=== PATIENT | female | born 1930 | race Caucasian/White ===

== ENCOUNTER 2017-06-12 15:48 | Inpatient (IN) ==
--- OUTSIDE RECORDS SUMMARY | 2017-06-12 16:49 | External Medical Summary | Referral Summary ---
:1930 Author Organization [facility] Address [address] [address] Care Team Providers Name Role Phone Madalyn Soto Primary Care Physician Encounter VC Date(s): 04/15/15 - 04/15/15 [facility] [address] [address] [place] Discharge Diagnosis: Acute renal failure Discharge Disposition: 01-Home or Self Care Attending Physician: Madalyn Soto DO Admitting Physician: Madalyn Soto DO Vital Signs Most recent to oldest [Reference Range]: 1 Temperature Oral [35.8-37.3 degC] 36.5 degC (04/15/15 1:17 PM) Peripheral Pulse Rate [60-100 bpm] 76 bpm (04/15/15 1:17 PM) Respiratory Rate [14-20 br/min] 16 br/min (04/15/15 1:17 PM) Blood Pressure [90-140/60-90 mmHg] 138/64 mmHg (04/15/15 1:17 PM) Problem List Condition Effective Dates Status Health Status Informant Acute pain(Confirmed) Active Allergy(Confirmed) Active Allergic rhinitis Active (disorder)(Confirmed) Arthritis(Confirmed) Active At risk of pressure sore(Confirmed) Active Cataracts(Confirmed) Active Chicken pox(Confirmed) Active Chronic back pain(Confirmed) Active patient Chronic CHF(Confirmed) Active Chronic airway obstruction(Confirmed) Active Essential hypertension Active (disorder)(Confirmed) 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) High cholesterol(Confirmed) Active Hyperlipidemia(Confirmed) Active Hypertension(Confirmed) Active Idiopathic peripheral Active neuropathy(Confirmed) Impaired gas exchange(Confirmed)1 Active Ineffective airway Active clearance(Confirmed)2 Osteoporosis (disorder)(Confirmed) Active Tobacco user(Confirmed) Active patient 1Problem added automatically by system based on initiation of Impaired Gas Exchange Plan of [id number] added automatically by system based on initiation of Ineffective Airway Clearance Plan of Care Allergies, Adverse Reactions, Alerts Substance Reaction Severity Status erythromycin Active penicillin Active sulfanilamide topical Active Medications Advil mg, Oral, q6hr, 0 Refill(s) Start Date: 07/18/15 Status: Orderedcalcium-vitamin D 500 mg-200 intl units oral tablet 1 tabs, Oral, BID, 0 Refill(s) Start Date: 03/01/14 Status: Orderedfurosemide 20 mg oral tablet 2 tabs, Oral, Daily, # 30 tabs, 1 Refill(s), eRx: [facility] #[id number], TAKE ONE TABLET BY MOUTHDAILY Start Date: 12/03/14 Status: Orderedgabapentin 100 mg oral capsule 200 mg 2 caps, Oral, BID, # 120 caps, 0 Refill(s), Pharmacy: [facility] # [id number], 2 caps Oral BID Start Date: 10/13/15 Status: Orderedgabapentin 300 mg oral capsule 300 mg 1 caps, Oral, BID, # 60 caps, 6 Refill(s), Pharmacy: [facility] # [id number], 1 caps Oral BID Start Date: 10/11/15 Status: Orderedhydrochlorothiazide 25 mg oral tablet 25 mg 1 tabs, Oral, Daily, # 90 tabs, 3 Refill(s), Pharmacy: [facility] # [id number], 1 tabs Oral Daily Start Date: 03/29/15 Status: Orderedhydrochlorothiazide 25 mg oral tablet See Instructions, TAKE ONE TABLET BY MOUTH DAILY, # 90 tabs, eRx: [facility] #[id number], TAKE ONETABLET BY MOUTH DAILY Start Date: 08/04/15 Status: Orderedipratropium 500 mcg/2.5 mL inhalation solution 2.5 mL, NEB, q2hr, Other (See Comment), 0 Refill(s) Start Date: 08/31/14 Status: OrderedLamISIL AT 1% topical cream 1 stephanie, Topical, BID, # 30 g, 6 Refill(s), Pharmacy: [facility] #[id number] Start Date: 03/29/15 Status: Orderedlisinopril 20 mg oral tablet See Instructions, TAKE ONE TABLET BY MOUTH DAILY, # 30 tabs, eRx: [facility] #[id number], TAKE ONETABLET BY MOUTH DAILY Start Date: 10/21/15 Status: Orderedloratadine 10 mg oral tablet 1 tabs, Oral, Daily, 0 Refill(s) Start Date: 03/01/14 Status: Orderedmetoprolol tartrate 25 mg oral tablet 2 tabs, Oral, BID, # 360 tabs, 2 Refill(s), Pharmacy: [facility] #[id number] Start Date: 11/02/14 Status: OrderedMilk of Magnesia 2,400 mg, Oral, Daily, Constipation, 0 Refill(s) Start Date: 09/03/14 Status: OrderedMiraLax 17 g, Oral, Daily, 0 Refill(s) Start Date: 09/03/14 Status: OrderedMiscellaneous DME DME Item Toilet Riser with arm rest. DX unsteady gait To use daily as needed, See Instructions, # 1 Each, 1 Refill(s), Supply Start Date: 09/20/14 Status: OrderedOcuvite 1 tabs, Oral, BID, 0 Refill(s) Start Date: 03/01/14 Status: Orderedpotassium chloride 20 mEq oral tablet, extended release See Instructions, TAKE ONE TABLET BY MOUTH DAILY, # 90 tabs, eRx: [facility] #[id number], TAKE ONETABLET BY MOUTH DAILY Start Date: 09/23/15 Status: OrderedPriLOSEC 20 mg oral delayed release capsule 1 caps, Oral, Daily, 0 Refill(s) Start Date: 03/01/14 Status: OrderedSenokot S 50 mg-8.6 mg oral tablet 1 tabs, Oral, BID, 0 Refill(s) Start Date: 08/31/14 Status: Ordered Results No data available for this section Immunizations Vaccine Date Refusal Reason influenza virus vaccine, inactivated 06/08/15 influenza virus vaccine, live 05/11/09 influenza virus vaccine, live 06/16/08 influenza virus vaccine, live 06/24/07 pneumococcal 23-polyvalent vaccine 06/08/15 tetanus-diphth toxoids (Td) adult/adol 08/26/04 zoster vaccine live 09/02/12 Procedures Procedure Date Related Diagnosis Body Site Appendectomy Cataracts Excision of cyst RT Shoulder Social History Social History Type Response Smoking Status Former smoker; Type: Cigarettes Assessment and Plan Extracted from: Title: General Complaint * Author: Madalyn Soto DO Date: 04/15/15 Impression and Plan Diagnosis Acute renal failure (ICD9 584.9, Discharge, Medical). Plan: recommend to get urine sodium , urine creatining, urine osmolality. to get cbc, cmp and serum osmolality. to push more fluids as may be due to hypovolemia. recommend to get ua. to cut her lasix and hctz in half pending results. .
--- OUTSIDE RECORDS SUMMARY | 2017-06-12 16:49 | External Medical Summary | Referral Summary ---
:1930 Author Organization [facility] Address [address] [address] Care Team Providers Name Role Phone Madalyn Soto Primary Care Physician Encounter [facility] [id number] Date(s): 04/24/16 - 04/24/16 [facility] [address] [address] [place] Discharge Diagnosis: High cholesterol Discharge Diagnosis: Chronic airway obstruction Discharge Diagnosis: Chronic back pain Discharge Diagnosis: Hyperlipidemia Discharge Disposition: 01-Home or Self Care Attending Physician: Madalyn Soto DO Admitting Physician: Madalyn Soto DO Vital Signs Most recent to oldest [Reference Range]: 1 Peripheral Pulse Rate [60-100 bpm] 68 bpm (04/24/16 10:33 AM) Blood Pressure [90-140/60-90 mmHg] 106/70 mmHg (04/24/16 10:33 AM) SpO2 92 % (04/24/16 10:33 AM) Problem List Condition Effective Dates Status Health [...] initiation of Impaired Gas Exchange Plan of [id number] added automatically by system based on initiation of Ineffective Airway Clearance Plan of Care Allergies, Adverse Reactions, Alerts Substance Reaction Severity Status erythromycin Active penicillin Active sulfanilamide topical Active Medications Aleve mg, Oral, 0 Refill(s) Start Date: 04/04/16 Status: Orderedcalcium-vitamin D 500 mg-200 intl units oral tablet 1 tabs, Oral, BID, 0 Refill(s) Start Date: 03/01/14 Status: Orderedclobetasol 0.05% topical cream 1 stephanie, Topical, BID, # 60 g, 5 Refill(s), Pharmacy: [facility] #[id number] Start Date: 04/24/16 Status: Orderedfurosemide 20 mg oral tablet 40 mg 2 tabs, Oral, Daily, X 90 days, # 180 tabs, 3 Refill(s), Pharmacy: [facility] #[id number], 2tabs Oral Daily,x90 days Start Date: 01/17/16 Stop Date: 01/11/17 Status: Orderedhydrochlorothiazide 25 mg oral tablet 25 mg 1 tabs, Oral, Daily, # 90 tabs, 3 Refill(s), Pharmacy: [facility] # [id number], 1 tabs Oral Daily Start Date: 03/29/15 Status: Orderedipratropium 500 mcg/2.5 mL inhalation solution 2.5 mL, NEB, q2hr, Other (See Comment), 0 Refill(s) Start Date: 08/31/14 Status: OrderedKlor-Con M20 oral tablet, extended release See Instructions, TAKE ONE TABLET BY MOUTH DAILY, # 90 tabs, eRx: [facility] #[id number], TAKE ONETABLET BY MOUTH DAILY Start Date: 03/23/16 Status: OrderedLamISIL AT 1% topical cream 1 stephanie, Topical, BID, # 24 g, 3 Refill(s), Pharmacy: [facility] #[id number] Start Date: 01/17/16 Status: Orderedlisinopril 20 mg oral tablet See Instructions, TAKE ONE TABLET BY MOUTH DAILY, # 90 Each, 3 Refill(s), Pharmacy: [facility]#[id number] Start Date: 01/17/16 Status: Orderedloratadine 10 mg oral tablet 1 tabs, Oral, Daily, 0 Refill(s) Start Date: 03/01/14 Status: OrderedMetoprolol Tartrate 25 mg oral tablet See Instructions, TAKE TWO TABLETS BY MOUTH TWICE A DAY, # 360 tabs, 1 Refill(s) , eRx: [facility] #[id number], TAKE TWO TABLETS BY MOUTH TWICE A DAY Start Date: 01/27/16 Status: OrderedMilk of Magnesia 2,400 mg, Oral, [...] BID, 0 Refill(s) Start Date: 03/01/14 Status: OrderedPriLOSEC 20 mg oral delayed release capsule 1 caps, Oral, Daily, 0 Refill(s) Start Date: 03/01/14 Status: OrderedSenokot S 50 mg-8.6 mg oral tablet 1 tabs, Oral, BID, 0 Refill(s) Start Date: 08/31/14 Status: Orderedsimvastatin 40 mg oral tablet See Instructions, TAKE ONE TABLET BY MOUTH EVERY EVENING, # 90 tabs, 1 Refill(s) , eRx: [facility] #[id number], TAKE ONE TABLET BY MOUTH EVERY EVENING Start Date: 01/06/16 Status: Ordered Results No data available for this section Immunizations Vaccine Date Refusal Reason tetanus/diphth/pertuss (Tdap) adult/adol 01/17/16 influenza virus vaccine, inactivated 06/08/15 influenza virus vaccine, live 05/11/09 influenza virus vaccine, live 06/16/08 influenza virus vaccine, live 06/24/07 pneumococcal 23-polyvalent vaccine 06/08/15 tetanus-diphth toxoids (Td) adult/adol 08/26/04 zoster vaccine live 09/02/12 Procedures Procedure Date Related Diagnosis Body Site Colonoscopy 07/06/11 Appendectomy Cataracts Excision of cyst RT Shoulder Social History Social History Type Response Smoking Status Former smoker; Type: Cigarettes Assessment and Plan Extracted from: Title: General Complaint * Author: Madalyn Soto DO Date: 04/24/16 Impression and Plan Diagnosis Chronic airway obstruction ([id number]-WM J44.9, Discharge, Medical). Chronic back pain (XSY68-ZT M54.9, Discharge, Patient Stated). High cholesterol (FZV61-OH E78.0, Discharge, Medical). Hyperlipidemia (KGJ26-LR E78.5, Discharge, Medical). Plan: recommend to decrease fatty foods and carbs. discussed high triglycerides. meds refilled. doing well. discussed labs. to repat labs in 6 months. , discussed home safety. .
--- OUTSIDE RECORDS SUMMARY | 2017-06-12 16:49 | External Medical Summary | Referral Summary ---
:1930 Author Organization [facility] Address [address] [address] Care Team Providers Name Role Phone Madalyn Soto Primary Care Physician Encounter VC Date(s): 10/11/15 - 10/11/15 [facility] [address] [address] [place] Discharge Diagnosis: Hyperlipidemia Discharge Diagnosis: Nail fungus Discharge Diagnosis: Foot pain Discharge Diagnosis: Cerumen impaction Discharge Diagnosis: Hypertension Discharge Disposition: 01-Home or Self Care Attending Physician: Madalyn Soto DO Admitting Physician: Madalyn Soto DO Vital Signs Most recent to oldest [Reference Range]: 1 Temperature Oral [35.8-37.3 degC] 36.3 degC (10/11/15 9:44 AM) Peripheral Pulse Rate [60-100 bpm] 88 bpm (10/11/15 9:44 AM) Respiratory Rate [14-20 br/min] 20 br/min (10/11/15 9:44 AM) Blood Pressure [90-140/60-90 mmHg] 118/60 mmHg (10/11/15 9:44 AM) Problem List Condition Effective Dates Status [...] initiation of Impaired Gas Exchange Plan of [id number] added automatically by system based on initiation [...] Daily, # 30 tabs, 1 Refill(s), eRx: [facility] #[id number], TAKE ONE TABLET BY MOUTHDAILY Start Date: 12/03/14 Status: Orderedgabapentin 300 mg oral capsule 300 mg 1 caps, Oral, BID, # 60 caps, 6 Refill(s), Pharmacy: [facility] # [id number], 1 caps Oral BID Start Date: 10/11/15 Status: Orderedhydrochlorothiazide 25 mg oral tablet 25 mg 1 tabs, Oral, Daily, # 90 tabs, 3 Refill(s), Pharmacy: [facility] # [id number], 1 tabs Oral Daily Start Date: 03/29/15 Status: Orderedhydrochlorothiazide 25 mg oral tablet See Instructions, TAKE ONE TABLET BY MOUTH DAILY, # 90 tabs, eRx: [facility] #[id number], TAKE ONETABLET BY MOUTH DAILY Start Date: 08/04/15 Status: Orderedipratropium 500 mcg/2.5 mL inhalation solution 2.5 mL, NEB, q2hr, Other (See Comment), 0 Refill(s) Start Date: 08/31/14 Status: OrderedLamISIL AT 1% topical cream 1 stephanie, Topical, BID, # 30 g, 6 Refill(s), Pharmacy: [facility] #[id number] Start Date: 03/29/15 Status: Orderedlisinopril 20 mg oral tablet See Instructions, TAKE ONE TABLET BY MOUTH DAILY, # 30 tabs, eRx: [facility] #[id number], TAKE ONETABLET BY MOUTH DAILY Start Date: 09/23/15 Status: Orderedloratadine 10 mg oral tablet 1 tabs, Oral, Daily, 0 Refill(s) Start Date: 03/01/14 Status: Orderedmetoprolol tartrate 25 mg oral tablet 2 tabs, Oral, BID, # 360 tabs, 2 Refill(s), Pharmacy: [facility] #[id number] Start Date: 11/02/14 Status: OrderedMilk of Magnesia [...] BY MOUTH DAILY, # 90 tabs, eRx: [facility] #[id number], TAKE ONETABLET BY MOUTH DAILY Start Date: [...] Complaint * Author: Madalyn Soto DO Date: 10/11/15 Impression and Plan Diagnosis Cerumen impaction (ICY63-KC H61.20, Discharge, Medical). Foot pain (NHX13-UX M79.673, Discharge, Medical). Hyperlipidemia (CXY66-MM E78.5, Discharge, Medical). Hypertension (YIX21-ZF I10, Discharge, Medical). Nail fungus (XMA56-CZ B35.1, Discharge, Medical). Plan: recommend to increase neurontin to 300 mg po bid. for pain. recommend to send to podiatry for her foot exam and nail clipping. recommend to continue statin and blood pressure meds. recommend diet and exercise changes. recommend to follwo up in 3 months. , ears lavaged in office and wax removed. .
--- OUTSIDE RECORDS SUMMARY | 2017-06-12 16:49 | External Medical Summary | Referral Summary ---
:1930 Author Organization [facility] [address] [place] [address], Family Medicine Address [address] [address] Care Team Providers Name Role Phone Madalyn Soto Primary Care Physician Encounter [facility] Date(s): 04/04/16 - 04/04/16 [facility] [address] [address] [place] Discharge Disposition: 01-Home or Self Care Attending Physician: Elva Rose Admitting Physician: Elva Rose Vital Signs Most recent to oldest [Reference Range]: 1 Peripheral Pulse Rate [60-100 bpm] 60 bpm (04/04/16 2:36 PM) Respiratory Rate [14-20 br/min] 18 br/min (04/04/16 2:36 PM) Blood Pressure [90-140/60-90 mmHg] 108/74 mmHg (04/04/16 2:36 PM) Problem List Condition Effective Dates Status [...] initiation of Impaired Gas Exchange Plan of [id number] added automatically by system based on initiation of Ineffective Airway Clearance Plan of Care Allergies, Adverse Reactions, Alerts Substance Reaction Severity Status erythromycin Active penicillin Active sulfanilamide topical Active Medications Aleve mg, Oral, 0 Refill(s) Start Date: 04/04/16 Status: Orderedcalcium-vitamin D 500 mg-200 intl units oral tablet 1 tabs, Oral, BID, 0 Refill(s) Start Date: 03/01/14 Status: Orderedfurosemide 20 mg oral tablet 40 mg 2 tabs, Oral, Daily, X 90 days, # 180 tabs, 3 Refill(s), Pharmacy: [facility] #[id number], 2tabs Oral Daily,x90 days Start Date: 01/17/16 Stop Date: 01/11/17 Status: Orderedhydrochlorothiazide 25 mg oral tablet 25 mg 1 tabs, Oral, Daily, # 90 tabs, 3 Refill(s), Pharmacy: [facility] # [id number], 1 tabs Oral Daily Start Date: 03/29/15 Status: Orderedipratropium 500 mcg/2.5 mL inhalation solution 2.5 mL, NEB, q2hr, Other (See Comment), 0 Refill(s) Start Date: 08/31/14 Status: OrderedKlor-Con M20 oral tablet, extended release See Instructions, TAKE ONE TABLET BY MOUTH DAILY, # 90 tabs, eRx: [facility] #[id number], TAKE ONETABLET BY MOUTH DAILY Start Date: 03/23/16 Status: OrderedLamISIL AT 1% topical cream 1 stephanie, Topical, BID, # 24 g, 3 Refill(s), Pharmacy: [facility] #[id number] Start Date: 01/17/16 Status: Orderedlisinopril 20 mg oral tablet See Instructions, TAKE ONE TABLET BY MOUTH DAILY, # 90 Each, 3 Refill(s), Pharmacy: [facility]#[id number] Start Date: 01/17/16 Status: Orderedloratadine 10 mg oral tablet 1 tabs, Oral, Daily, 0 Refill(s) Start Date: 03/01/14 Status: OrderedMetoprolol Tartrate 25 mg oral tablet See Instructions, TAKE TWO TABLETS BY MOUTH TWICE A DAY, # 360 tabs, 1 Refill(s) , eRx: [facility] #[id number], TAKE TWO TABLETS BY MOUTH TWICE A [...] # 90 tabs, 1 Refill(s) , eRx: [facility] #[id number], TAKE ONE TABLET BY MOUTH EVERY EVENING Start Date: 01/06/16 Status: OrderedtraMADol 50 mg oral tablet 50 mg 1 tabs, Oral, q6hr, as needed for pain, X 10 days, # 40 tabs, 0 Refill(s) Start Date: 04/04/16 Stop Date: 04/14/16 Status: Ordered Results No data available for [...] Cigarettes Assessment and Plan Extracted from: Title: Back Pain * Author: Elva Rose Date: 04/04/16 Impression and Plan Diagnosis Acute low back pain (RHF09-PS M54.5, Working, Medical). 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 Tramadol for pain, pt declines any other meds including muscle relaxer. Limit Aleve to 2 pills BID. Discussed ice/heat. Careful monitoring of Sx and avoidance of painful motions. RTC if Sx worsen or change.
--- OUTSIDE RECORDS SUMMARY | 2017-06-12 16:49 | External Medical Summary | Referral Summary ---
:1930 Author Organization [facility] [address] [place] [address], Family Medicine Address [address] [address] Care Team Providers Name Role Phone Madalyn Soto Primary Care Physician Encounter VC Date(s): 07/18/15 - 07/18/15 [facility] [address] [place] [address], Family Medicine [address] [address] [place] Discharge Diagnosis: Cough Discharge Diagnosis: Burning sensation of feet Discharge Disposition: 01-Home or Self Care Attending Physician: Kalie Brice Admitting Physician: Kalie Brice Vital Signs Most recent to oldest [Reference Range]: 1 Temperature Oral [35.8-37.3 degC] 36.5 degC (07/18/15 1:14 PM) Peripheral Pulse Rate [60-100 bpm] 64 bpm (07/18/15 1:14 PM) Respiratory Rate [14-20 br/min] 16 br/min (07/18/15 1:14 PM) Blood Pressure [90-140/60-90 mmHg] 110/52 mmHg (07/18/15 1:14 PM) Problem List Condition Effective Dates Status Health Status Informant Acute pain(Confirmed) Active Allergy(Confirmed) Active Allergic rhinitis Active (disorder)(Confirmed) At risk of pressure sore(Confirmed) Active Chronic back pain(Confirmed) Active patient Chronic CHF(Confirmed) Active Chronic airway obstruction(Confirmed) Active Essential hypertension Active (disorder)(Confirmed) 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) Hyperlipidemia(Confirmed) Active Idiopathic peripheral Active neuropathy(Confirmed) Impaired gas exchange(Confirmed)1 Active Ineffective airway Active clearance(Confirmed)2 Osteoporosis (disorder)(Confirmed) Active Tobacco user(Confirmed) Active patient 1Problem added automatically by system based on initiation of Impaired Gas Exchange Plan of [id number] added automatically by system based on initiation of Ineffective Airway Clearance Plan of Care Allergies, Adverse Reactions, Alerts Substance Reaction Severity Status erythromycin Active penicillin Active sulfanilamide topical Active Medications Advil mg, Oral, q6hr, 0 Refill(s) Start Date: 07/18/15 Status: Orderedalendronate 70 mg oral tablet 1 tabs, Oral, qWeek, # 4 tabs, 11 Refill(s), Pharmacy: [facility] #[id number] , 1 tabs Oral qWeek Start Date: 12/14/14 Status: Orderedcalcium-vitamin D 500 mg-200 intl units oral tablet 1 tabs, Oral, BID, 0 Refill(s) Start Date: 03/01/14 Status: Orderedfurosemide 20 mg oral tablet 2 tabs, Oral, Daily, # 30 tabs, 1 Refill(s), eRx: [facility] #[id number], TAKE ONE TABLET BY MOUTHDAILY Start Date: 12/03/14 Status: Orderedgabapentin 100 mg oral capsule 100 mg 1 caps, Oral, Bedtime (once a day), take 1 at HS for foot pain, # 30 caps , 1 Refill(s), Pharmacy: [facility] #[id number], 1 caps Oral Bedtime (once a day),Instr:take 1 at HS for foot pain Start Date: 07/18/15 Status: Orderedhydrochlorothiazide 25 mg oral tablet 25 mg 1 tabs, Oral, Daily, # 90 tabs, 3 Refill(s), Pharmacy: [facility] # [id number], 1 tabs Oral Daily Start Date: 03/29/15 Status: Orderedipratropium 500 mcg/2.5 mL inhalation solution 2.5 mL, NEB, q2hr, Other (See Comment), 0 Refill(s) Start Date: 08/31/14 Status: OrderedLamISIL AT 1% topical cream 1 stephanie, Topical, BID, # 30 g, 6 Refill(s), Pharmacy: [facility] #[id number] Start Date: 03/29/15 Status: Orderedlisinopril 20 mg oral tablet See Instructions, TAKE ONE TABLET BY MOUTH DAILY, # 30 tabs, 2 Refill(s), eRx: [facility] #[id number], TAKE ONE TABLET BY MOUTH DAILY Start Date: 04/29/15 Status: Orderedloratadine 10 mg oral tablet 1 tabs, Oral, Daily, 0 Refill(s) Start Date: 03/01/14 Status: Orderedmetoprolol tartrate 25 mg oral tablet 2 tabs, Oral, BID, # 360 tabs, 2 Refill(s), Pharmacy: [facility] #[id number] Start Date: 11/02/14 Status: OrderedMilk of Magnesia 2,400 mg, Oral, Daily, Constipation, 0 Refill(s) Start Date: 09/03/14 Status: OrderedMiraLax 17 g, Oral, Daily, 0 Refill(s) Start Date: 09/03/14 Status: OrderedMiscellaneous DME DME Item Toilet Riser with arm rest. DX unsteady gait To use daily as needed, See Instructions, # 1 Each, 1 Refill(s), Supply Start Date: 09/20/14 Status: OrderedMucinex 600 mg oral tablet, extended release 1 tabs, Oral, BID, 0 Refill(s) Start Date: 09/03/14 Status: OrderedOcuvite 1 tabs, Oral, BID, 0 Refill(s) Start Date: 03/01/14 Status: Orderedpotassium chloride 20 mEq oral tablet, extended release See Instructions, TAKE ONE TABLET BY MOUTH DAILY, # 90 tabs, eRx: [facility] #[id number], TAKE ONETABLET BY MOUTH DAILY Start Date: 06/24/15 Status: OrderedPriLOSEC 20 mg oral delayed release capsule 1 caps, Oral, Daily, 0 Refill(s) Start Date: 03/01/14 Status: OrderedPromethazine DM 6.25 mg-15 mg/5 mL oral syrup 5 mL, Oral, q6hr, as needed for cough, # 240 mL, 0 Refill(s), Pharmacy: [facility] #[id number] Start Date: 07/18/15 Status: OrderedSenokot S 50 mg-8.6 mg oral tablet 1 tabs, Oral, BID, 0 Refill(s) Start Date: 08/31/14 Status: Orderedsimvastatin 40 mg oral tablet See Instructions, TAKE ONE TABLET BY MOUTH EVERY EVENING, # 90 tabs, 2 Refill(s) , eRx: [facility] #[id number], TAKE ONE TABLET BY MOUTH EVERY EVENING Start Date: 04/08/15 Status: Ordered Results Chemistry Most recent to oldest [Reference Range]: 1 Glucose Lvl [70-99 mg/dL] 100 mg/dL *HI* (07/18/15 1:48 PM) Hgb A1c [4.1-5.6 %] 5.7 % *HI* (07/18/15 1:48 PM) eAvg Glucose 116.9 mg/dL (07/18/15 1:48 PM) Immunizations Vaccine Date Refusal Reason influenza virus vaccine, inactivated 06/08/15 influenza virus vaccine, live 05/11/09 influenza virus vaccine, live 06/16/08 influenza virus vaccine, live 06/24/07 pneumococcal 23-polyvalent vaccine 06/08/15 tetanus-diphth toxoids (Td) adult/adol 08/26/04 zoster vaccine live 09/02/12 Procedures Procedure Date Related Diagnosis Body Site Appendectomy Excision of cyst RT Shoulder Social History Social History Type Response Smoking Status Former smoker; Type: Cigarettes Assessment and Plan Extracted from: Title: Ambulatory Patient Education Author: Kalie Brice Date: Allergy Cough, Adult A cough is a reflex that helps clear your throat and airways. It can help heal the body or may be a reaction to an irritated airway. A cough may only last 2 or 3 weeks (acute) or may last more than 8 weeks (chronic). CAUSES Acute cough: Viral or bacterial infections. Chronic cough: Infections. Allergies. Asthma. Post-nasal drip. Smoking. Heartburn or acid reflux. Some medicines. Chronic lung problems (COPD). Cancer. SYMPTOMS Cough. Fever. Chest pain. Increased breathing rate. High-pitched whistling sound when breathing (wheezing). Colored mucus that you cough up (sputum). TREATMENT A bacterial cough may be treated with antibiotic medicine. A viral cough must run its course and will not respond to antibiotics. Your caregiver may recommend other treatments if you have a chronic cough. HOME CARE INSTRUCTIONS Only take smkb-rej-uvireka or prescription medicines for pain, discomfort , or fever as directed by your caregiver. Use cough suppressants only as directed by your caregiver. Use a cold steam vaporizer or humidifier in your bedroom or home to help loosen secretions. Sleep in a semi-upright position if your cough is worse at night. Rest as needed. Stop smoking if you smoke. SEEK IMMEDIATE MEDICAL CARE IF: You have pus in your sputum. Your cough starts to worsen. You cannot control your cough with suppressants and are losing sleep. You begin coughing up blood. You have difficulty breathing. You develop pain which is getting worse or is uncontrolled with medicine. You have a fever. MAKE SURE YOU: Understand these instructions. Will watch your condition. Will get help right away if you are not doing well or get worse. Document Released: 02/08/2012 Document Revised: 11/03/2012 Document Reviewed: 02/08/2012 ExitCare Patient Information 2015 [employer]. This information is not intended to replace advice given to you by your health care provider. Make sure you discuss any questions you have with your health care provider. No follow up information was provided. Extracted from: Title: General Complaint * Author: Kalie Brice Date: 07/18/15 Impression and Plan Diagnosis Burning sensation of feet (FHF71-LW R20.8, Working, Medical). Cough ([id number] R05, Discharge, Medical). Plan: cough is likely due to post nasal drainage Promethazine DM as needed for cough and drainage Gabapentin 100mg at HS for burning in feet labs pending if labs are normal and pain persists, will get lower ext venous ultrasound .
--- OUTSIDE RECORDS SUMMARY | 2017-06-12 16:49 | External Medical Summary | Referral Summary ---
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 Discharge Disposition: 01-Home or Self Care Attending Physician: Mariella Kennedy MD Admitting Physician: Mariella Kennedy MD Referring Physician: Madalyn Soto DO Vital Signs Most recent to oldest [Reference Range]: 1 Peripheral Pulse Rate [60-100 bpm] 68 bpm (09/28/15 9:27 AM) Blood Pressure [90-140/60-90 mmHg] 130/70 mmHg (09/28/15 9:27 AM) Problem List Condition Effective Dates Status [...] initiation of Impaired Gas Exchange Plan of [id number] added automatically by system based on initiation [...] Daily, # 30 tabs, 1 Refill(s), eRx: [facility] #[id number], TAKE ONE TABLET BY MOUTHDAILY Start Date: 12/03/14 Status: Orderedhydrochlorothiazide 25 mg oral tablet 25 mg 1 tabs, Oral, Daily, # 90 tabs, 3 Refill(s), Pharmacy: [facility] # [id number], 1 tabs Oral Daily Start Date: 03/29/15 Status: Orderedhydrochlorothiazide 25 mg oral tablet See Instructions, TAKE ONE TABLET BY MOUTH DAILY, # 90 tabs, eRx: [facility] #[id number], TAKE ONETABLET BY MOUTH DAILY Start Date: 08/04/15 Status: Orderedipratropium 500 mcg/2.5 mL inhalation solution 2.5 mL, NEB, q2hr, Other (See Comment), 0 Refill(s) Start Date: 08/31/14 Status: OrderedLamISIL AT 1% topical cream 1 stephanie, Topical, BID, # 30 g, 6 Refill(s), Pharmacy: [facility] #[id number] Start Date: 03/29/15 Status: Orderedlisinopril 20 mg oral tablet See Instructions, TAKE ONE TABLET BY MOUTH DAILY, # 30 tabs, eRx: [facility] #[id number], TAKE ONETABLET BY MOUTH DAILY Start Date: 09/23/15 Status: Orderedloratadine 10 mg oral tablet 1 tabs, Oral, Daily, 0 Refill(s) Start Date: 03/01/14 Status: Orderedmetoprolol tartrate 25 mg oral tablet 2 tabs, Oral, BID, # 360 tabs, 2 Refill(s), Pharmacy: [facility] #[id number] Start Date: 11/02/14 Status: OrderedMilk of Magnesia [...] BY MOUTH DAILY, # 90 tabs, eRx: [facility] #[id number], TAKE ONETABLET BY MOUTH DAILY Start Date: 09/23/15 Status: OrderedPriLOSEC 20 mg oral delayed release capsule 1 caps, Oral, Daily, 0 Refill(s) Start Date: 03/01/14 Status: OrderedPromethazine DM 6.25 mg-15 mg/5 mL oral syrup 5 mL, Oral, q6hr, as needed for cough, # 240 mL, 0 Refill(s), Pharmacy: [facility] #[id number] Start Date: 07/18/15 Status: OrderedSenokot S 50 mg-8.6 mg oral tablet 1 tabs, Oral, BID, 0 Refill(s) Start Date: 08/31/14 Status: Orderedsimvastatin 40 mg oral tablet See Instructions, TAKE ONE TABLET BY MOUTH EVERY EVENING, # 90 tabs, 2 Refill(s) , eRx: [facility] #[id number], TAKE ONE TABLET BY MOUTH EVERY EVENING Start Date: 04/08/15 Status: Ordered Results No data available for [...] Cigarettes Assessment and Plan Extracted from: Title: Consult Note Author: Mariella Kennedy MD Date: 09/28/15 Assessment/Plan Adult idiopathic generalized osteoporosis discussed dexa results with patient has been on fosamax for 6 years it is time to stop it she also has a gfr of 30, so alendronate is contra-indicated repeat dexa scan in 1 year if worsening of bmd, will start prolia 2-low vit.d: check levels replace accordingly 3-GFR of 30: suggest nephrology referral Addendum by Mariella Kennedy MD on September [facility] in 1 year with dexa scan prior 2015 09:53:13 [employer]
--- OUTSIDE RECORDS SUMMARY | 2017-06-12 16:49 | External Medical Summary | Referral Summary ---
:1930 Author Organization [facility] [address] [place] [address], Family Medicine Address [address] [address] Care Team Providers Name Role Phone Madalyn Soto Primary Care Physician Encounter VC Date(s): 12/27/14 - 12/27/14 [facility] , Family Medicine [address] [address] - [place] Discharge Diagnosis: COPD (chronic obstructive pulmonary disease) Discharge Disposition: 01-Home or Self Care Attending Physician: Kalie Brice Admitting Physician: Kalie Brice Vital Signs Most recent to oldest [Reference Range]: 1 Temperature Oral [35.8-37.3 degC] 36.4 degC (12/27/14 10:58 AM) Apical Heart Rate [60-100 bpm] 56 bpm *LOW* (12/27/14 10:58 AM) Respiratory Rate [14-20 br/min] 12 br/min *LOW* (12/27/14 10:58 AM) Blood Pressure [90-140/60-90 mmHg] 128/78 mmHg (12/27/14 10:58 AM) SpO2 86 % (12/27/14 10:58 AM) Problem List Condition Effective Dates Status [...] initiation of Impaired Gas Exchange Plan of [id number] added automatically by system based on initiation of Ineffective Airway Clearance Plan of Care Allergies, Adverse Reactions, Alerts Substance Reaction Severity Status erythromycin Active penicillin Active sulfanilamide topical Active Medications alendronate 70 mg oral tablet 1 tabs, Oral, qWeek, # 4 tabs, 11 Refill(s), Pharmacy: [facility] #[id number] , 1 tabs Oral qWeek Start Date: 12/14/14 Status: Orderedcalcium-vitamin D 500 mg-200 intl units oral tablet 1 tabs, Oral, BID, 0 Refill(s) Start Date: 03/01/14 Status: Orderedfurosemide 20 mg oral tablet 2 tabs, Oral, Daily, # 30 tabs, 1 Refill(s), eRx: [facility] #[id number], TAKE ONE TABLET BY MOUTHDAILY Start Date: 12/03/14 Status: Orderedhydrochlorothiazide 25 mg oral tablet 25 mg 1 tabs, Oral, Daily, # 90 tabs, 3 Refill(s), Pharmacy: [facility] # [id number], 1 tabs Oral Daily Start Date: 03/29/15 Status: Orderedipratropium 500 mcg/2.5 mL inhalation solution 2.5 mL, NEB, q2hr, Other (See Comment), 0 Refill(s) Start Date: 08/31/14 Status: OrderedLamISIL AT 1% topical cream 1 stephanie, Topical, BID, # 30 g, 6 Refill(s), Pharmacy: [facility] #[id number] Start Date: 03/29/15 Status: Orderedlisinopril 20 mg oral tablet See Instructions, TAKE ONE TABLET BY MOUTH DAILY, # 30 tabs, 2 Refill(s), eRx: [facility] #[id number], TAKE ONE TABLET BY MOUTH DAILY Start Date: 04/29/15 Status: Orderedloratadine 10 mg oral tablet 1 tabs, Oral, Daily, 0 Refill(s) Start Date: 03/01/14 Status: Orderedmetoprolol tartrate 25 mg oral tablet 2 tabs, Oral, BID, # 360 tabs, 2 Refill(s), Pharmacy: [facility] #[id number] Start Date: 11/02/14 Status: OrderedMilk of Magnesia [...] BY MOUTH DAILY, # 90 tabs, eRx: [facility] #[id number], TAKE ONETABLET BY MOUTH DAILY Start Date: [...] # 90 tabs, 2 Refill(s) , eRx: [facility] #[id number], TAKE ONE TABLET BY MOUTH EVERY EVENING [...] Ambulatory Patient Education Author: Kalie Brice Date: 12/27/14 Family Medicine Chronic Obstructive Pulmonary Disease Chronic obstructive pulmonary disease (COPD) is a common lung condition in which airflow from the lungs is limited. COPD is a general term that can be used to describe many different lung problems that limit airflow, including both chronic bronchitis and emphysema. If you have COPD, your lung function will probably never return to normal, but there are measures you can take to improve lung function and make yourself feel better. CAUSES Smoking (common). Exposure to secondhand smoke. Genetic problems. Chronic inflammatory lung diseases or recurrent infections. SYMPTOMS Shortness of breath, especially with physical activity. Deep, persistent (chronic ) cough with a large amount of thick mucus. Wheezing. Rapid breaths (tachypnea ). Meeks or bluish discoloration (cyanosis ) of the skin, especially in fingers, toes, or lips. Fatigue. Weight loss. Frequent infections or episodes when breathing symptoms become much worse (exacerbations ). Chest tightness. DIAGNOSIS Your healthcare provider will take a medical history and perform a physical examination to make the initial diagnosis. Additional tests for COPD may include: Lung (pulmonary ) function tests. Chest X-ray. CT scan. Blood tests. TREATMENT Treatment available to help you feel better when you have COPD include: Inhaler and nebulizer medicines. These help manage the symptoms of COPD and make your breathing more comfortable Supplemental oxygen. Supplemental oxygen is only helpful if you have a low oxygen level in your blood. Exercise and physical activity. These are beneficial for nearly all people with COPD. Some people may also benefit from a pulmonary rehabilitation program. HOME CARE INSTRUCTIONS Take all medicines (inhaled or pills) as directed by your health care provider. Only take fhbl-kaf-yqushpy or prescription medicines for pain, fever, or discomfort as directed by your health care provider. Avoid vtln-ovr-khjdqum medicines or cough syrups that dry up your airway ( such as antihistamines) and slow down the elimination of secretions unless instructed otherwise by your healthcare provider. If you are a smoker, the most important thing that you can do is stop smoking. Continuing to smoke will cause further lung damage and breathing trouble. Ask your health care provider for help with quitting smoking. He or she can direct you to community resources or hospitals that provide support. Avoid exposure to irritants such as smoke, chemicals, and fumes that aggravate your breathing. Use oxygen therapy and pulmonary rehabilitation if directed by your health care provider. If you require home oxygen therapy, ask your healthcare provider whether you should purchase a pulse oximeter to measure your oxygen level at home. Avoid contact with individuals who have a contagious illness. Avoid extreme temperature and humidity changes. Eat healthy foods. Eating smaller, more frequent meals and resting before meals may help you maintain your strength. Stay active, but balance activity with periods of rest. Exercise and physical activity will help you maintain your ability to do things you want to do. Preventing infection and hospitalization is very important when you have COPD. Make sure to receive all the vaccines your health care provider recommends , especially the pneumococcal and influenza vaccines. Ask your healthcare provider whether you need a pneumonia vaccine. Learn and use relaxation techniques to manage stress. Learn and use controlled breathing techniques as directed by your health care provider. Controlled breathing techniques include: Pursed lip breathing. Start by breathing in (inhaling ) through your nose for 1 second. Then, purse your lips as if you were going to whistle and breathe out (exhale ) through the pursed lips for 2 seconds. Diaphragmatic breathing. Start by putting one hand on your abdomen just above your waist. Inhale slowly through your nose. The hand on your abdomen should move out. Then purse your lips and exhale slowly. You should be able to feel the hand on your abdomen moving in as you exhale. Learn and use controlled coughing to clear mucus from your lungs. Controlled coughing is a series of short, progressive coughs. The steps of controlled coughing are: 1. Lean your head slightly forward. 2. Breathe in deeply using diaphragmatic breathing. 3. Try to hold your breath for 3 seconds. 4. Keep your mouth slightly open while coughing twice. 5. Spit any mucus out into a tissue. 6. Rest and repeat the steps once or twice as needed. SEEK MEDICAL CARE IF: You are coughing up more mucus than usual. There is a change in the color or thickness of your mucus. Your breathing is more labored than usual. Your breathing is faster than usual. SEEK IMMEDIATE MEDICAL CARE IF: You have shortness of breath while you are resting. You have shortness of breath that prevents you from: Being able to talk. Performing your usual physical activities. You have chest pain lasting longer than 5 minutes. Your skin color is more cyanotic than usual. You measure low oxygen saturations for longer than 5 minutes with a pulse oximeter. MAKE SURE YOU: Understand these instructions. Will watch your condition. Will get help right away if you are not doing well or get worse. Document Released: 05/22/2006 Document Revised: 06/02/2014 Document Reviewed: 04/08/2014 ExitCare Patient Information 2014 [employer] [facility]. No follow up information was provided. Extracted from: Title: General Complaint * Author: Kalie Brice Date: 12/27/14 Impression and Plan Diagnosis COPD (chronic obstructive pulmonary disease) (ICD9 496, Discharge, Medical). Plan: pts O2 sat in office was 92% on room air, resting dropped to 86% exercising but then rebounded to 92% after exercise pt insists on discontinuing her O2 - she hasn't used it in the last 6 weeks advise given continue breathing treatments and Mucinex follow up in 3 months - sooner if needed.
--- OUTSIDE RECORDS SUMMARY | 2017-06-12 16:49 | External Medical Summary | Referral Summary ---
:1930 Author Organization [facility] [address] [place] [address], Family Medicine Address [address] [address] Care Team Providers Name Role Phone Madalyn Soto Primary Care Physician Encounter VC Date(s): 06/20/16 - 06/20/16 [facility] [address] [place] [address], Family Medicine [address] [address] [place] Discharge Disposition: 01-Home or Self Care Attending Physician: Madalyn Soto DO Admitting Physician: Madalyn Soto DO Vital Signs No data available for this section Problem List Condition Effective Dates Status Health [...] initiation of Impaired Gas Exchange Plan of [id number] added automatically by system based on initiation of Ineffective Airway Clearance Plan of Care Allergies, Adverse Reactions, Alerts Substance Reaction Severity Status erythromycin Active penicillin Active sulfanilamide topical Active Medications Aleve mg, Oral, 0 Refill(s) Start Date: 04/04/16 Status: Orderedcalcium-vitamin D 500 mg-200 intl units oral tablet 1 tabs, Oral, BID, 0 Refill(s) Start Date: 03/01/14 Status: Orderedclobetasol 0.05% topical cream 1 stephnaie, Topical, BID, # 60 g, 5 Refill(s), Pharmacy: [facility] #[id number] Start Date: 04/24/16 Status: Orderedfurosemide 20 mg oral tablet 40 mg 2 tabs, Oral, Daily, X 90 days, # 180 tabs, 3 Refill(s), Pharmacy: [facility] #[id number], 2tabs Oral Daily,x90 days Start Date: 01/17/16 Stop Date: 01/11/17 Status: Orderedhydrochlorothiazide 25 mg oral tablet 25 mg 1 tabs, Oral, Daily, # 90 tabs, 3 Refill(s), Pharmacy: [facility] # [id number], 1 tabs Oral Daily Start Date: 03/29/15 Status: Orderedipratropium 500 mcg/2.5 mL inhalation solution 2.5 mL, NEB, q2hr, Other (See Comment), 0 Refill(s) Start Date: 08/31/14 Status: OrderedKlor-Con M20 oral tablet, extended release See Instructions, TAKE ONE TABLET BY MOUTH DAILY, # 90 tabs, eRx: [facility] #[id number], TAKE ONETABLET BY MOUTH DAILY Start Date: 03/23/16 Status: OrderedLamISIL AT 1% topical cream 1 stephanie, Topical, BID, # 24 g, 3 Refill(s), Pharmacy: [facility] #[id number] Start Date: 01/17/16 Status: Orderedlisinopril 20 mg oral tablet See Instructions, TAKE ONE TABLET BY MOUTH DAILY, # 90 Each, 3 Refill(s), Pharmacy: [facility]#[id number] Start Date: 01/17/16 Status: Orderedloratadine 10 mg oral tablet 1 tabs, Oral, Daily, 0 Refill(s) Start Date: 03/01/14 Status: OrderedMetoprolol Tartrate 25 mg oral tablet See Instructions, TAKE TWO TABLETS BY MOUTH TWICE A DAY, # 360 tabs, 1 Refill(s) , eRx: [facility] #[id number], TAKE TWO TABLETS BY MOUTH TWICE A [...] # 90 tabs, 1 Refill(s) , eRx: [facility] #[id number], TAKE ONE TABLET BY MOUTH EVERY EVENING Start Date: 01/06/16 Status: Ordered Results No data available for this section Immunizations Vaccine Date Refusal Reason tetanus/diphth/pertuss (Tdap) adult/adol 01/17/16 influenza virus vaccine, inactivated 06/20/16 influenza virus vaccine, inactivated 06/08/15 influenza virus vaccine, live 05/11/09 influenza virus vaccine, live 06/16/08 influenza virus vaccine, live 06/24/07 pneumococcal 23-polyvalent vaccine 06/08/15 tetanus-diphth toxoids (Td) adult/adol 08/26/04 zoster vaccine live 09/02/12 Procedures Procedure Date Related Diagnosis Body Site Colonoscopy1 07/06/11 Appendectomy Cataracts Excision of cyst RT Shoulder 1Normal - no followup recommended unless symptomatic Social History Social History Type Response Smoking Status Former smoker; Type: Cigarettes Assessment and Plan No data available for this section
--- OUTSIDE RECORDS SUMMARY | 2017-06-12 16:49 | External Medical Summary | Referral Summary ---
:1930 Author Organization [facility] [address] [place] [address], Family Medicine Address [address] [address] Care Team Providers Name Role Phone Madalyn Soto Primary Care Physician Encounter VC Date(s): 06/08/15 - 06/08/15 [facility] [address] [place] [address], Family Medicine [address] [address] [place] Discharge Disposition: 01-Home [...] initiation of Impaired Gas Exchange Plan of [id number] added automatically by system based on initiation [...] Daily, # 30 tabs, 1 Refill(s), eRx: [facility] #[id number], TAKE ONE TABLET BY MOUTHDAILY Start Date: 12/03/14 Status: Orderedgabapentin 100 mg oral capsule 200 mg 2 caps, Oral, BID, # 120 caps, 0 Refill(s), Pharmacy: [facility] # [id number], 2 caps Oral BID Start Date: 10/13/15 Status: Orderedgabapentin 300 mg oral capsule 300 mg 1 caps, Oral, BID, # 60 caps, 6 Refill(s), Pharmacy: [facility] # [id number], 1 caps Oral BID Start Date: 10/11/15 Status: Orderedhydrochlorothiazide 25 mg oral tablet 25 mg 1 tabs, Oral, Daily, # 90 tabs, 3 Refill(s), Pharmacy: [facility] # [id number], 1 tabs Oral Daily Start Date: 03/29/15 Status: Orderedhydrochlorothiazide 25 mg oral tablet See Instructions, TAKE ONE TABLET BY MOUTH DAILY, # 90 tabs, eRx: [facility] #[id number], TAKE ONETABLET BY MOUTH DAILY Start Date: 08/04/15 Status: Orderedipratropium 500 mcg/2.5 mL inhalation solution 2.5 mL, NEB, q2hr, Other (See Comment), 0 Refill(s) Start Date: 08/31/14 Status: OrderedLamISIL AT 1% topical cream 1 stephanie, Topical, BID, # 30 g, 6 Refill(s), Pharmacy: [facility] #[id number] Start Date: 03/29/15 Status: Orderedlisinopril 20 mg oral tablet See Instructions, TAKE ONE TABLET BY MOUTH DAILY, # 30 tabs, eRx: [facility] #[id number], TAKE ONETABLET BY MOUTH DAILY Start Date: 11/25/15 Status: Orderedloratadine 10 mg oral tablet 1 tabs, Oral, Daily, 0 Refill(s) Start Date: 03/01/14 Status: Orderedmetoprolol tartrate 25 mg oral tablet 2 tabs, Oral, BID, # 360 tabs, 2 Refill(s), Pharmacy: [facility] #[id number] Start Date: 11/02/14 Status: OrderedMilk of Magnesia [...] BY MOUTH DAILY, # 90 tabs, eRx: [facility] #[id number], TAKE ONETABLET BY MOUTH DAILY Start Date: [...]
--- OUTSIDE RECORDS SUMMARY | 2017-06-12 16:50 | External Medical Summary | Continuity of Care Document ---
:1930 Author Organization [facility] Allergies Medications Problems Procedures Results Encounters ACCT No. Visit Discharge Status Pt. Type Provider Facility Loc./Unit Complaint Date/Time [id number] 11/10/2013 11/10/2013 CLS Outpatient 08:50:00 23:59:59 [id number] 08/11/2013 08/11/2013 CLS Outpatient 08:09:00 23:59:59
--- OUTSIDE RECORDS SUMMARY | 2017-06-12 16:50 | External Medical Summary | Referral Summary ---
:1930 Author Organization [facility] [address] [place] [address], Family Medicine Address [address] [address] Care Team Providers Name Role Phone Madalyn Soto Primary Care Physician Encounter VC Date(s): 01/17/16 - 01/17/16 [facility] [address] , Family Medicine [address] [address] [place] Discharge Diagnosis: Essential hypertension (disorder) Discharge Diagnosis: Hyperlipidemia Discharge Diagnosis: High cholesterol Discharge Diagnosis: Encounter for immunization Discharge Disposition: 01-Home or Self Care Attending Physician: Madalyn Soto DO Admitting Physician: Madalyn Soto DO Vital Signs Most recent to oldest [Reference Range]: 1 Temperature Oral [35.8-37.3 degC] 36.5 degC (01/17/16 10:13 AM) Peripheral Pulse Rate [60-100 bpm] 68 bpm (01/17/16 10:13 AM) Respiratory Rate [14-20 br/min] 18 br/min (01/17/16 10:13 AM) Blood Pressure [90-140/60-90 mmHg] 130/72 mmHg (01/17/16 10:13 AM) Mean Arterial Pressure, Cuff 91 mmHg (01/17/16 10:13 AM) Problem List Condition Effective Dates Status [...] initiation of Impaired Gas Exchange Plan of [id number] added automatically by system based on initiation [...] days, # 180 tabs, 3 Refill(s), Pharmacy: [facility] #[id number], 2tabs Oral Daily,x90 days Start Date: 01/17/16 Stop Date: 01/11/17 Status: Orderedhydrochlorothiazide 25 mg oral tablet 25 mg 1 tabs, Oral, Daily, # 90 tabs, 3 Refill(s), Pharmacy: [facility] # [id number], 1 tabs Oral Daily Start Date: 03/29/15 Status: Orderedipratropium 500 mcg/2.5 mL inhalation solution 2.5 mL, NEB, q2hr, Other (See Comment), 0 Refill(s) Start Date: 08/31/14 Status: OrderedLamISIL AT 1% topical cream 1 stephanie, Topical, BID, # 24 g, 3 Refill(s), Pharmacy: [facility] #[id number] Start Date: 01/17/16 Status: Orderedlisinopril 20 mg oral tablet See Instructions, TAKE ONE TABLET BY MOUTH DAILY, # 90 Each, 3 Refill(s), Pharmacy: [facility]#[id number] Start Date: 01/17/16 Status: Orderedloratadine 10 mg oral tablet 1 tabs, Oral, Daily, 0 Refill(s) Start Date: 03/01/14 Status: Orderedmetoprolol tartrate 25 mg oral tablet 2 tabs, Oral, BID, # 360 tabs, 2 Refill(s), Pharmacy: [facility] #[id number] Start Date: 11/02/14 Status: OrderedMilk of Magnesia [...] BY MOUTH DAILY, # 90 tabs, eRx: [facility] #[id number], TAKE ONETABLET BY MOUTH DAILY Start Date: 12/23/15 Status: OrderedPriLOSEC 20 mg oral delayed release capsule 1 caps, Oral, Daily, 0 Refill(s) Start Date: 03/01/14 Status: OrderedSenokot S 50 mg-8.6 mg oral tablet 1 tabs, Oral, BID, 0 Refill(s) Start Date: 08/31/14 Status: Orderedsimvastatin 40 mg oral tablet See Instructions, TAKE ONE TABLET BY MOUTH EVERY EVENING, # 90 tabs, 1 Refill(s) , eRx: [facility] #[id number], TAKE ONE TABLET BY MOUTH EVERY EVENING Start Date: 01/06/16 Status: Ordered Results Urinalysis Most recent to oldest [Reference Range]: 1 Type Clean Catch (01/17/16 11:25 AM) Immunizations Vaccine Date Refusal Reason tetanus/diphth/pertuss (Tdap) [...] Complaint * Author: Madalyn Soto DO Date: 01/17/16 Impression and Plan Diagnosis Essential hypertension (disorder) (ECD93-[id number] I10, Discharge, Medical). High cholesterol (YCG79-CS E78.0, Discharge, Medical). Hyperlipidemia (MBG38-CJ E78.5, Discharge, Medical). Plan: she is doing well. refilled blood pressure meds. recommend diet and exericse recommend to follow up to recheck renal function in 3 months. to increase iron in diet. .
--- OUTSIDE RECORDS SUMMARY | 2017-06-12 16:50 | External Medical Summary | Referral Summary ---
:1930 Author Organization [facility] [address] [place] [address], Family Medicine Address [address] [address] Care Team Providers Name Role Phone Madalyn Soto Primary Care Physician Encounter VC Date(s): 12/27/14 - 12/27/14 [facility] [address] , Family Medicine [address] [address] [place] Discharge Diagnosis: COPD [...] initiation of Impaired Gas Exchange Plan of [id number] added automatically by system based on initiation of Ineffective Airway Clearance Plan of Care Allergies, Adverse Reactions, Alerts Substance Reaction Severity Status erythromycin Active penicillin Active sulfanilamide topical Active Medications alendronate 70 mg oral tablet 1 tabs, Oral, qWeek, # 4 tabs, 11 Refill(s), Pharmacy: [facility] #[id number] , 1 tabs Oral qWeek Start Date: 12/14/14 Status: Orderedcalcium-vitamin D 500 mg-200 intl units oral tablet 1 tabs, Oral, BID, 0 Refill(s) Start Date: 03/01/14 Status: Orderedfurosemide 20 mg oral tablet 2 tabs, Oral, Daily, # 30 tabs, 1 Refill(s), eRx: [facility] #[id number], TAKE ONE TABLET BY MOUTHDAILY Start Date: 12/03/14 Status: Orderedhydrochlorothiazide 25 mg oral tablet 25 mg 1 tabs, Oral, Daily, # 90 tabs, 3 Refill(s), Pharmacy: [facility] # [id number], 1 tabs Oral Daily Start Date: 03/29/15 Status: Orderedipratropium 500 mcg/2.5 mL inhalation solution 2.5 mL, NEB, q2hr, Other (See Comment), 0 Refill(s) Start Date: 08/31/14 Status: OrderedLamISIL AT 1% topical cream 1 stephanie, Topical, BID, # 30 g, 6 Refill(s), Pharmacy: [facility] #[id number] Start Date: 03/29/15 Status: Orderedlisinopril 20 mg oral tablet See Instructions, TAKE ONE TABLET BY MOUTH DAILY, # 30 tabs, 2 Refill(s), eRx: [facility] #[id number], TAKE ONE TABLET BY MOUTH DAILY Start Date: 04/29/15 Status: Orderedloratadine 10 mg oral tablet 1 tabs, Oral, Daily, 0 Refill(s) Start Date: 03/01/14 Status: Orderedmetoprolol tartrate 25 mg oral tablet 2 tabs, Oral, BID, # 360 tabs, 2 Refill(s), Pharmacy: [facility] #[id number] Start Date: 11/02/14 Status: OrderedMilk of Magnesia [...] BY MOUTH DAILY, # 90 tabs, eRx: [facility] #[id number], TAKE ONETABLET BY MOUTH DAILY Start Date: [...] # 90 tabs, 2 Refill(s) , eRx: [facility] #[id number], TAKE ONE TABLET BY MOUTH EVERY EVENING [...] by your health care provider. Only take [id number] or prescription medicines for pain, fever, or discomfort as directed by your health care provider. Avoid neyx-[id number]-xdhpodr medicines or cough syrups that dry up [...] Document Reviewed: 04/08/2014 Exit[employer] Patient Information 2014 [employer] [facility]. No follow up information was [...]
--- OUTSIDE RECORDS SUMMARY | 2017-06-12 16:50 | External Medical Summary | Referral Summary ---
:1930 Author Organization [facility] [address] [place] [address], Family Medicine Address [address] [address] Care Team Providers Name Role Phone Madalyn Soto Primary Care Physician Encounter VC Date(s): 06/08/15 - 06/08/15 [facility] [address] [place] [address], Family Medicine [address] [address] [place] Discharge Disposition: 01-Home [...] initiation of Impaired Gas Exchange Plan of [id number] added automatically by system based on initiation of Ineffective Airway Clearance Plan of Care Allergies, Adverse Reactions, Alerts Substance Reaction Severity Status erythromycin Active penicillin Active sulfanilamide topical Active Medications alendronate 70 mg oral tablet 1 tabs, Oral, qWeek, # 4 tabs, 11 Refill(s), Pharmacy: [facility] #[id number] , 1 tabs Oral qWeek Start Date: 12/14/14 Status: Orderedcalcium-vitamin D 500 mg-200 intl units oral tablet 1 tabs, Oral, BID, 0 Refill(s) Start Date: 03/01/14 Status: Orderedfurosemide 20 mg oral tablet 2 tabs, Oral, Daily, # 30 tabs, 1 Refill(s), eRx: [facility] #[id number], TAKE ONE TABLET BY MOUTHDAILY Start Date: 12/03/14 Status: Orderedhydrochlorothiazide 25 mg oral tablet 25 mg 1 tabs, Oral, Daily, # 90 tabs, 3 Refill(s), Pharmacy: [facility] # [id number], 1 tabs Oral Daily Start Date: 03/29/15 Status: Orderedipratropium 500 mcg/2.5 mL inhalation solution 2.5 mL, NEB, q2hr, Other (See Comment), 0 Refill(s) Start Date: 08/31/14 Status: OrderedLamISIL AT 1% topical cream 1 stephanie, Topical, BID, # 30 g, 6 Refill(s), Pharmacy: [facility] #[id number] Start Date: 03/29/15 Status: Orderedlisinopril 20 mg oral tablet See Instructions, TAKE ONE TABLET BY MOUTH DAILY, # 30 tabs, 2 Refill(s), eRx: [facility] #[id number], TAKE ONE TABLET BY MOUTH DAILY Start Date: 04/29/15 Status: Orderedloratadine 10 mg oral tablet 1 tabs, Oral, Daily, 0 Refill(s) Start Date: 03/01/14 Status: Orderedmetoprolol tartrate 25 mg oral tablet 2 tabs, Oral, BID, # 360 tabs, 2 Refill(s), Pharmacy: [facility] #[id number] Start Date: 11/02/14 Status: OrderedMilk of Magnesia [...] chloride 20 mEq oral tablet, extended release 1 tabs, Oral, Daily, # 90 tabs, 1 Refill(s), Pharmacy: [facility] #[id number] , 1 tabs Oral Daily,x90 days Start Date: 12/28/14 Stop Date: 06/26/15 Status: OrderedPriLOSEC 20 mg oral delayed release capsule 1 caps, Oral, Daily, 0 Refill(s) Start Date: 03/01/14 Status: OrderedSenokot S 50 mg-8.6 mg oral tablet 1 tabs, Oral, BID, 0 Refill(s) Start Date: 08/31/14 Status: Orderedsimvastatin 40 mg oral tablet See Instructions, TAKE ONE TABLET BY MOUTH EVERY EVENING, # 90 tabs, 2 Refill(s) , eRx: [facility] #[id number], TAKE ONE TABLET BY MOUTH EVERY EVENING Start Date: 04/08/15 Status: Ordered Results No data available for this section Immunizations Vaccine Date Refusal Reason influenza virus vaccine, live 05/11/09 influenza virus vaccine, live 06/16/08 influenza virus vaccine, live 06/24/07 tetanus-diphth toxoids (Td) adult/adol 08/26/04 zoster vaccine live 09/02/12 Procedures Procedure Date Related Diagnosis Body Site Appendectomy Excision of cyst RT Shoulder Social History Social History Type Response Smoking Status Former smoker; Type: Cigarettes Assessment and Plan No data available for this section
--- OUTSIDE RECORDS SUMMARY | 2017-06-12 16:50 | External Medical Summary | Referral Summary ---
:1930 Author Organization [facility] [address] [place] [address], Family Medicine Address [address] [address] Care Team Providers Name Role Phone Madalyn Soto Primary Care Physician Encounter VC Date(s): 03/29/15 - 03/29/15 [facility] [address] , Family Medicine [address] [address] [place] Discharge Diagnosis: Hyperlipidemia Discharge Diagnosis: Foot pain Discharge Diagnosis: Tinea Discharge Diagnosis: Hypertension Discharge Diagnosis: Heart failure Discharge Disposition: 01-Home or Self Care Attending Physician: Madalyn Loya DO Admitting Physician: Madalyn Loya DO Vital Signs Most recent to oldest [Reference Range]: 1 Temperature Oral [35.8-37.3 degC] 36.5 degC (03/29/15 10:15 AM) Blood Pressure [90-140/60-90 mmHg] 122/66 mmHg (03/29/15 10:15 AM) Problem List Condition Effective Dates Status [...] initiation of Impaired Gas Exchange Plan of [id number] added automatically by system based on initiation [...] # 30 tabs, 1 Refill(s), eRx: [facility] #[id number], TAKE ONE TABLET BY MOUTHDAILY Start Date: 12/03/14 Status: Orderedhydrochlorothiazide 25 mg oral tablet 25 mg 1 tabs, Oral, Daily, # 90 tabs, 3 Refill(s), Pharmacy: [facility] # [id number], 1 tabs Oral Daily Start Date: 03/29/15 Status: Orderedhydrochlorothiazide 25 mg oral tablet See Instructions, TAKE ONE TABLET BY MOUTH DAILY, # 90 tabs, eRx: [facility] #[id number], TAKE ONETABLET BY MOUTH DAILY Start Date: 08/04/15 Status: Orderedipratropium 500 mcg/2.5 mL inhalation solution 2.5 mL, NEB, q2hr, Other (See Comment), 0 Refill(s) Start Date: 08/31/14 Status: OrderedLamISIL AT 1% topical cream 1 stephanie, Topical, BID, # 30 g, 6 Refill(s), Pharmacy: [facility] #[id number] Start Date: 03/29/15 Status: Orderedlisinopril 20 mg oral tablet See Instructions, TAKE ONE TABLET BY MOUTH DAILY, # 30 tabs, eRx: [facility] #[id number], TAKE ONETABLET BY MOUTH DAILY Start Date: 09/23/15 Status: Orderedloratadine 10 mg oral tablet 1 tabs, Oral, Daily, 0 Refill(s) Start Date: 03/01/14 Status: Orderedmetoprolol tartrate 25 mg oral tablet 2 tabs, Oral, BID, # 360 tabs, 2 Refill(s), Pharmacy: [facility] #[id number] Start Date: 11/02/14 Status: OrderedMilk of Magnesia [...] MOUTH DAILY, # 90 tabs, eRx: [facility] #[id number], TAKE ONETABLET BY MOUTH DAILY Start Date: 09/23/15 Status: OrderedPriLOSEC 20 mg oral delayed release capsule 1 caps, Oral, Daily, 0 Refill(s) Start Date: 03/01/14 Status: OrderedPromethazine DM 6.25 mg-15 mg/5 mL oral syrup 5 mL, Oral, q6hr, as needed for cough, # 240 mL, 0 Refill(s), Pharmacy: [facility] #[id number] Start Date: 07/18/15 Status: OrderedSenokot S 50 mg-8.6 mg oral tablet 1 tabs, Oral, BID, 0 Refill(s) Start Date: 08/31/14 Status: Orderedsimvastatin 40 mg oral tablet See Instructions, TAKE ONE TABLET BY MOUTH EVERY EVENING, # 90 tabs, 2 Refill(s) , eRx: [facility] #[id number], TAKE ONE TABLET BY MOUTH EVERY EVENING Start Date: 04/08/15 Status: Ordered Results Hematology Most recent to oldest [Reference Range]: 1 WBC [4.8-10.8 10*3/uL] 6.1 10*3/uL (03/29/15 11:18 AM) RBC [4.00-5.20 10*6/uL] 3.93 10*6/uL *LOW* (03/29/15 11:18 AM) Hgb [12.0-16.0 gm/dL] 12.2 gm/dL (8/4/15 11:18 AM) Hct [37.0-47.0 %] 36.9 % *LOW* (03/29/1518 ) MCV [82.0-99.0 fL] 93.9 fL (03/29/1518 AM) MCH [27.0-32.0 pg] 31.0 pg (03/29/15:18 AM) MCHC [32.0-36.0 gm/dL] 33.1 gm/dL (03/29/15:18 AM) RDW [11.5-14.5 %] 13.2 % (03/29/15:18 AM) Platelet [150-400 10*3/uL] 321 10*3/uL (03/29/15:18 AM) MPV [8.8-14.8 fL] 10.4 fL (03/29/15:18 AM) Immature Granulocytes [0.0-1.0 %] 0.2 % (03/29/1518 AM) Neutrophils [51-75 %] 59 % (03/29/15:18 AM) Lymphocytes [20-46 %] 26 % (03/29/15 11:18 AM) Monocytes [4-11 %] 10 % (03/29/15 11:18 AM) Eosinophils [0-4 %] 4 % (03/29/15:18 AM) Basophils [0-2 %] 1 % (03/29/15 11:18 AM) Neutro Absolute [1.90-7.00 10*3] 3.62 10*3 (03/29/15 11:18 AM) Lymph Absolute [0.80-3.30 10*3] 1.59 10*3 (03/29/15 11:18 AM) Thomas Absolute [0.30-1.00 10*3] 0.64 10*3 (03/29/15 11:18 AM) Eos Absolute [0.00-0.50 10*3] 0.24 10*3 (03/29/15 11:18 AM) Baso Absolute [0.00-0.20 10*3] 0.04 10*3 (03/29/15 11:18 AM) Chemistry Most recent to oldest [Reference Range]: 1 Sodium Lvl [135-144 mEq/L] 137 mEq/L (03/29/1518 AM) Potassium Lvl [3.5-5.2 mEq/L] 5.0 mEq/L (03/29/1518 AM) Chloride [99-111 mEq/L] 98 mEq/L *LOW* (03/29/15 AM) CO2 [22-31 mEq/L] 30 mEq/L (03/29/1518 AM) AGAP [3-20] 9 (03/29/15:18 AM) BUN [10-20 mg/dL] 45 mg/dL *HI* (03/29/1518 AM) Glucose Lvl [70-99 mg/dL] 90 mg/dL (03/29/15 AM) Creatinine Lvl [0.57-1.11 mg/dL] 1.55 mg/dL *HI* (03/29/1518 AM) eGFR [>60 mL/min] 32 mL/min 1 *ABN* (03/29/15 AM) Calcium Lvl [8.9-10.5 mg/dL] 9.9 mg/dL (03/29/15:18 AM) Albumin Lvl [3.4-4.8 gm/dL] 4.0 gm/dL (03/29/1518 AM) Total Protein [6.2-8.1 gm/dL] 6.7 gm/dL (03/29/1518 AM) Globulin [1.8-4.0 gm/dL] 2.7 gm/dL (03/29/1518 AM) ALT [0-55 U/L] 10 U/L (03/29/1518 AM) AST [5-34 U/L] 19 U/L (03/29/15 1118 AM) Alk Phos [40-150 U/L] 67 U/L (03/29/1518 AM) Bili Total [0.2-1.2 mg/dL] 0.5 mg/dL (03/29/15:18 AM) BNP [0-99 pg/mL] 286 pg/mL *HI* (03/29/15:18 AM) Chol [0-199 mg/dL] 189 mg/dL (03/29/15 11:18 AM) Trig [0-149 mg/dL] 147 mg/dL (03/29/15 11:18 AM) HDL [40-84 mg/dL] 40 mg/dL (03/29/15 11:18 AM) LDL [0-130 mg/dL] 120 mg/dL (03/29/15 11:18 AM) VLDL Cholesterol [0-28 mg/dL] 29 mg/dL *HI* (03/29/15 11:18 AM) Cardiac Risk [0.0-5.0] 4.7 (03/29/15 11:18 AM) TSH with Reflex Free T4 [0.35-4.94] 2.56 (03/29/15 11:18 AM) 1Result Comment: Multiply eGFR results by 1.21 for race. Immunizations Vaccine Date Refusal Reason influenza virus [...] from: Title: General Complaint * Author: Madalyn Loya DO Date: 03/29/15 Impression and Plan Diagnosis Foot pain (ICD9 729.5, Discharge, Medical). Heart failure (ICD9 428.9, Discharge, Medical). Hyperlipidemia (ICD9 272.4, Discharge, Medical). Hypertension (ICD9 401.9, Discharge, Medical). Tinea (ICD9 110.9, Discharge, Medical). Plan: recommend to add gel insoles to shoes as arches are fallen and mild pain to bottom of feet. recommend to use antifungal cream to toes bid. recommend to get bnp, cbc, cmp in office. meds refilled. doing well. .
[2017-06-12] MEDS: NS 1,000 ML IV SCH ×2 (17:34→20:53)
--- NOTE | 2017-06-12 18:27 | Emergency Department Report ---
Nausea/Vomiting/Diarrhea HPI - General Chief complaint: Abdominal Pain Stated complaint: Abd Pain Time Seen by Provider: 06/12/17 16:40 Source: patient, family Mode of arrival: wheelchair - History of Present Illness HPI Narrative: Pt presents with her and daughter who report pt has had diarrhea for the last 3 days with increasing weakness. Daughter gave pt Imodium yesterday and pt has not had any more loose stools since that time. Pt normally ambulates with walker but it has become increasingly difficult with pt's increasing weakness MD complaint: diarrhea Onset (ago): day(s) Description of Vomiting: watery Description of Diarrhea: water Associated Abdominal Pain: Yes Location of pain: diffuse, periumbilical Severity: mild Quality: cramping Relieving factors: none Exacerbating factors: none - Related Data Home Medications Medication Instructions Recorded Confirmed Furosemide [Lasix] 40 mg PO DAILY 06/12/17 06/12/17 Lisinopril [Prinivil] 20 mg PO DAILY 06/12/17 06/12/17 Metoprolol Succinate 50 mg PO BID 06/12/17 06/12/17 Multi-Vitamin Plain [Theragran] 1 tab PO DAILY 06/12/17 06/12/17 Potassium Chloride [K-Dur] 20 meq PO DAILY 06/12/17 06/12/17 Simvastatin [Zocor] 40 mg PO HS 06/12/17 06/12/17 Tramadol [Ultram] 50 mg PO BID 06/12/17 06/12/17 Vits A,C,E/Lutein/Minerals 1 tab PO DAILY 06/12/17 06/12/17 [Ocuvite with Lutein Tablet] Allergies Allergy/AdvReac Type Severity Reaction Status Date / Time Penicillins Allergy Unknown Verified 06/12/17 17:49 Review of Systems All systems: reviewed and negative except as stated Constitutional: Reports: weakness. Denies: fever, chills Cardiovascular: Denies: chest pain Respiratory: Denies: cough Gastrointestinal: Reports: abdominal pain, nausea, diarrhea Neurological: Reports: weakness. Denies: headache Psychiatric: Denies: anxiety PFSH Patient Stated Medical History Hypertension Yes Hypotension Yes Gastroesophageal Reflux Yes Disease - Social History Smoking status: Never smoker Physical Exam - Limitations Limitations: no limitations - General General appearance: alert, in no apparent distress - Normal Exams: Neck:: Full range of motion, without adenopathy Chest/Respirations:: Clear all kang, with good airflow, and symmetry bilaterally Cardiovascular:: Regular rate and rhythm, without murmur or gallop Abdomen:: Bowel sounds positive, soft, non-tender, non-distended Musculoskeletal:: No tenderness, or deformity noted, good range of motion, all extremities Integumentary:: No rashes Neurological:: Patient is alert, and oriented Psychiatric:: Patient exhibits, appropriate attention, emotion and affect Course Vital Signs Temperature 97.2 F 06/12/17 15:49 Pulse Rate 51 L 06/12/17 15:49 Respiratory Rate 16 06/12/17 15:49 Blood Pressure 125/60 06/12/17 15:49 Pulse Oximetry 93 06/12/17 15:49 Temperature 97.2 F 06/12/17 15:49 Pulse Rate 52 L 06/12/17 18:00 Respiratory Rate 16 06/12/17 15:49 Blood Pressure 110/56 06/12/17 17:45 Pulse Oximetry 93 06/12/17 18:00 Nausea/Vomiting/Diarrhea - [facility] Narrative Medical decision making narrative: Labs reviewed, vital signs monitored. BP noted to be trending downward. Pt given a 500 cc bolus of NS. Pt to be admitted to Dr Virgen 2/ weakness. - Differential Diagnosis Likely: traveler's diarrhea, food poisoning, gastroenteritis, dehydration - Lab Data Attestation: I reviewed the patient's lab results. Result diagrams: 06/12/17 16:57 06/12/17 16:57 Lab Results 06/12/17 06/12/17 06/12/17 Range/Units 16:57 16:57 17:20 WBC 8.0 (4.5-11.0) T/MM3 RBC 4.36 (4.00-5.20) M/MM3 Hgb 13.2 (12-16) GM/DL Hct 42.0 (36-46) % MCV 96.3 (80-100) UM3 MCH 30.3 (26-34) UUG MCHC 31.4 (31-37) GM/DL RDW Std Deviation 47.8 (36.9-50.2) FL Plt Count 233 (130-400) T/MM3 MPV 9.9 (9.4-12.4) UM3 Immature Gran % (Auto) 0.3 (0.0-0.5) % Neut % (Auto) 74.2 H (33-66) % Lymph % (Auto) 15.1 L (23-45) % Moore % (Auto) 8.8 (0-9.0) % Eos % (Auto) 1.3 (0-4) % Baso % (Auto) 0.3 (0-2) % Neut # (Auto) 6.0 (1.8-7.7) T/MM3 Lymph # (Auto) 1.2 (1-4.8) T/MM3 Moore # (Auto) 0.7 (0-0.8) T/MM3 Eos # (Auto) 0.1 (0-0.5) T/MM3 Baso # (Auto) 0.0 (0-0.2) T/MM3 Abs Immat Gran (auto) 0.02 (0.00-0.03) T/MM3 Turbidity < 20 (0-20) Sodium 140 (134-144) MEQ/L Potassium 5.9 H (3.6-5) MEQ/L Chloride 103 (98-107) MEQ/L Carbon Dioxide 24 (22-30) MEQ/L Anion Gap 13 (5-15) MEQ/L BUN 50.0 H (7-17) MG/DL Creatinine 1.9 H (0.7-1.2) MG/DL GFR Calculation 25 BUN/Creatinine Ratio 26 (6-26) RATIO Glucose 87 (65-110) MG/DL Calculated Osmolality 281 H (261-280) MOSM/KG Calcium 9.1 (8.4-10.2) MG/DL Total Bilirubin 0.40 (0.20-1.30) MG/DL Icterus Index < 2 (0-7) AST 36 (14-36) U/L ALT 41 (9-52) U/L Alkaline Phosphatase 60 (38-126) U/L Total Protein 6.5 (6.3-8.2) G/DL Albumin 3.7 (3.5-5.0) G/DL Globulin 2.8 (2.4-3.6) G/DL Albumin/Globulin Ratio 1.3 (1.1-2.2) RATIO Specimen Hemolysis 47 H (0-25) Ur Collection Type Urine, catheter Urine Color Yellow (YELLOW) Urine Clarity Sl cloudy Urine pH 5.0 (5.0-8.0) Ur Specific [place] 1.015 (1.015-1.025) Urine Protein Negative (NEGATIVE) Urine Glucose (UA) Negative (NEGATIVE) Urine Ketones Negative (NEGATIVE) Urine Occult Blood Negative (NEGATIVE) Urine Nitrate Negative (NEGATIVE) Urine Bilirubin Negative (NEGATIVE) Urine Urobilinogen 0.2 (NORMAL) EU/DL Ur Leukocyte Esterase Negative (NEGATIVE) Urinalysis Comment Microscopic not ind. - EKG Data EKG #1 EKG shows normal: sinus rhythm Rate: bradycardia Disposition Clinical Impression: Weakness, Bradycardia Diarrhea Qualifiers: Diarrhea type: unspecified type Qualified Code(s): R19.7 - Diarrhea, unspecified Acute renal failure Qualifiers: Acute renal failure type: unspecified Qualified Code(s): N17.9 - Acute kidney failure, unspecified Hypotension Qualifiers: Hypotension type: other hypotension type Qualified Code(s): I95.89 - Other hypotension Disposition: 02 To [facility] Acute Care Condition: Improved Prescriptions: No Action Multi-Vitamin Plain [Theragran] 1 tab PO DAILY Metoprolol Succinate 50 mg PO BID Potassium Chloride [K-Dur] 20 meq PO DAILY Lisinopril [Prinivil] 20 mg PO DAILY Furosemide [Lasix] 40 mg PO DAILY Vits A,C,E/Lutein/Minerals [Ocuvite with Lutein Tablet] 1 tab PO DAILY Tramadol [Ultram] 50 mg PO BID Simvastatin [Zocor] 40 mg PO HS Time of Disposition: 18:36 - Seen By: midlevel
--- NOTE | 2017-06-12 19:28 | History & Physical Report ---
<Gini Foster V - Last Filed: 06/12/17 19:23> History of Present Illness Date: 06/12/17 Chief complaint: Weakness, Recent Diarrhea HPI: Magnolia is a 87 yr old female who was brought to ER for acute evaluation of weakness and recent diarrhea. Patient reports she started having loose stools approximately 3 days ago. She was given Imodium yesterday which have slowed her stools, however, she did have 1 more today. Since that time she has had progressive general weakness, feels that she is unable to stand and ambulate with a walker in which she does at her baseline. She resides independently at home with her of 70 years. In the emergency room today laboratory studies are obtained. CBC is normal, Hgb 13.2. Potassium was found to be slightly elevated. However specimen is hemolyzed. BUN is 50, creatinine 1.9. Baseline creatinine 1.1. UA obtained in the emergency room was negative. She was bradycardic her entire time in the emergency room 51-54. Blood pressure stable 111/56 Patient was given IV fluids for gentle hydration, however, continue to be significantly weak. Ulcers were contacted and accepted patient for outpatient observation admission for further evaluation and treatment. Review of Systems All systems PM: 10-point ROS was reviewed, no additional remarkable complaints except - Constitutional Constitutional: Present: anorexia, fatigue, lethargy, malaise, weakness - Gastrointestinal Gastrointestinal: Present: as per HPI, diarrhea, nausea PFSH Hypertension GERD Hypercholesterolemia Surgical History: Appendectomy Family History: Father-heart disease, alcoholism. Mother-hypertension, diabetes - Social History Smoking status: Former smoker Substance use type: does not use Alcohol intake frequency: does not drink Household members: spouse Current residence: Apartment/Private Home Social history: Resides at home independently with has been of 70 years BRENNON Cespedes Medications Home Medications Medication Instructions Recorded Confirmed Type Furosemide [Lasix] 40 mg PO DAILY 06/12/17 06/12/17 History Lisinopril [Prinivil] 20 mg PO DAILY 06/12/17 06/12/17 History Metoprolol Succinate 50 mg PO BID 06/12/17 06/12/17 History Multi-Vitamin Plain [Theragran] 1 tab PO DAILY 06/12/17 06/12/17 History Potassium Chloride [K-Dur] 20 meq PO DAILY 06/12/17 06/12/17 History Simvastatin [Zocor] 40 mg PO HS 06/12/17 06/12/17 History Tramadol [Ultram] 50 mg PO BID 06/12/17 06/12/17 History Vits A,C,E/Lutein/Minerals 1 tab PO DAILY 06/12/17 06/12/17 History [Ocuvite with Lutein Tablet] Allergies Allergy/AdvReac Type Severity Reaction Status Date / Time Penicillins Allergy Unknown Verified 06/12/17 17:49 Exam Vital Signs: Temperature 97.2 F 06/12/17 15:49 Pulse Rate 54 L 06/12/17 19:05 Respiratory Rate 20 06/12/17 19:05 Blood Pressure 135/53 06/12/17 19:05 Pulse Oximetry 94 06/12/17 18:41 Height/Weight/BMI: Height 1.7 m Weight 62 kg Body Mass Index 21.4 - Constitutional Present: no acute distress, well nourished, well developed - Routine HEENT Exam Eye: Present: EOMI ENT: Present: mucous membranes moist, dentition normal - Routine Respiratory Exam Present: CTA bilaterally. Absent: wheezes - Routine Cardiovascular Exam Present: RRR, S1, S2. Absent: murmur - Routine Abdominal Exam Present: soft, tenderness (epigastric tenderness), non distended. Absent: normoactive bowel sounds (hypo-active) - Routine Extremities Exam Present: normal capillary refill - Routine Skin Exam Present: dry, warm - Routine Neurological Exam Present: alert, oriented X3, CN II-XII intact, moving all extremities - Routine Psychiatric Exam Present: normal affect, cooperative Results - Labs CBC & Chem 7: 06/12/17 16:57 06/12/17 16:57 Assessment and Plan (1) Diarrhea Current visit: Yes Status: Acute (2) Weakness Current visit: Yes Status: Acute DVT Prophylaxis: SCD's GI Prophylaxis: Protonix Resuscitation Status: Full Code Assessment and Plan: Impression Generalized weakness Recent diarrhea Dehydration (elevated creatinine at 1.9, baseline 1.1.) (Baseline hemoglobin 11 , On admission Hgb 13) Bradycardia Hypertension-chronically GERD Plan Admit patient outpatient observation under the care of Dr. Virgen for weakness , dehydration Patient does have some mild epigastric tenderness on exam, which is not uncommon with her significant GERD symptoms. Will give Protonix IV daily starting now. She generally takes Prilosec over-the- counter. Continue with IV normal saline, current liter at 200 ML per hour. Will then decrease to 100 ML per hour Zofran as needed for nausea and vomiting. Start with clear liquid diet as patient does feel her stomach is "queasy". A be able to advance as tolerated. Monitor patient. Cardiac telemetry given bradycardia. At this point will hold home medications due to nausea Consultation placed to PT and OT for tomorrow morning to evaluate patients gait and stability and strength. She is hopeful to be discharged home and apparently with her . Will recheck BMP tomorrow morning to follow electrolytes and renal function Discuss advanced directives and patient does wish to be a full code, this orders written Did order and plan of care discussed with attending, Dr. Virgen Hospital Course Summary Disclaimer: The visit summary below is not to be considered part of the above Progress Note. Hospital Course: 06/12/17 - admission Impression Generalized weakness Recent diarrhea Dehydration (elevated creatinine at 1.9, baseline 1.1.) (Baseline hemoglobin 11 , On admission Hgb 13) Hypertension-chronically GERD Plan Admit patient outpatient observation under the care of Dr. Virgen for weakness , dehydration Patient does have some mild epigastric tenderness on exam, which is not uncommon with her significant GERD symptoms. Will give Protonix IV daily starting now. She generally takes Prilosec over-the- counter. Continue with IV normal saline, current liter at 200 ML per hour. Will then decrease to 100 ML per hour Zofran as needed for nausea and vomiting. Start with clear liquid diet as patient does feel her stomach is "queasy". A be able to advance as tolerated. Monitor patient. Cardiac telemetry given bradycardia. At this point will hold home medications due to nausea Consultation placed to PT and OT for tomorrow morning to evaluate patients gait and stability and strength. She is hopeful to be discharged home and apparently with her . Will recheck BMP tomorrow morning to follow electrolytes and renal function Discuss advanced directives and patient does wish to be a full code, this orders written Did order and plan of care discussed with attending, Dr. Virgen <Maryam Virgen - Last Filed: 06/12/17 21:28> History of Present Illness Date: 06/12/17 Exam Vital Signs: Temperature 96.3 F L 06/12/17 19:05 Pulse Rate 70 06/12/17 21:09 Respiratory Rate 20 06/12/17 19:05 Blood Pressure 135/53 06/12/17 19:05 Pulse Oximetry 93 06/12/17 19:05 Height/Weight/BMI: Height 1.7 m Weight 62 kg Body Mass Index 21.4 Results - Labs CBC & Chem 7: 06/12/17 16:57 06/12/17 16:57 Assessment and Plan (1) Diarrhea Current visit: Yes Status: Acute (2) Weakness Current visit: Yes Status: Acute Assessment and Plan: I have independently evaluated and examined this patient. I reviewed the chart, the patient's history, and the PLATFORM LOADER/PA's documented findings as above. We discussed and formulated the assessment and plan as above with additions as below: Mrs. Rao was seen by several family members at the bedside. She describes 2 -3 days of watery diarrhea and nausea without rectal bleeding or vomiting. She' s had no fever and no one else in the family has been ill. She has not been on antibiotics recently. She developed progressive weakness and weight is down 15 pounds compared to weight when she last saw her physician in the office. Family note that she hasn't been eating well in general and patient reports that she gets some generalized abdominal discomfort after eating. Patient also complains of bad reflux but this appears to be chronic and not acute. Family additionally note that the patient has had difficulty hearing out of her left ear recently and that they were told that the ear needed to be flushed out in the emergency room. Her reports that the patient has chronic nasal drainage and thick sinus secretions. In addition to above reported past history the patient has: Chronic allergic rhinitis, chronic CHF, peripheral neuropathy, and osteoporosis. On exam the patient is an elderly frail-appearing female Skin tents and is dry, oral membranes dry Respirations are nonlabored, breath sounds clear anteriorly Cardiac rhythm is regular with bigeminal sounding rhythm. Abdomen is soft with diminished bowel sounds and mild generalized tenderness but no guarding EKG reviewed by myself demonstrating low voltage, diffuse nonspecific T-wave abnormality, sinus arrhythmia, left axis deviation/LAFB. Continue hydration, laboratory data consistent with hemoconcentration and acute on chronic renal failure (Baseline GFR about 45) Hyperkalemic on admission which is not chronic. No evidence of hyperkalemic changes on EKG. Check orthostatic vital signs in a.m. Generalized abdominal discomfort-may require CT imaging. PT/OT consults Patient's is the patient's alternate decision maker and he describes a living will with desire patient not be maintained on machines in a hopeless situation. In addition to above diagnoses please add: #1 hyperkalemia #2 acute kidney injury #3 CKD, stage III #4 weight loss #5 L-hearing impairment Hospital Course Summary Disclaimer: The visit summary below is not to be considered part of the above Progress Note.
[2017-06-12] MEDS: PANTOPRAZOLE 40 MG INJECTION IVP SCH (19:51)
[2017-06-12] MEDS: SALINE FLUSH 10ml SYRINGE IV PRN (19:53)
[2017-06-13] MEDS: NS 1,000 ML IV SCH (07:08)
[2017-06-13] MEDS ORDERED: INFLUENZA VAC. INJ. ADMIN CHARGE INJ ONE (08:02)
[2017-06-13] MEDS: MULTI-VIT + MINERAL (Opti-gen) TABLET PO SCH (09:29)
[2017-06-13] MEDS: PANTOPRAZOLE 40 MG INJECTION IVP SCH (09:29)
[2017-06-13] MEDS: TRAMADOL 50 MG TABLET PO SCH ×2 (09:29→20:55)
[2017-06-13] MEDS: SALINE FLUSH 10ml SYRINGE IV PRN ×2 (09:30→20:56)
[2017-06-13 09:50] VITALS: BMI 21.7
[2017-06-13] MEDS ORDERED: INFLUENZA VAC High Dose 2017-18 (Fluzone HD*) (>=65yo) 0.5ml IM ONE (11:05)
--- NOTE | 2017-06-13 20:02 | Progress Note ---
- Date 06/13/17 Subjective: Mrs. Rao was seen with family members at the bedside. She reports that she is sleepy and weak. She didn't sleep well because people were in her room for various reasons much of the night. She denies dyspnea, lightheadedness, or nausea. She's had no further diarrhea and tolerated liquids early in the day with diet advanced to soft diet early afternoon. This morning she was noted to be moderately hypoxic and family members report that she's never required oxygen in the past. Objective Vital signs: Temperature 97.8 F 06/13/17 15:15 Pulse Rate 80 06/13/17 17:03 Respiratory Rate 16 06/13/17 15:15 Blood Pressure 97/48 06/13/17 15:15 Pulse Oximetry 93 -1L 06/13/17 17:58 I/O 5186/incomplete Weight up 1 kg from admission NAD, slightly confused Conjunctiva clear, bilateral cerumen impaction in the external auditory canals, flaking skin and mild inflammation posterior to the antihelix Respirations nonlabored although inspiratory effort poor, rest sounds clear Regular rhythm Abdomen soft, nontender, bowel sounds present MAEW Results - Labs CBC & Chem 7: 06/13/17 16:23 06/13/17 16:23 Labs: Earlier today creatinine 1.6, BUN 40, potassium 4.7 Assessment and Plan (1) Diarrhea Current visit: Yes Status: Acute (2) Weakness Current visit: Yes Status: Acute Resuscitation Status: Full Code Assessment and Plan: Impression Hyperkalemia Generalized weakness Dehydration (elevated creatinine at 1.9, baseline 1.1.) (Baseline hemoglobin 11 , On admission Hgb 13) Acute kidney injury Hypoxia, new Recent diarrhea Hypertension-chronically GERD CKD, stage III Weight loss Hearing loss/cerumen impaction Plan Hyperkalemia and acute kidney injury have resolved. Not orthostatic this morning. Creatinine is normalized-IV fluids discontinued. Mild hypoxia with room air saturation 87% today, supplemental oxygen initiated. Repeat chest x-ray in a.m., continue PT and increased ambulation. PT recommended correction versus home with home health-patient became depressed at [facility] previously. Reassess electrolytes in the morning, advance diet. Carbamide peroxide drops to soften earwax, irrigated in a.m.; hydrocortisone for rash/irritation in pinna. Blood pressure low normal-remains off home diuretic and blood pressure medications. Resume statin. Converted to inpatient due to hypoxia. Hospital Course Summary Disclaimer: The visit summary below is not to be considered part of the above Progress Note. Hospital Course: 06/12/17 - admission Impression Generalized weakness Recent diarrhea Dehydration (elevated creatinine at 1.9, baseline 1.1.) (Baseline hemoglobin 11 , On admission Hgb 13) Hypertension-chronically GERD Plan Admit patient outpatient observation under the care of Dr. Virgen for weakness , dehydration Patient does have some mild epigastric tenderness on exam, which is not uncommon with her significant GERD symptoms. Will give Protonix IV daily starting now. She generally takes Prilosec over-the- counter. Continue with IV normal saline, current liter at 200 ML per hour. Will then decrease to 100 ML per hour Zofran as needed for nausea and vomiting. Start with clear liquid diet as patient does feel her stomach is "queasy". A be able to advance as tolerated. Monitor patient. Cardiac telemetry given bradycardia. At this point will hold home medications due to nausea Consultation placed to PT and OT for tomorrow morning to evaluate patients gait and stability and strength. She is hopeful to be discharged home and apparently with her . Discuss advanced directives and patient does wish to be a full code, this orders written 06/13/17 20:11 Hyperkalemia and acute kidney injury have resolved. Not orthostatic this morning. Creatinine is normalized-IV fluids discontinued. Mild hypoxia with room air saturation 87% today, supplemental oxygen initiated. Repeat chest x-ray in a.m., continue PT and increased ambulation. PT recommended correction versus home with home health-patient became depressed at SNU previously. Reassess electrolytes in the morning, advance diet. Carbamide peroxide drops to soften earwax, irrigated in a.m.; hydrocortisone for rash/irritation in pinna. Blood pressure low normal-remains off home diuretic and blood pressure medications. Resume statin. Converted to inpatient due to hypoxia.
[2017-06-13] MEDS: DONEPEZIL 10 MG TABLET PO SCH (20:54)
[2017-06-13] MEDS: SIMVASTATIN 40 MG TABLET PO SCH (20:54)
[2017-06-13] MEDS: ONDANSETRON 4 MG/2 ML INJECTION IVP PRN (20:55)
[2017-06-13] MEDS: CARBAMIDE PEROXIDE 6.5% EAR DROPS 15ml EACH EAR SCH (20:56)
[2017-06-13] MEDS: HYDROCORTISONE 1% CREAM 28.35gm TOP SCH (20:57)
[2017-06-14] MEDS: SALINE FLUSH 10ml SYRINGE IV PRN ×3 (03:15→21:03)
[2017-06-14] MEDS: ONDANSETRON 4 MG/2 ML INJECTION IVP PRN ×2 (03:15→09:51)
--- NOTE | 2017-06-14 08:59 | XRay Report ---
INDICATION: hypoxia PROCEDURE: CHEST 2-VIEWS UPRIGHT (PA & LAT) Encounter: Initial COMPARISON: None FINDINGS: The lungs are hyperinflated without focal consolidation. There is no pleural effusion or pneumothorax. The heart size, mediastinal contours and pulmonary vascularity are within normal limits. Age-indeterminate lower thoracic compression fracture. IMPRESSION: No pneumonia or congestive failure. Hyperinflation suggests possible COPD. .
[2017-06-14] MEDS ORDERED: FUROSEMIDE 20 MG/2 ML INJECTION IVP ONE (09:31)
[2017-06-14] MEDS: TRAMADOL 50 MG TABLET PO SCH ×2 (09:46→21:03)
[2017-06-14] MEDS: MULTI-VIT + MINERAL (Opti-gen) TABLET PO SCH (09:46)
[2017-06-14] MEDS: PANTOPRAZOLE 40 MG INJECTION IVP SCH (09:47)
[2017-06-14] MEDS: CARBAMIDE PEROXIDE 6.5% EAR DROPS 15ml EACH EAR SCH ×2 (09:47→21:04)
[2017-06-14] MEDS: HYDROCORTISONE 1% CREAM 28.35gm TOP SCH ×3 (09:48→21:04)
--- NOTE | 2017-06-14 10:04 | Progress Note ---
<Marielle Ivory D - Last Filed: 06/14/17 09:51> - Date 06/14/17 Subjective: Magnolia was starting to work with therapy this morning. She was sitting on the side of the bed. She complained of being very tired, and wants to go home to get some sleep. She denies any shortness of breath or chest pain. No abdominal pain or GI complaints - just tired. RN reported that she desaturated to 82% while in bed when her oxygen was turned off, and she quickly desaturates with activity. Objective Vital signs: Temperature 98.1 F 06/14/17 08:05 Pulse Rate 53 L 06/14/17 08:05 Respiratory Rate 18 06/14/17 08:05 Blood Pressure 126/69 06/14/17 08:05 Pulse Oximetry 97 06/14/17 08:05 Height/Weight/BMI: Weight 65.8 kg - Constitutional Present: no acute distress, well nourished, well developed - Routine HEENT Exam Eye: Absent: conjunctival icterus, scleral injection - Routine Respiratory Exam Present: rales (RLL) - Routine Cardiovascular Exam Present: RRR, S1, S2 - Routine Abdominal Exam Present: soft, normoactive bowel sounds, non tender - Routine Extremities Exam Present: no edema - Routine Musculoskeletal Exam Musculoskeletal: Present: moving extremities well - Routine Skin Exam Present: intact, dry, warm - Routine Neurological Exam Present: alert. Absent: oriented X3 (x2 (person and place)) - Routine Psychiatric Exam Present: normal affect, cooperative Results - Labs CBC & Chem 7: 06/13/17 16:23 06/14/17 07:43 Assessment and Plan (1) Diarrhea Current visit: Yes Status: Acute (2) Weakness Current visit: Yes Status: Acute DVT Prophylaxis: SCD's GI Prophylaxis: Protonix Resuscitation Status: Full Code Assessment and Plan: Impression Hyperkalemia Generalized weakness Dehydration (elevated creatinine at 1.9, baseline 1.1.) (Baseline hemoglobin 11 , On admission Hgb 13) Acute kidney injury Hypoxia, new Recent diarrhea Hypertension-chronically GERD CKD, stage III Weight loss Hearing loss/cerumen impaction Plan Unable to wean off oxygen; desaturates into the low 80s even at rest on room air. 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 Will give Lasix 20 mg IV x1 now and restart home Lasix 40 mg + KDur 20 mEq tomorrow am. BP low-normal at times and she was bradycardic this am - will hold off on resuming home Lisinopril and metoprolol. Creatinine remains stable. K 4.2. Recheck BMP in am. May need ambulatory oximetry prior to discharge. Consider overnight oximetry tonight. Continue therapy - pt plans to DC home with home health (PT recommended SNF vs. home health - per PT notes the daughter reported that they have tried SNF before but Magnolia became very depressed). Convert IV Protonix to oral. (She takes Prilosec at home). Discussed with RN - she will start tracking I&O. Discussed with Dr. Virgen. Hospital Course Summary Disclaimer: The visit summary below is not to be considered part of the above Progress Note. Hospital Course: 06/12/17 - admission Impression Generalized weakness Recent diarrhea Dehydration (elevated creatinine at 1.9, baseline 1.1.) (Baseline hemoglobin 11 , On admission Hgb 13) Hypertension-chronically GERD Plan Admit patient outpatient observation under the care of Dr. Virgen for weakness , dehydration Patient does have some mild epigastric tenderness on exam, which is not uncommon with her significant GERD symptoms. Will give Protonix IV daily starting now. She generally takes Prilosec over-the- counter. Continue with IV normal saline, current liter at 200 ML per hour. Will then decrease to 100 ML per hour Zofran as needed for nausea and vomiting. Start with clear liquid diet as patient does feel her stomach is "queasy". A be able to advance as tolerated. Monitor patient. Cardiac telemetry given bradycardia. At this point will hold home medications due to nausea Consultation placed to PT and OT for tomorrow morning to evaluate patients gait and stability and strength. She is hopeful to be discharged home and apparently with her . Discuss advanced directives and patient does wish to be a full code, this orders written 06/13/17 Hyperkalemia and acute kidney injury have resolved. Not orthostatic this morning. Creatinine is normalized-IV fluids discontinued. Mild hypoxia with room air saturation 87% today, supplemental oxygen initiated. Repeat chest x-ray in a.m., continue PT and increased ambulation. PT recommended shelter versus home with home health-patient became depressed at SNU previously. Reassess electrolytes in the morning, advance diet. Carbamide peroxide drops to soften earwax, irrigated in a.m.; hydrocortisone for rash/irritation in pinna. Blood pressure low normal-remains off home diuretic and blood pressure medications. Resume statin. Converted to inpatient due to hypoxia. 06/14/17 Unable to wean off oxygen; desaturates into the low 80s even at rest on room air. 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 Will give Lasix 20 mg IV x1 now and restart home Lasix 40 mg + KDur 20 mEq tomorrow am. BP low-normal at times and she was bradycardic this am - will hold off on resuming home Lisinopril and metoprolol. Creatinine remains stable. K 4.2. Recheck BMP in am. May need ambulatory oximetry prior to discharge. Consider overnight oximetry tonight. <Monica Phillips L - Last Filed: 06/14/17 15:56> - Date 06/14/17 Objective Vital signs: Temperature 98.1 F 06/14/17 08:05 Pulse Rate 80 06/14/17 09:00 Respiratory Rate 18 06/14/17 08:05 Blood Pressure 96/60 06/14/17 09:00 Pulse Oximetry 97 06/14/17 08:05 Height/Weight/BMI: Weight 65.8 kg Results - Labs CBC & Chem 7: 06/13/17 16:23 06/14/17 07:43 Assessment and Plan (1) Diarrhea Current visit: Yes Status: Acute (2) Weakness Current visit: Yes Status: Acute Assessment and Plan: 06/14/2017-I reviewed this chart, the patient history, and the AUTOMOBILE SPRING REPAIRER's/PA's documented findings as above. We discussed and formulated the assessment and plan as above with the additions below.-Dr. Phillips The patient was seen today accompanied by her and one of her daughters. The patient states that she's feeling a little stronger. She has not had any diarrhea since she was admitted. She did take 2 Imodium for diarrhea just prior to admission. She is eating better today, but states after she eats she gets some pressure in her abdomen and points to the left upper quadrant. She denies any pain now. Her family states she lost 15 pounds over the 2 weeks that she was not feeling well. She denies any chest pains or lightheadedness. She has occasional shortness of breath but none now. She states that about 3 years ago after having the flu she required oxygen for several weeks. Otherwise, she has not required supplemental oxygen. On admission, the patient was on room air but by the following day was needing O2 per nasal cannula intermittently. Today, she is on 1 L of oxygen at rest and 3 L of oxygen with activity. She denies any history of DVT or PE. On exam she is alert and in no acute distress. HEENT reveals oropharynx to be moist. She has bilateral cerumen impaction in her ears. Chest reveals crackles in the bases. Cardiovascular reveals a regular rate and rhythm without murmur. Abdomen is soft with mild tenderness, no rebound. Bowel sounds are normal. Extremities are free of clubbing cyanosis or edema. SCDs are on. Skin is warm and dry and without rashes. Chest x-ray was reviewed and reveals no pneumonia or congestive failure. Hyperinflation suggests possible COPD. I have looked at the films and agree. Overall, the patient appears to be doing better regarding weakness and diarrhea. Dehydration has resolved. She now has some hypoxia, possibly related to some mild pulmonary edema. IV fluids were discontinued yesterday and Lasix 1 was given today. We'll reevaluate tomorrow. May need further workup if still hypoxic tomorrow. Acute kidney injury has resolved. Hyperkalemia has resolved. Increase activity. Obtain stool for GI panel if the patient has diarrhea again. Add Tylenol scheduled for low back pain. The patient will follow up with her primary care provider regarding cerumen impaction. Discussed with family and the patient's nurse. Hospital Course Summary Disclaimer: The visit summary below is not to be considered part of the above Progress Note.
[2017-06-14] MEDS: ACETAMINOPHEN 325 MG TABLET PO SCH ×2 (16:32→21:57)
[2017-06-14] MEDS: SIMVASTATIN 40 MG TABLET PO SCH (21:03)
[2017-06-14] MEDS: DONEPEZIL 10 MG TABLET PO SCH (21:03)
[2017-06-15] MEDS: PANTOPRAZOLE 20 MG TABLET PO SCH (06:03)
[2017-06-15] MEDS: SALINE FLUSH 10ml SYRINGE IV PRN ×2 (06:03→09:15)
[2017-06-15] MEDS: CARBAMIDE PEROXIDE 6.5% EAR DROPS 15ml EACH EAR SCH ×2 (08:52→21:11)
[2017-06-15] MEDS: HYDROCORTISONE 1% CREAM 28.35gm TOP SCH ×3 (08:52→21:13)
[2017-06-15] MEDS: ACETAMINOPHEN 325 MG TABLET PO SCH ×3 (08:52→21:10)
[2017-06-15] MEDS: MULTI-VIT + MINERAL (Opti-gen) TABLET PO SCH (08:52)
[2017-06-15] MEDS: MULTI-VITAMIN PLAIN TABLET PO SCH (08:53)
[2017-06-15] MEDS: TRAMADOL 50 MG TABLET PO SCH ×2 (08:53→21:11)
[2017-06-15] MEDS: FUROSEMIDE 40 MG TABLET PO SCH (08:53)
[2017-06-15] MEDS: ONDANSETRON 4 MG/2 ML INJECTION IVP PRN (09:15)
--- NOTE | 2017-06-15 11:46 | Progress Note ---
<Gini Foster V - Last Filed: 06/15/17 11:37> - Date 06/15/17 Subjective: Magnolia is seen today in follow up while up in the chair with family at her side. She continued to be weak and worn out. Appetite this morning was decreased however she is drinking boost. She has not had a bowel movement since admission and feels "bloated". She continues to be on 3 liters by nasal canula. Objective Vital signs: Temperature 96.6 F L 06/15/17 07:26 Pulse Rate 82 06/15/17 07:26 Respiratory Rate 18 06/15/17 07:26 Blood Pressure 109/60 06/15/17 07:26 Pulse Oximetry 95 06/15/17 07:26 Height/Weight/BMI: Weight 63.2 kg - Constitutional Present: well nourished, well developed - Routine HEENT Exam Eye: Present: EOMI ENT: Present: mucous membranes moist, dentition normal - Routine Respiratory Exam Present: CTA bilaterally. Absent: wheezes - Routine Cardiovascular Exam Present: RRR, S1, S2. Absent: murmur - Routine Abdominal Exam Present: soft, normoactive bowel sounds, non distended. Absent: tenderness - Routine Skin Exam Present: dry, warm - Routine Neurological Exam Present: alert, CN II-XII intact - Routine Lymphatic Exam Lymphatic: Absent: adenopathy - Routine Psychiatric Exam Present: normal affect, cooperative Results - Labs CBC & Chem 7: 06/15/17 09:43 06/15/17 09:43 Assessment and Plan (1) Diarrhea Current visit: Yes Status: Acute (2) Weakness Current visit: Yes Status: Acute Assessment and Plan: Impression Hyperkalemia Generalized weakness Dehydration (elevated creatinine at 1.9, baseline 1.1.) (Baseline hemoglobin 11 , On admission Hgb 13) Acute kidney injury Hypoxia, new Recent diarrhea Hypertension-chronically GERD CKD, stage III Weight loss Hearing loss/cerumen impaction Plan Will add Miralax and MOM for bowel motivation Family concerned about weakness. Will have nursing staff ambulate patient times a day. Will place PT and OT evaluations for Saturday morning. Continue to work on weaning down oxygen. May require overnight oximetry- Do on Saturday night If patient still is requiring oxygen. CBC and BMP stable Discussed with family that she may need -vs- U Hospital Course Summary Disclaimer: The visit summary below is not to be considered part of the above Progress Note. Hospital Course: 06/12/17 - admission Impression Generalized weakness Recent diarrhea Dehydration (elevated creatinine at 1.9, baseline 1.1.) (Baseline hemoglobin 11 , On admission Hgb 13) Hypertension-chronically GERD Plan Admit patient outpatient observation under the care of Dr. Virgen for weakness , dehydration Patient does have some mild epigastric tenderness on exam, which is not uncommon with her significant GERD symptoms. Will give Protonix IV daily starting now. She generally takes Prilosec over-the- counter. Continue with IV normal saline, current liter at 200 ML per hour. Will then decrease to 100 ML per hour Zofran as needed for nausea and vomiting. Start with clear liquid diet as patient does feel her stomach is "queasy". A be able to advance as tolerated. Monitor patient. Cardiac telemetry given bradycardia. At this point will hold home medications due to nausea Consultation placed to PT and OT for tomorrow morning to evaluate patients gait and stability and strength. She is hopeful to be discharged home and apparently with her . Discuss advanced directives and patient does wish to be a full code, this orders written 06/13/17 Hyperkalemia and acute kidney injury have resolved. Not orthostatic this morning. Creatinine is normalized-IV fluids discontinued. Mild hypoxia with room air saturation 87% today, supplemental oxygen initiated. Repeat chest x-ray in a.m., continue PT and increased ambulation. PT recommended snf versus home with home health-patient became depressed at SNU previously. Reassess electrolytes in the morning, advance diet. Carbamide peroxide drops to soften earwax, irrigated in a.m.; hydrocortisone for rash/irritation in pinna. Blood pressure low normal-remains off home diuretic and blood pressure medications. Resume statin. Converted to inpatient due to hypoxia. 06/14/17 Unable to wean off oxygen; desaturates into the low 80s even at rest on room air. Weight trends have shown increase; poor documentation of urinary output precludes ability to criminal judge fluid status more accurately. Will give Lasix 20 mg IV x1 now and restart home Lasix 40 mg + KDur 20 mEq tomorrow am. BP low-normal at times and she was bradycardic this am - will hold off on resuming home Lisinopril and metoprolol. Creatinine remains stable. K 4.2. Recheck BMP in am. May need ambulatory oximetry prior to discharge. Consider overnight oximetry tonight. 06/15/17 - Plan Will add Miralax and MOM for bowel motivation Family concerned about weakness. Will have nursing staff ambulate patient times a day. Will place PT and OT evaluations for Saturday morning. Continue to work on weaning down oxygen. May require overnight oximetry- Do on Saturday night If patient still is requiring oxygen. CBC and BMP stable Discussed with family that she may need HH -vs- SNU <PhillipsBeck jacksonie Meenakshi - Last Filed: 06/15/17 19:13> - Date 06/15/17 Objective Vital signs: Temperature 97.8 F 06/15/17 15:13 Pulse Rate 112 H 06/15/17 15:21 Respiratory Rate 22 06/15/17 15:21 Blood Pressure 98/58 06/15/17 15:21 Pulse Oximetry 91 06/15/17 15:21 Height/Weight/BMI: Weight 63.2 kg Results - Labs CBC & Chem 7: 06/15/17 09:43 06/15/17 09:43 Assessment and Plan (1) Diarrhea Current visit: Yes Status: Acute (2) Weakness Current visit: Yes Status: Acute Assessment and Plan: 06/15/2017-I reviewed this chart, the patient history, and the HOOK AND EYE SEWING MACHINE OPERATOR's/PA's documented findings as above. We discussed and formulated the assessment and plan as above with the additions below.-Dr. Phillips Patient was seen this evening accompanied by her daughter. She states she is feeling much better today. She was able to walk in the halls without difficulty. She denied any light headedness or shortness of breath. She's currently on 1 L of oxygen. She denies having any chest pains with this recent illness. She had some lower abdominal pain earlier today but that is gone now. She is eating and drinking okay. She complains of postnasal drainage. She had a small bowel movement today. She is urinating without difficulties. On exam she is alert and oriented and in no acute distress. Chest is clear to auscultation other than some mild crackles in the right base. Cardiovascular reveals a regular rate and rhythm. Abdomen is soft and nontender. Extremities are free of edema. There is no tenderness in the calves or thighs. Lab work shows improved creatinine and BUN. She does have elevated d-dimer but has had no chest pain, leg pains or swelling. Oxygenation is improving. Impression and plan Overall, the patient continues to show improvement. We'll increase activity as tolerated. Use incentive spirometer 10 times an hour while awake. Continue cautious Lasix. Repeat lab in the morning. Possibly home in the next 1-2 days. Hospital Course Summary Disclaimer: The visit summary below is not to be considered part of the above Progress Note.
[2017-06-15] MEDS: POLYETHYL GLYCOL 3350 17gm PACKET PO SCH (11:55)
[2017-06-15] MEDS: FLUTICASONE NASAL SPRAY 50mcg EA NOSTRIL SCH (21:10)
[2017-06-15] MEDS: DONEPEZIL 10 MG TABLET PO SCH (21:11)
[2017-06-15] MEDS: SIMVASTATIN 40 MG TABLET PO SCH (21:11)
[2017-06-16] MEDS: PANTOPRAZOLE 20 MG TABLET PO SCH (06:42)
[2017-06-16] MEDS: SALINE FLUSH 10ml SYRINGE IV PRN (06:48)
[2017-06-16] MEDS: ONDANSETRON 4 MG/2 ML INJECTION IVP PRN (06:48)
[2017-06-16] MEDS: ACETAMINOPHEN 325 MG TABLET PO SCH ×4 (06:50→21:11)
[2017-06-16] MEDS: TRAMADOL 50 MG TABLET PO SCH ×3 (06:51→21:11)
--- NOTE | 2017-06-16 08:43 | Progress Note ---
<Marielle Ivory D - Last Filed: 06/16/17 10:19> - Date 06/16/17 Subjective: Magnolia reports increasing abdominal pain, which she describes as soreness to her RUQ. It's intermittent in nature; occurred a couple of times yesterday and became much worse last night. This am it also flared up and she was doubled over in pain. Last night she was only able to eat part of a chicken strip with gravy, and had to stop because of discomfort. She wasn't able to sleep well last night d/t pain. Her daughter reports that she vomited last night, which included a lot of phlegm. Magnolia denies SOA or chest pain. She is ambulating well and does well on 1L of oxygen, but sats dropped to 81% when she was tried on room air this morning. Objective Vital signs: Temperature 95.6 F L 06/16/17 07:45 Pulse Rate 74 06/16/17 07:56 Respiratory Rate 18 06/16/17 07:45 Blood Pressure 144/61 H 06/16/17 07:45 Pulse Oximetry 93 06/16/17 08:20 Height/Weight/BMI: Weight 64 kg - Constitutional Present: no acute distress, well nourished, well developed - Routine HEENT Exam ENT: Present: mucous membranes dry, oropharynx clear - Routine Respiratory Exam Present: CTA bilaterally - Routine Cardiovascular Exam Present: RRR, S1, S2, murmur (soft systolic) - Routine Abdominal Exam Present: soft, normoactive bowel sounds, non distended, non tender - Routine Extremities Exam Present: no edema Comments: scd's in place - Routine Skin Exam Present: intact, dry, warm - Routine Neurological Exam Present: alert, oriented X3 - Routine Psychiatric Exam Present: normal affect, cooperative Results - Labs CBC & Chem 7: 06/15/17 09:43 06/16/17 09:39 Assessment and Plan (1) Diarrhea Current visit: Yes Status: Acute (2) Weakness Current visit: Yes Status: Acute DVT Prophylaxis: SCD's GI Prophylaxis: Protonix Resuscitation Status: Full Code Assessment and Plan: IMPRESSION Abdominal pain Hypoxia; acute respiratory insufficiency Elevated d-dimer Hyperkalemia Generalized weakness Dehydration (Baseline hemoglobin 11, On admission Hgb 13; elevated creatinine) Acute kidney injury - resolved (elevated creatinine at 1.9, baseline 1.1) CKD, stage III Recent diarrhea Hypertension - chronically GERD Weight loss Hearing loss/cerumen impaction PLAN Increasing abdominal pain [RUQ], n/v -checked LFTs/lipase - minimal elevation in AST and lipase. -check CT abd/pelvis with contrast (checked with imaging - will not require additional contrast - will have enough contrast with CTA) Hypoxia, elevated d-dimer -CTA chest ordered -continue working on weaning oxygen/encourage ambulation and IS -continue Lasix 40 mg daily Hyperkalemia -specimen hemolyzed; will hold KDur since K was normal yesterday -DALLAS has resolved - recheck in am since she is receiving IV contrast Discussed with Dr. Phillips, patient's RN, and family. Hospital Course Summary Disclaimer: The visit summary below is not to be considered part of the above Progress Note. Hospital Course: 06/12/17 - admission Impression Generalized weakness Recent diarrhea Dehydration (elevated creatinine at 1.9, baseline 1.1.) (Baseline hemoglobin 11 , On admission Hgb 13) Hypertension-chronically GERD Plan Admit patient outpatient observation under the care of Dr. Virgen for weakness , dehydration Patient does have some mild epigastric tenderness on exam, which is not uncommon with her significant GERD symptoms. Will give Protonix IV daily starting now. She generally takes Prilosec over-the- counter. Continue with IV normal saline, current liter at 200 ML per hour. Will then decrease to 100 ML per hour Zofran as needed for nausea and vomiting. Start with clear liquid diet as patient does feel her stomach is "queasy". A be able to advance as tolerated. Monitor patient. Cardiac telemetry given bradycardia. At this point will hold home medications due to nausea Consultation placed to PT and OT for tomorrow morning to evaluate patients gait and stability and strength. She is hopeful to be discharged home and apparently with her . Discuss advanced directives and patient does wish to be a full code, this orders written 06/13/17 Hyperkalemia and acute kidney injury have resolved. Not orthostatic this morning. Creatinine is normalized-IV fluids discontinued. Mild hypoxia with room air saturation 87% today, supplemental oxygen initiated. Repeat chest x-ray in a.m., continue PT and increased ambulation. PT recommended group home versus home with home health-patient became depressed at SNU previously. Reassess electrolytes in the morning, advance diet. Carbamide peroxide drops to soften earwax, irrigated in a.m.; hydrocortisone for rash/irritation in pinna. Blood pressure low normal-remains off home diuretic and blood pressure medications. Resume statin. Converted to inpatient due to hypoxia. 06/14/17 Unable to wean off oxygen; desaturates into the low 80s even at rest on room air. Weight trends have shown increase; poor documentation of urinary output precludes ability to supervisor finishing department fluid status more accurately. Will give Lasix 20 mg IV x1 now and restart home Lasix 40 mg + KDur 20 mEq tomorrow am. BP low-normal at times and she was bradycardic this am - will hold off on resuming home Lisinopril and metoprolol. Creatinine remains stable. K 4.2. Recheck BMP in am. May need ambulatory oximetry prior to discharge. Consider overnight oximetry tonight. 06/15/17 - Plan Will add Miralax and MOM for bowel motivation Family concerned about weakness. Will have nursing staff ambulate patient times a day. Will place PT and OT evaluations for Saturday. Continue to work on weaning down oxygen. May require overnight oximetry- Do on Saturday night If patient still is requiring oxygen. CBC and BMP stable Discussed with family that she may need HH -vs- SNU 06/16/17 Increasing abdominal pain [RUQ], n/v -checked LFTs/lipase - minimal elevation in AST and lipase. -check CT abd/pelvis with contrast (checked with imaging - will not require additional contrast - will have enough contrast with CTA) Hypoxia, elevated d-dimer -CTA chest ordered -continue working on weaning oxygen/encourage ambulation and IS -continue Lasix 40 mg daily Hyperkalemia -specimen hemolyzed; will hold KDur since K was normal yesterday -D[place] has resolved - recheck in am since she is receiving IV contrast <Monica Phillips - Last Filed: 06/16/17 18:16> - Date 06/16/17 Objective Vital signs: Temperature 96.2 F L 06/16/17 15:17 Pulse Rate 84 06/16/17 15:17 Respiratory Rate 16 06/16/17 15:17 Blood Pressure 141/76 H 06/16/17 15:17 Pulse Oximetry 95 06/16/17 15:17 Height/Weight/BMI: Weight 64 kg Results - Labs CBC & Chem 7: 06/16/17 10:43 06/16/17 09:39 Assessment and Plan (1) Diarrhea Current visit: Yes Status: Acute (2) Weakness Current visit: Yes Status: Acute Assessment and Plan: 06/16/2017-I reviewed this chart, the patient history, and the FAMILY INDEPENDENCE CASE MANAGER's/PA's documented findings as above. We discussed and formulated the assessment and plan as above with the additions below.-Dr. Phillips Stool was positive for enteropathogenic Escherichia coli. The patient's diarrhea had resolved at the time of admission. She had a stool today after receiving laxatives. She has passed a lot of gas today. She has had some intermittent abdominal pain in the right upper quadrant and intermittent nausea with poor appetite today. Otherwise she is feeling well. She denies any shortness of breath or chest pain. She does have some occasional back pain and states this is from a fall about a month ago. On exam she is alert and oriented and in no acute distress. She is on 1 L of oxygen. Chest is clear to auscultation. Cardiovascular reveals a regular rate and rhythm. Abdomen soft, nontender, nondistended with positive bowel sounds. No right upper quadrant tenderness currently. Extremities are free of edema. Liver and gallbladder sonogram is pending KUB on my read shows no abnormalities and no constipation CT abdomen shows mild intra-and extrahepatic biliary ectasia possibly age related. The gallbladder is partially contracted. CTA of the chest reveals no pulmonary emboli. COPD is noted. She has compression deformities NT 2 and T10 uncertain chronicity. Impression and plan Diarrhea prior to admission likely secondary to enteropathogenic Escherichia coli-treatment is symptomatic and avoiding dehydration. No antibiotics needed. Regarding intermittent right upper quadrant pain-check gallbladder sonogram- this is pending Mild elevated transaminases Borderline elevated lipase -currently without any abdominal pain T2 and T10 compression fractures of uncertain chronicity Nausea, poor appetite-encourage by mouth intake-we'll try Zofran prior to eating this evening and see if this helps. Regarding hypoxia this may be secondary to COPD. CTA chest was otherwise normal. We'll get an overnight oximetry tonight. The patient may need home O2.-- Hopefully discharge to home soon. Hospital Course Summary Disclaimer: The visit summary below is not to be considered part of the above Progress Note.
[2017-06-16] MEDS: CARBAMIDE PEROXIDE 6.5% EAR DROPS 15ml EACH EAR SCH ×2 (09:58→21:13)
[2017-06-16] MEDS: FLUTICASONE NASAL SPRAY 50mcg EA NOSTRIL SCH (09:58)
[2017-06-16] MEDS: FUROSEMIDE 40 MG TABLET PO SCH (09:58)
[2017-06-16] MEDS: POLYETHYL GLYCOL 3350 17gm PACKET PO SCH (09:58)
[2017-06-16] MEDS: HYDROCORTISONE 1% CREAM 28.35gm TOP SCH ×3 (09:59→21:36)
[2017-06-16] MEDS ORDERED: IOHEXOL 350mg/ml 75ml INJECTION ONE (10:48)
[2017-06-16] MEDS ORDERED: NS 100 ML ONE (10:49)
[2017-06-16] MEDS: MULTI-VIT + MINERAL (Opti-gen) TABLET PO SCH (10:58)
[2017-06-16] MEDS: MULTI-VITAMIN PLAIN TABLET PO SCH (10:58)
[2017-06-16] MEDS ORDERED: ONDANSETRON ODT 4 MG TABLET PO PRN (13:59)
[2017-06-16] MEDS: DONEPEZIL 10 MG TABLET PO SCH (21:11)
[2017-06-16] MEDS: SIMVASTATIN 40 MG TABLET PO SCH (21:11)
[2017-06-16] MEDS: NS 1,000 ML IV SCH ×2 (22:19)
[2017-06-17] MEDS: PANTOPRAZOLE 20 MG TABLET PO SCH (06:11)
--- NOTE | 2017-06-17 07:27 | XRay Report ---
EXAM: XR KUB w upright DICTATION LOCATION: [facility] INDICATION: abd pain COMPARISON STUDY: None available. FINDINGS: Abdomen: There are few nonspecific differential air-fluid levels noted. There is no evidence for bowel obstruction or free intraperitoneal air. No abnormal radiopacities overlying the abdomen. The lung bases are clear. Contrast is demonstrated within the bladder. Skeletal Structures: There is significant spondylosis of the thoracolumbar spine with scoliosis noted. IMPRESSION: 1. Few nonspecific differential air-fluid levels are noted. No clear evidence for bowel obstruction or free air. 2. Significant spondylosis of the visualized thoracolumbar spine and S-type scoliosis suggested. .
--- NOTE | 2017-06-17 07:31 | Ultrasound Report ---
EXAM: US gall bladder LOCATION OF DICTATION: [place] HISTORY: RUQ pain, nausea COMPARISON: No prior studies available for comparison. FINDINGS: Hepatic parenchyma is homogeneous without evidence for focal mass. There is internal debris/sludge demonstrated within the gallbladder. The gallbladder wall is thickened measuring 5 mm. Question of tiny gallstones as well within the gallbladder. The patient demonstrates a positive sonographic Mcdowell's sign. The combination of findings is suggestive of acute cholecystitis. Both the intra and extrahepatic biliary system are of normal caliber with the common duct measuring 8.9 mm in dimension. Visualized portions of the head and body of the pancreas are unremarkable. The right kidney is present without collecting system dilatation. The right kidney measures 9.2 x 4.7 x 3.8 cm. There is a right renal cyst measuring 2.8 x 3.2 x 3.4 cm. IMPRESSION: 1. Findings suspicious for acute cholecystitis. .
--- NOTE | 2017-06-17 09:17 | General Surgery Consult Note ---
Consult date: 06/17/17 Attending Physician: Monica Phillips MD Reason for consult: gallstones History of present illness: Per Dr. Larios [facility] Hypertension GERD Hypercholesterolemia Surgical History: Appendectomy Family History: Father-heart disease, alcoholism. Mother-hypertension, diabetes - Social History Smoking status: Former smoker Alcohol intake frequency: does not drink Current residence: Apartment/Private Home Medications Home Medications Medication Instructions Recorded Confirmed Type Furosemide [Lasix] 40 mg PO DAILY 06/12/17 06/12/17 History Lisinopril [Prinivil] 20 mg PO DAILY 06/12/17 06/12/17 History Metoprolol Succinate 50 mg PO BID 06/12/17 06/12/17 History Multi-Vitamin Plain [Theragran] 1 tab PO DAILY 06/12/17 06/12/17 History Potassium Chloride [K-Dur] 20 meq PO DAILY 06/12/17 06/12/17 History Simvastatin [Zocor] 40 mg PO HS 06/12/17 06/12/17 History Tramadol [Ultram] 50 mg PO BID 06/12/17 06/12/17 History Vits A,C,E/Lutein/Minerals 1 tab PO DAILY 06/12/17 06/12/17 History [Ocuvite with Lutein Tablet] Donepezil HCl [Aricept] 10 mg PO HS 06/13/17 06/13/17 History Allergies Allergy/AdvReac Type Severity Reaction Status Date / Time Penicillins Allergy Unknown Verified 06/12/17 17:49 Review of Systems 10-point ROS: negative except for HPI and the following: - General General: Present: other (fatigue) - Respiratory Respiratory: Present: use of oxygen (at night) - Gastrointestinal Gastrointestinal: Present: diarrhea - Musculoskeletal Musculoskeletal: Present: joint pain - Neurological Neurological: Present: muscle weakness (uses a walker at home) - Psychiatric Psychiatric: Present: other (memory loss) - Vital Signs Last Vital Signs Temp 97.6 F 06/17/17 08:00 Pulse 87 06/17/17 08:00 Resp 16 06/17/17 08:00 BP 123/62 06/17/17 08:00 Pulse Ox 91 06/17/17 08:00 - Laboratory Result Diagrams: 06/17/17 05:01 06/17/17 05:15 General Surgery Results - Results Labs: 06/17/17 05:01 06/17/17 05:15 Hospital Course Summary Disclaimer: The visit summary below is not to be considered part of the above Progress Note. Hospital Course: 06/12/17 - admission Impression Generalized weakness Recent diarrhea Dehydration (elevated creatinine at 1.9, baseline 1.1.) (Baseline hemoglobin 11 , On admission Hgb 13) Hypertension-chronically GERD Plan Admit patient outpatient observation under the care of Dr. Virgen for weakness , dehydration Patient does have some mild epigastric tenderness on exam, which is not uncommon with her significant GERD symptoms. Will give Protonix IV daily starting now. She generally takes Prilosec over-the- counter. Continue with IV normal saline, current liter at 200 ML per hour. Will then decrease to 100 ML per hour Zofran as needed for nausea and vomiting. Start with clear liquid diet as patient does feel her stomach is "queasy". A be able to advance as tolerated. Monitor patient. Cardiac telemetry given bradycardia. At this point will hold home medications due to nausea Consultation placed to PT and OT for tomorrow morning to evaluate patients gait and stability and strength. She is hopeful to be discharged home and apparently with her . Discuss advanced directives and patient does wish to be a full code, this orders written 06/13/17 Hyperkalemia and acute kidney injury have resolved. Not orthostatic this morning. Creatinine is normalized-IV fluids discontinued. Mild hypoxia with room air saturation 87% today, supplemental oxygen initiated. Repeat chest x-ray in a.m., continue PT and increased ambulation. PT recommended [facility] home with home health-patient became depressed at SNU previously. Reassess electrolytes in the morning, advance diet. Carbamide peroxide drops to soften earwax, irrigated in a.m.; hydrocortisone for rash/irritation in pinna. Blood pressure low normal-remains off home diuretic and blood pressure medications. Resume statin. Converted to inpatient due to hypoxia. 06/14/17 Unable to wean off oxygen; desaturates into the low 80s even at rest on room air. Weight trends have shown increase; poor documentation of urinary output precludes ability to legal records clerk fluid status more accurately. Will give Lasix 20 mg IV x1 now and restart home Lasix 40 mg + KDur 20 mEq tomorrow am. BP low-normal at times and she was bradycardic this am - will hold off on resuming home Lisinopril and metoprolol. Creatinine remains stable. K 4.2. Recheck BMP in am. May need ambulatory oximetry prior to discharge. Consider overnight oximetry tonight. 06/15/17 - Plan Will add Miralax and MOM for bowel motivation Family concerned about weakness. Will have nursing staff ambulate patient times a day. Will place PT and OT evaluations for Saturday morning. Continue to work on weaning down oxygen. May require overnight oximetry- Do on Saturday night If patient still is requiring oxygen. CBC and BMP stable Discussed with family that she may need HH -vs- SNU 06/16/17 Increasing abdominal pain [RUQ], n/v -checked LFTs/lipase - minimal elevation in AST and lipase. -check CT abd/pelvis with contrast (checked with imaging - will not require additional contrast - will have enough contrast with CTA) Hypoxia, elevated d-dimer -CTA chest ordered -continue working on weaning oxygen/encourage ambulation and IS -continue Lasix 40 mg daily Hyperkalemia -specimen hemolyzed; will hold KDur since K was normal yesterday -D[place] has resolved - recheck in am since she is receiving IV contrast
[2017-06-17] MEDS: FLUTICASONE NASAL SPRAY 50mcg EA NOSTRIL SCH (09:33)
[2017-06-17] MEDS: CARBAMIDE PEROXIDE 6.5% EAR DROPS 15ml EACH EAR SCH ×2 (09:33→20:19)
[2017-06-17] MEDS: HYDROCORTISONE 1% CREAM 28.35gm TOP SCH ×3 (09:34→20:15)
[2017-06-17] MEDS: MULTI-VIT + MINERAL (Opti-gen) TABLET PO SCH (12:09)
[2017-06-17] MEDS: ACETAMINOPHEN 325 MG TABLET PO SCH ×3 (12:09→20:11)
[2017-06-17] MEDS: POLYETHYL GLYCOL 3350 17gm PACKET PO SCH (12:09)
[2017-06-17] MEDS: TRAMADOL 50 MG TABLET PO SCH ×2 (12:09→20:12)
[2017-06-17] MEDS: FUROSEMIDE 40 MG TABLET PO SCH (12:09)
[2017-06-17] MEDS: MULTI-VITAMIN PLAIN TABLET PO SCH (12:09)
--- NOTE | 2017-06-17 16:00 | Consultation ---
DATE OF CONSULTATION 06/17/2017 FINDINGS Mrs. Rao is an 87-year-old female whom I was asked to see in consultation/ as a new patient as a result of her history for abdominal pain and the finding of possible cholecystitis upon radiograph evaluation. The patient was admitted on June 12 to our facility as a result of her history for abdominal pain and diarrhea. Upon questioning the patient in regards to her abdominal pain, the patient states that the abdominal pain was located mostly within her right upper quadrant. The patient denied any element of abdominal pain today. Patient states that when the pain was present it was constant in nature. Additionally, upon questioning the patient she did have a component of nausea in association with pain. Additionally, during the interview process the patient and her informed me that she had a similar episode of abdominal pain about 30 years ago. The patient's states that the doctor who saw her at that time told her that her "gallbladder needed to come out." She apparently, however, has done well over the last 30 years with no recurrence of her abdominal pain until just recently as stated above. The patient does state that she has had some mild abdominal discomfort in the past after eating "spicy foods." PAST MEDICAL HISTORY, PAST SURGICAL HISTORY, MEDICATIONS, ALLERGIES, SOCIAL HISTORY, FAMILY HISTORY, REVIEW OF SYSTEMS Performed by my nurse practitioner, Stan Rosario. BRICKLAYER. PHYSICAL EXAMINATION GENERAL: Mrs. Rao is an 87-year-old female who did not appear to be in acute distress. She was sitting in a recliner and did have O2 present. Patient informs me that she "utilizes oxygen at night." HEENT: Normocephalic. Pupils are equally round and react to light and accommodation. CHEST: Clear to auscultation bilaterally. ABDOMEN: Palpation of the abdomen revealed it to be soft and essentially nontender throughout. The patient did complain of some minimal discomfort with firm palpation in the right upper quadrant. She also, however, complained of some minimal discomfort with firm palpation within the left upper quadrant. Patient states that the "pain was equal" within her left upper quadrant and right upper quadrant upon questioning. I did not appreciate evidence for hepatomegaly or other abnormal masses. EXTREMITIES: Without clubbing, cyanosis, or edema. NEURO: Cranial nerves II-XII grossly intact. Patient is without focal motor or sensory deficits. LABORATORY/RADIOGRAPHIC EVALUATION The patient had a CBC and her white count was 5.2. Hemoglobin is 11.8. BMP was obtained today and found to be essentially within normal limits. The patient did have a CMP obtained yesterday and her AST, ALT and alkaline phosphatase were essentially within normal limits. AST was minimally elevated at 37. Lipase was obtained and found to be slightly elevated at 301. From a radiographic standpoint, the patient had a gallbladder ultrasound obtained yesterday. The patient had some debris/sludge noted within the gallbladder. The gallbladder wall was slightly thickened at 5 mm. There was no mention for pericholecystic fluid. Intrahepatic and extrahepatic biliary dilatation was of a normal caliber on sonography. There was some question of mild biliary dilatation noted on a prior CTA. The patient apparently had a positive sonographic Mcdowell sign during the process of sonography and findings were therefore suspicious for acute cholecystitis. Additionally, from a microbiology standpoint the patient was found to have a PCR positive for E-coli. ASSESSMENT 87-year-old female with associated medical comorbidities who likely had a component of biliary colic that has now resolved on its own behalf. PLAN I informed the patient that I felt that one could make an argument for proceeding with surgical intervention, given the fact that she has had pain within her right upper quadrant and had a sonogram revealing evidence for biliary debris and gallbladder wall thickening. If one, however, looks at the risks versus the benefits, in my opinion I believe that the risk of proceeding with surgery likely outweighs the benefits. Given her advanced age and associated medical comorbidities and the fact that her abdominal pain has now completely resolved, it was my recommendation that we not proceed with surgical intervention/cholecystectomy. Would go ahead and advance her diet. I informed the patient that if in the future she would develop recurrent right upper quadrant abdominal pain that at that time would reevaluate the situation and likely proceed with surgical intervention if indeed she was found to have recurrent symptoms in the future. The above plan was discussed with the patient , her and her daughter who was present. Patient and family understood and agreed with the proposed plan/algorithm at this time. TAURUS
--- NOTE | 2017-06-17 16:21 | Progress Note ---
- Date 06/17/17 Subjective: The patient was seen this morning and then again this afternoon. She has not had any abdominal pain. She denies any shortness of breath. Gallbladder sonogram did show concerns for acute cholecystitis. I did talk with her and her family about these results and they were agreeable to seeing a surgeon for recommendations. Dr. Larios did come and evaluate the patient and he recommended medical treatment at this time because of her increased risk for perioperative complications. He recommends a low-fat diet. He states if she has recurrence of abdominal pain related to her gallbladder, then he could see her again and proceed with surgery then if needed. Today, she is nontender on abdominal exam. She was nothing by mouth for the morning in anticipation for possible surgery. She did later he lunch and has had no difficulties. She did walk with physical therapy and the note stated she was at high risk for falls. The patient felt that she was a strong as usual when she was up walking. Objective Vital signs: Temperature 97.6 F 06/17/17 08:00 Pulse Rate 87 06/17/17 08:00 Respiratory Rate 16 06/17/17 08:00 Blood Pressure 123/62 06/17/17 08:00 Pulse Oximetry 91 06/17/17 08:00 Height/Weight/BMI: Weight 62.9 kg Comments: GEN-alert, oriented, no acute distress CV-regular rate and rhythm CHEST-mild coarse breath sounds ABD-soft, nontender, nondistended with positive bowel sounds -no Olivera EXT-no edema NEURO-no focal deficits SKIN-warm and dry and without rashes Results - Labs CBC & Chem 7: 06/17/17 05:01 06/17/17 05:15 - Impressions Gallbladder sonogram FINDINGS: Hepatic parenchyma is homogeneous without evidence for focal mass. There is internal debris/sludge demonstrated within the gallbladder. The gallbladder wall is thickened measuring 5 mm. Question of tiny gallstones as well within the gallbladder. The patient demonstrates a positive sonographic Mcdowell's sign. The combination of findings is suggestive of acute cholecystitis. Both the intra and extrahepatic biliary system are of normal caliber with the common duct measuring 8.9 mm in dimension. Visualized portions of the head and body of the pancreas are unremarkable. The right kidney is present without collecting system dilatation. The right kidney measures 9.2 x 4.7 x 3.8 cm. There is a right renal cyst measuring 2.8 x 3.2 x 3.4 cm. IMPRESSION: 1. Findings suspicious for acute cholecystitis. CTA chest No PE. COPD changes. No cardiomegaly. Severe compression deformity at T10 and T2 of uncertain age. No pulmonary edema or infiltrate seen. CT abdomen and pelvis Mild intra-and extrahepatic biliary ectasia, possibly age-related. Assessment and Plan (1) Diarrhea Current visit: Yes Status: Acute (2) Weakness Current visit: Yes Status: Acute Assessment and Plan: 06/17/2017 Impression Abdominal pain-resolved Possible acute cholecystitis/possible small gallstones-currently without pain. Dr. Larios recommends medical management at this time acute hypoxic respiratory failure-the patient will need home O2 COPD Elevated d-dimer-CTA chest negative for PE Hyperkalemia-resolved Dehydration-resolved Acute kidney injury-resolved Chronic kidney disease stage III Recent diarrhea likely secondary to enteropathogenic Escherichia coli Hypertension GERD Cerumen impaction Gait instability T2 and T10 compression fractures of uncertain age Plan We'll make sure the patient is tolerating a regular diet tonight and in the morning. We'll ask PT to see the patient again tomorrow and reevaluate gait stability. The patient is strongly desiring to go home with home health tomorrow. Patient will need home O2. Discussed with case management. We'll start DuoNeb for probable COPD seen on CTA. Patient does have an extensive smoking history but quit approximately 15 years ago Hopefully home tomorrow with home health. Patient and family have declined prison Discussed with patient, family, case management, and Dr. Larios. Hospital Course Summary Disclaimer: The visit summary below is not to be considered part of the above Progress Note. Hospital Course: 06/12/17 - admission Impression Generalized weakness Recent diarrhea Dehydration (elevated creatinine at 1.9, baseline 1.1.) (Baseline hemoglobin 11 , On admission Hgb 13) Hypertension-chronically GERD Plan Admit patient outpatient observation under the care of Dr. Virgen for weakness , dehydration Patient does have some mild epigastric tenderness on exam, which is not uncommon with her significant GERD symptoms. Will give Protonix IV daily starting now. She generally takes Prilosec over-the- counter. Continue with IV normal saline, current liter at 200 ML per hour. Will then decrease to 100 ML per hour Zofran as needed for nausea and vomiting. Start with clear liquid diet as patient does feel her stomach is "queasy". A be able to advance as tolerated. Monitor patient. Cardiac telemetry given bradycardia. At this point will hold home medications due to nausea Consultation placed to PT and OT for tomorrow morning to evaluate patients gait and stability and strength. She is hopeful to be discharged home and apparently with her . Discuss advanced directives and patient does wish to be a full code, this orders written 06/13/17 Hyperkalemia and acute kidney injury have resolved. Not orthostatic this morning. Creatinine is normalized-IV fluids discontinued. Mild hypoxia with room air saturation 87% today, supplemental oxygen initiated. Repeat chest x-ray in a.m., continue PT and increased ambulation. PT recommended prison versus home with home health-patient became depressed at [facility]U previously. Reassess electrolytes in the morning, advance diet. Carbamide peroxide drops to soften earwax, irrigated in a.m.; hydrocortisone for rash/irritation in pinna. Blood pressure low normal-remains off home diuretic and blood pressure medications. Resume statin. Converted to inpatient due to hypoxia. 06/14/17 Unable to wean off oxygen; desaturates into the low 80s even at rest on room air. Weight trends have shown increase; poor documentation of urinary output precludes ability to district associate judge fluid status more accurately. Will give Lasix 20 mg IV x1 now and restart home Lasix 40 mg + KDur 20 mEq tomorrow am. BP low-normal at times and she was bradycardic this am - will hold off on resuming home Lisinopril and metoprolol. Creatinine remains stable. K 4.2. Recheck BMP in am. May need ambulatory oximetry prior to discharge. Consider overnight oximetry tonight. 06/15/17 - Plan Will add Miralax and MOM for bowel motivation Family concerned about weakness. Will have nursing staff ambulate patient times a day. Will place PT and OT evaluations for Saturday morning. Continue to work on weaning down oxygen. May require overnight oximetry- Do on Saturday night If patient still is requiring oxygen. CBC and BMP stable Discussed with family that she may need HH -vs- SNU 06/16/17 Increasing abdominal pain [RUQ], n/v -checked LFTs/lipase - minimal elevation in AST and lipase. -check CT abd/pelvis with contrast (checked with imaging - will not require additional contrast - will have enough contrast with CTA) Hypoxia, elevated d-dimer -CTA chest ordered -continue working on weaning oxygen/encourage ambulation and IS -continue Lasix 40 mg daily Hyperkalemia -specimen hemolyzed; will hold KDur since K was normal yesterday -[place] has resolved - recheck in am since she is receiving IV contrast 06/16/2017-I reviewed this chart, the patient history, and the CERTIFIED ORTHOTIST PRACTICE MANAGER's/PA's documented findings as above. We discussed and formulated the assessment and plan as above with the additions below.-Dr. Phillips Stool was positive for enteropathogenic Escherichia coli. The patient's diarrhea had resolved at the time of admission. She had a stool today after receiving laxatives. She has passed a lot of gas today. She has had some intermittent abdominal pain in the right upper quadrant and intermittent nausea with poor appetite today. Otherwise she is feeling well. She denies any shortness of breath or chest pain. She does have some occasional back pain and states this is from a fall about a month ago. On exam she is alert and oriented and in no acute distress. She is on 1 L of oxygen. Chest is clear to auscultation. Cardiovascular reveals a regular rate and rhythm. Abdomen soft, nontender, nondistended with positive bowel sounds. No right upper quadrant tenderness currently. Extremities are free of edema. Liver and gallbladder sonogram is pending KUB on my read shows no abnormalities and no constipation CT abdomen shows mild intra-and extrahepatic biliary ectasia possibly age related. The gallbladder is partially contracted. CTA of the chest reveals no pulmonary emboli. COPD is noted. She has compression deformities NT 2 and T10 uncertain chronicity. Impression and plan Diarrhea prior to admission likely secondary to enteropathogenic Escherichia coli-treatment is symptomatic and avoiding dehydration. No antibiotics needed. Regarding intermittent right upper quadrant pain-check gallbladder sonogram- this is pending Mild elevated transaminases Borderline elevated lipase -currently without any abdominal pain T2 and T10 compression fractures of uncertain chronicity Nausea, poor appetite-encourage by mouth intake-we'll try Zofran prior to eating this evening and see if this helps. Regarding hypoxia this may be secondary to COPD. CTA chest was otherwise normal. We'll get an overnight oximetry tonight. The patient may need home O2.-- Hopefully discharge to home soon.
--- NOTE | 2017-06-17 17:04 | CT Scan Report ---
EXAM: CT angio pulm emboli and CT abdomen pelvis with and without contrast. LOCATION OF DICTATION: [place] HISTORY: r/o PE; elevated d-dimer; hypoxia COMPARISON: No prior studies available for comparison. TECHNIQUE: Multiple contiguous axial images were obtained of the chest with contrast utilizing 85 mL of Omnipaque [address] angiogram protocol. Coronal, sagittal, and MIP reformatted images were utilized. Multiple contiguous axial images were obtained of the abdomen and pelvis with contrast. Coronal and sagittal reformatted images were utilized. Automated Exposure Control and Iterative Reconstruction dose reducing techniques were utilized. CT ANGIOGRAM CHEST FINDINGS: The heart is mildly enlarged. There is no significant pericardial effusion. There is significant calcific atherosclerotic disease of the coronary arteries and thoracic aorta. There are no central pulmonary artery filling defects to suggest pulmonary artery embolism. There is mild centrilobular emphysema noted. No suspicious bony nodules or masses are identified. There are no pleural effusions. No pneumothorax. There is no axillary, hilar, or mediastinal lymphadenopathy. Mild spondylosis of the thoracic spine. No suspicious or destructive osseous lesions. CT ABDOMEN AND PELVIS FINDINGS: There is a large hiatal hernia. The liver is normal size without focal lesions. Mild intrahepatic and extra hepatic biliary ductal dilatation. The gallbladder is contracted. There are some mild adjacent pericholecystic fat stranding suggested. The spleen is unremarkable. There are bilateral simple renal cysts. There is no hydronephrosis or obstructing calculus. The pancreas is normal. The adrenal glands are unremarkable. The bowel loops are normal caliber. No evidence for bowel obstruction. The bladder is normal. The uterus is within normal limits. There are no adnexal masses. 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 Moderate osteitis pubis is noted. Probable old healed left pubic ramus fracture. Impression: 1. No evidence for pulmonary embolism. 2. Mild centrilobular emphysema. The lungs are otherwise clear. 3. Large hiatal hernia. 4. The gallbladder is contracted. There is subtle mild pericholecystic fat stranding/inflammation suggested. Gallbladder ultrasound could be utilized to further evaluate if clinically indicated. 5. Mild nonspecific intrahepatic and extrahepatobiliary biliary ductal dilatation. .
[2017-06-17] MEDS: SIMVASTATIN 40 MG TABLET PO SCH (20:12)
[2017-06-17] MEDS: DONEPEZIL 10 MG TABLET PO SCH (20:13)
[2017-06-17] MEDS: ALBUTEROL/IPRATROPIUM 2.5mg-0.5mg/3ml NEB AEROSOL SCH (20:31)
[2017-06-18] MEDS: PANTOPRAZOLE 20 MG TABLET PO SCH (06:41)
[2017-06-18] MEDS: ALBUTEROL/IPRATROPIUM 2.5mg-0.5mg/3ml NEB AEROSOL SCH ×3 (07:31→16:12)
[2017-06-18 07:34] VITALS: RESP 18
[2017-06-18 08:03] VITALS: BP 155/69; TEMP 95.3
[2017-06-18] MEDS: FUROSEMIDE 40 MG TABLET PO SCH (09:09)
[2017-06-18] MEDS: POLYETHYL GLYCOL 3350 17gm PACKET PO SCH (09:09)
[2017-06-18] MEDS: ACETAMINOPHEN 325 MG TABLET PO SCH ×2 (09:10→14:48)
[2017-06-18] MEDS: TRAMADOL 50 MG TABLET PO SCH (09:10)
[2017-06-18] MEDS: MULTI-VIT + MINERAL (Opti-gen) TABLET PO SCH (09:10)
[2017-06-18] MEDS: MULTI-VITAMIN PLAIN TABLET PO SCH (09:10)
[2017-06-18] MEDS: HYDROCORTISONE 1% CREAM 28.35gm TOP SCH ×2 (09:11→14:48)
[2017-06-18] MEDS: CARBAMIDE PEROXIDE 6.5% EAR DROPS 15ml EACH EAR SCH (09:15)
[2017-06-18] MEDS: FLUTICASONE NASAL SPRAY 50mcg EA NOSTRIL SCH (09:15)
[2017-06-18 12:51] VITALS: PULSE 83; O2SAT 89
--- NOTE | 2017-06-18 14:44 | Discharge Summary ---
Discharge Information Date of admission: 06/13/17 16:24 Anticipated date of discharge: 06/18/17 Attending Physician: Monica Phillips MD Primary care physician: MIQUEL Williamson Consults: 06/17/17 09:05 Physician Consult [CONS] Routine Consulting Provider: Teddy Larios Reason For Exam: possible cholecystitis Ordering Provider has Notified [facility] Stitcher: Yes - Discharge Diagnosis (1) Diarrhea Status: Acute (2) Weakness Status: Acute - Procedures Procedures: none - Laboratory Labs: 06/17/17 05:01 06/17/17 05:15 Laboratory Tests 06/12/17 06/12/17 06/13/17 16:57 17:20 04:41 D-Dimer Sodium 140 Potassium 5.9 H Chloride 103 Carbon Dioxide 24 Anion Gap 13 BUN 50.0 H Creatinine 1.9 H GFR Calculation 25 BUN/Creatinine Ratio 26 Glucose 87 Calculated Osmolality 281 H Calcium 9.1 Phosphorus 3.5 Magnesium 2.0 Total Bilirubin Conjugated Bilirubin Unconjugated Bilirubin AST ALT Alkaline Phosphatase Troponin I 0.025 Total Protein Albumin Globulin Albumin/Globulin Ratio Lipase Ur Collection Type Urine, catheter Urine Color Yellow Urine Clarity Sl cloudy Urine pH 5.0 Ur Specific Edson 1.015 Urine Protein Negative Urine Glucose (UA) Negative Urine Ketones Negative Urine Occult Blood Negative Urine Nitrate Negative Urine Bilirubin Negative Urine Urobilinogen 0.2 Ur Leukocyte Esterase Negative Urinalysis Comment Microscopic not ind. Stool EPEC (PCR) 06/15/17 06/16/17 06/16/17 09:43 09:39 14:37 D-Dimer 1053 H Sodium Potassium Chloride Carbon Dioxide Anion Gap BUN Creatinine GFR Calculation BUN/Creatinine Ratio Glucose Calculated Osmolality Calcium Phosphorus Magnesium Total Bilirubin 0.50 Conjugated Bilirubin 0.00 Unconjugated Bilirubin 0.20 AST 37 H ALT 32 Alkaline Phosphatase 57 Troponin I Total Protein 5.7 L Albumin 3.0 L Globulin 2.7 Albumin/Globulin Ratio 1.1 Lipase 301 H Ur Collection Type Urine Color Urine Clarity Urine pH Ur Specific Edson Urine Protein Urine Glucose (UA) Urine Ketones Urine Occult Blood Urine Nitrate Urine Bilirubin Urine Urobilinogen Ur Leukocyte Esterase Urinalysis Comment Stool EPEC (PCR) Detected A History of Present Illness HPI: Magnolia is a 87 yr old female who was brought to ER for acute evaluation of weakness and recent diarrhea. Patient reports she started having loose stools approximately 3 days ago. She was given Imodium yesterday which have slowed her stools, however, she did have 1 more today. Since that time she has had progressive general weakness, feels that she is unable to stand and ambulate with a walker in which she does at her baseline. She resides independently at home with her of 70 years. In the emergency room today laboratory studies are obtained. CBC is normal, Hgb 13.2. Potassium was found to be slightly elevated. However specimen is hemolyzed. BUN is 50, creatinine 1.9. Baseline creatinine 1.1. UA obtained in the emergency room was negative. She was bradycardic her entire time in the emergency room 51-54. Blood pressure stable 111/56 Patient was given IV fluids for gentle hydration, however, continue to be significantly weak. Ulcers were contacted and accepted patient for outpatient observation admission for further evaluation and treatment. Objective Vital signs: Temperature 95.3 F L 06/18/17 08:02 Pulse Rate 83 06/18/17 12:33 Respiratory Rate 18 06/18/17 12:25 Blood Pressure 155/69 H 06/18/17 08:02 Pulse Oximetry 89 L 06/18/17 12:33 Height/Weight/BMI: Weight 63.6 kg Hospital Course This is a general summary of the patient's hospital course. For more details refer to the complete medical record. Hospital course: The patient was admitted on 06/12/2017 with nausea, vomiting or diarrhea. She was also found to have significant dehydration and acute kidney injury. Diarrhea resolved when the patient was admitted. Acute kidney injury resolved with IV fluid rehydration. She did complain of some intermittent abdominal pain. CT abdomen and pelvis showed contracted gallbladder and subtle mild pericholecystic fat stranding with inflammation suggested. She also had some mild nonspecific intrahepatic and extrahepatic biliary ductal canal dilatation. Bladder sonogram revealed a positive Mcdowell's sign and gallbladder wall thickened at 5 mm. There is also question of tiny gallstones within the gallbladder. Patient had a borderline elevated lipase, but was able to eat okay. Dr. Larios was consulted regarding possible acute cholecystitis. He recommended the patient avoid fatty foods at this time and he did not recommend cholecystectomy unless the patient has recurrent problems. The patient was also found to have hypoxemia during the hospital course and did have an elevated d-dimer. CTA of the chest was obtained and was negative for PE. She did have central lobular emphysema and a large hiatal hernia. Several days after admission the patient did have a diarrheal stool after receiving laxatives. GI panel was positive for enteropathogenic Escherichia coli. Treatment for this is symptomatic with preventing dehydration. Diarrhea has resolved. No further treatment for this as needed. The patient will need 2 L of oxygen at rest and 3 L of oxygen with activity. Physical therapy did see the patient throughout the hospital course and on the day of discharge she was able to walk 200 feet and able to go up and down steps as needed at home. Was felt that she was stable for dismissal to home with home health. She will need to be up with a walker. She will need home oxygen. She was started on DuoNeb breathing treatments 3 times a day to see if this would help with her hypoxia given her findings of emphysema on CT scan. Due to hypotension and acute kidney injury on admission, the patient's metoprolol and lisinopril were not restarted during the hospital course. Due to hyperkalemia initially, potassium was not restarted during the hospital course. On discharge, we will have the patient restart her metoprolol. She has been taking Lasix and we will have her restart potassium. We will have her continue to hold off on taking lisinopril for now and follow- up regarding blood pressure and basic metabolic profile with her primary care physician next week. On 06/18/2017 the patient was eating and drinking well and diarrhea had resolved. She was feeling well and desiring to go home. She will be discharged to home with home health in stable condition. She lives at home with her and her children check on them frequently. Discharge diagnoses Cholecystitis Abdominal pain-resolved Possible small gallstones COPD Hypoxia-possibly secondary to COPD Elevated d-dimer with no PE seen on CTA of chest Enteropathogenic Escherichia coli with diarrhea-resolved Generalized weakness-patient is back to baseline. Will still need to use walker when up walking Dehydration-resolved Acute kidney injury-resolved Hyperkalemia-resolved Hypertension-chronic Chronic kidney disease Weight loss Cerumen impaction Greater than 30 minutes of time was spent seeing and evaluating the patient and determining care plan on dismissal day Time spent with patient: discharge greater than 30 minutes Discharge Plan - Med Rec/Dispo Referrals/Follow Up: Gabriela Pacheco PA [Family Provider] - [place] Instructions: Acute Abdominal Pain (GEN) Prescriptions: New Albuterol/Ipratropium [Duoneb] 3 ml AEROSOL RTTID #1 box Fluticasone Nasal [place] [Flonase] 2 spray EA NOSTRIL DAILY bottle Continue Multi-Vitamin Plain [Theragran] 1 tab PO DAILY Metoprolol Succinate 50 mg PO BID Potassium Chloride [K-Dur] 20 meq PO DAILY Furosemide [Lasix] 40 mg PO DAILY Donepezil HCl [Aricept] 10 mg PO HS Vits A,C,E/Lutein/Minerals [Ocuvite with Lutein Tablet] 1 tab PO DAILY Tramadol [Ultram] 50 mg PO BID Simvastatin [Zocor] 40 mg PO HS Discontinued Lisinopril [Prinivil] 20 mg PO DAILY Discharge Instructions/Outpatient Orders: Provider Discharge Instructions Location: Determined By Patient - Disposition [address] [place] [address]
== END 2017-06-18 15:52 | disposition home health service (06) | DRG 444 ==
LOC: ED 15:48 → MED 15:48 → SUATTDRO 06-13 16:24
PROVIDERS: ADMIT Internal Medicine; ATTEND Internal Medicine

== ENCOUNTER 2017-09-04 23:27 | Inpatient (IN) ==
[2017-09-04] MEDS ORDERED: ONDANSETRON 4 MG/2 ML INJECTION IVP ONE (23:35)
[2017-09-04] MEDS ORDERED: MORPHINE SULFATE 2mg INJECTION IVP ONE (23:35)
--- NOTE | 2017-09-04 23:38 | Emergency Department Report ---
Fall HPI - General Stated Complaint: fall, hip pain Time Seen by Provider: 09/04/17 23:34 Source: patient Mode of arrival: ambulatory Limitations: no limitations - History of Present Illness HPI Narrative: Patient tripped over her walker in the bathroom, falling onto her right side. Patient had similar episode in June, breaking 3 ribs. Tonight the patient complains of right hip pain. Initially paramedics found the patient with hip pain, however at the time she did not seem to have any clinical rotation or shortening. However when the patient arrives, after transfer from the cot to the bed, patient appears to have shortening and external rotation with significant right hip pain. - Related Data Home Medications Medication Instructions Recorded Confirmed Furosemide [Lasix] 20 mg PO DAILY 06/12/17 09/04/17 Metoprolol Succinate 25 mg PO DAILY 06/12/17 09/04/17 Multi-Vitamin Plain [Theragran] 1 tab PO DAILY 06/12/17 09/04/17 Potassium Chloride [K-Dur] 20 meq PO DAILY 06/12/17 09/04/17 Simvastatin [Zocor] 40 mg PO HS 06/12/17 09/04/17 Tramadol [Ultram] 50 mg PO BID 06/12/17 09/04/17 Vits A,C,E/Lutein/Minerals 1 tab PO DAILY 06/12/17 09/04/17 [Ocuvite with Lutein Tablet] Donepezil HCl [Aricept] 10 mg PO HS 06/13/17 09/04/17 Albuterol/Ipratropium [Duoneb] 3 ml AEROSOL RTTID PRN 09/04/17 09/04/17 Aspirin [Adult Low Dose Aspirin EC] 81 mg PO DAILY 09/04/17 09/04/17 Allergies Allergy/AdvReac Type Severity Reaction Status Date / Time Penicillins Allergy Unknown Verified 09/04/17 23:49 Review of Systems All systems: reviewed and negative except as stated PFSH Patient Stated Medical History Hearing Loss Yes Other HEENT Yes: recent increase in hearing deficit Hypertension Yes Hypotension Yes Gastroesophageal Reflux Yes Disease Other GI Yes: diverticulitis COPD/chronic bronchitis - uses breathing treatments during the winter months/ flu season Surgical History: Appendectomy - Social History Smoking status: Former smoker Current residence: Apartment/Private Home Physical Exam - Limitations Limitations: no limitations - General General appearance: alert - Normal Exams: Head:: Normocephalic without trauma Eyes:: Pupils are PERRLA w/ EOMI, No scleral icterus, irritation, or foreign bodies noted ENMT:: No facial trauma, nasal exudates, pharyngeal erythema, or exudates are noted Neck:: Full range of motion, without adenopathy, JVD, bruits or thyromegaly Chest/Respirations:: Clear all kang, with good airflow, and symmetry bilaterally Cardiovascular:: Regular rate and rhythm, without murmur or gallop, Pulses 2+ all extremities, capillary refill, <2 seconds all extremities Abdomen:: Bowel sounds positive, soft, non-tender, non-distended, no hepatosplenomegaly, masses or bruits noted Lymphatic:: No lymphadenopathy, or lymphedema noted Integumentary:: No rashes, hives, or bruising noted, hair and nails, without abnormality Neurological:: Patient is alert, and oriented, cranial nerves, motor/sensory/ cerebellar, exams w/o gross deficits, to observation Psychiatric:: Patient exhibits, appropriate attention, emotion and affect - Extremities Exam Extremities exam: Present: other (significant right lateral and posterior hip tenderness with external rotation and shortening of the leg. Neurovascularly intact) Course Vital Signs Temperature 97.6 F 09/04/17 23:28 Pulse Rate 77 09/04/17 23:28 Respiratory Rate 18 09/04/17 23:28 Blood Pressure 130/58 09/04/17 23:28 Pulse Oximetry 98 09/04/17 23:28 Temperature 97.6 F 09/04/17 23:28 Pulse Rate 62 09/05/17 00:45 Respiratory Rate 20 09/05/17 02:14 Blood Pressure 106/55 09/05/17 00:45 Pulse Oximetry 99 09/05/17 02:14 Fall - [facility] Narrative Medical decision making narrative: Patient given 2 mg morphine IV, Zofran 4 mg Pelvis/hip films - right intertrochanteric hip fracture, comminuted Patient is discussed with [facility]ars for Dr. García, they will be glad to take the patient to the OR later this morning. Dr. Art Vieyra will admit the patient for hospitalist service - Lab Data Result diagrams: 09/04/17 23:45 09/04/17 23:45 Lab Results 09/04/17 09/04/17 Range/Units 23:45 23:45 WBC 7.9 (4.5-11.0) T/MM3 RBC 3.79 L (4.00-5.20) M/MM3 Hgb 11.8 L (12-16) GM/DL Hct 38.1 (36-46) % MCV 100.5 H (80-100) UM3 MCH 31.1 (26-34) UUG MCHC 31.0 (31-37) GM/DL RDW Std Deviation 46.4 (36.9-50.2) FL Plt Count 318 (130-400) T/MM3 MPV 9.3 L (9.4-12.4) UM3 Immature Gran % (Auto) 0.3 (0.0-0.5) % Neut % (Auto) 67.6 H (33-66) % Lymph % (Auto) 19.3 L (23-45) % [place] % (Auto) 11.2 H (0-9.0) % Eos % (Auto) 1.3 (0-4) % Baso % (Auto) 0.3 (0-2) % Neut # (Auto) 5.3 (1.8-7.7) T/MM3 Lymph # (Auto) 1.5 (1-4.8) T/MM3 [place] # (Auto) 0.9 H (0-0.8) T/MM3 Eos # (Auto) 0.1 (0-0.5) T/MM3 Baso # (Auto) 0.0 (0-0.2) T/MM3 Abs Immat Gran (auto) 0.02 (0.00-0.03) T/MM3 Turbidity < 20 (0-20) Sodium 140 (134-144) MEQ/L Potassium 4.4 (3.6-5) MEQ/L Chloride 101 (98-107) MEQ/L Carbon Dioxide 29 (22-30) MEQ/L Anion Gap 10 (5-15) MEQ/L BUN 27.0 H (7-17) MG/DL Creatinine 1.2 (0.7-1.2) MG/DL GFR Calculation 43 BUN/Creatinine Ratio 23 (6-26) RATIO Glucose 122 H (65-110) MG/DL Calculated Osmolality 275 (261-280) MOSM/KG Calcium 9.2 (8.4-10.2) MG/DL Total Bilirubin 0.30 (0.20-1.30) MG/DL Conjugated Bilirubin 0.00 (0.00-0.30) MG/DL Unconjugated Bilirubin 0.10 (0.00-1.1) MG/DL Icterus Index < 2 (0-7) AST 26 (14-36) U/L ALT 27 (9-52) U/L Alkaline Phosphatase 103 (38-126) U/L Total Protein 6.8 (6.3-8.2) G/DL Albumin 3.8 (3.5-5.0) G/DL Globulin 3.0 (2.4-3.6) G/DL Albumin/Globulin Ratio 1.3 (1.1-2.2) RATIO Specimen Hemolysis < 15 (0-25) Disposition Clinical Impression: Intertrochanteric fracture of right hip Qualifiers: Encounter type: initial encounter Fracture type: closed Fracture alignment: nondisplaced Qualified Code(s): S72.144A - Nondisplaced intertrochanteric fracture of right femur, initial encounter for closed fracture Disposition: 02 To [facility] [place] Acute Care Condition: Improved Prescriptions: No Action Multi-Vitamin Plain [Theragran] 1 tab PO DAILY Metoprolol Succinate 25 mg PO DAILY Potassium Chloride [K-Dur] 20 meq PO DAILY Furosemide [Lasix] 20 mg PO DAILY Donepezil HCl [Aricept] 10 mg PO HS Aspirin [Adult Low Dose Aspirin EC] 81 mg PO DAILY Vits A,C,E/Lutein/Minerals [Ocuvite with Lutein Tablet] 1 tab PO DAILY Tramadol [Ultram] 50 mg PO BID Simvastatin [Zocor] 40 mg PO HS Albuterol/Ipratropium [Duoneb] 3 ml AEROSOL RTTID PRN PRN Reason: Shortness Of Air/Wheezing Referrals: Marielle Pacheco, [employer] SET UP OPERATOR [Family Provider] - - Seen By: physician
[2017-09-04] MEDS: SALINE FLUSH 10ml SYRINGE IVF PRN (23:59)
[2017-09-05] MEDS ORDERED: MORPHINE SULFATE 2mg INJECTION IVP ONE (00:55)
[2017-09-05] MEDS: SALINE FLUSH 10ml SYRINGE IVF PRN (00:58)
[2017-09-05] MEDS ORDERED: ALBUTEROL/IPRATROPIUM 2.5mg-0.5mg/3ml NEB AEROSOL ONE (02:07)
--- NOTE | 2017-09-05 02:34 | History & Physical Report ---
History of Present Illness Date: 09/05/17 Chief complaint: fall, right hip pain HPI: 87 y/o w/ h/o COPD, GERD, HTN and mild chronic anemia who uses a walker presents to ER w/ concern of right hip pain resulting from a mechanical fall late last evening. Patient states she was using her walker and tripped going to the bathroom and fell on her right side. She noted pain after the fall in her right hip but she was able to bear weight on it briefly. She denies LOC, dizziness, syncope, lightheadedness and acute ataxic gait. She denies cp, soa , GAY, n/v, f/c/s or recent illness. She presents to the ER at [facility] In ER, xray shows fx of right hip. Dr. García's PA [facility] notified of admission and they will plan to see her later this AM. Patient recieved Morphine for pain and is resting more comfortably. Patient noted to be 89-90% on RA and received a breathing treatment. Patient currently on 4 L/min per NC with sats in the 90s. Patient to be admitted to the Hospitalist service for further evaluation and management and Orthopedics consult Review of Systems All systems PM: 10-point ROS was reviewed, no additional remarkable complaints except Past Medical History Patient Stated Medical History Hearing Loss Yes Other HEENT Yes: recent increase in hearing deficit Hypertension Yes Hypotension Yes Gastroesophageal Reflux Yes Disease Other GI Yes: diverticulitis Reports h/o mild COPD and uses occasional albuterol Surgical History: Appendectomy Family History Updates: No significant family history reported - Social History Smoking status: Former smoker Current residence: Apartment/Private Home Medications Home Medications Medication Instructions Recorded Confirmed Type Furosemide [Lasix] 20 mg PO DAILY 06/12/17 09/04/17 History Metoprolol Succinate 25 mg PO DAILY 06/12/17 09/04/17 History Multi-Vitamin Plain [Theragran] 1 tab PO DAILY 06/12/17 09/04/17 History Potassium Chloride [K-Dur] 20 meq PO DAILY 06/12/17 09/04/17 History Simvastatin [Zocor] 40 mg PO HS 06/12/17 09/04/17 History Tramadol [Ultram] 50 mg PO BID 06/12/17 09/04/17 History Vits A,C,E/Lutein/Minerals 1 tab PO DAILY 06/12/17 09/04/17 History [Ocuvite with Lutein Tablet] Donepezil HCl [Aricept] 10 mg PO HS 06/13/17 09/04/17 History Albuterol/Ipratropium [Duoneb] 3 ml AEROSOL RTTID PRN 09/04/17 09/04/17 History Aspirin [Adult Low Dose Aspirin EC] 81 mg PO DAILY 09/04/17 09/04/17 History Allergies Allergy/AdvReac Type Severity Reaction Status Date / Time Penicillins Allergy Unknown Verified 09/05/17 03:13 Exam Vital Signs: Temperature 97.6 F 09/04/17 23:28 Pulse Rate 62 09/05/17 00:45 Respiratory Rate 20 09/05/17 02:14 Blood Pressure 106/55 09/05/17 00:45 Pulse Oximetry 99 09/05/17 02:14 Height/Weight/BMI: Height 1.7 m Weight 60.5 kg - Constitutional Present: no acute distress, well nourished, well developed - Routine HEENT Exam Head: Present: normocephalic, atraumatic Eye: Present: EOMI, PERRL ENT: Present: mucous membranes dry - Routine Neck Exam Present: supple, full ROM. Absent: JVD - Routine Respiratory Exam Present: CTA bilaterally. Absent: accessory muscle use, rales, respiratory distress Comments: On O2 per NC at 4 L/min - Routine Cardiovascular Exam Present: RRR - Routine Abdominal Exam Present: soft, normoactive bowel sounds, non distended, non tender - Routine Extremities Exam Present: edema (mild non-pitting on right vs left - baseline and chronic for patient per her report). Absent: cyanosis, clubbing - Routine Neurological Exam Present: alert, oriented X3 - Routine Psychiatric Exam Present: normal affect, normal thought process Results - Labs CBC & Chem 7: 09/04/17 23:45 09/04/17 23:45 Assessment and Plan Assessment and Plan: Assessment: 1) Right hip fx s/p mechanical fall 2) Acute Right hip pain r/t #1 3) Mild chronic anemia 4) COPD w/ mild borderline hypoxia on RA tonight - improved w/ O2 per NC now at 4 L/min. Not on O2 at home. 5) HTN 6) GERD 7) h/o diverticulitis Plan: Admit to Hospitalist Consult Dr. García of Ortho NPO except for sips/chips IVFs that of NS at 75 cc/hour Labs in AM Home meds as indicated - hold lasix and hold ASA and KCL Protonix IV 40mg x one tonight - can resume oral med for GERD after surgery Morphine Sulfate IV for pain Continuous pulse ox and O2 per NC if needed to keep sats > 90% Albuterol neb q 4 hours prn Incentive Spirometry O2 titrated to keep sats > 90% DVT Prophylaxis: SCD's GI Prophylaxis: Protonix Resuscitation Status: Full Code - Physician Narrative Physician: Monica Davis MD Narrative: Date: 09/05/17 Time: 22809/05/2017-Dr. Phillips As seen and examined the patient. I've reviewed and agree with the H&P above dictated by Dr. Vieyra. Please see my additions below. Chief complaint is fall with right hip pain History of present illness: Patient is a pleasant 87-year-old female who was getting up to the bathroom last night with her walker and states that she lost her footing and fell in the bathroom. She denies loss of consciousness or lightheadedness with the fall. She did not hit her head or neck. She has no head or neck pain. She complains of right hip pain. She states she had a fall on and fractured 3 ribs on the right side of her chest and has had some mild neck pain since that time. She states that she has been doing well otherwise recently. She's had some chronic runny nose which occasionally causes a cough from postnasal drainage and occasionally causes her to have some emesis when she is coughing up phlegm. She denies any shortness of breath or chest pain. She was hospitalized in May 2017 with probable acute cholecystitis and enteropathogenic Escherichia coli diarrhea. At that time she was dismissed on 2-3 L of oxygen. She states she only needed that for about 3 weeks and then was able to go off of oxygen. Past medical history Mild dementia, hypertension, GERD, hyperlipidemia, questionable chronic kidney disease, questionable gallstones and acute cholecystitis in May 2017- treated medically, hiatal hernia, emphysema seen on CTA, gait instability requiring use of a walker, hearing loss, macular degeneration, history of diverticulitis past surgical history: Appendectomy Family history: Father had coronary artery disease and alcoholism, mother had hypertension and diabetes Social history: The patient lives with her , she uses a walker. The patient states she is a former smoker, but her daughter states that she has been smoking on occasion recently Comprehensive review of systems is negative other than the above in history of present illness Medications and allergies are reviewed Physical exam Afebrile, pulse 66, respirations 16, blood pressure 129/72, O2 sat 100% on 4 L. She was placed on oxygen after being given pain medication which dropped her saturations while she was on room air. General: Patient is alert and oriented and in no acute distress. HEENT reveals oropharynx to be dry, neck is supple, chest is clear to auscultation, cardiovascular reveals a regular rate and rhythm, abdomen is soft and nontender with positive bowel sounds, extremities are free of edema, skin is warm and dry and without rashes. CMP is essentially normal, BUN is 27, creatinine 1.2, blood sugar 122. CBC is essentially normal with hemoglobin 11.8 EKG reveals sinus rhythm with sinus arrhythmia, intraventricular conduction delay, low voltage, heart rate 71 Chest x-ray is pending Impression Right hip fracture status post mechanical fall Gait instability Fall on giving with right rib fractures COPD Acute hypoxia likely secondary to narcotics in addition to COPD Hypertension GERD Mild dementia Tobaccoism Plan Admit to hospitalist. Dr. García is been consulted and plans for surgery later today. As long as chest x-ray shows no significant abnormalities, I think she is in stable condition to proceed with surgery today. Place Olivera catheter DC albuterol and start DuoNeb Incentive spirometer O2 as needed to keep sats above 90% CBC and CMP tomorrow Case management consult for discharge planning PT and OT consult postop Discussed with family. Will discuss with Dr. García when chest x-ray is back. Hospital Course Summary Disclaimer: The visit summary below is not to be considered part of the above Progress Note.
[2017-09-05] MEDS ORDERED: DOCUSATE SODIUM 100 MG CAPSULE PO PRN (02:46)
[2017-09-05] MEDS ORDERED: NS 1,000 ML IV SCH (02:46)
[2017-09-05] MEDS ORDERED: ALBUTEROL 2.5mg/3ml (0.083%) NEB AEROSOL PRN (02:46)
[2017-09-05] MEDS ORDERED: ONDANSETRON 4 MG/2 ML INJECTION IVP PRN (02:46)
[2017-09-05] MEDS: MORPHINE SULFATE 4mg INJECTION IVP PRN ×4 (03:06→11:16)
[2017-09-05 03:08] VITALS: BMI 19.8
[2017-09-05] MEDS ORDERED: NOZIN NASAL SWAB NAS ONE (06:23)
--- NOTE | 2017-09-05 06:23 | Orthopedic Consult Note ---
Orthopedic Consultation HPI - Consultation Info Consult Date: 09/05/17 Attending Physician: Monica Phillips MD Consult Reason: fracture - History of Present Illness 87 yo lady who was going to the bathroom last night when she lost her balance and fell, injuring her right hip. She was unable to get up and had severe right hip pain. She was brought to [facility] by ambulance and was found to have a displaced right intertrochanteric hip fracture. She was admitted by the hospitalist service and ortho consulted for surgical treatment. Review of Systems - Constitutional Constitutional: Absent: chills, fever(s) - Cardiovascular Cardiovascular: Absent: chest pain - Respiratory Respiratory: Absent: cough, dyspnea - Gastrointestinal Gastrointestinal: Absent: abdominal pain - Musculoskeletal Musculoskeletal: Present: as per HPI - Neurological Neurological: Present: frequent falls (Fell a month ago and broke some ribs.) - Hematologic/Lymphatic Hematologic/Lymphatic: Absent: easy bleeding PFS Patient Stated Medical History Hearing Loss Yes Hypertension Yes Gastroesophageal Reflux Yes Disease Other GI Yes: diverticulitis Surgical History: Appendectomy - Social History Smoking status: Former smoker Current residence: Apartment/Private Home Medications Home Medications Medication Instructions Recorded Confirmed Type Furosemide [Lasix] 20 mg PO DAILY 06/12/17 09/04/17 History Metoprolol Succinate 25 mg PO DAILY 06/12/17 09/04/17 History Multi-Vitamin Plain [Theragran] 1 tab PO DAILY 06/12/17 09/04/17 History Potassium Chloride [K-Dur] 20 meq PO DAILY 06/12/17 09/04/17 History Simvastatin [Zocor] 40 mg PO HS 06/12/17 09/04/17 History Tramadol [Ultram] 50 mg PO BID 06/12/17 09/04/17 History Vits A,C,E/Lutein/Minerals 1 tab PO DAILY 06/12/17 09/04/17 History [Ocuvite with Lutein Tablet] Donepezil HCl [Aricept] 10 mg PO HS 06/13/17 09/04/17 History Albuterol/Ipratropium [Duoneb] 3 ml AEROSOL RTTID PRN 09/04/17 09/04/17 History Aspirin [Adult Low Dose Aspirin EC] 81 mg PO DAILY 09/04/17 09/04/17 History Allergies Allergy/AdvReac Type Severity Reaction Status Date / Time Penicillins Allergy Unknown Verified 09/05/17 03:13 Orthopedic Exam Vital signs: Temperature 97.6 F 09/04/17 23:28 Pulse Rate 69 09/05/17 03:05 Respiratory Rate 20 09/05/17 03:05 Blood Pressure 118/65 09/05/17 03:05 Pulse Oximetry 99 09/05/17 03:05 - Constitutional General Appearance: Present: alert, cooperative, no acute distress - Respiratory Exam Present: non-labored - Cardiovascular Exam Present: pedal pulses intact Capillary Refill: < 2-3 Seconds - Abdominal Exam Present: soft. Absent: tenderness, distended - Extremities Exam Present: edema (mild non-pitting on right vs left - baseline and chronic for patient per her report), pulses intact. Absent: cyanosis, clubbing, calf tenderness - Hip Exam right Hip Exam: Present: unequal leg length, tender over trochanter, abnormal rotation , painful PROM - Integumentary Exam Present: pink, warm, dry - Neurological Exam Absent: no deficits - Labs Result Diagrams: 09/04/17 23:45 09/04/17 23:45 Impression and Recommendation (1) Intertrochanteric fracture of right hip Current visit: Yes Qualifiers: Encounter type: initial encounter Fracture type: closed Fracture alignment: displaced Qualified Code(s): S72.141A - Displaced intertrochanteric fracture of right femur, initial encounter for closed fracture Status: Acute [place] has been ambulatory and would benefit from surgical fixation. Will plan on IM fixation of the right hip if medically stable. Dr García will meet with family and patient to discuss risk vs benefit and possible complications. Keep NPO in preparation for surgery today. Hospital Course Summary Disclaimer: The visit summary below is not to be considered part of the above Progress Note.
--- NOTE | 2017-09-05 07:55 | XRay Report ---
Indication: fall, right hip fracture clinically PROCEDURE: XR pelvis w/ 2 view RT hip: Encounter: Initial Comparison: None Findings: Comminuted foreshortened intertrochanteric right femoral fracture. No additional acute fracture or dislocation. Old trauma to the left pubic symphysis. Degenerative change with scoliosis in the lumbar spine. Arterial vascular calcifications. Severe bony demineralization. Slight posterior displacement of the distal fracture fragment on the lateral view. Impression: Closed posttraumatic intertrochanteric right femoral fracture. .
[2017-09-05] MEDS ORDERED: PANTOPRAZOLE 40 MG INJECTION IVP SCH (09:00)
--- NOTE | 2017-09-05 10:22 | XRay Report ---
Indication: PREOP PROCEDURE: XR chest 1V: Encounter: Initial Comparison: June 14, 2017 Findings: The lungs are stable in appearance without new focal airspace consolidation. There is no pleural effusion or pneumothorax. Right-sided skinfold noted incidentally. The heart size, pulmonary vascularity and mediastinal contours are unchanged. IMPRESSION: Stable appearance of the chest without acute cardiopulmonary disease. .
[2017-09-05] MEDS ORDERED: CEFAZOLIN 1 G INJECTION IVP ONE (11:00)
[2017-09-05] MEDS: NS 1,000 ML IV SCH (12:32)
[2017-09-05] MEDS ORDERED: LIDOCAINE 1% (10mg/ml) 30ml SDV INJ ONE (13:35)
[2017-09-05] MEDS ORDERED: BUPIVACAINE 0.25% (2.5mg/ml) PF 30ml INJECTION ONE (13:35)
--- NOTE | 2017-09-05 13:47 | Anesthesia Preoperative Report ---
Anesthesia Preoperative Record - Date and Time Date: 09/05/17 Preoperative Diagnosis: right hip fx s/p mechanical fall Proposed Procedure: right femur IM nail NPO Since Date: 09/04/17 NPO Since Time: 15:00 Allergies/Adverse Reactions: Allergies Allergy/AdvReac Type Severity Reaction Status Date / Time Penicillins Allergy Unknown Verified 09/05/17 03:13 - Vital Signs Vital Signs: Temperature 98.2 F 09/05/17 12:26 Pulse Rate 75 09/05/17 12:26 Respiratory Rate 14 09/05/17 12:26 Blood Pressure 136/65 09/05/17 12:26 Pulse Oximetry 96 09/05/17 12:26 Height and Weight: Height 5 ft 7 in Weight 57.6 kg Body Mass Index 19.8 - Medications Inpatient Medications: Current Medications Albuterol/Ipratropium (Duoneb) 3 ml AEROSOL RTQID [facility] Docusate Sodium (Colace) 100 mg PO BID PRN Sodium Chloride (Normal Saline) 1,000 mls @ 80 mls/hr IV .[id number] [facility] Last Infusion: 09/05/17 12:05 Dose: 0 mls/hr Sodium Chloride (Normal Saline) 1,000 mls @ 50 mls/hr IV .Q20H [facility] Last Admin: 09/05/17 12:32 Dose: 50 mls/hr Metoprolol Succinate (Toprol Xl) 25 mg PO DAILY [facility] Last Admin: 09/05/17 08:41 Dose: 25 mg Morphine Sulfate (Morphine Sulfate Inj) 1 mg IVP Q2H PRN PRN Reason: Pain Last Admin: 09/05/17 11:16 Dose: 1 mg Ondansetron HCl (Zofran) 4 mg IVP Q6H PRN PRN Reason: Nausea &/or vomiting Pantoprazole Sodium (Protonix Iv) 40 mg IVP DAILY [facility] Last Admin: 09/05/17 08:43 Dose: 40 mg Simvastatin (Zocor) 40 mg PO HS [facility] Sodium Chloride (Iv Flush) 10 - 80 ml IVF PRN PRN PRN Reason: Flushing Last Admin: 09/05/17 00:58 Dose: 10 ml Home Medications: Home Medications Medication Instructions Recorded Confirmed Type Furosemide [Lasix] 20 mg PO DAILY 06/12/17 09/04/17 History Metoprolol Succinate 25 mg PO DAILY 06/12/17 09/04/17 History Multi-Vitamin Plain [Theragran] 1 tab PO DAILY 06/12/17 09/04/17 History Potassium Chloride [K-Dur] 20 meq PO DAILY 06/12/17 09/04/17 History Simvastatin [Zocor] 40 mg PO HS 06/12/17 09/04/17 History Tramadol [Ultram] 50 mg PO BID 06/12/17 09/04/17 History Vits A,C,E/Lutein/Minerals 1 tab PO DAILY 06/12/17 09/04/17 History [Ocuvite with Lutein Tablet] Donepezil HCl [Aricept] 10 mg PO HS 06/13/17 09/04/17 History Albuterol/Ipratropium [Duoneb] 3 ml AEROSOL RTTID PRN 09/04/17 09/04/17 History Aspirin [Adult Low Dose Aspirin EC] 81 mg PO DAILY 09/04/17 09/04/17 History Is Patient on Beta Giuseppe?: Yes - Medical History Respiratory: Reports: Chronic Obstructive Pulmonary Disease (COPD) (denies SOB, no home O2) DENIES: Sleep Apnea Cardiovascular: Reports: Hypertension, Hypotension, High Cholesterol Gastrointestional: Reports: Gastroesophageal Reflux Disease, Other ( diverticulitis) Other History: DENIES: Anesthesia Reactions - Surgical History GI Surgery/Treatments: Reports: Appendectomy Anesthesia Reactions: None Hx Family Anesthesia Reaction: No History of Motion Sickness: No - Social History Smoking Status: Former smoker Hx Chewing Tobacco Use: No Second Hand Exposure: No Substance Use Type: does not use Alcohol Intake Frequency: does not drink - Pertinent Findings Laboratory: Urine 09/05/17 Range/Units 06:26 Urine Color Yellow (YELLOW) Urine Clarity Clear Urine pH 5.0 (5.0-8.0) Ur Specific [place] >=1.030 H (1.015-1.025) Urine Protein Negative (NEGATIVE) Urine Glucose (UA) Negative (NEGATIVE) EKG: Sinus Rhythm - Physical Exam Respiratory Exam: Present: lungs clear Cardiovascular Exam: Present: regular rate and rhythm - Airway Assessment Mallampati Score: II TMD: 3 Fingerbreadths Neck Extension: fair Teeth: other (edentulous) Overall Assessment: may be difficult mask vent - ASA ASA Score: 3 - Plan Anesthesia: General Inhalation Gases - Discussion Discussion: Discussed risks/options/alternatives of anesthesia and questions answered. Patient consents. Nursing pain assessment noted. Present for Discussion: spouse, family member Attestation Statement: Prior to the delivery of any anesthetic medication, I examined the patient, developed the plan, obtained the patient's consent and discussed the risk and benefits of the procedure with the patient/guardian. - Additional Information Seen by Anesthesia: Yes
[2017-09-05] MEDS ORDERED: FentaNYL 250 MCG/5 ML INJECTION ONE (14:03)
[2017-09-05] MEDS ORDERED: MIDAZOLAM 2mg/2ml INJECTION ONE (14:03)
[2017-09-05] MEDS ORDERED: KETAMINE 500 MG/10 ML INJECTION ONE (14:04)
[2017-09-05] MEDS ORDERED: EPHEDRINE 50mg/ml INJECTION ONE (14:24)
[2017-09-05] MEDS ORDERED: BUPIV 0.25% 30ml/LIDO 1% 30ml MIXTURE ID ONE (14:50)
[2017-09-05] MEDS ORDERED: ONDANSETRON 4 MG/2 ML INJECTION ONE (15:14)
--- NOTE | 2017-09-05 15:31 | Remote Fluorsocopy Report ---
Indication: RT HIP FX PROCEDURE: RF hip RT 2 view: Encounter: Initial Comparison: Pelvis radiographs from yesterday Findings: 12 fluoroscopic spot images are submitted for interpretation. Images show open reduction and internal fixation of the right femoral fracture with placement of an intramedullary nail and compression screw. Distal interlocking screw. Improved alignment of the fracture fragments. Impression: Fluoroscopy as above. Fluoroscopy time is 161 seconds. Fluoroscopy dose is 1740 mRad. .
[2017-09-05] MEDS: MORPHINE SULFATE 10 MG/ML VIAL IVP PRN ×3 (16:01→16:21)
[2017-09-05] MEDS: ALBUTEROL/IPRATROPIUM 2.5mg-0.5mg/3ml NEB AEROSOL SCH ×3 (17:18→21:41)
[2017-09-05] MEDS ORDERED: ACETAMINOPHEN 325 MG TABLET PO PRN (17:20)
[2017-09-05] MEDS: NOZIN NASAL SWAB NAS SCH (17:36)
[2017-09-05] MEDS ORDERED: SIMVASTATIN 40 MG TABLET PO SCH (21:00)
[2017-09-05] MEDS ORDERED: ENOXAPARIN 40 MG/0.4 ML INJECTION SQ SCH (21:00)
[2017-09-05] MEDS: CEFAZOLIN 1 G in NS 100 ML IV SCH (22:04)
[2017-09-06] MEDS: NS 1,000 ML IV SCH ×2 (00:41→09:13)
[2017-09-06] MEDS: NOZIN NASAL SWAB NAS SCH ×2 (03:49→09:13)
[2017-09-06] MEDS: HYDROCODONE/APAP 7.5 MG/325 MG TABLET PO PRN ×2 (05:24→12:41)
[2017-09-06] MEDS: CEFAZOLIN 1 G in NS 100 ML IV SCH (05:30)
[2017-09-06] MEDS: ALBUTEROL/IPRATROPIUM 2.5mg-0.5mg/3ml NEB AEROSOL SCH ×3 (07:15→14:45)
--- NOTE | 2017-09-06 07:54 | Orthopedic Progress Note ---
Date: Date: 09/06/17 Time: 750 Subjective/Severity of Illness: Magnolia is doing okay this AM. She has some left hip pain from lying on that side. The right hip is not painful unless she moves it. No reports of CP or breathing trouble. Orthopedic Objective PO Vital signs: Temperature 97 F 09/06/17 07:41 Pulse Rate 82 09/06/17 07:41 Respiratory Rate 18 09/06/17 07:41 Blood Pressure 117/58 09/06/17 07:41 Pulse Oximetry 98 09/06/17 07:41 Height and Weight: Height 5 ft 7 in Weight 126 lb 15.78 oz Body Mass Index 19.8 - Constitutional General Appearance: Present: alert, cooperative, no acute distress - Respiratory Exam Present: non-labored - Cardiovascular Exam Present: pedal pulses intact - Extremities Exam Extremities: Present: pulses intact. Absent: calf tenderness - Surgical Site Incision: dressing intact, no drainage - Integumentary Exam Present: pink, warm, dry - Neurological Exam Present: no deficits - Psychiatric Exam Present: alert - Wound Management Right Hand Wound Type: Skin Tear Primary Dressing: Bandaid Right Elbow Wound Type: Skin Tear Primary Dressing: Bandaid - Labs Result Diagrams: 09/06/17 04:24 09/06/17 04:24 Abnormal lab results 09/05/17 09/06/17 09/06/17 Range/Units 06:26 04:24 04:24 RBC 2.93 L (4.00-5.20) M/MM3 Hgb 9.0 L D (12-16) GM/DL Hct 30.0 L D (36-46) % MCV 102.4 H (80-100) UM3 MCHC 30.0 L (31-37) GM/DL Neut % (Auto) 66.6 H (33-66) % Lymph % (Auto) 16.1 L (23-45) % [place] % (Auto) 16.3 H (0-9.0) % [place] # (Auto) 1.1 H (0-0.8) T/MM3 BUN 22.0 H (7-17) MG/DL BUN/Creatinine Ratio 28 H (6-26) RATIO Calcium 8.2 L D (8.4-10.2) MG/DL Ur Specific [place] >=1.030 H (1.015-1.025) H & H 09/06/17 Range/Units 04:24 Hgb 9.0 L D (12-16) GM/DL Hct 30.0 L D (36-46) % Orthopedic Assessment and Plan (1) Intertrochanteric fracture of right hip Status: Acute Qualifiers: Encounter type: initial encounter Fracture type: closed Fracture alignment: displaced Qualified Code(s): S72.141A - Displaced intertrochanteric fracture of right femur, initial encounter for closed fracture Assessment and Plan: Lovenox x 30 days from surgery. SCDs for added protection. Mobilize with PT. WBAT. Monitor labs. Magnolia complained of severe neck pain when up at the bedside with PT today. I will order cervical neck films to eval for actue injury. - Anticoagulation Therapy Anticoagulation: Lovenox 40 mg SQ Daily x 30 days from day of surgery Hospital Course Summary Disclaimer: The visit summary below is not to be considered part of the above Progress Note.
--- NOTE | 2017-09-06 08:41 | Progress Note ---
- Date 09/06/17 Subjective: Magnolia has some intermittent right hip pain - even just moving her toes can send a shooting pain up her leg. She is on 3L of oxygen, but denies cough or feeling short of breath. After her last hip surgery she required oxygen at discharge. She also states that her right ribs are still a little sore - she fell over Thanksgiving and cracked some ribs, and her daughter Tammy also states that she had a minor punctured lung that reportedly completely healed up. She denies abdominal pain or nausea. Objective Vital signs: Temperature 97 F 09/06/17 07:41 Pulse Rate 82 09/06/17 07:41 Respiratory Rate 18 09/06/17 07:41 Blood Pressure 117/58 09/06/17 07:41 Pulse Oximetry 98 09/06/17 07:41 Height/Weight/BMI: Height 1.7 m Weight 63.2 kg Body Mass Index 19.8 - Constitutional Present: no acute distress, well nourished, well developed, thin - Routine HEENT Exam Head: Present: normocephalic ENT: Present: oropharynx clear. Absent: dentition normal (edentulous) - Routine Respiratory Exam Present: CTA bilaterally - Routine Cardiovascular Exam Present: RRR, S1, S2 - Routine Abdominal Exam Present: soft, normoactive bowel sounds, non distended, non tender - Routine Extremities Exam Present: no edema, pulses intact - Routine Musculoskeletal Exam Musculoskeletal: Present: limited range of motion (postop right hip), other ( ice pack applied to right hip) - Routine Skin Exam Present: dry, warm - Routine Neurological Exam Present: alert, oriented X3, normal speech - Routine Psychiatric Exam Present: normal affect, normal thought process, cooperative Results - Labs CBC & Chem 7: 09/06/17 04:24 09/06/17 04:24 Assessment and Plan (1) Intertrochanteric fracture of right hip Status: Resolved Assessment and Plan: Assessment: 1) Right hip ORIF on 09/05/[address] 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 Not on O2 at home but history of needing O2 at discharge. 5) HTN 6) GERD 7) h/o diverticulitis Plan: POD #1: Expect PT/OT evaluation this am. Monitor hgb, which trended down from 11.8 on admission to 9.0 this am. DC IVF. Resume home meds including Lasix - weight is up 6 kg. Continue DuoNebs and working on weaning oxygen. Start bowel regimen. 09/06/2017-9:36 PM-I reviewed this chart, the patient history, and the KNIFE FINISHER's/PA 's documented findings as above. We discussed and formulated the assessment and plan as above with the additions below.-Dr. Phillips the patient was seen earlier today prior to transfer to inpatient rehabilitation. Please see my dictation under discharge summary today DVT Prophylaxis: Lovenox GI Prophylaxis: Protonix Resuscitation Status: Full Code - Physician Narrative Narrative: Date: 09/06/17 Time: 0838 Hospital Course Summary Disclaimer: The visit summary below is not to be considered part of the above Progress Note. Hospital Course: 09/06/17 POD #1: Expect PT/OT evaluation this am. Monitor hgb, which trended down from 11.8 on admission to 9.0 this am. DC IVF. Resume home meds including Lasix - weight is up 6 kg. Continue DuoNebs and working on weaning oxygen. Start bowel regimen.
[2017-09-06] MEDS ORDERED: ALBUTEROL/IPRATROPIUM 2.5mg-0.5mg/3ml NEB AEROSOL PRN (08:49)
[2017-09-06] MEDS ORDERED: BISACODYL 10 MG SUPPOSITORY RECTALLY PRN (08:51)
[2017-09-06] MEDS ORDERED: TRAMADOL 50 MG TABLET PO SCH (09:00)
[2017-09-06] MEDS ORDERED: POLYETHYL GLYCOL 3350 17gm PACKET PO SCH (09:00)
[2017-09-06] MEDS ORDERED: MULTI-VIT + MINERAL (Opti-gen) TABLET PO SCH (09:00)
[2017-09-06] MEDS ORDERED: FUROSEMIDE 20 MG TABLET PO SCH (09:00)
[2017-09-06] MEDS ORDERED: ASPIRIN *EC* 81 MG TABLET PO SCH (09:00)
[2017-09-06] MEDS ORDERED: SENNA + DOCUSATE TABLET PO SCH (09:00)
[2017-09-06] MEDS ORDERED: MULTI-VITAMIN PLAIN TABLET PO SCH (09:00)
--- NOTE | 2017-09-06 12:04 | XRay Report ---
Indication: Left-sided neck pain worsening yesterday PROCEDURE: XR cervical spine 2-3V: Encounter: Initial Comparison: None Findings: Alignment of the cervical spine is abnormal with grade 2 anterolisthesis of C4 on C5, likely degenerative. No acute fracture. The C6, C7 and T1 vertebrae are not seen on the lateral view due to overlapping soft tissues. There is severe degenerative facet and uncovertebral changes throughout the cervical spine. Right carotid area calcifications. Moderate degenerative disk disease at C3-C4, C4-C5 and C5-C6. 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 .
--- NOTE | 2017-09-06 15:34 | Discharge Summary ---
Discharge Information Date of admission: 09/05/17 02:40 Anticipated date of discharge: 09/06/17 Attending Physician: Monica Phillips MD Primary care physician: Marielle Pacheco APRN Consults: Dr. García - orthopedics - Discharge Diagnosis (1) Intertrochanteric fracture of right hip Status: Resolved 1) Right hip ORIF on 09/05/[address] 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 Not on O2 at home but history of needing O2 at discharge. 5) HTN 6) GERD - Procedures Procedures: Right hip ORIF on 09/05/[address] García - Laboratory Labs: 09/06/17 04:24 09/06/17 04:24 - Radiology Radiology: Pelvis and right hip x-ray on 09/04/17: Intertrochanteric right femoral fracture Chest x-ray on 09/05/17: No focal airspace disease, pleural effusion, pneumothorax or abnormal pulmonary vascularity. Cervical spine x-ray on 09/06/17: Degenerative anterolisthesis of C4 on C5 with severe facet disease and moderate degenerative disc disease. History of Present Illness HPI: 87 y/o w/ h/o COPD, GERD, HTN and mild chronic anemia who uses a walker presents to ER w/ concern of right hip pain resulting from a mechanical fall late last evening. Patient states she was using her walker and tripped going to the bathroom and fell on her right side. She noted pain after the fall in her right hip but she was able to bear weight on it briefly. She denies LOC, dizziness, syncope, lightheadedness and acute ataxic gait. She denies cp, soa , GAY, n/v, f/c/s or recent illness. She presents to the ER at [facility] In ER, xray shows fx of right hip. Dr. García's PA [place] notified of admission and they will plan to see her later this AM. Patient recieved Morphine for pain and is resting more comfortably. Patient noted to be 89-90% on RA and received a breathing treatment. Patient currently on 4 L/min per NC with sats in the 90s. Patient to be admitted to the Hospitalist service for further evaluation and management and Orthopedics consult Objective Vital signs: Temperature 97.9 F 01/12/18 11:24 Pulse Rate 76 09/06/17 11:24 Respiratory Rate 18 09/06/17 14:45 Blood Pressure 135/67 09/06/17 11:24 Pulse Oximetry 95 09/06/17 14:45 Height/Weight/BMI: Height 1.7 m Weight 63.2 kg Body Mass Index 19.8 Hospital Course This is a general summary of the patient's hospital course. For more details refer to the complete medical record. Hospital course: Mrs. Rao was admitted to the [facility] on 09/05/17 after falling late in the evening of 09/04/17. She fractured her right hip; hemoglobin on admission was 11.8. On admission, her saturations were borderline, hovering between 89-90% , and she was placed on oxygen. Routine DuoNeb treatments were initiated. Dr. García was consulted, and she was taken to the OR on 09/05/17. On postop day #1, her hemoglobin trended down to 9.0. IV fluids were discontinued and her home medications including Lasix were restarted. She was still requiring supplemental oxygen, and patient and family report that she has a history of temporarily needing oxygen after her last hip fracture. When she worked with PT on 09/06/17, she started to complain of severe neck pain, and x-rays showed severe degenerative changes. She was accepted to IRU and was medically stable for transfer there on 09/06/17. Orthopedics is recommending Lovenox for 30 days postop for BTE prophylaxis. Olivera catheter was placed on admission but was discontinued prior to rehabilitation transfer. 09/06/2017-9:30 PM-I reviewed this chart, the patient history, and the TAILOR'S AIDE's/PA 's documented findings as above. We discussed and formulated the assessment and plan as above with the additions below.-Dr. Phillips I saw the patient earlier today in her room prior to transfer. She was accompanied by multiple family members. She was in a very good mood. She denied any shortness of breath or chest pain. She was eating and drinking well. She did not have any lightheadedness. On exam she was alert and oriented. Oropharynx was moist. Neck supple. Chest clear to auscultation. Cardiovascular reveals a regular rate and rhythm. Abdomen is soft and nontender. Extremities are free of edema. Impression and plan Overall, the patient has done well after hip fracture repair. She has mild anemia but is asymptomatic. She is on 2 L of oxygen without hypoxia. I did encourage her to use incentive spirometer. She complained of neck pain today and underwent CT C-spine which showed abnormal alignment with degenerative anterolisthesis of C4 on C5 with severe facet disease and moderate degenerative disc disease but no fractures. The patient appears stable for transfer to inpatient rehabilitation today. Time spent with patient: discharge greater than 30 minutes DVT Prophylaxis: Lovenox Discharge Plan - Discharge Disposition Discharge Date: 09/06/17 Disposition: 63 To [facility] INPT Rehab *Condition: Improved Reason For Visit (Visit label in EMR): right hip fx s/p mechanical fall - Discharge Medications *Discharge Medications: Continue Multi-Vitamin Plain [Theragran] 1 tab PO DAILY Metoprolol Succinate 25 mg PO DAILY Potassium Chloride [K-Dur] 20 meq PO DAILY Furosemide [Lasix] 20 mg PO DAILY Donepezil HCl [Aricept] 10 mg PO HS Aspirin [Adult Low Dose Aspirin EC] 81 mg PO DAILY Vits A,C,E/Lutein/Minerals [Ocuvite with Lutein Tablet] 1 tab PO DAILY Tramadol [Ultram] 50 mg PO BID Simvastatin [Zocor] 40 mg PO HS Albuterol/Ipratropium [Duoneb] 3 ml AEROSOL RTTID PRN PRN Reason: Shortness Of Air/Wheezing - Discharge Packet/Instructions *Diet: Regular diet *Activity: PT and OT evaluations *Pain Management/Treatment: Tylenol, [place], Tramadol *Wound Care: Per ortho instructions *Expected Signs/Symptoms: Right hip pain; weakness from surgery *Notify Physician if: increased pain, difficulty breathing, fever, wound concerns *During Business Hours Contact: Dr. García's office *After Business Hours Contact: The on-call provider for Dr. García *Pending Lab/Results: No Pending Lab - IRU/GEN Discharge/Transfer - Referrals/Follow Up *Referrals/Follow Up: Marielle Pacheco APRN [Family Provider] - Nasim García MD [Physician] - - Patient Handouts Patient Handouts: [facility] Ortho Postop Instructions - Dismissal Complete Discharge Instructions are:: Complete Physician Narrative - Narrative Attestation Narrative: Date: 09/06/17 Time: 5941
[2017-09-06 15:41] VITALS: BP 95/57; PULSE 86; RESP 14; TEMP 96.5; O2SAT 96
--- NOTE | 2017-09-06 16:43 | Operative Note ---
DATE OF SURGERY 09/05/2017 PREOPERATIVE DIAGNOSIS Right four-part intertrochanteric hip fracture. POSTOPERATIVE DIAGNOSIS Right four-part intertrochanteric hip fracture. PROCEDURE Intramedullary fixation of right four-part intertrochanteric hip fracture. SURGEON Sam García MD MOTOR ELECTRICIAN [place] PA-C COMPLICATIONS None. DESCRIPTION OF PROCEDURE Mrs. Rao and her right hip were identified in her hospital room bed. She was brought back to the operating suite and placed under general anesthesia on her hospital room bed. She was then transferred to the fracture table. A post was placed between her legs. Both feet were placed in well-padded traction boots. The left leg was placed into extension without traction. The right leg was placed into a neutral position with traction. Reduction was confirmed on multiple fluoroscopic views. The right lower extremity was prepped and draped in my normal sterile fashion. Time-out was performed. A 3-cm incision was made proximal to the greater trochanter. The proximal femur was opened a guide pin. I then placed a 12.5 reamer down the shaft and then placed a short 11-mm Gamma nail down the femur. I then placed a lag screw into a center-center position to the femoral head using an aiming arm. I did need to push down on the anterior neck while this guide pin was placed to obtain a good reduction on the lateral view. As I was placing the screw it did appear that the neck started to rotate so I made a small incision and placed a bone hook across the medial aspect of the femoral neck and this held our position and prevented us from rotating as the lag screw was placed. Traction was then let down and the compression device was used to obtain compression at the fracture site which worked well. The screw was then locked proximally and lost an eighth of a turn to allow for some sliding of the compression screw. A distal locking bolt was then placed using the aiming arm. The aiming arm was then removed. Multiple fluoroscopic images were used to ensure we had good reduction and good hardware placement. All wounds were thoroughly irrigated before being closed in layers. The drapes were then removed. She was allowed to awaken from general anesthesia and taken off the traction table and taken to the recovery room under the care of Anesthesia. She tolerated the procedure well. There were no complications. TAURUS
[2017-09-06] MEDS ORDERED: DONEPEZIL 10 MG TABLET PO SCH (21:00)
== END 2017-09-06 16:40 | DRG 482 ==
LOC: ED 23:27 → SRG 09-05 02:40
PROVIDERS: ADMIT Internal Medicine; ATTEND Internal Medicine

== ENCOUNTER 2017-09-06 16:50 | Inpatient (IN) ==
--- NOTE | 2017-09-06 17:36 | IRU History & Physical Report ---
HPI IRU Date: Date: 09/06/17 Time: 1730 Chief complaint: My hip and neck hurt HPI: Mr. Rao is a pleasant 87-year-old female referred by Dr. Monica Phillips. Her primary care provider is Marielle Pacheco APRN. She Presenting to the emergency department at [facility] on 09/04/2017. She had apparently tripped over her walker in the bathroom. She fell on her right side resulting in a right hip fracture. Plain radiograph demonstrated a comminuted foreshortened intertrochanteric right femoral fracture. She denied any loss of consciousness nor head trauma. She did demonstrate evidence of hypoxia with 89- 90% saturations on room air. History is obtained predominantly from the patient although I have reviewed the patient's records and her family is present to provide corroboration. The patient tends to get sidetracked because she has fallen 3 times. The first fall was and lateral May 2017 at which time she seemed to hurt her neck. Her neck is been hurting her ever since that time. The second fall was on 2016 during which time she reportedly fractured 3 ribs on the right side. The third fall was no one precipitating the current admission. Dr. García was consulted for definitive therapy. She was admitted to the hospitalist service. She was taken to surgery on 09/05/2017 for a right intramedullary femoral nail placement. Postoperatively she has required supplemental oxygen at around 3 L/m. In addition she has experienced acute blood loss anemia with hemoglobin dropping from 11.8 down to 9.0 g percent. She did have some weight increase and Lasix was resumed as part of her resumption of home medications. Chest x-ray on 2017 demonstrated no acute findings. She was hospitalized in the past for pneumonia. At that time she experienced hypoxemia and was on supplemental oxygen at home. After her fall in May 2017 she was again on oxygen for a time. She was seen by home health. Oxygen was able to be weaned off and she has not been using oxygen recently until the current admission. At the current admission time she still requires oxygen to maintain saturations above 90%. She therefore has experienced acute on chronic hypoxemic respiratory failure. Patient does have history of chronic tobacco use. She smoked from age 21 through age 85. Maximum smoked was about one half pack daily and toward the end she smoked only 3-4 cigarettes daily. She denies being told that she has COPD or emphysema. We did discuss resuscitation with the patient and her family present. Patient requests resuscitation in the event of an arrest but if she has evidence of brain injury she does not wish to be kept alive indefinitely. She has been complaining of neck discomfort. As noted this seemingly started back in May but appears to be worse at the present time. Plain radiograph of the cervical spine on 09/06/2017 demonstrated multiple degenerative changes including severe facet disease and abnormal alignment with anterolisthesis of C4 on C5. She lives in her own home with her . She does use a front-wheeled walker all the time. Prior level of functioning is as follows: The patient was independent for eating , grooming, upper and lower body dressing, toileting. She was modified independent level for bathing, bed/chair/wheelchair transfers, toilet transfers and walking. She used a front wheeled rolling walker and could walk 300 feet. She was modified independent level for stair climbing. Current level of functioning is as follows: She is modified independent level for eating, requires maximum assistance for grooming and upper body dressing. She requires total assistance for lower body dressing as well as bed/chair/ wheelchair transfers. She is unable to walk at the present time. She has significant muscle spasms and pain periodically both in the hip and in the neck. The following medical conditions are noted and require active monitoring and/or management: 1. Hip fracture repair. She is at risk for uncontrolled pain and in fact is having quite a bit of discomfort at present. 2. Acute on chronic hypoxemic respiratory failure. She has used oxygen in the past but not in recent months. She therefore has acute on chronic hypoxemic respiratory failure, likely related to underlying obstructive airways disease. She is at risk for further respiratory decline and infection. 3. Acute blood loss anemia. She has experienced in early 2 g hemoglobin drop. This is likely due to the fracture. She will be monitored carefully for evidence of further blood loss. 4. Cervical spine pain with degenerative changes noted on plain film. She states that the pain in the neck started back in May when she fell. However it appears to be worse at the present time and she is at risk for uncontrolled pain here. Much of this may well be related to underlying muscle spasm as well. The following therapies will be needed: 1. Physical therapy: for transfers and ambulation and stairs. 2. Occupational therapy: for ADL's and transfers. 3. Medical management: for the above conditions. 4. 24 hour Rehabilitation Nursing to monitor and address the following: Pain management, wound monitoring and inspection to ensure no evidence of infection, oxygen saturation monitoring and provision of supplemental oxygen [facility] Patient Stated Medical History Hearing Loss Yes Other HEENT Yes: recent increase in hearing deficit Hypertension Yes Hypotension Yes Chronic Obstructive Pulmonary Yes: denies SOB, no home O2 Disease (COPD) Sleep Apnea No Gastroesophageal Reflux Yes Disease Other GI Yes: diverticulitis Anesthesia Reactions No Medical History Updates: 1. Neck pain since her fall in May with degenerative changes noted on plain film currently. 2. Right rib fractures incurred previously in 2017. 3. Macular degeneration Surgical History: Appendectomy. Cyst removed from shoulder. Right hip fracture repair with intramedullary nail Family History: Father with alcoholism age 65. Mother with heart disease and diabetes at age 84. - Social History Smoking status: Former smoker Packs per day: 0.5 (smoked from age 21 through age 85) Substance use type: does not use Alcohol intake: former Alcohol intake frequency: holidays/special occasions only Housing: house Household members: spouse Current occupational status: retired Current residence: Apartment/Private Home Social history: Patient lives with her in [place], [place] in their own home. 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 Review of Systems - Constitutional Constitutional: Present: fatigue, weakness. Absent: anorexia, chills, fever(s) , headache(s), lethargy, malaise, night sweats, weight gain, weight loss - EENMT Eyes: Absent: blurry vision, change in vision, diplopia Mouth/Throat: Absent: changes in swallowing, painful swallowing, change in taste , bleeding gums, change in voice EENMT Comments: Edentulous. Has upper and lower dentures. - Cardiovascular Cardiovascular: Present: dyspnea on exertion. Absent: chest pain, palpitations , syncope, orthopnea, edema, cyanosis, heart murmur Rhythm: Present: regular rhythm Vascular: Absent: intermittent claudication, pedal edema, unilateral swelling - Respiratory Respiratory: Present: dyspnea. Absent: cough, hemoptysis, dyspnea on exertion, wheezing, pain on inspiration, chest congestion, excessive phlegm production - Gastrointestinal Gastrointestinal: Present: constipation. Absent: abdominal pain, change in bowel habits, diarrhea, dyspepsia, dysphagia, early satiety, hematochezia, melena, nausea, vomiting - Musculoskeletal Musculoskeletal: Present: arthralgias, neck pain. Absent: abnormal gait, back pain, joint swelling, limited range of motion, muscle weakness - Integumentary/Breasts Integumentary: Absent: alopecia, erythema, lesions, pruritus, rash, jaundice - Neurological Neurological: Present: frequent falls (patient has fallen 3 times in the last 6 months), weakness. Absent: abnormal gait, abnormal movements, abnormal speech, confusion, convulsions, dizziness, focal weakness, headache(s), loss of vision, memory loss, numbness, paresthesias, tremor(s) - Psychiatric Psychiatric: Absent: abnormal sleep pattern, anxiety, depression - Endocrine Endocrine: Absent: cold intolerance, flushing, heat intolerance, palpitations - Hematologic/Lymphatic Hematologic/Lymphatic: Absent: easy bleeding, easy bruising, lymphadenopathy - Allergic/Immunologic Allergic/Immunologic: Absent: urticaria Medications Home Medications Medication Instructions Recorded Confirmed Type Furosemide [Lasix] 20 mg PO DAILY 06/12/17 09/04/17 History Metoprolol Succinate 25 mg PO DAILY 06/12/17 09/04/17 History Multi-Vitamin Plain [Theragran] 1 tab PO DAILY 06/12/17 09/04/17 History Potassium Chloride [K-Dur] 20 meq PO DAILY 06/12/17 09/04/17 History Simvastatin [Zocor] 40 mg PO HS 06/12/17 09/04/17 History Tramadol [Ultram] 50 mg PO BID 06/12/17 09/04/17 History Vits A,C,E/Lutein/Minerals 1 tab PO DAILY 06/12/17 09/04/17 History [Ocuvite with Lutein Tablet] Donepezil HCl [Aricept] 10 mg PO HS 06/13/17 09/04/17 History Albuterol/Ipratropium [Duoneb] 3 ml AEROSOL RTTID PRN 09/04/17 09/04/17 History Aspirin [Adult Low Dose Aspirin EC] 81 mg PO DAILY 09/04/17 09/04/17 History Allergies Allergy/AdvReac Type Severity Reaction Status Date / Time Penicillins Allergy Unknown Verified 09/05/17 03:13 Results IRU - Labs Labs: I have reviewed inpatient information including imaging, provider's notes etc. Exam - Constitutional Present: moderate distress (has periodic what appears to be spasms involving the right hip and/or the left neck area), well nourished, well developed, average body habitus, cooperative - Routine HEENT Exam Head: Present: normocephalic, atraumatic. Absent: cushingoid faces, abrasion, laceration, hematoma Eye: Present: EOMI, PERRL (pupils are small bilaterally and reactive). Absent: conjunctival icterus, scleral injection, periorbital swelling, nystagmus ENT: Present: mucous membranes dry, oropharynx clear. Absent: dentition normal (patient is edentulous and has upper and lower plates) - Routine Neck Exam Present: supple, full ROM, trachea midline. Absent: lymphadenopathy, thyromegaly, tenderness, swelling - Routine Chest/Breast/Axilla Exam Chest wall: Absent: tenderness, mass Axillae: Absent: lymphadenopathy, mass - Routine Respiratory Exam Present: decreased breath sounds. Absent: accessory muscle use, prolonged expiratory phase, rales, respiratory distress, rhonchi, stridor, wheezes, crackles, distant breath sounds - Routine Cardiovascular Exam Present: RRR, S1, S2, no murmur. Absent: gallop, S3, S4, click, irregular rhythm - Routine Abdominal Exam Present: soft, normoactive bowel sounds, non distended, non tender. Absent: rebound, guarding, firm, rigid, organomegaly, mass, hernia, wound - Routine Extremities Exam Present: no edema, non tender, pulses intact, normal capillary refill. Absent: cyanosis, clubbing - Routine Back/Spine/Pelvis Exam Back/Spine: Present: kyphosis. Absent: scoliosis - Routine Skin Exam Present: intact, dry, warm, ecchymosis. Absent: cyanosis, erythema, pallor, mottling, petechiae, urticaria, lesions, jaundice Comments: Patient has quite a few ecchymoses noted on the arms. Has diffuse excoriated lesions as well possibly related to dry skin and scratching. - Routine Neurological Exam Present: alert, oriented X3, CN II-XII intact, moving all extremities, normal speech - Routine Psychiatric Exam Present: normal affect, normal thought process, cooperative, good insight, good judgment. Absent: depressed, anxious Sepsis Assessment - Evaluation Severe Sepsis: none seen IRU A/P (1) Status post-operative repair of closed fracture of right hip Current visit: Yes Status: Acute Patient is having quite a bit of pain in the hip since the surgery. Hip wound is reportedly clean and dry. The surrounding tissue is unremarkable. Does have some bruising as anticipated. She is at risk for uncontrolled pain and has functional deficits as a result of the fracture. (2) Acute on chronic respiratory failure with hypoxemia Current visit: Yes Status: Acute While the patient has used oxygen in the distant past (May most recently) she has not used it recently. She now requires oxygen supplementation to maintain saturations 90% or greater. She will be monitored carefully for further decline in her respiratory status. (3) Acute blood loss anemia Current visit: Yes Status: Acute She will be monitored for further evidence of blood loss. (4) Cervical spine pain Current visit: Yes Status: Chronic Her neck pain appears to have its onset in May after a fall. However it appears to be worse at the present time. Plain film demonstrates significant degenerative changes. DVT Prophylaxis: SCD's, Lovenox Resuscitation Status: Full Code - Course Hospital Course: Suleman Gao MD: - Interventions to Obtain Goals PT Treatment Plan: Balance/Proprioception, Functional Activities, Gait Training , Patient/Family Education OT Treatment Plan: ADL (Basic Care), Balance Training, Pt./Family Education Goals Progress/Modifications: This patient has recently experienced a right hip fracture. This is been repaired but she continues to have significant pain in the hip. In addition she has cervical spine pain which causes muscle spasm. She is at risk for uncontrolled pain. In addition she has acute on chronic respiratory failure and will need to be monitored carefully for this. She requires a multidisciplinary approach of PT, OT, 24 rehabilitation nursing and medical supervision because of these findings.
--- NOTE | 2017-09-06 17:46 | IRU 24Hr Post Admit Eval ---
24 Hr Post Admission Physical - Relevant Changes Relevant Changes: No Reviewed: I have reviewed the patient's information and concur with the finding and results of the pre-admission screen. Certification: I certify the patient for rehabilitation. - Patient Condition (1) Status post-operative repair of closed fracture of right hip Status: Acute Code(s): Z98.890 - Other specified postprocedural states; Z87.81 - Personal history of (healed) traumatic fracture Classification: Present on IRF Admission, IRF Tx That Should Address Diagnosis, Diagnosis Requiring Medical Follow Up (2) Acute on chronic respiratory failure with hypoxemia Status: Acute Code(s): J96.21 - Acute and chronic respiratory failure with hypoxia Classification: Present on IRF Admission, IRF Tx That Should Address Diagnosis, Diagnosis Requiring Medical Follow Up (3) Acute blood loss anemia Status: Acute Code(s): D62 - Acute posthemorrhagic anemia Classification: Present on IRF Admission, IRF Tx That Should Address Diagnosis, Diagnosis Requiring Medical Follow Up (4) Cervical spine pain Status: Chronic Code(s): M54.2 - Cervicalgia Classification: Present on IRF Admission, IRF Tx That Should Address Diagnosis, Diagnosis Requiring Medical Follow Up - Prior Functional Status Lives With: Spouse Residence Type: Apartment/Private Home Assitive Devices: Front Wheeled Walker Prior Functional Status: Indep. at home or school, Used assistive device - Current Functional Status Current Level of Function: Current level of functioning is as follows: She is modified independent level for eating, requires maximum assistance for grooming and upper body dressing. She requires total assistance for lower body dressing as well as bed/chair/ wheelchair transfers. She is unable to walk at the present time. She has significant muscle spasms and pain periodically both in the hip and in the neck. Failed Alternative Therapy: Arrived from Acute Care Patient Requirements: The patient requires oversight by rehabilitation physician to manage their rehabilitation treatment plan and multidisciplinary approach to care that can only be provided in an IRF and requires a multidisciplinary approach to care, provided by professional PTs, and OT's, dieticians, RTs, rehabilitation nurses and is not available in lesser levels of care. Limitations Req: Mobility Impairment, ADL Impairment, Respiratory Impairment Physical Therapy Minutes: 90 Occupational Therapy Minutes: 90 Therapy: The patient is to receive therapy at least 5 days a week. ROM Deficit: Right Lower Extremity - Complications/Comorbidities Impact on Functional Outcomes: Her underlying hypoxemic respiratory failure as well as uncontrolled pain may negatively impact her functional outcome. Barriers to Discharge: Weakness, Balance, Endurance, Pain Control, Medical Limitation - Plan to Avoid Complications Plan to Avoid Complications: The patient cannot receive this care in a lesser intensive setting such as Senior Living or Outpatient Therapy due to the patient requiring the following : This patient requires a multidisciplinary approach in view of her acute on chronic respiratory failure with hypoxemia, uncontrolled pain as well as acute blood loss anemia. She will require occupational therapy, physical therapy and 24 rehabilitation nursing to monitor and treat her pain as well as hypoxemia. Medical supervision is required because of these problems.
[2017-09-06] MEDS ORDERED: BISACODYL 10 MG SUPPOSITORY RECTALLY PRN (17:57)
[2017-09-06] MEDS ORDERED: ALBUTEROL/IPRATROPIUM 2.5mg-0.5mg/3ml NEB AEROSOL PRN (17:57)
[2017-09-06] MEDS ORDERED: FALL RISK - PHARMACY CONSULT XX ONE (19:01)
[2017-09-06] MEDS: ALBUTEROL/IPRATROPIUM 2.5mg-0.5mg/3ml NEB AEROSOL SCH (19:52)
[2017-09-06] MEDS: DONEPEZIL 10 MG TABLET PO SCH (20:34)
[2017-09-06] MEDS: TRAMADOL 50 MG TABLET PO SCH (20:35)
[2017-09-06] MEDS: SENNA + DOCUSATE TABLET PO SCH (20:35)
[2017-09-06] MEDS: SIMVASTATIN 40 MG TABLET PO SCH (20:35)
[2017-09-06] MEDS: ENOXAPARIN 40 MG/0.4 ML INJECTION SQ SCH (20:36)
[2017-09-06] MEDS: ACETAMINOPHEN 325 MG TABLET PO PRN (23:39)
[2017-09-07] MEDS: ALBUTEROL/IPRATROPIUM 2.5mg-0.5mg/3ml NEB AEROSOL SCH ×4 (05:17→20:51)
[2017-09-07] MEDS: ACETAMINOPHEN 325 MG TABLET PO PRN (06:14)
--- NOTE | 2017-09-07 08:12 | IRU Progress Note ---
- Subjective/Serverity of Illness Date: 09/07/17 Ms. Rao was interviewed and examined on the inpatient rehabilitation unit. She is fatigued. Reports that she had a reasonably good night. Pain is reasonably well controlled. She indicates the neck pain is worse when she gets anxious and her muscles get tight. Aspercreme has been of benefit for her. Hemoglobin has dropped further from 9 g down to 7.9 g%. No external evidence of blood loss but likely this was due to the fracture. Blood pressure 105 systolic. Denies lightheadedness. She was able to roll herself completely down from her room to the dining room area. While she is fatigued she denies significant shortness of breath and denies chest pain. Exam Vital Signs: Temperature 98.5 F 09/06/17 23:28 Pulse Rate 90 09/06/17 23:28 Respiratory Rate 16 09/07/17 05:17 Blood Pressure 105/60 09/06/17 23:28 Pulse Oximetry 87 L 09/07/17 05:17 Height/Weight/BMI: Height 1.7 m Weight 60.9 kg Body Mass Index 21.0 - Constitutional Present: mild distress (fatigued), well nourished, well developed - Routine HEENT Exam Head: Present: normocephalic, atraumatic Eye: Present: EOMI ENT: Present: mucous membranes moist - Routine Respiratory Exam Present: CTA bilaterally. Absent: wheezes - Routine Cardiovascular Exam Present: RRR, S1, S2. Absent: murmur - Routine Abdominal Exam Present: soft, normoactive bowel sounds, non distended. Absent: tenderness - Routine Extremities Exam Present: no edema - Routine Skin Exam Present: dry, warm Comments: Again ecchymoses and multiple excoriated areas noted. - Routine Neurological Exam Present: alert, oriented X3, CN II-XII intact - Routine Psychiatric Exam Present: normal affect Results IRU - Labs Labs: labs. IRU A/P (1) Status post-operative repair of closed fracture of right hip Current visit: Yes Status: Acute Patient is getting started with therapy. Reports pain adequately controlled. (2) Acute on chronic respiratory failure with hypoxemia Current visit: Yes Status: Acute Continues to require supplemental oxygen. (3) Acute blood loss anemia Current visit: Yes Status: Acute Hemoglobin is worse at 7.9 g percent. No evidence of external bleeding. We will monitor carefully. Repeat hemoglobin in the morning. (4) Cervical spine pain Current visit: Yes Status: Chronic Cervical spine pain improved with use of Aspercreme and likely related to muscle spasm. DVT Prophylaxis: SCD's, Lovenox Resuscitation Status: Full Code - Course Hospital Course: Suleman Gao MD: 09/07/17 08:12 Getting started with therapy today. Complains of fatigue and tiredness. Hemoglobin has dropped to 7.9 g percent. - Interventions to Obtain Goals PT Treatment Plan: Balance/Proprioception, Functional Activities, Gait Training , Patient/Family Education OT Treatment Plan: ADL (Basic Care), Balance Training, Pt./Family Education Goals Progress/Modifications: Time spent with patient and on floor reviewing data and documentin min Barriers to dismissal: fatigue, anemia, pain, endurance Medical decision-making: Patient continues to require supplemental oxygen. Her hemoglobin has dropped further from around 9 g percent down to 7.9 g percent. No external evidence of bleeding. We will repeat the hemoglobin in the morning. Her blood pressure is a little borderline at 105 systolic. However she denies lightheadedness or other symptoms. She complains of easy fatigability but denies overt shortness of breath. Denies chest pain.
[2017-09-07] MEDS: TRAMADOL 50 MG TABLET PO SCH ×3 (08:36→19:53)
[2017-09-07] MEDS: MULTI-VITAMIN PLAIN TABLET PO SCH (08:37)
[2017-09-07] MEDS: ASPIRIN *EC* 81 MG TABLET PO SCH (08:38)
[2017-09-07] MEDS: MULTI-VIT + MINERAL (Opti-gen) TABLET PO SCH (08:38)
[2017-09-07] MEDS: FUROSEMIDE 20 MG TABLET PO SCH (08:38)
[2017-09-07] MEDS: SENNA + DOCUSATE TABLET PO SCH ×3 (08:39→22:55)
[2017-09-07] MEDS: POLYETHYL GLYCOL 3350 17gm PACKET PO SCH (08:39)
[2017-09-07] MEDS: PANTOPRAZOLE 20 MG TABLET PO SCH (10:28)
[2017-09-07] MEDS: HYDROCODONE/APAP 7.5 MG/325 MG TABLET PO PRN (11:19)
--- NOTE | 2017-09-07 11:49 | Consult Note ---
Consult Information - Data of Consult Consult date: 09/07/17 Requesting Physician: Suleman Gao MD Primary Care Provider: Marielle Pacheco APRN Family Provider: Marielle Pacheco APRN - Consult Narrative Reason for consult: Medical management of chronic health problems History of present illness: Magnolia is an 87-year-old female who lives in [place] with her . Her primary care provider is Marielle Pacheco APRN. She initially presented to the [facility] emergency department on 09/04/17 with a hip fracture following a fall. She underwent right intramedullary femoral nail placement surgery with Dr. García on 09/05/17. Postoperatively she required 3 L of oxygen and , as expected, her hemoglobin dropped from 11.8 now down to 7.9. She was transferred from the surgical unit to [facility] rehabilitation unit yesterday for further strengthening. Patient is seen in her room sitting in her wheelchair after therapy. Family is present. She complains of hip pain when she moves. She reports that when she is at rest, she really has no complaints, although she does complain of some chronic neck pain as well. She's currently on a liter of oxygen and reports she normally does not require oxygen at home. Past Medical History Patient Stated Medical History 1) Right hip ORIF on 09/05/[address] 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 Not on O2 at home but history of needing O2 at discharge. 5) HTN 6) GERD 7) macular degeneration Medical History Updates: 1. Neck pain since her fall in May with degenerative changes noted on plain film currently. 2. Right rib fractures incurred previously in 2017 Surgical History: Appendectomy. Cyst removed from shoulder. Right hip fracture repair with intramedullary nail (Dr. García-09/05/17) Family History: Father- age 65 alcoholism Mother- age 84 with heart disease and diabetes. Family History Updates: updated - Social History Smoking status: Former smoker (smoked from age 21 through age 85.) Substance use type: does not use Alcohol intake: former Alcohol intake frequency: holidays/special occasions only Housing: house Household members: spouse Current occupational status: retired Previous occupational history: worked in [employer] in [employer] Social history: PCP - Marielle Pacheco APRN Review of Systems All systems PM: 10-point ROS was reviewed, no additional remarkable complaints except (neck pain (chronic), hip pain with movement, rib pain from previous fall ) Medications Home Medications Medication Instructions Recorded Confirmed Type Furosemide [Lasix] 20 mg PO DAILY 06/12/17 09/04/17 History Metoprolol Succinate 25 mg PO DAILY 06/12/17 09/04/17 History Multi-Vitamin Plain [Theragran] 1 tab PO DAILY 06/12/17 09/04/17 History Potassium Chloride [K-Dur] 20 meq PO DAILY 06/12/17 09/04/17 History Simvastatin [Zocor] 40 mg PO HS 06/12/17 09/04/17 History Tramadol [Ultram] 50 mg PO BID 06/12/17 09/04/17 History Vits A,C,E/Lutein/Minerals 1 tab PO DAILY 06/12/17 09/04/17 History [Ocuvite with Lutein Tablet] Donepezil HCl [Aricept] 10 mg PO HS 06/13/17 09/04/17 History Albuterol/Ipratropium [Duoneb] 3 ml AEROSOL RTTID PRN 09/04/17 09/04/17 History Aspirin [Adult Low Dose Aspirin EC] 81 mg PO DAILY 09/04/17 09/04/17 History Allergies Allergy/AdvReac Type Severity Reaction Status Date / Time Penicillins Allergy Unknown Verified 09/05/17 03:13 Exam Vital Signs: Temperature 98.0 F 09/07/17 08:00 Pulse Rate 89 09/07/17 08:42 Respiratory Rate 16 09/07/17 10:48 Blood Pressure 138/63 09/07/17 08:42 Pulse Oximetry 97 09/07/17 08:00 Height/Weight/BMI: Height 1.7 m Weight 60.9 kg Body Mass Index 21.0 - Constitutional Present: well developed, thin - Routine HEENT Exam Head: Present: normocephalic, atraumatic - Routine Neck Exam Present: supple. Absent: lymphadenopathy, thyromegaly - Routine Respiratory Exam Present: decreased breath sounds, CTA bilaterally, wheezes - Routine Cardiovascular Exam Present: RRR. Absent: murmur - Routine Abdominal Exam Present: soft, normoactive bowel sounds, non distended. Absent: tenderness - Routine Extremities Exam Present: no edema, normal capillary refill - Routine Skin Exam Present: dry, warm - Routine Neurological Exam Present: alert, oriented X3 - Routine Psychiatric Exam Present: normal affect, cooperative Results - Labs CBC & Chem 7: 09/07/17 04:43 09/07/17 04:43 Assessment and Plan (1) Intertrochanteric fracture of right hip Current visit: No Status: Resolved (2) Status post-operative repair of closed fracture of right hip Current visit: Yes Status: Acute (3) Acute on chronic respiratory failure with hypoxemia Current visit: Yes Status: Acute (4) Acute blood loss anemia Current visit: Yes Status: Acute (5) Cervical spine pain Current visit: Yes Status: Chronic Assessment and Plan: Assessment Right hip ORIF on 09/05/[address] 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 Not on O2 at home but history of needing O2 at discharge. HTN GERD Plan Agree with admission to [facility] rehabilitation unit for further strengthening. Dr. Gao to manage pain and therapies. Start bladder training. Discussed patient's abilities with therapy. Therapy believes it would be beneficial for patient to get up and down to the bedside commode. Hope to ANGELICA Nicolasey by this evening or in the a.m. Follow hemoglobin closely. Patient is currently 7.9 and is asymptomatic. Repeat CBC in a.m. Wean oxygen as able. Patient has not been on home oxygen in the past. BMP in a.m. to monitor electrolytes. Care to be returned to patient's PCP, Marielle Pacheco APRN, on dismissal. Hospitalist service appreciates the consult for ongoing medical management of patient's chronic problems and will follow along with you throughout her stay. Case discussed with Dr. Egan. DVT Prophylaxis: SCD's, Lovenox Resuscitation Status: Full Code - Physician Narrative Physician: Fletcher Egan MD Narrative: Date: 09/07/17 Time: 1914 Have independently interviewed and examined pt. Chart reviewed. Case discussed with my PA. Care plan developed with my supervision; agree with above. Admitted to IRU for restorative therapy following hip fracture and surgical repair. Doing okay this evening-tired from a long day of activities. Did well with therapy, some pain with movements. Pain controlled well. Tolerating pain medications. Breathing feels okay-not congested or hurting with breathing. Needing O2. No chest pain. Appetite fair. No nausea or ab pain. Lungs: decreased CV: regular AB: soft nt MSE: awake alert appropriate Plan: Agree with admission to [facility] to maximize functional status. With hemoglobin trending down, will type and screen with morning lab tomorrow - potentially need transfusion. Discussed with patient and family about this: would not want unless absolutely needed. Check Iron due to acute blood loss. Will check Vit B12 due to macrocytosis. Vitamin D level prudent secondary to fragility fracture-was not run during acute stay. Continue with supplemental O2 , weaning as able. Encourage pulmonary toilet. Encourage therapy to maximize functional status. Medically stable for IRU floor activities. Hospital Course Summary Disclaimer: The visit summary below is not to be considered part of the above Progress Note. Hospital Course: Assessment Right hip ORIF on 09/05/[address] 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 Not on O2 at home but history of needing O2 at discharge. HTN GERD Plan-hospital consultation 09/07/17 Agree with admission to [facility] rehabilitation unit for further strengthening. Dr. Gao to manage pain and therapies. Start bladder training. Discussed patient's abilities with therapy. Therapy believes it would be beneficial for patient to get up and down to the bedside commode. Hope to ANGELICA Olivera by this evening or in the a.m. Follow hemoglobin closely. Patient is currently 7.9 and is asymptomatic. Repeat CBC in a.m. Wean oxygen as able. Patient has not been on home oxygen in the past. BMP in a.m. to monitor electrolytes. Care to be returned to patient's PCP, Marielle Pacheco APRN, on dismissal. Hospitalist service appreciates the consult for ongoing medical management of patient's chronic problems and will follow along with you throughout her stay.
--- NOTE | 2017-09-07 16:07 | IRU Plan of Care ---
U Overall Plan of Care - Date Date: 09/07/17 - Patient Impairments (1) Intertrochanteric fracture of right hip Qualifiers: Encounter type: initial encounter Fracture type: closed Fracture alignment: displaced Qualified Code(s): S72.141A - Displaced intertrochanteric fracture of right femur, initial encounter for closed fracture Code(s): S72.141A - Displaced intertrochanteric fracture of right femur, initial encounter for closed fracture Status: Resolved Classification: IRF Tx That Should Address Diagnosis, Diagnosis Requiring Medical Follow Up (2) Status post-operative repair of closed fracture of right hip Code(s): Z98.890 - Other specified postprocedural states; Z87.81 - Personal history of (healed) traumatic fracture Status: Acute Classification: Present on IRF Admission, IRF Tx That Should Address Diagnosis, Diagnosis Requiring Medical Follow Up (3) Acute on chronic respiratory failure with hypoxemia Code(s): J96.21 - Acute and chronic respiratory failure with hypoxia Status: Acute Classification: Present on IRF Admission, IRF Tx That Should Address Diagnosis, Diagnosis Requiring Medical Follow Up (4) Acute blood loss anemia Code(s): D62 - Acute posthemorrhagic anemia Status: Acute Classification: Present on IRF Admission, IRF Tx That Should Address Diagnosis, Diagnosis Requiring Medical Follow Up (5) Cervical spine pain Code(s): M54.2 - Cervicalgia Status: Chronic Classification: Present on IRF Admission, IRF Tx That Should Address Diagnosis, Diagnosis Requiring Medical Follow Up - Relevant Changes Relevant Changes: No Reviewed: I have reviewed the patient's information and concur with the finding and results of the pre-admission screen. Certification: I certify the patient for rehabilitation. - Medical Prognosis Medical Prognosis: Good Vital Signs: Last Vital Signs Temp 98.1 F 09/07/17 16:00 Pulse 70 09/07/17 16:00 Resp 16 09/07/17 16:00 BP 117/58 09/07/17 16:00 Pulse Ox 70 L 09/07/17 16:00 - Anticipated Interventions Anticipated Interventions: The patient requires inpatient IRF care for PT, OT, and/or ST for residuals remaining from fracture and repair of hip resulting in muscular weakness and strength deficits. ROM Deficit: Right Lower Extremity Strength Deficits: Right Lower Extremity - Current Functional Status Failed Alternative Therapy: Arrived from Acute Care Patient Requires: The patient requires oversight by rehabilitation physician to manage their rehabilitation treatment plan and multidisciplinary approach to care that can only be provided in an IRF and requires a multidisciplinary approach to care, provided by professional PTs, OTs and rehabilitation nurses, and may require STs , dieticians, and RTS. This is not available in lesser levels of care. Physical Therapy Minutes: 90 Occupational Therapy Minutes: 90 Therapy: The patient is to receive therapy at least 5 days a week. - Anticipated LOS/Outcomes Anticipated Functional Outcome: It is anticipated the patient will be able to return to her home with as high a level of independent functioning as possible including ADLs and ambulatory ability. It is anticipated the safe transition will occur with adequate pain control and stabilization of her multiple medical problems. Anticipated Length of Stay (days): 7 Anticipated DC Destination: Home, Self Care, Home Health Service Home Safety Plan: The patient will be provided with the development of a Home Safety Plan for return to a home or home-like environment and and to ensure safety post discharge. - Plan to Avoid Complications Barriers to Attaining Goals: Weakness, Balance, Endurance, Pain Control, Medical Limitation Plan to Avoid Complications: The patient cannot receive this care in a lesser intensive setting such as [facility] or Outpatient Therapy due to the patient requiring the following : the patient requires a multidisciplinary, coordinated rehabilitation program including physical therapy, occupational therapy and 24 hour rehabilitation nursing to monitor her oxygen saturation, provide adequate wound care and pain management and to observe for evidence of further blood loss. She requires medical supervision for these problems. .
[2017-09-07] MEDS: DONEPEZIL 10 MG TABLET PO SCH ×2 (19:51→22:54)
[2017-09-07] MEDS: ENOXAPARIN 40 MG/0.4 ML INJECTION SQ SCH ×2 (19:52→22:57)
[2017-09-07] MEDS: SIMVASTATIN 40 MG TABLET PO SCH ×2 (19:53→22:56)
[2017-09-08] MEDS: TRAMADOL 50 MG TABLET PO SCH ×3 (00:29→21:25)
[2017-09-08] MEDS: ALBUTEROL/IPRATROPIUM 2.5mg-0.5mg/3ml NEB AEROSOL SCH ×4 (05:18→21:37)
[2017-09-08] MEDS: ACETAMINOPHEN 325 MG TABLET PO PRN (05:31)
[2017-09-08] MEDS: PANTOPRAZOLE 20 MG TABLET PO SCH ×2 (05:31→17:46)
[2017-09-08] MEDS: SENNA + DOCUSATE TABLET PO SCH ×2 (09:13→21:24)
[2017-09-08] MEDS: FUROSEMIDE 20 MG TABLET PO SCH (09:13)
[2017-09-08] MEDS: MULTI-VIT + MINERAL (Opti-gen) TABLET PO SCH (09:14)
[2017-09-08] MEDS: MULTI-VITAMIN PLAIN TABLET PO SCH (09:14)
[2017-09-08] MEDS: ASPIRIN *EC* 81 MG TABLET PO SCH (09:14)
[2017-09-08] MEDS: POLYETHYL GLYCOL 3350 17gm PACKET PO SCH (09:14)
[2017-09-08] MEDS: MAG-AL + SIM ORAL LIQUID 30ml PO PRN (13:23)
--- NOTE | 2017-09-08 13:46 | Progress Note ---
- Date 09/08/17 Subjective: Magnolia is seen today in follow up for her recent hip repair as well as her post- op anemia. She is seen while sitting in her wheelchair in her room with her at the bedside. She reports that she feels achy today but denies any specific complaints or concerns. She admits to some aching in her knees and hip. No chest pain, shortness of breath, abdominal pain, nausea, vomiting or diarrhea. She feels that therapy is going well and admits to she is using muscles she is not used to using which is causing her to feel achy. No fevers or chills. Her appetite is stable and her bowels are moving. Repeat labs today revealed continued trending down of her hemoglobin at 7.0. She denies any dizziness, lightheadedness or palpitations. Discussed with her and her clinical indications for blood transfusion and answered questions as best as possible. She does not want to have a blood transfusion at this time. Plan to recheck CBC in AM and reevaluate then. Objective Vital signs: Temperature 98.4 F 09/08/17 07:00 Pulse Rate 90 09/08/17 07:00 Respiratory Rate 18 09/08/17 10:58 Blood Pressure 101/58 09/08/17 07:00 Pulse Oximetry 90 09/08/17 10:58 Height/Weight/BMI: Height 5 ft 7 in Weight 134 lb 4.184 oz Body Mass Index 21.0 Comments: sitting in wheelchair in room with present. - Constitutional Present: no acute distress, well nourished, well developed, thin, cooperative - Routine HEENT Exam Head: Present: normocephalic, atraumatic Eye: Present: PERRL. Absent: conjunctival icterus ENT: Present: mucous membranes moist, oropharynx clear - Routine Respiratory Exam Present: CTA bilaterally. Absent: rales, respiratory distress, stridor, wheezes , crackles Comments: breathing easily on 1L NC without cough or distress. - Routine Cardiovascular Exam Present: RRR, S1, S2 - Routine Abdominal Exam Present: soft, normoactive bowel sounds, non distended, non tender - Routine Extremities Exam Present: no edema, pulses intact - Routine Back/Spine/Pelvis Exam Back/Spine: Present: full ROM, kyphosis. Absent: vertebral tenderness - Routine Musculoskeletal Exam Musculoskeletal: Present: limited range of motion (right hip) - Routine Skin Exam Present: intact, dry, pallor, warm. Absent: jaundice Comments: afebrile. - Routine Neurological Exam Present: alert, oriented X3, moving all extremities, normal speech. Absent: facial asymmetry - Routine Lymphatic Exam Lymphatic: Absent: lymphedema - Routine Psychiatric Exam Present: normal affect, cooperative Results - Labs CBC & Chem 7: 09/08/17 04:33 09/07/17 04:43 Assessment and Plan (1) Intertrochanteric fracture of right hip Current visit: No Status: Resolved (2) Status post-operative repair of closed fracture of right hip Current visit: Yes Status: Acute (3) Acute on chronic respiratory failure with hypoxemia Current visit: Yes Status: Acute (4) Acute blood loss anemia Current visit: Yes Status: Acute (5) Cervical spine pain Current visit: Yes Status: Chronic Assessment and Plan: Assessment Right hip ORIF on 09/05/[address] 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 Not on O2 at home but history of needing O2 at discharge. HTN GERD Plan - 09/08/17 Magnolia complains of feeling achy today due to increased exercise and activity. Continue to encourage therapies per Dr. Gao as well as pain control. Hemoglobin continues to trend down at 7.0. Discussed risks/benefits of blood transfusion with patient and . Patient denies symptoms with anemia and refused blood transfusion at this time. Will recheck CBC in AM and readdress issue of possible transfusion if indicated. Patient down to 1L NC and breathing easily. Continue to wean oxygen. Discussed importance of and technique for incentive spirometry for pulmonary toileting. Continue to monitor patient closely. DVT Prophylaxis: Lovenox GI Prophylaxis: Protonix Resuscitation Status: Full Code - Time spent with patient Time with patient PN: 35 minutes - Physician Narrative Physician: Fletcher Egan MD Narrative: Date: 09/08/17 Time: 1282 Hospital Course Summary Disclaimer: The visit summary below is not to be considered part of the above Progress Note. Hospital Course: Assessment Right hip ORIF on 09/05/[address] 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 Not on O2 at home but history of needing O2 at discharge. HTN GERD Plan-hospital consultation 09/07/17 Agree with admission to [facility] rehabilitation unit for further strengthening. Dr. Gao to manage pain and therapies. Start bladder training. Discussed patient's abilities with therapy. Therapy believes it would be beneficial for patient to get up and down to the bedside commode. Hope to DC Olivera by this evening or in the a.m. Follow hemoglobin closely. Patient is currently 7.9 and is asymptomatic. Repeat CBC in a.m. Wean oxygen as able. Patient has not been on home oxygen in the past. BMP in a.m. to monitor electrolytes. Care to be returned to patient's PCP, Marielle Pacheco APRN, on dismissal. Hospitalist service appreciates the consult for ongoing medical management of patient's chronic problems and will follow along with you throughout her stay. Plan - 09/08/17 Magnolia complains of feeling achy today due to increased exercise and activity. Continue to encourage therapies per Dr. Gao as well as pain control. Hemoglobin continues to trend down at 7.0. Discussed risks/benefits of blood transfusion with patient and . Patient denies symptoms with anemia and refused blood transfusion at this time. Will recheck CBC in AM and readdress issue of possible transfusion if indicated. Patient down to 1L NC and breathing easily. Continue to wean oxygen. Discussed importance of and technique for incentive spirometry for pulmonary toileting. Continue to monitor patient closely.
[2017-09-08] MEDS: HYDROCODONE/APAP 7.5 MG/325 MG TABLET PO PRN (16:17)
[2017-09-08] MEDS: DONEPEZIL 10 MG TABLET PO SCH (21:23)
[2017-09-08] MEDS: ENOXAPARIN 40 MG/0.4 ML INJECTION SQ SCH (21:24)
[2017-09-08] MEDS: SIMVASTATIN 40 MG TABLET PO SCH (21:26)
[2017-09-09] MEDS: ALBUTEROL/IPRATROPIUM 2.5mg-0.5mg/3ml NEB AEROSOL SCH ×4 (05:35→21:04)
[2017-09-09] MEDS: ACETAMINOPHEN 325 MG TABLET PO PRN (05:50)
[2017-09-09] MEDS: PANTOPRAZOLE 20 MG TABLET PO SCH ×2 (05:51→17:39)
--- NOTE | 2017-09-09 09:10 | Progress Note ---
- Date 09/09/17 Subjective: Magnolia was working with OT this morning. One of her daughters was also present. She's slowly improving from a functional standpoint. Her hgb decreased to 6.9 - she's fatigued but denies SOA, dizziness, syncope. She denies abdominal pain or nausea. Bowels are moving. We discussed risks/benefits of blood transfusion. Magnolia fears a transfusion reaction but following discussion about the rigorous testing of blood products combined with family support for blood transfusion, Magnolia opted to proceed. Objective Vital signs: Temperature 97.8 F 09/08/17 21:43 Pulse Rate 78 09/08/17 21:43 Respiratory Rate 18 09/09/17 05:35 Blood Pressure 112/62 09/08/17 21:43 Pulse Oximetry 91 09/09/17 05:35 Height/Weight/BMI: Height 1.7 m Weight 60.9 kg Body Mass Index 21.0 - Constitutional Present: no acute distress, well nourished, well developed - Routine HEENT Exam Head: Present: normocephalic Eye: Present: PERRL. Absent: conjunctival icterus, scleral injection ENT: Present: oropharynx clear - Routine Respiratory Exam Present: CTA bilaterally - Routine Cardiovascular Exam Present: RRR, S1, S2 - Routine Abdominal Exam Present: soft, normoactive bowel sounds, non distended - Routine Extremities Exam Present: edema (right leg 1+). Absent: calf tenderness - Routine Musculoskeletal Exam Musculoskeletal: Present: moving extremities well - Routine Skin Exam Present: intact, dry, pallor, warm - Routine Neurological Exam Present: alert, oriented X3, CN II-XII intact, normal speech - Routine Psychiatric Exam Present: normal affect, normal thought process, cooperative Results - Labs CBC & Chem 7: 09/09/17 04:56 09/07/17 04:43 Assessment and Plan (1) Intertrochanteric fracture of right hip Current visit: No Status: Resolved (2) Status post-operative repair of closed fracture of right hip Current visit: Yes Status: Acute (3) Acute on chronic respiratory failure with hypoxemia Current visit: Yes Status: Acute (4) Acute blood loss anemia Current visit: Yes Status: Acute (5) Cervical spine pain Current visit: Yes Status: Chronic Assessment and Plan: Assessment Right hip ORIF on 09/05/[address] 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 Not on O2 at home but history of needing O2 at discharge. HTN GERD Plan Type and cross for 1 unit PRBC; hgb decreased to 6.9 and exercise tolerance has declined. On admission to the surgical unit her hgb was 13. She's also had some borderline low bp's. Magnolia's daughter inquires if we have a policy for family blood donation. Per blood bank, [facility] is not set up, but the family can go through the [facility] for direct donation. Start ferrous sulfate + vitamin C. Consider IV iron infusion for iron level of 16. ANGELICA Olivera. Continue weaning oxygen as able. DVT Prophylaxis: Lovenox GI Prophylaxis: Protonix Resuscitation Status: Full Code - Physician Narrative Narrative: Date: 09/09/17 Time: 0905 Hospital Course Summary Disclaimer: The visit summary below is not to be considered part of the above Progress Note. Hospital Course: Assessment Right hip ORIF on 09/05/[address] 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 Not on O2 at home but history of needing O2 at discharge. HTN GERD Plan-hospital consultation 09/07/17 Agree with admission to [facility] rehabilitation unit for further strengthening. Dr. Gao to manage pain and therapies. Start bladder training. Discussed patient's abilities with therapy. Therapy believes it would be beneficial for patient to get up and down to the bedside commode. Hope to ANGELICA Olivera by this evening or in the a.m. Follow hemoglobin closely. Patient is currently 7.9 and is asymptomatic. Repeat CBC in a.m. Wean oxygen as able. Patient has not been on home oxygen in the past. BMP in a.m. to monitor electrolytes. Care to be returned to patient's PCP, Marielle Pacheco APRN, on dismissal. Hospitalist service appreciates the consult for ongoing medical management of patient's chronic problems and will follow along with you throughout her stay. Plan - 09/08/17 Magnolia complains of feeling achy today due to increased exercise and activity. Continue to encourage therapies per Dr. Gao as well as pain control. Hemoglobin continues to trend down at 7.0. Discussed risks/benefits of blood transfusion with patient and . Patient denies symptoms with anemia and refused blood transfusion at this time. Will recheck CBC in AM and readdress issue of possible transfusion if indicated. Patient down to 1L NC and breathing easily. Continue to wean oxygen. Discussed importance of and technique for incentive spirometry for pulmonary toileting. Continue to monitor patient closely. Plan - 09/09/17 Type and cross for 1 unit PRBC; hgb decreased to 6.9 and exercise tolerance has declined. On admission to the surgical unit her hgb was 13. She's also had some borderline low bp's. Magnolia's daughter inquires if we have a policy for family blood donation. Per blood bank, [facility] is not set up, but the family can go through the [facility] for direct donation. Start ferrous sulfate + vitamin C. Consider IV iron infusion for iron level of 16. ANGELICA Olivera. Continue weaning oxygen as able.
[2017-09-09] MEDS: ASPIRIN *EC* 81 MG TABLET PO SCH (09:17)
[2017-09-09] MEDS: FUROSEMIDE 20 MG TABLET PO SCH (09:18)
[2017-09-09] MEDS: TRAMADOL 50 MG TABLET PO SCH ×2 (09:21→21:32)
[2017-09-09] MEDS: MULTI-VIT + MINERAL (Opti-gen) TABLET PO SCH (09:22)
[2017-09-09] MEDS: MULTI-VITAMIN PLAIN TABLET PO SCH (09:24)
[2017-09-09] MEDS: POLYETHYL GLYCOL 3350 17gm PACKET PO SCH (09:24)
[2017-09-09] MEDS: SENNA + DOCUSATE TABLET PO SCH ×2 (09:28→21:29)
[2017-09-09] MEDS: FERROUS SULFATE 324 MG TABLET PO SCH (12:38)
[2017-09-09] MEDS: ASCORBIC ACID 500 MG TABLET PO SCH (12:38)
--- NOTE | 2017-09-09 13:57 | IRU Progress Note ---
- Subjective/Serverity of Illness Date: 09/09/17 Magnolia was evaluated in her room on inpatient rehabilitation with her daughter present. She is excessively fatigued at the present time. Had a reasonably good weekend. Appetite is fair. She denies any chest pain or shortness of breath but simply feels tired all over. With regard to pain management, she indicates that pain is reasonably well controlled. However with certain positions and transfers she does grimace indicating presence of significant pain. Hemoglobin has dropped to 6.9 g percent. Hospitalist service did discuss this with the patient and her family. Plans are at this time to give her some additional blood. I carefully queried the patient asked any evidence of any other blood loss. She denies any nausea or vomiting, abdominal pain or any evidence of blood in the bowel movement. Over the weekend she refused upper and lower body dressing training. She is able to bathe with moderate assistance. 1. Hip fracture repair. Some grimacing is noted with various positions. Otherwise pain appears to be reasonably well controlled. 2. Acute on chronic hypoxemic respiratory failure. She continues to require supplemental oxygen at 1-2 L/m. 3. Acute blood loss anemia. Her hemoglobin has continued to decline at 6.9 g percent. Hospitalist service has discussed this with the patient. She does have some concerns about transfusion reaction (the patient). However she has consented to this. She does have quite a bit of fatigability and certainly requires red blood cells for adequate oxygenation. 4. Cervical spine pain with degenerative changes noted on plain film. Reports pain in the cervical spine area is improved with the use of topical Aspercreme. Exam Vital Signs: Temperature 98.0 F 09/09/17 07:00 Pulse Rate 123 H 09/09/17 07:00 Respiratory Rate 18 09/09/17 11:55 Blood Pressure 126/58 09/09/17 07:00 Pulse Oximetry 91 09/09/17 11:55 Height/Weight/BMI: Height 1.7 m Weight 60.9 kg Body Mass Index 21.0 - Constitutional Present: mild distress, well nourished, well developed Comments: She is very fatigued at this time. Likely this is related to her hemoglobin of 6.9 g percent. Denies shortness of breath or chest pain. - Routine HEENT Exam Head: Present: normocephalic, atraumatic Eye: Present: EOMI ENT: Present: mucous membranes moist, dentition normal - Routine Neck Exam Present: supple - Routine Respiratory Exam Present: CTA bilaterally. Absent: wheezes - Routine Cardiovascular Exam Present: RRR, S1, S2. Absent: murmur, S3, S4 - Routine Abdominal Exam Present: soft, normoactive bowel sounds, non distended. Absent: tenderness - Routine Extremities Exam Present: no edema, normal capillary refill - Routine Skin Exam Present: dry, warm - Routine Neurological Exam Present: alert, oriented X3, CN II-XII intact - Routine Psychiatric Exam Present: normal affect Results IRU - Labs Labs: Reviewed labs and other providers notes. IRU A/P (1) Status post-operative repair of closed fracture of right hip Current visit: Yes Status: Acute Patient continues to have significant discomfort in the hip although in general it is improving. Certain positions do result in grimacing and additional pain. However from a pain standpoint she is tolerating therapy adequately. (2) Acute on chronic respiratory failure with hypoxemia Current visit: Yes Status: Acute She continues to require additional oxygen at 1-2 L/m to maintain saturations above 90%. Part of this may be related to her acute blood loss anemia as well. (3) Acute blood loss anemia Current visit: Yes Status: Acute Hemoglobin has dropped further. I did make careful inquiry as to whether she might be having blood loss from other sources such as GI tract. No evidence of this at present. She will receive a blood transfusion this afternoon. (4) Cervical spine pain Current visit: Yes Status: Chronic DVT Prophylaxis: Lovenox Resuscitation Status: Full Code - Course Hospital Course: Suleman Gao MD: 09/07/17 08:12 Getting started with therapy today. Complains of fatigue and tiredness. Hemoglobin has dropped to 7.9 g percent. 09/09/17 13:58 Hemoglobin dropped further to 6.9 g percent. She consents to transfusion. She has easy fatigability but no dyspnea. - Interventions to Obtain Goals PT Treatment Plan: Balance/Proprioception, Functional Activities, Gait Training , Patient/Family Education, Therapeutic Exercise OT Treatment Plan: ADL (Basic Care), Balance Training, IADL, UE Functional Training Goals Progress/Modifications: Time spent with patient and on floor reviewing data and documentin min Barriers to dismissal: Fatigue, anemia, pain, strength, endurance Medical decision-making: I inquired carefully as to whether she might be having some other blood loss from the GI tract and find no evidence of this. Likely her hemoglobin drop is further dilution from her initial fracture. She does have easy fatigability. Denies overt shortness of breath beyond her baseline. She continues to require supplemental oxygen which of course may be related to the anemia as well. Denies any chest pain and denies significant cough. Appetite is fair. Denies any nausea or vomiting, abdominal pain or evidence of GI bleeding. Blood transfusion today.
[2017-09-09] MEDS: HYDROCODONE/APAP 7.5 MG/325 MG TABLET PO PRN (15:42)
[2017-09-09] MEDS: MAG-AL + SIM ORAL LIQUID 30ml PO PRN (21:26)
[2017-09-09] MEDS: DONEPEZIL 10 MG TABLET PO SCH (21:28)
[2017-09-09] MEDS: ENOXAPARIN 40 MG/0.4 ML INJECTION SQ SCH (21:28)
[2017-09-09] MEDS: SIMVASTATIN 40 MG TABLET PO SCH (21:29)
[2017-09-10] MEDS: PANTOPRAZOLE 20 MG TABLET PO SCH ×3 (05:22→18:02)
[2017-09-10] MEDS: HYDROCODONE/APAP 7.5 MG/325 MG TABLET PO PRN ×2 (05:23→11:26)
[2017-09-10] MEDS: ALBUTEROL/IPRATROPIUM 2.5mg-0.5mg/3ml NEB AEROSOL SCH ×4 (06:57→21:01)
[2017-09-10] MEDS: SENNA + DOCUSATE TABLET PO SCH ×2 (09:03→20:10)
[2017-09-10] MEDS: POLYETHYL GLYCOL 3350 17gm PACKET PO SCH (09:03)
[2017-09-10] MEDS: MULTI-VITAMIN PLAIN TABLET PO SCH (09:03)
[2017-09-10] MEDS: ASPIRIN *EC* 81 MG TABLET PO SCH (09:03)
[2017-09-10] MEDS: FERROUS SULFATE 324 MG TABLET PO SCH (09:04)
[2017-09-10] MEDS: TRAMADOL 50 MG TABLET PO SCH ×2 (09:04→20:11)
[2017-09-10] MEDS: ASCORBIC ACID 500 MG TABLET PO SCH (09:04)
[2017-09-10] MEDS: MULTI-VIT + MINERAL (Opti-gen) TABLET PO SCH (09:04)
[2017-09-10] MEDS: FUROSEMIDE 20 MG TABLET PO SCH (09:04)
--- NOTE | 2017-09-10 10:43 | IRU Progress Note ---
- Subjective/Serverity of Illness Date: 09/10/17 Magnolia has received her blood transfusion and does feel much stronger. She denies any shortness of breath. She denies chest pain. However she does report that her appetite is only about 50%. She does have more energy today. She is sleeping well at night she states. Brief therapy update: She is cooperative with both occupational and physical therapy. However she does have fear of falling and does have reduced eyesight. Because of this when she has more fear she has more pain and finds it difficult to bear weight on the affected hip/leg that was repaired. Update on medical issues were actively monitoring and managing as follows: 1. Hip fracture repair. Patient states that the pain is about the same. There is discomfort in certain positions. Fearful of bearing weight on the affected leg. 2. Acute on chronic hypoxemic respiratory failure. Continues on 1 L/m maintaining oxygen saturations around 99%. 3. Acute blood loss anemia. Repeat hemoglobin after transfusion excellent at 9.1. Patient reports more energy. Again I inquired as to any evidence of blood loss otherwise and she denies any abdominal pain or evidence of blood in the stool etc. 4. Cervical spine pain with degenerative changes noted on plain film. Pain in the cervical spine is a barrier to progress. Exam Vital Signs: Temperature 97.6 F 09/10/17 07:00 Pulse Rate 92 09/10/17 07:00 Respiratory Rate 18 09/10/17 07:00 Blood Pressure 122/67 09/10/17 07:00 Pulse Oximetry 99 09/10/17 07:00 Height/Weight/BMI: Height 1.7 m Weight 60.9 kg Body Mass Index 21.0 - Constitutional Present: mild distress, well nourished, well developed, cooperative Comments: Patient seems fearful. - Routine HEENT Exam Eye: Present: EOMI ENT: Present: mucous membranes moist, dentition normal - Routine Respiratory Exam Present: decreased breath sounds. Absent: respiratory distress, rhonchi, wheezes, crackles - Routine Cardiovascular Exam Present: RRR, S1, S2. Absent: murmur - Routine Abdominal Exam Present: soft, normoactive bowel sounds, non distended. Absent: tenderness - Routine Extremities Exam Present: no edema, non tender - Routine Skin Exam Present: dry, warm - Routine Neurological Exam Present: alert, oriented X3, CN II-XII intact - Routine Psychiatric Exam Present: cooperative, anxious. Absent: good insight, good judgment Results IRU - Labs Labs: Reviewed labs etc. IRU A/P (1) Status post-operative repair of closed fracture of right hip Current visit: Yes Status: Acute Patient is reluctant to bear weight on the affected leg due to discomfort. In addition she is fearful of falling which impedes her progress. (2) Acute on chronic respiratory failure with hypoxemia Current visit: Yes Status: Acute She continues on supplemental oxygen at 1 L/m. Denies dyspnea and lungs are clear with diminished breath sounds. (3) Acute blood loss anemia Current visit: Yes Status: Acute Hemoglobin up to 9.1 after transfusion. (4) Cervical spine pain Current visit: Yes Status: Chronic DVT Prophylaxis: Lovenox Resuscitation Status: Full Code - Course Hospital Course: Suleman Gao MD: 09/07/17 08:12 Getting started with therapy today. Complains of fatigue and tiredness. Hemoglobin has dropped to 7.9 g percent. 09/09/17 13:58 Hemoglobin dropped further to 6.9 g percent. She consents to transfusion. She has easy fatigability but no dyspnea. 09/10/17 10:44 Patient tolerated transfusion well. Improved strength noted. Improved saturations noted. Patient is fearful of falling resulting in increased pain when she has more fear. - Interventions to Obtain Goals PT Treatment Plan: Balance/Proprioception, Functional Activities, Gait Training , Patient/Family Education, Therapeutic Exercise OT Treatment Plan: ADL (Basic Care), Balance Training, IADL, UE Functional Training Goals Progress/Modifications: Time spent with patient and on floor reviewing data and documentin min Barriers to dismissal: Strength, fear, balance Medical decision-making: Patient's lungs remain clear although requires a low flow oxygen at this point. She is improved in this regard. She did tolerate the blood transfusion well yesterday. It is safe to continue therapy for her. Fear is a barrier to her progress and we are encouraging her as best we can. Labs reviewed. Working on tapering off oxygen supplementation during the daytime.
[2017-09-10] MEDS: GUAIFENESIN 400MG TABLET PO SCH ×2 (10:47→20:10)
[2017-09-10] MEDS: SIMVASTATIN 40 MG TABLET PO SCH (20:10)
[2017-09-10] MEDS: ENOXAPARIN 40 MG/0.4 ML INJECTION SQ SCH (20:10)
[2017-09-10] MEDS: DONEPEZIL 10 MG TABLET PO SCH (20:10)
[2017-09-10] MEDS: SALINE FLUSH 10ml SYRINGE IV PRN (20:13)
[2017-09-11] MEDS: HYDROCODONE/APAP 7.5 MG/325 MG TABLET PO PRN ×2 (03:37→13:06)
[2017-09-11] MEDS: PANTOPRAZOLE 20 MG TABLET PO SCH ×2 (06:11→18:10)
[2017-09-11] MEDS: ALBUTEROL/IPRATROPIUM 2.5mg-0.5mg/3ml NEB AEROSOL SCH ×4 (07:05→19:13)
[2017-09-11] MEDS: ASPIRIN *EC* 81 MG TABLET PO SCH (08:52)
[2017-09-11] MEDS: TRAMADOL 50 MG TABLET PO SCH ×2 (08:53→20:43)
[2017-09-11] MEDS: SENNA + DOCUSATE TABLET PO SCH ×2 (08:53→20:43)
[2017-09-11] MEDS: ASCORBIC ACID 500 MG TABLET PO SCH (08:53)
[2017-09-11] MEDS: FERROUS SULFATE 324 MG TABLET PO SCH (08:53)
[2017-09-11] MEDS: GUAIFENESIN 400MG TABLET PO SCH ×2 (08:53→20:43)
[2017-09-11] MEDS: FUROSEMIDE 20 MG TABLET PO SCH (08:53)
[2017-09-11] MEDS: MULTI-VIT + MINERAL (Opti-gen) TABLET PO SCH (08:53)
[2017-09-11] MEDS: POLYETHYL GLYCOL 3350 17gm PACKET PO SCH (08:54)
[2017-09-11] MEDS: SALINE FLUSH 10ml SYRINGE IV PRN ×4 (08:54→19:32)
[2017-09-11] MEDS: MULTI-VITAMIN PLAIN TABLET PO SCH (08:54)
[2017-09-11] MEDS: ONDANSETRON ODT 4 MG TABLET PO PRN (09:53)
[2017-09-11] MEDS ORDERED: IRON - PHARMACY CONSULT MC ONE (13:06)
--- NOTE | 2017-09-11 13:11 | Progress Note ---
- Date 09/11/17 Subjective: Magnolia is seen today while in the dining room, eating lunch. She complains of severe right hip pain, currently 7/10. She states that her pain is much worse with movement and admits to vomiting this morning during therapy due to her high pain. She also complains of chronic left sided posterior lateral neck tenderness and tightness, stating that she just needs to get it rubbed. She denies any chest pain, shortness of breath, abdominal pain, dysuria or diarrhea. Her appetite is not as good today since she vomited this morning. Bowels are moving. She has been able to be weaned down to room air without distress. No cough and she remains afebrile. Repeat labs on 09/09/17 following her blood transfusion x 1 unit revealed improved anemia with hemoglobin at 9.1. Iron found to be low at 16. Extensive review of prior medical records as well as discussion with pharmacy indicates that she has not received IV iron supplementation during hospitalization. Objective Vital signs: Temperature 97.8 F 09/11/17 08:00 Pulse Rate 92 09/11/17 08:00 Respiratory Rate 16 09/11/17 08:00 Blood Pressure 113/65 09/11/17 08:00 Pulse Oximetry 90 09/11/17 08:00 Height/Weight/BMI: Height 5 ft 7 in Weight 134 lb 4.184 oz Body Mass Index 21.0 Comments: sitting in dining room, eating small lunch of soap. - Constitutional Present: no acute distress, well nourished, well developed, thin, cooperative - Routine HEENT Exam Head: Present: normocephalic, atraumatic Eye: Present: PERRL. Absent: conjunctival icterus ENT: Present: mucous membranes moist - Routine Respiratory Exam Present: CTA bilaterally. Absent: rales, rhonchi, stridor, wheezes, crackles Comments: no cough or distress; on room air. - Routine Cardiovascular Exam Present: RRR, S1, S2 - Routine Abdominal Exam Present: soft, normoactive bowel sounds, non distended, non tender - Routine Extremities Exam Present: edema (trace), pulses intact Comments: limited ROM due to right hip pain. - Routine Back/Spine/Pelvis Exam Back/Spine: Present: full ROM, kyphosis. Absent: vertebral tenderness - Routine Musculoskeletal Exam Musculoskeletal: Present: moving extremities well - Routine Skin Exam Present: dry, warm. Absent: jaundice Comments: afebrile. - Routine Neurological Exam Present: alert, moving all extremities, normal speech - Routine Lymphatic Exam Lymphatic: Absent: lymphedema - Routine Psychiatric Exam Present: cooperative Results - Labs CBC & Chem 7: 09/09/17 18:40 09/07/17 04:43 - ABG Interpretation ABG results: 09/07/17 09/07/17 09/08/17 04:43 04:43 04:33 WBC 7.0 RBC 2.62 L Hgb 7.9 L D 7.0 L D Hct 26.5 L D 23.1 L D MCV 101.1 H MCH 30.2 MCHC 29.8 L RDW Std Deviation 44.5 Plt Count 223 MPV 9.6 Immature Gran % (Auto) 0.1 Neut % (Auto) 68.5 H Lymph % (Auto) 13.0 L [place] % (Auto) 17.4 H Eos % (Auto) 0.9 Baso % (Auto) 0.1 Neut # (Auto) 4.8 Lymph # (Auto) 0.9 L [place] # (Auto) 1.2 H Eos # (Auto) 0.1 Baso # (Auto) 0.0 Abs Immat Gran (auto) 0.01 Turbidity < 20 Sodium 138 Potassium 4.5 Chloride 104 Carbon Dioxide 27 Anion Gap 7 BUN 25.0 H Creatinine 0.9 GFR Calculation 59 BUN/Creatinine Ratio 28 H Glucose 92 Calculated Osmolality 270 Calcium 8.4 Iron Icterus Index < 2 Vitamin B12 25-OH Vitamin D Total Specimen Hemolysis < 15 09/08/17 09/08/17 09/09/17 04:33 04:33 04:56 WBC 5.2 RBC 2.29 L Hgb 6.9 L Hct 22.9 L MCV 100.0 MCH 30.1 MCHC 30.1 L RDW Std Deviation 44.3 Plt Count 214 MPV 9.5 Immature Gran % (Auto) 0.0 Neut % (Auto) 66.1 H Lymph % (Auto) 20.3 L [place] % (Auto) 12.3 H Eos % (Auto) 1.1 Baso % (Auto) 0.2 Neut # (Auto) 3.5 Lymph # (Auto) 1.1 [place] # (Auto) 0.6 Eos # (Auto) 0.1 Baso # (Auto) 0.0 Abs Immat Gran (auto) 0.00 Turbidity Sodium Potassium Chloride Carbon Dioxide Anion Gap BUN Creatinine GFR Calculation BUN/Creatinine Ratio Glucose Calculated Osmolality Calcium Iron 16 L Icterus Index Vitamin B12 884 25-OH Vitamin D Total 66 Specimen Hemolysis 09/09/17 18:40 WBC RBC Hgb 9.1 L D Hct MCV MCH MCHC RDW Std Deviation Plt Count MPV Immature Gran % (Auto) Neut % (Auto) Lymph % (Auto) [place] % (Auto) Eos % (Auto) Baso % (Auto) Neut # (Auto) Lymph # (Auto) [place] # (Auto) Eos # (Auto) Baso # (Auto) Abs Immat Gran (auto) Turbidity Sodium Potassium Chloride Carbon Dioxide Anion Gap BUN Creatinine GFR Calculation BUN/Creatinine Ratio Glucose Calculated Osmolality Calcium Iron Icterus Index Vitamin B12 25-OH Vitamin D Total Specimen Hemolysis Assessment and Plan (1) Intertrochanteric fracture of right hip Current visit: No Status: Resolved (2) Status post-operative repair of closed fracture of right hip Current visit: Yes Status: Acute (3) Acute on chronic respiratory failure with hypoxemia Current visit: Yes Status: Acute (4) Acute blood loss anemia Current visit: Yes Status: Acute (5) Cervical spine pain Current visit: Yes Status: Chronic Assessment and Plan: Assessment Right hip ORIF on 09/05/[address] 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 Not on O2 at home but history of needing O2 at discharge. HTN GERD Plan - 09/11/17 Magnolia continues to have significantly pain with movement to her right hip. Episode of vomiting during therapy due to increased pain. Continue therapies and pain control per Dr. Gao. Continue to encourage participation in therapies to strengthening and improve functional abilities. Transfusion x 1 unit on 09/09/17 with improvement of hemoglobin to 9.6. Iron low at 16. Extensive review of prior medical records and current medical chart as well as discussion with pharmacy indicated no IV iron previously given. Will consult pharmacy for iron supplementation IV. Will recheck CBC and BMP in AM to monitor blood counts, electrolytes and renal function. Patient weaned to room air. Continue to monitor respiratory function and encourage incentive spirometry for pulmonary toileting. Warm pack to left neck as needed for chronic pain. DVT Prophylaxis: Lovenox GI Prophylaxis: Protonix Resuscitation Status: Full Code - Time spent with patient Time with patient PN: 35 minutes - Physician Narrative Physician: Monica Phillips MD Narrative: Date: 09/11/17 Time: 1307 Hospital Course Summary Disclaimer: The visit summary below is not to be considered part of the above Progress Note. Hospital Course: Assessment Right hip ORIF on 09/05/[address] 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 Not on O2 at home but history of needing O2 at discharge. HTN GERD Plan-hospital consultation 09/07/17 Agree with admission to [facility] rehabilitation unit for further strengthening. Dr. Gao to manage pain and therapies. Start bladder training. Discussed patient's abilities with therapy. Therapy believes it would be beneficial for patient to get up and down to the bedside commode. Hope to DC Olivera by this evening or in the a.m. Follow hemoglobin closely. Patient is currently 7.9 and is asymptomatic. Repeat CBC in a.m. Wean oxygen as able. Patient has not been on home oxygen in the past. BMP in a.m. to monitor electrolytes. Care to be returned to patient's PCP, Marielle Pacheco APRN, on dismissal. Hospitalist service appreciates the consult for ongoing medical management of patient's chronic problems and will follow along with you throughout her stay. Plan - 09/08/17 Magnolia complains of feeling achy today due to increased exercise and activity. Continue to encourage therapies per Dr. Gao as well as pain control. Hemoglobin continues to trend down at 7.0. Discussed risks/benefits of blood transfusion with patient and . Patient denies symptoms with anemia and refused blood transfusion at this time. Will recheck CBC in AM and readdress issue of possible transfusion if indicated. Patient down to 1L NC and breathing easily. Continue to wean oxygen. Discussed importance of and technique for incentive spirometry for pulmonary toileting. Continue to monitor patient closely. Plan - 09/09/17 Type and cross for 1 unit PRBC; hgb decreased to 6.9 and exercise tolerance has declined. On admission to the surgical unit her hgb was 13. She's also had some borderline low bp's. Magnolia's daughter inquires if we have a policy for family blood donation. Per blood bank, [place] is not set up, but the family can go through the [facility] for direct donation. Start ferrous sulfate + vitamin C. Consider IV iron infusion for iron level of 16. ANGELICA Olivera. Continue weaning oxygen as able. Plan - 09/11/17 Magnolia continues to have significantly pain with movement to her right hip. Episode of vomiting during therapy due to increased pain. Continue therapies and pain control per Dr. Gao. Continue to encourage participation in therapies to strengthening and improve functional abilities. Transfusion x 1 unit on 09/09/17 with improvement of hemoglobin to 9.6. Iron low at 16. Extensive review of prior medical records and current medical chart as well as discussion with pharmacy indicated no IV iron previously given. Will consult pharmacy for iron supplementation IV. Will recheck CBC and BMP in AM to monitor blood counts, electrolytes and renal function. Patient weaned to room air. Continue to monitor respiratory function and encourage incentive spirometry for pulmonary toileting. Warm pack to left neck as needed for chronic pain.
[2017-09-11] MEDS ORDERED: IRON DEXTRAN COMPLEX 100mg/2ml INJECTION IV ONE (14:30)
--- NOTE | 2017-09-11 14:41 | Pharmacy Consult ---
Pharmacy Consult-Iron - Laboratory Information Iron Labs 09/07/17 09/08/17 09/08/17 04:43 04:33 04:33 Hgb 7.9 L D 7.0 L D Hct 26.5 L D 23.1 L D Iron 16 L 09/09/17 09/09/17 04:56 18:40 Hgb 6.9 L 9.1 L D Hct 22.9 L Iron - Consult Information After reviewing lab results from the previous 4 months we have determined this patient is experiencing acute blood loss from surgery. Iron replacement based on this patients estimated blood loss would require approximately 400mg of iron dextran for injection to be given 100mg per day x 4 days slow i.v. push (over 10 minutes) with normal saline 15mL per hour as a carrier fluid. Patient should be closely monitored with each dose for any type of reaction. Thank you for the consult.
[2017-09-11] MEDS: NS FLUSH BAG 500ml IV PRN (16:16)
[2017-09-11] MEDS: ACETAMINOPHEN 325 MG TABLET PO PRN (16:38)
[2017-09-11] MEDS: IRON DEXTRAN COMPLEX 100mg/2ml INJECTION IV SCH (18:10)
[2017-09-11] MEDS: ENOXAPARIN 40 MG/0.4 ML INJECTION SQ SCH (20:43)
[2017-09-11] MEDS: DONEPEZIL 10 MG TABLET PO SCH (20:43)
[2017-09-11] MEDS: SIMVASTATIN 40 MG TABLET PO SCH (20:43)
[2017-09-12] MEDS: HYDROCODONE/APAP 7.5 MG/325 MG TABLET PO PRN ×3 (03:19→16:42)
[2017-09-12] MEDS: PANTOPRAZOLE 20 MG TABLET PO SCH ×3 (05:02→16:47)
[2017-09-12] MEDS: ALBUTEROL/IPRATROPIUM 2.5mg-0.5mg/3ml NEB AEROSOL SCH ×4 (07:28→23:00)
[2017-09-12] MEDS: TRAMADOL 50 MG TABLET PO SCH ×2 (09:14→21:34)
[2017-09-12] MEDS: POLYETHYL GLYCOL 3350 17gm PACKET PO SCH (09:15)
[2017-09-12] MEDS: FERROUS SULFATE 324 MG TABLET PO SCH (09:15)
[2017-09-12] MEDS: SALINE FLUSH 10ml SYRINGE IV PRN (09:16)
[2017-09-12] MEDS: MULTI-VIT + MINERAL (Opti-gen) TABLET PO SCH (09:16)
[2017-09-12] MEDS: FUROSEMIDE 20 MG TABLET PO SCH (09:16)
[2017-09-12] MEDS: GUAIFENESIN 400MG TABLET PO SCH ×2 (09:16→21:34)
[2017-09-12] MEDS: SENNA + DOCUSATE TABLET PO SCH ×2 (09:16→21:34)
[2017-09-12] MEDS: MULTI-VITAMIN PLAIN TABLET PO SCH (09:17)
[2017-09-12] MEDS: ASCORBIC ACID 500 MG TABLET PO SCH (09:17)
[2017-09-12] MEDS: ASPIRIN *EC* 81 MG TABLET PO SCH (09:17)
--- NOTE | 2017-09-12 09:40 | IRU Progress Note ---
- Subjective/Serverity of Illness Date: 09/12/17 Mrs. Rao was evaluated in the inpatient rehabilitation unit. She complains of discomfort in the right hip as anticipated. She rates it as a 7 out of 10. It is worse with sitting or standing and is better lying down apparently. She is using about to hydrocodone (7.5 mg) daily along with tramadol twice a day. She apparently had some vomiting yesterday. She denies any chest pain or shortness of breath. Her appetite is fairly good. She reports ecchymosis on the right lower extremity. This was reviewed. It is in the shape of the SCDs. Likely it is due to her underlying use of aspirin plus Lovenox plus SCDs. Those were held yesterday I believe. No evidence of infection. Brief therapy update: For physical therapy she has improved with regard ambulatory distance from 6 feet up to 9 feet with front-wheeled walker. Her transfers are now performed with moderate assistance which is a slight improvement. For occupational therapy she is making slow gains although not reflected in FIM scores. Update on medical issues were actively monitoring and managing as follows: 1. Hip fracture repair. Continues to complain of pain. She is really not using much in the way of pain medication and this could be increased. She is on tramadol twice daily regularly and hydrocodone as needed but only using about 2 per day. 2. Acute on chronic hypoxemic respiratory failure. She has now weaned to room air. She is maintaining saturations around 92% on room air. 3. Acute blood loss anemia. Repeat hemoglobin slightly down at 8.5. Hospitalists are addressing. 4. Cervical spine pain with degenerative changes noted on plain film. Continues to have the left-sided cervical spine pain. This is alleviated with use of Aspercreme and massage. I think this is chronic. Exam Vital Signs: Temperature 97.7 F 09/12/17 07:45 Pulse Rate 70 09/12/17 07:45 Respiratory Rate 18 09/12/17 07:45 Blood Pressure 127/60 09/12/17 07:45 Pulse Oximetry 92 09/12/17 07:45 Height/Weight/BMI: Height 1.7 m Weight 60.9 kg Body Mass Index 21.0 - Constitutional Present: mild distress, well nourished, well developed - Routine HEENT Exam Head: Present: normocephalic, atraumatic Eye: Present: EOMI ENT: Present: mucous membranes moist - Routine Neck Exam Absent: full ROM (has discomfort in the left neck area preventing full range of motion.) - Routine Respiratory Exam Present: CTA bilaterally. Absent: accessory muscle use, dyspnea, decreased breath sounds, wheezes - Routine Cardiovascular Exam Present: RRR, S1, S2. Absent: murmur - Routine Abdominal Exam Present: soft, normoactive bowel sounds, non distended. Absent: tenderness - Routine Extremities Exam Present: edema (1+ edema right lower extremity as anticipated.), normal capillary refill Comments: Ecchymoses noted right lower extremity likely secondary to use of Lovenox plus aspirin plus SCDs. No evidence of infection. - Routine Skin Exam Present: dry, warm, ecchymosis (right lower extremity.) - Routine Neurological Exam Present: alert, oriented X3, CN II-XII intact - Routine Psychiatric Exam Present: normal affect, cooperative Results IRU - Labs Labs: Reviewed laboratory and other providers notes. IRU A/P (1) Status post-operative repair of closed fracture of right hip Current visit: Yes Status: Acute Dressing and right hip inspected by RN. No evidence of inflammation. Pain management is difficult although she could use some more hydrocodone if she wishes. (2) Acute on chronic respiratory failure with hypoxemia Current visit: Yes Status: Acute She is now on room air unable to maintain adequate oxygenation. (3) Acute blood loss anemia Current visit: Yes Status: Acute Hemoglobin down slightly at 8.5 g percent. No overt evidence of additional bleeding in terms of the hip or GI tract. (4) Cervical spine pain Current visit: Yes Status: Chronic DVT Prophylaxis: Lovenox Resuscitation Status: Full Code - Course Hospital Course: Suleman Gao MD: 09/07/17 08:12 Getting started with therapy today. Complains of fatigue and tiredness. Hemoglobin has dropped to 7.9 g percent. 09/09/17 13:58 Hemoglobin dropped further to 6.9 g percent. She consents to transfusion. She has easy fatigability but no dyspnea. 09/10/17 10:44 Patient tolerated transfusion well. Improved strength noted. Improved saturations noted. Patient is fearful of falling resulting in increased pain when she has more fear. 09/12/17 09:42 Making small gains with PT and OT. Able to ambulate 9 feet now. Has pain in right hip but could take more pain pills. - Interventions to Obtain Goals PT Treatment Plan: Balance/Proprioception, Functional Activities, Gait Training , Patient/Family Education, Therapeutic Exercise OT Treatment Plan: ADL (Basic Care), Balance Training, IADL, UE Functional Training Goals Progress/Modifications: Time spent with patient and on floor reviewing data and documentin min Barriers to dismissal: Fair, motivation, pain, endurance, strength Medical decision-making: Patient is medically stable. She does have an ecchymosis noted on the right lower extremity. I inspected and palpated this. This is likely due to her anticoagulation use as well as SCDs. No evidence of infection. With regard to pain management, she has more hydrocodone available if she would like to ask for them. She is making slow gains for both OT and PT. She does have the anemia and the hospitalists are addressing that.
--- NOTE | 2017-09-12 13:44 | IRU Team Meeting ---
IRU Team Meeting - Nursing Bladder Assistive Devices Utilized:: Catheter Bladder Management Level of Assist: Total Assistance Bladder Frequency of Accidents: No accidents Bowel Assistive Devices Utilized:: Medication, Absorbent Pad Bowel Management Level of Assist: Total Assistance Bowel Frequency of Accidents: No accidents Vital Signs: Vital Signs - 24 hr 09/11/17 16:05 09/11/17 16:48 09/11/17 17:05 Temperature 97.8 F Pulse Rate 78 75 Respiratory Rate 16 16 16 Blood Pressure 107/65 118/65 Pulse Oximetry 91 91 92 09/11/17 17:20 09/11/17 17:35 09/11/17 17:50 Temperature Pulse Rate 91 79 71 Respiratory Rate Blood Pressure 128/59 119/64 98/57 Pulse Oximetry 94 90 93 09/11/17 19:13 09/12/17 00:36 09/12/17 00:42 Temperature 97.4 F Pulse Rate 72 Respiratory Rate 16 16 Blood Pressure 123/61 Pulse Oximetry 94 88 L 92 09/12/17 07:29 09/12/17 07:45 09/12/17 12:01 Temperature 97.7 F Pulse Rate 70 Respiratory Rate 18 18 20 Blood Pressure 127/60 Pulse Oximetry 95 92 Current Medications: Acetaminophen (Tylenol) 650 mg PO Q4H PRN PRN Reason: Pain Last Admin: 09/11/17 16:38 Dose: 650 mg Hydrocodone Bitart/Acetaminophen ([place] 7.5/325) 1 - 2 tab PO Q6H PRN PRN Reason: Pain Last Admin: 09/12/17 10:21 Dose: 1 tab Al Hydroxide/Mg Hydroxide (Maalox Plus) 30 ml PO Q4H PRN PRN Reason: Indigestion Last Admin: 09/09/17 21:26 Dose: 30 ml Albuterol/Ipratropium (Duoneb) 3 ml AEROSOL RTQID [facility] Last Admin: 09/12/17 12:00 Dose: 3 ml Albuterol/Ipratropium (Duoneb) 3 ml AEROSOL RTTID PRN PRN Reason: Shortness of air/wheezing Ascorbic Acid (Vitamin C) 500 mg PO DAILY [facility] Last Admin: 09/12/17 09:17 Dose: 500 mg Aspirin (Ecotrin) 81 mg PO DAILY [facility] Last Admin: 09/12/17 09:17 Dose: 81 mg Bisacodyl (Dulcolax) 10 mg RECTALLY DAILY PRN PRN Reason: Constipation Donepezil HCl (Aricept) 10 mg PO HS [facility] Last Admin: 09/11/17 20:43 Dose: 10 mg Enoxaparin Sodium (Lovenox) 40 mg SQ Q24H [facility] Last Admin: 09/11/17 20:43 Dose: 40 mg Ferrous Sulfate (Feosol) 324 mg PO WB [facility] Last Admin: 09/12/17 09:15 Dose: 324 mg Furosemide (Lasix) 20 mg PO DAILY [facility] Last Admin: 09/12/17 09:16 Dose: 20 mg Guaifenesin (Mucinex) 400 mg PO BID [facility] Last Admin: 09/12/17 09:16 Dose: 400 mg Iron Dextran (Infed) 100 mg IV 1600 [facility] Stop: 09/15/17 15:59 Last Admin: 09/11/17 18:10 Dose: 100 mg Magnesium Hydroxide (Mom) 30 ml PO DAILY PRN PRN Reason: Constipation Metoprolol Succinate (Toprol Xl) 25 mg PO DAILY [facility] Last Admin: 09/12/17 09:15 Dose: 25 mg Multivitamins (Theragran) 1 tab PO DAILY [facility] Last Admin: 09/12/17 09:17 Dose: 1 tab Multivitamins/Minerals (Vision) 1 tab PO DAILY [facility] Last Admin: 09/12/17 09:16 Dose: 1 tab Ondansetron HCl (Zofran Po) 4 mg PO Q6H PRN PRN Reason: Nausea &/or vomiting Last Admin: 09/11/17 09:53 Dose: 4 mg Pantoprazole Sodium (Protonix) 20 mg PO ACBID [facility] Last Admin: 09/12/17 07:38 Dose: Not Given Polyethylene Glycol (Miralax) 17 gm PO DAILY [facility] Last Admin: 09/12/17 09:15 Dose: 17 gm Potassium Chloride (K-Dur) 20 meq PO WB [facility] Last Admin: 09/12/17 09:16 Dose: 20 meq Senna/Docusate Sodium (Senna Plus Tablet) 1 tab PO BID [facility] Last Admin: 09/12/17 09:16 Dose: 1 tab Simvastatin (Zocor) 40 mg PO HS [facility] Last Admin: 09/11/17 20:43 Dose: 40 mg Sodium Chloride (Normal Saline) 500 ml IV PRN PRN Last Admin: 09/11/17 16:16 Dose: 500 ml Sodium Chloride (Iv Flush) 10 ml IV PRN PRN PRN Reason: Flushing Last Admin: 09/12/17 09:16 Dose: 10 ml Tramadol HCl (Ultram) 50 mg PO BID [facility] Last Admin: 09/12/17 09:14 Dose: 50 mg Trolamine Salicylate (Aspercreme) 1 applic TOP PRN PRN PRN Reason: Pain Last Admin: 09/11/17 20:44 Dose: 1 applic Current Medical Issues: Acute blood loss anemia, hypoxemia, endurance Comments: I certify that I personally led the interdisciplinary team meeting and agree with comments, barriers and goals indicated. Team meeting was held in the patient's room with the patient and the following family members present: Patient's . Patient's two daughters. And his hemoglobin has dropped slightly to 8.5. She will receive intravenous iron today. She does have easy fatigability. Pain management is somewhat difficult. She could take more pain medications if she desires. Oxygen requirements have reduced. She did use oxygen last night (does not normally use at home) but has not required it today during the daytime. She is having bowel movements. Vital signs are stable. - Physical Therapy Bed, Chair, Wheelchair Transfer Assist: Total Assistance, 2 or More Person Assist Ambulation Ability: Total Assistance Ambulation Distance: 6 Wheelchair Propulsion Ability: Maximal Assistance, 1 Person Assist Wheelchair Propulsion Distance: 115 Stair Climbing Ability: Patient Unsafe/Unable Car Transfer Ability: Patient Unsafe/Unable Comments: She is making small progress toward goals. She has improved and ambulatory distance. However progress is limited by pain and nausea. She does have poor weightbearing due to left knee pain and right hip pain from her recent fracture. Requires frequent rest breaks. - Occupational Therapy Eating Ability: Modified Independent Grooming Ability: Stand By Assist/Supervision Bathing Ability: Moderate Assistance, 1 Person Assist Upper Body Dressing Ability: Stand By Assist/Supervision Lower Body Dressing Ability: Maximal Assistance Tub Transfer Assist: Patient Unsafe/Unable Toileting Assist: Maximal Assistance Toilet Transfer Assist: Moderate Assistance Comments: She requires verbal encouragement to participate in tasks with quite a few rest breaks between tasks. She has demonstrated slow progress toward occupational therapy goals. - Goals Physical Therapy Goals: 09/12/17 Goals: 1.) 50 feet SBA with amb. 2.) SBA with transfers Occupational Therapy Goals: OT goals 09/12/17: 1.) Toileting 01/30. 2.) LB dressing. 3.) standing at sink for 5 min during personal hygiene and grooming tasks - Barriers to Discharge Barriers to Attaining Goals: Endurance, Pain Control, Medical Limitation ( fatigue likely related to anemia plus pulmonary) - Care Plan Anticipated Length of Stay (days): 10 Anticipated Length of Stay: Reassess in one week Anticipated DC Destination: Home, Self Care, Home Health Service I have led this team conference and agree with the plan.
[2017-09-12] MEDS: ACETAMINOPHEN 325 MG TABLET PO PRN (14:22)
[2017-09-12] MEDS: IRON DEXTRAN COMPLEX 100mg/2ml INJECTION IV SCH (16:23)
[2017-09-12] MEDS: MAG-AL + SIM ORAL LIQUID 30ml PO PRN (21:15)
[2017-09-12] MEDS: ENOXAPARIN 40 MG/0.4 ML INJECTION SQ SCH (21:15)
[2017-09-12] MEDS: SIMVASTATIN 40 MG TABLET PO SCH (21:34)
[2017-09-12] MEDS: DONEPEZIL 10 MG TABLET PO SCH (21:34)
[2017-09-13] MEDS: ACETAMINOPHEN 325 MG TABLET PO PRN ×3 (06:27→15:08)
[2017-09-13] MEDS: PANTOPRAZOLE 20 MG TABLET PO SCH ×2 (06:43→16:48)
[2017-09-13] MEDS: ALBUTEROL/IPRATROPIUM 2.5mg-0.5mg/3ml NEB AEROSOL SCH ×4 (08:12→21:05)
[2017-09-13] MEDS: TRAMADOL 50 MG TABLET PO SCH ×2 (08:38→20:22)
[2017-09-13] MEDS: FERROUS SULFATE 324 MG TABLET PO SCH (08:39)
[2017-09-13] MEDS: FUROSEMIDE 20 MG TABLET PO SCH (08:40)
[2017-09-13] MEDS: ASCORBIC ACID 500 MG TABLET PO SCH (08:40)
[2017-09-13] MEDS: GUAIFENESIN 400MG TABLET PO SCH ×2 (08:40→20:22)
[2017-09-13] MEDS: ASPIRIN *EC* 81 MG TABLET PO SCH (08:40)
[2017-09-13] MEDS: MULTI-VIT + MINERAL (Opti-gen) TABLET PO SCH (08:41)
[2017-09-13] MEDS: POLYETHYL GLYCOL 3350 17gm PACKET PO SCH (08:41)
[2017-09-13] MEDS: SENNA + DOCUSATE TABLET PO SCH ×2 (08:41→20:22)
[2017-09-13] MEDS: MULTI-VITAMIN PLAIN TABLET PO SCH (08:41)
--- NOTE | 2017-09-13 10:50 | IRU Progress Note ---
- Subjective/Serverity of Illness Date: 09/13/17 Ms. Rao was evaluated in her room on inpatient rehabilitation with physical therapy present. She reports severe pain in the left neck area. This is been present for a long time but it has a significant barrier to her progress. She is able to ambulate with physical therapy but only about 8 feet with maximal assistance with a front-wheeled walker. In addition she has low vision which is an impairment and a barrier. Brief therapy update: With physical therapy, she is ambulate only about 8 feet with a Farhoud walker with maximum assistance. Demonstrates difficulty with moving the right leg and right leg weakness. For occupational therapy she was able to transfer supine to sit at 3 out of 7. She could demonstrate sit to stand with a front-wheeled walker with only minimum assistance. Also able to transfer wheelchair to toilet using for her walker with minimal assistance. She does have easy fatigability and shortness of breath with activity with saturations down to 83% on room air. Update on medical issues were actively monitoring and managing as follows: 1. Hip fracture repair. She complains of pain in the hip but also has significant only reduced exercise tolerance. Much of the barrier to her progress appears to be the neck pain more than the hip pain however. 2. Acute on chronic hypoxemic respiratory failure. Saturations are down into the 80s on room air. She is on 1 L/m at rest at nighttime and is on 2 L/m when she is up and about. 3. Acute blood loss anemia. No evidence of ongoing blood loss at present. 4. Cervical spine pain with degenerative changes noted on plain film. She has chronic pain in the left cervical spine area but it appears to be worse in the present time. We are using Aspercreme at present. We will add on a heating pad. In addition we will ask for ultrasound. Exam Vital Signs: Temperature 98.2 F 09/13/17 08:54 Pulse Rate 78 09/13/17 08:54 Respiratory Rate 18 09/13/17 08:54 Blood Pressure 133/65 09/13/17 08:54 Pulse Oximetry 91 09/13/17 08:54 Height/Weight/BMI: Height 1.7 m Weight 60.9 kg Body Mass Index 21.0 - Constitutional Present: moderate distress, well nourished, well developed, cooperative Comments: Patient displays significant weakness particularly involving the right lower extremity. She is complaining of pain in the neck as she ambulates. - Routine HEENT Exam Head: Present: normocephalic, atraumatic Eye: Present: EOMI ENT: Present: mucous membranes moist - Routine Neck Exam Present: supple, tenderness (left trapezius muscle area.), trachea midline. Absent: full ROM (has reduced rotational range of motion. There is some tightness of the trapezius muscles on the left side in particular.), lymphadenopathy, thyromegaly, tracheal deviation - Routine Respiratory Exam Present: dyspnea, decreased breath sounds. Absent: accessory muscle use, rhonchi, wheezes, crackles - Routine Cardiovascular Exam Present: RRR, S1, S2. Absent: murmur - Routine Abdominal Exam Present: soft, normoactive bowel sounds, non distended. Absent: tenderness - Routine Extremities Exam Present: edema (trace edema on the right as anticipated from her fracture.) - Routine Skin Exam Present: dry, warm, ecchymosis - Routine Neurological Exam Present: alert, oriented X3, CN II-XII intact - Routine Psychiatric Exam Present: normal affect, depressed, anxious IRU A/P (1) Status post-operative repair of closed fracture of right hip Current visit: Yes Status: Acute Pain is reasonably well controlled in the hip although clearly there is discomfort with ambulation. Progress is slow with multiple barriers including confidence/fear, reduced vision and neck pain. (2) Acute on chronic respiratory failure with hypoxemia Current visit: Yes Status: Acute She continues to require supplemental oxygen with saturations down to 83% on room air with activity. 1-2 L appears to adequately control her hypoxemia however. (3) Acute blood loss anemia Current visit: Yes Status: Acute (4) Cervical spine pain Current visit: Yes Status: Chronic She likely has severe muscle spasms related to underlying degenerative changes in the cervical spine. We will institute local modalities to see if that would help. DVT Prophylaxis: Lovenox Resuscitation Status: Full Code - Course Hospital Course: Suleman Gao MD: 09/07/17 08:12 Getting started with therapy today. Complains of fatigue and tiredness. Hemoglobin has dropped to 7.9 g percent. 09/09/17 13:58 Hemoglobin dropped further to 6.9 g percent. She consents to transfusion. She has easy fatigability but no dyspnea. 09/10/17 10:44 Patient tolerated transfusion well. Improved strength noted. Improved saturations noted. Patient is fearful of falling resulting in increased pain when she has more fear. 09/12/17 09:42 Making small gains with PT and OT. Able to ambulate 9 feet now. Has pain in right hip but could take more pain pills. 09/13/17 10:56 Pain in neck is significant barrier to progress. Requires maximum assistance for ambulation of 8 feet. Making progress with OT. Local modalities will be instituted for the neck pain. - Interventions to Obtain Goals PT Treatment Plan: Balance/Proprioception, Functional Activities, Gait Training , Patient/Family Education, Therapeutic Exercise OT Treatment Plan: ADL (Basic Care), Balance Training, IADL, UE Functional Training Goals Progress/Modifications: Time spent with patient and on floor reviewing data and documentin min Barriers to dismissal: Cervical spine pain, reduced vision, confidence/fear Medical decision-making: I do not find any other reason for her neck pain apart from degenerative changes. A plain film demonstrated this as well. She does have muscle spasm and tightness. We will institute ultrasound, warm moist packs and continue Aspercreme. Continue OT and PT otherwise as well. She continues to require supplemental oxygen and this is being monitored carefully.
--- NOTE | 2017-09-13 14:09 | Progress Note ---
- Date 09/13/17 Subjective: Magnolia is seen today while completing therapy in her room. Her is at the bedside, reading the paper. She reports that she feels worn out today. She denies any other complaint or concerns. No chest pain, increased shortness of breath, abdominal pain, nausea, vomiting or dysuria. She is noted to be out of breath after ambulating despite being on 2L NC and admits to dyspnea with exertion. Her appetite is fair and bowels are moving. She began treatment with IV iron on 09/11. CBC revealed hemoglobin decreased to 8.5 following blood transfusion on 09/09/17. Objective Vital signs: Temperature 98.2 F 09/13/17 08:54 Pulse Rate 78 09/13/17 08:54 Respiratory Rate 20 09/13/17 11:00 Blood Pressure 133/65 09/13/17 08:54 Pulse Oximetry 90 09/13/17 11:00 Height/Weight/BMI: Height 5 ft 7 in Weight 134 lb 4.184 oz Body Mass Index 21.0 Comments: working with physical therapy in room - Constitutional Present: no acute distress, well nourished, well developed, thin, cooperative Comments: appears fatigued today - Routine HEENT Exam Head: Present: normocephalic, atraumatic Eye: Present: PERRL. Absent: conjunctival icterus ENT: Present: mucous membranes dry - Routine Respiratory Exam Present: CTA bilaterally. Absent: rales, rhonchi, stridor, wheezes, crackles - Routine Cardiovascular Exam Present: RRR, S1, S2 - Routine Abdominal Exam Present: soft, normoactive bowel sounds, non distended, non tender - Routine Extremities Exam Present: edema (2+ bilateral lower extremities), non tender, pulses intact - Routine Back/Spine/Pelvis Exam Back/Spine: Present: full ROM, kyphosis. Absent: vertebral tenderness - Routine Musculoskeletal Exam Musculoskeletal: Present: moving extremities well - Routine Skin Exam Present: dry, warm. Absent: jaundice Comments: afebrile - Routine Neurological Exam Present: alert, moving all extremities, normal speech - Routine Lymphatic Exam Lymphatic: Absent: lymphedema - Routine Psychiatric Exam Present: cooperative Results - Labs CBC & Chem 7: 09/12/17 05:03 09/12/17 05:03 Assessment and Plan (1) Intertrochanteric fracture of right hip Current visit: No Status: Resolved (2) Status post-operative repair of closed fracture of right hip Current visit: Yes Status: Acute (3) Acute on chronic respiratory failure with hypoxemia Current visit: Yes Status: Acute (4) Acute blood loss anemia Current visit: Yes Status: Acute (5) Cervical spine pain Current visit: Yes Status: Chronic Assessment and Plan: Assessment Right hip ORIF on 09/05/[address] 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 Not on O2 at home but history of needing O2 at discharge. HTN GERD Plan - 09/11/17 Magnolia appears more fatigued today, though exam conducted during therapy. She reports her pain is improved and is seen actively transferring with walker without obvious discomfort. Continue therapies and pain control per Dr. Gao. Continue to encourage participation in therapies to strengthening and improve functional abilities. Hemoglobin 8.5 on 09/12. Transfusion x 1 unit blood on 09/09/17 with improvement of hemoglobin to 9.6. Iron low at 16. IV iron initiated 09/11/17 with pharmacy to manage. Continue to monitor hemoglobin trends. Patient requiring 2L NC oxygen on exam, previously weaned to room air. 2+ pedal edema noted. Will given additional lasix 20mg po now and recheck CXR. Monitor daily weights closely for signs of fluid retention. Continue to monitor respiratory function and encourage incentive spirometry for pulmonary toileting. Wean oxygen as able. Warm pack to left neck as needed for chronic pain. Recheck CBC and BMP on 09/16 to monitor blood counts, electrolytes and renal function. DVT Prophylaxis: SCD's Resuscitation Status: Full Code - Time spent with patient Time with patient PN: 25 minutes - Physician Narrative Physician: Monica Phillips MD Narrative: Date: 09/13/17 Time: 1405 Hospital Course Summary Disclaimer: The visit summary below is not to be considered part of the above Progress Note. Hospital Course: Assessment Right hip ORIF on 09/05/[address] 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 Not on O2 at home but history of needing O2 at discharge. HTN GERD Plan-hospital consultation 09/07/17 Agree with admission to [facility] rehabilitation unit for further strengthening. Dr. Gao to manage pain and therapies. Start bladder training. Discussed patient's abilities with therapy. Therapy believes it would be beneficial for patient to get up and down to the bedside commode. Hope to ANGELICA Olivera by this evening or in the a.m. Follow hemoglobin closely. Patient is currently 7.9 and is asymptomatic. Repeat CBC in a.m. Wean oxygen as able. Patient has not been on home oxygen in the past. BMP in a.m. to monitor electrolytes. Care to be returned to patient's PCP, Marielle Pacheco APRN, on dismissal. Hospitalist service appreciates the consult for ongoing medical management of patient's chronic problems and will follow along with you throughout her stay. Plan - 09/08/17 Magnolia complains of feeling achy today due to increased exercise and activity. Continue to encourage therapies per Dr. Gao as well as pain control. Hemoglobin continues to trend down at 7.0. Discussed risks/benefits of blood transfusion with patient and . Patient denies symptoms with anemia and refused blood transfusion at this time. Will recheck CBC in AM and readdress issue of possible transfusion if indicated. Patient down to 1L NC and breathing easily. Continue to wean oxygen. Discussed importance of and technique for incentive spirometry for pulmonary toileting. Continue to monitor patient closely. Plan - 09/09/17 Type and cross for 1 unit PRBC; hgb decreased to 6.9 and exercise tolerance has declined. On admission to the surgical unit her hgb was 13. She's also had some borderline low bp's. Magnolia's daughter inquires if we have a policy for family blood donation. Per blood bank, [facility] is not set up, but the family can go through the [facility] for direct donation. Start ferrous sulfate + vitamin C. Consider IV iron infusion for iron level of 16. DC Jarod. Continue weaning oxygen as able. Plan - 09/11/17 Magnolia continues to have significantly pain with movement to her right hip. Episode of vomiting during therapy due to increased pain. Continue therapies and pain control per Dr. Gao. Continue to encourage participation in therapies to strengthening and improve functional abilities. Transfusion x 1 unit on 09/09/17 with improvement of hemoglobin to 9.6. Iron low at 16. Extensive review of prior medical records and current medical chart as well as discussion with pharmacy indicated no IV iron previously given. Will consult pharmacy for iron supplementation IV. Will recheck CBC and BMP in AM to monitor blood counts, electrolytes and renal function. Patient weaned to room air. Continue to monitor respiratory function and encourage incentive spirometry for pulmonary toileting. Warm pack to left neck as needed for chronic pain. Plan - 09/11/17 Magnolia appears more fatigued today, though exam conducted during therapy. She reports her pain is improved and is seen actively transferring with walker without obvious discomfort. Continue therapies and pain control per Dr. Gao. Continue to encourage participation in therapies to strengthening and improve functional abilities. Hemoglobin 8.5 on 09/12. Transfusion x 1 unit blood on 09/09/17 with improvement of hemoglobin to 9.6. Iron low at 16. IV iron initiated 09/11/17 with pharmacy to manage. Continue to monitor hemoglobin trends. Patient requiring 2L NC oxygen on exam, previously weaned to room air. 2+ pedal edema noted. Will given additional lasix 20mg po now and recheck CXR. Monitor daily weights closely for signs of fluid retention. Continue to monitor respiratory function and encourage incentive spirometry for pulmonary toileting. Wean oxygen as able. Warm pack to left neck as needed for chronic pain. Recheck CBC and BMP on 09/16 to monitor blood counts, electrolytes and renal function.
[2017-09-13] MEDS ORDERED: FUROSEMIDE 20 MG TABLET PO ONE (14:16)
--- NOTE | 2017-09-13 15:31 | XRay Report ---
Indication: dyspnea PROCEDURE: XR chest 1V: Encounter: Initial Comparison: September 05, 2017 Findings: Senescent changes in the lungs with hyperinflation. Probable skin folds in the right chest. No pneumothorax or pleural effusion. No focal pneumonia. Heart size and mediastinal contours are stable. Possible hiatal hernia. Impression: Stable chest without acute cardiopulmonary disease. .
[2017-09-13] MEDS: IRON DEXTRAN COMPLEX 100mg/2ml INJECTION IV SCH (16:43)
[2017-09-13] MEDS: SIMVASTATIN 40 MG TABLET PO SCH (20:22)
[2017-09-13] MEDS: DONEPEZIL 10 MG TABLET PO SCH (20:22)
[2017-09-13] MEDS: ENOXAPARIN 40 MG/0.4 ML INJECTION SQ SCH (20:23)
[2017-09-14] MEDS: PANTOPRAZOLE 20 MG TABLET PO SCH ×3 (03:58→16:53)
[2017-09-14] MEDS: ACETAMINOPHEN 325 MG TABLET PO PRN (03:58)
[2017-09-14] MEDS: ALBUTEROL/IPRATROPIUM 2.5mg-0.5mg/3ml NEB AEROSOL SCH ×4 (08:05→20:34)
[2017-09-14] MEDS: FERROUS SULFATE 324 MG TABLET PO SCH (09:22)
[2017-09-14] MEDS: ASCORBIC ACID 500 MG TABLET PO SCH (09:22)
[2017-09-14] MEDS: FUROSEMIDE 20 MG TABLET PO SCH (09:23)
[2017-09-14] MEDS: GUAIFENESIN 400MG TABLET PO SCH ×2 (09:23→20:55)
[2017-09-14] MEDS: POLYETHYL GLYCOL 3350 17gm PACKET PO SCH ×2 (09:23→09:37)
[2017-09-14] MEDS: MULTI-VITAMIN PLAIN TABLET PO SCH (09:23)
[2017-09-14] MEDS: ASPIRIN *EC* 81 MG TABLET PO SCH (09:23)
[2017-09-14] MEDS: SENNA + DOCUSATE TABLET PO SCH ×2 (09:24→20:55)
[2017-09-14] MEDS: MULTI-VIT + MINERAL (Opti-gen) TABLET PO SCH (09:24)
[2017-09-14] MEDS: TRAMADOL 50 MG TABLET PO SCH ×2 (09:28→20:55)
[2017-09-14] MEDS: HYDROCODONE/APAP 7.5 MG/325 MG TABLET PO PRN (14:11)
[2017-09-14] MEDS: IRON DEXTRAN COMPLEX 100mg/2ml INJECTION IV SCH (16:02)
[2017-09-14] MEDS: SALINE FLUSH 10ml SYRINGE IV PRN ×2 (16:02→20:56)
[2017-09-14] MEDS: NS FLUSH BAG 500ml IV PRN (16:03)
[2017-09-14] MEDS: SIMVASTATIN 40 MG TABLET PO SCH (20:55)
[2017-09-14] MEDS: ENOXAPARIN 40 MG/0.4 ML INJECTION SQ SCH (20:56)
[2017-09-14] MEDS: DONEPEZIL 10 MG TABLET PO SCH (20:56)
[2017-09-15] MEDS: PANTOPRAZOLE 20 MG TABLET PO SCH ×2 (06:39→17:20)
[2017-09-15] MEDS: HYDROCODONE/APAP 7.5 MG/325 MG TABLET PO PRN ×2 (06:39→12:52)
[2017-09-15] MEDS: ALBUTEROL/IPRATROPIUM 2.5mg-0.5mg/3ml NEB AEROSOL SCH ×4 (07:02→19:25)
[2017-09-15] MEDS: GUAIFENESIN 400MG TABLET PO SCH ×2 (09:01→20:09)
[2017-09-15] MEDS: ASPIRIN *EC* 81 MG TABLET PO SCH (09:02)
[2017-09-15] MEDS: FERROUS SULFATE 324 MG TABLET PO SCH (09:02)
[2017-09-15] MEDS: ASCORBIC ACID 500 MG TABLET PO SCH (09:02)
[2017-09-15] MEDS: MULTI-VIT + MINERAL (Opti-gen) TABLET PO SCH (09:02)
[2017-09-15] MEDS: FUROSEMIDE 20 MG TABLET PO SCH (09:02)
[2017-09-15] MEDS: SENNA + DOCUSATE TABLET PO SCH ×3 (09:03→20:11)
[2017-09-15] MEDS: MULTI-VITAMIN PLAIN TABLET PO SCH (09:03)
[2017-09-15] MEDS: POLYETHYL GLYCOL 3350 17gm PACKET PO SCH ×2 (09:03→09:11)
[2017-09-15] MEDS: TRAMADOL 50 MG TABLET PO SCH ×3 (09:04→21:58)
[2017-09-15] MEDS: DONEPEZIL 10 MG TABLET PO SCH (20:09)
[2017-09-15] MEDS: ENOXAPARIN 40 MG/0.4 ML INJECTION SQ SCH (20:09)
[2017-09-15] MEDS: SIMVASTATIN 40 MG TABLET PO SCH (20:09)
[2017-09-16] MEDS: PANTOPRAZOLE 20 MG TABLET PO SCH ×2 (06:17→17:30)
[2017-09-16] MEDS: TRAMADOL 50 MG TABLET PO SCH ×2 (08:16→20:12)
[2017-09-16] MEDS: FERROUS SULFATE 324 MG TABLET PO SCH (08:16)
[2017-09-16] MEDS: ASCORBIC ACID 500 MG TABLET PO SCH (08:17)
[2017-09-16] MEDS: MULTI-VIT + MINERAL (Opti-gen) TABLET PO SCH (08:17)
[2017-09-16] MEDS: FUROSEMIDE 20 MG TABLET PO SCH (08:17)
[2017-09-16] MEDS: MULTI-VITAMIN PLAIN TABLET PO SCH (08:17)
[2017-09-16] MEDS: ASPIRIN *EC* 81 MG TABLET PO SCH (08:17)
[2017-09-16] MEDS: GUAIFENESIN 400MG TABLET PO SCH ×2 (08:17→20:06)
[2017-09-16] MEDS: SENNA + DOCUSATE TABLET PO SCH ×2 (08:18→20:06)
[2017-09-16] MEDS: POLYETHYL GLYCOL 3350 17gm PACKET PO SCH (08:18)
[2017-09-16] MEDS: ALBUTEROL/IPRATROPIUM 2.5mg-0.5mg/3ml NEB AEROSOL SCH ×4 (09:10→20:20)
[2017-09-16] MEDS ORDERED: FALL RISK - PHARMACY CONSULT XX ONE (09:58)
[2017-09-16] MEDS: HYDROCODONE/APAP 7.5 MG/325 MG TABLET PO PRN (10:26)
--- NOTE | 2017-09-16 10:35 | IRU Progress Note ---
- Subjective/Serverity of Illness Date: 09/16/17 Ms. Rao was evaluated in her room on inpatient rehabilitation. She has had some reluctance to participate due to pain and fatigue. She does report some dyspnea with activity. After she starts to work with therapy she is more cooperative and participates more according to occupational therapy. Continues to struggle with the neck pain which predated her admission. We are using topical Aspercreme as well as pain medication. Brief therapy update: For occupational therapy she is standby assist for upper body dressing. Lower body dressing has improved from total to maximum and now to moderate assistance. Physical therapy transfers are with maximum assistance. Pain is a primary limitation as well as confidence and fatigue. Update on medical issues were actively monitoring and managing as follows: 1. Hip fracture repair. Continues to have quite a bit of pain in the right hip. She is on hydrocodone but only taking 1-2 daily. Told her that she could certainly ask for more and we will increase the frequency to every 4 hours as needed. 2. Acute on chronic hypoxemic respiratory failure. She has continued to require supplemental oxygen. Uses oxygen 24 hours daily. Does report some dyspnea with activity. Reviewed recent chest x-ray demonstrate no acute process. 3. Acute blood loss anemia. She has received intravenous iron. Hemoglobin up a bit at this time. No evidence of active ongoing blood loss. 4. Cervical spine pain with degenerative changes noted on plain film. Continues to receive Aspercreme and heating pad as well as pain medication. However the pain is severe at times, resulting in nausea and limiting her activity. Exam Vital Signs: Temperature 98.0 F 09/16/17 08:00 Pulse Rate 76 09/16/17 08:00 Respiratory Rate 18 09/16/17 09:10 Blood Pressure 129/60 09/16/17 08:00 Pulse Oximetry 90 09/16/17 09:10 Height/Weight/BMI: Height 1.7 m Weight 64.4 kg Body Mass Index 21.0 - Constitutional Present: moderate distress, well nourished, well developed. Absent: cooperative (patient has variable degrees of cooperation. At the beginning of therapy she is not interested in participating but this improves as time goes on.) - Routine HEENT Exam Head: Present: normocephalic, atraumatic Eye: Absent: conjunctival icterus, scleral injection, conjunctivae pink ENT: Present: mucous membranes moist - Routine Neck Exam Present: supple - Routine Respiratory Exam Present: CTA bilaterally. Absent: respiratory distress, rhonchi, wheezes, crackles - Routine Cardiovascular Exam Present: RRR, S1, S2. Absent: murmur - Routine Abdominal Exam Present: soft, normoactive bowel sounds, non distended. Absent: tenderness - Routine Extremities Exam Present: edema (continues to demonstrate quite a bit of edema. Right worse than left as anticipated. Inspected and palpated heels and no evidence of decubitus lesion at present.) - Routine Skin Exam Present: dry, warm. Absent: lesions - Routine Neurological Exam Present: alert, oriented X3, CN II-XII intact. Absent: vision grossly intact - Routine Psychiatric Exam Present: normal affect, anxious Results IRU - Labs Labs: Reviewed chest radiograph and today's lab. IRU A/P (1) Status post-operative repair of closed fracture of right hip Current visit: Yes Status: Acute Continues to have significant pain in the right hip. She is not taking much in the way of pain medication and I told her that she concerned have this every 4 hours as needed. Pain appears to be a significant barrier to her progress. (2) Acute on chronic respiratory failure with hypoxemia Current visit: Yes Status: Acute Continues to require supplemental oxygen by nasal cannula. (3) Acute blood loss anemia Current visit: Yes Status: Acute Has received intravenous iron. Hemoglobin stable to improved. No evidence of active blood loss at present. (4) Cervical spine pain Current visit: Yes Status: Chronic Continues to have quite a bit of pain in the neck, left side. Local modalities as well as pain medication provided. DVT Prophylaxis: SCD's Resuscitation Status: Full Code - Course Hospital Course: Suleman Gao MD: 09/07/17 08:12 Getting started with therapy today. Complains of fatigue and tiredness. Hemoglobin has dropped to 7.9 g percent. 09/09/17 13:58 Hemoglobin dropped further to 6.9 g percent. She consents to transfusion. She has easy fatigability but no dyspnea. 09/10/17 10:44 Patient tolerated transfusion well. Improved strength noted. Improved saturations noted. Patient is fearful of falling resulting in increased pain when she has more fear. 09/12/17 09:42 Making small gains with PT and OT. Able to ambulate 9 feet now. Has pain in right hip but could take more pain pills. 09/13/17 10:56 Pain in neck is significant barrier to progress. Requires maximum assistance for ambulation of 8 feet. Making progress with OT. Local modalities will be instituted for the neck pain. 09/16/17 10:39 Continues to have bilateral edema right worse than left. We'll increase hydrocodone to every 4 hours as needed. Continue local modalities for neck pain. Reluctant to participate at times due to pain. We will assess albumin in regard to her edema. - Interventions to Obtain Goals PT Treatment Plan: Balance/Proprioception, Functional Activities, Gait Training , Patient/Family Education, Therapeutic Exercise OT Treatment Plan: ADL (Basic Care), Balance Training, IADL, UE Functional Training Goals Progress/Modifications: Time spent with patient and on floor reviewing data and documentin min Barriers to dismissal: Pain, motivation, confidence, low vision, hypoxemia Medical decision-making: Continues to struggle with pain management. We will increase her pain medication to every 4 hours as needed and I encouraged her to ask for this. We are continuing local modalities (Aspercreme and heat) to the left neck area. She does have quite a bit of edema. She does not have evidence of overt heart failure so we will check albumin.
[2017-09-16] MEDS: ENOXAPARIN 40 MG/0.4 ML INJECTION SQ SCH (20:06)
[2017-09-16] MEDS: SIMVASTATIN 40 MG TABLET PO SCH (20:06)
[2017-09-16] MEDS: DONEPEZIL 10 MG TABLET PO SCH (20:06)
[2017-09-17] MEDS: HYDROCODONE/APAP 7.5 MG/325 MG TABLET PO PRN ×2 (05:58→10:56)
[2017-09-17] MEDS: PANTOPRAZOLE 20 MG TABLET PO SCH ×2 (05:58→17:54)
[2017-09-17] MEDS: ALBUTEROL/IPRATROPIUM 2.5mg-0.5mg/3ml NEB AEROSOL SCH ×4 (07:23→20:17)
[2017-09-17] MEDS: POLYETHYL GLYCOL 3350 17gm PACKET PO SCH (08:11)
[2017-09-17] MEDS: ASCORBIC ACID 500 MG TABLET PO SCH (08:12)
[2017-09-17] MEDS: TRAMADOL 50 MG TABLET PO SCH ×2 (08:12→20:44)
[2017-09-17] MEDS: FUROSEMIDE 20 MG TABLET PO SCH (08:12)
[2017-09-17] MEDS: FERROUS SULFATE 324 MG TABLET PO SCH (08:13)
[2017-09-17] MEDS: MULTI-VITAMIN PLAIN TABLET PO SCH (08:13)
[2017-09-17] MEDS: GUAIFENESIN 400MG TABLET PO SCH ×2 (08:13→20:41)
[2017-09-17] MEDS: ASPIRIN *EC* 81 MG TABLET PO SCH (08:13)
[2017-09-17] MEDS: MULTI-VIT + MINERAL (Opti-gen) TABLET PO SCH (08:13)
[2017-09-17] MEDS: SENNA + DOCUSATE TABLET PO SCH ×2 (08:13→20:41)
--- NOTE | 2017-09-17 09:57 | IRU Progress Note ---
- Subjective/Serverity of Illness Date: 09/17/17 Ms. Rao was evaluated in her room on inpatient rehabilitation. She says that she does not have much in the way of dyspnea with activity. However therapists note that she has easy fatigability. Her endurance is quite poor. She is eating adequately she states. There is some edema. She states that she has not had edema in the past she has been up on her feet a lot. Her albumin is low at 2.6 g. Brief therapy update: Occupational therapy: she requires moderate assistance for lower body dressing (previously was maximum assist). Physical therapy: she has poor right lower extremity weightbearing capability. Requires maximum assistance for bed/chair/wheelchair transfers. Able to ambulate only about 12 feet with a front-wheeled walker. Update on medical issues were actively monitoring and managing as follows: 1. Hip fracture repair. She reports her pain as a 6 out of 10. Could not localize it and says that she just hurts all over but is better in that regard. 2. Acute on chronic hypoxemic respiratory failure. Continues to require low flow oxygen at 1 L/m. She has had respiratory failure in the past but does not use oxygen at home since May. 3. Acute blood loss anemia. Repeat hemoglobin yesterday 9.6 g percent. 4. Cervical spine pain with degenerative changes noted on plain film. She states that her neck pain continues to be a problem but is improved since therapy session yesterday. Demonstrates reduced range of motion with rotation to her left compared to the right. Exam Vital Signs: Temperature 97.4 F 09/17/17 07:23 Pulse Rate 75 09/17/17 07:23 Respiratory Rate 16 09/17/17 07:23 Blood Pressure 114/55 09/17/17 07:23 Pulse Oximetry 92 09/17/17 07:23 Height/Weight/BMI: Height 1.7 m Weight 62.6 kg Body Mass Index 21.0 - Constitutional Present: no acute distress, well nourished, well developed - Routine HEENT Exam Head: Present: normocephalic, atraumatic Eye: Present: EOMI ENT: Present: mucous membranes moist - Routine Neck Exam Absent: full ROM (has some tenderness to palpate left posterior neck. Reduced range of motion rotationally to her left compared to the right.) - Routine Respiratory Exam Present: decreased breath sounds. Absent: rhonchi, wheezes, crackles - Routine Cardiovascular Exam Present: RRR, S1, S2. Absent: murmur - Routine Abdominal Exam Present: soft, normoactive bowel sounds, non distended. Absent: tenderness - Routine Extremities Exam Present: edema (continues to demonstrate edema right worse than left. Weight is slightly down.), normal capillary refill - Routine Skin Exam Present: dry, warm - Routine Neurological Exam Present: alert, oriented X3, CN II-XII intact - Routine Psychiatric Exam Present: normal affect Results IRU - Labs Labs: Reviewed labs including albumin of 2.6. IRU A/P (1) Status post-operative repair of closed fracture of right hip Current visit: Yes Status: Acute Patient states pain management is somewhat improved. Continues to have difficulty with weightbearing on the right side. Progress is slow but she is progressing toward goals. (2) Acute on chronic respiratory failure with hypoxemia Current visit: Yes Status: Acute Continues to require supplemental oxygen at 1 L/m. (3) Acute blood loss anemia Current visit: Yes Status: Acute Hemoglobin stable to improved at 9.6 g percent. (4) Cervical spine pain Current visit: Yes Status: Chronic Cervical spine pain largely due to degenerative changes in the cervical spine with resultant muscle spasm. She states the pain is somewhat improved today after therapy treatment yesterday. (5) Dependent edema Current visit: Yes Status: Acute Continues to demonstrate bilateral edema right worse than left. Albumin is low which contributes to this. In addition, may well have a component of cor pulmonale although not confirmed. DVT Prophylaxis: SCD's Resuscitation Status: Full Code - Course Hospital Course: Suleman Gao MD: 09/07/17 08:12 Getting started with therapy today. Complains of fatigue and tiredness. Hemoglobin has dropped to 7.9 g percent. 09/09/17 13:58 Hemoglobin dropped further to 6.9 g percent. She consents to transfusion. She has easy fatigability but no dyspnea. 09/10/17 10:44 Patient tolerated transfusion well. Improved strength noted. Improved saturations noted. Patient is fearful of falling resulting in increased pain when she has more fear. 09/12/17 09:42 Making small gains with PT and OT. Able to ambulate 9 feet now. Has pain in right hip but could take more pain pills. 09/13/17 10:56 Pain in neck is significant barrier to progress. Requires maximum assistance for ambulation of 8 feet. Making progress with OT. Local modalities will be instituted for the neck pain. 09/16/17 10:39 Continues to have bilateral edema right worse than left. We'll increase hydrocodone to every 4 hours as needed. Continue local modalities for neck pain. Reluctant to participate at times due to pain. We will assess albumin in regard to her edema. 09/17/17 10:01 Neck pain improved but continues to be a problem. Low albumin likely contributing to edema. Continues to require low flow oxygen at 1 L/m. Pain management improved in the right hip. Slow progress. - Interventions to Obtain Goals PT Treatment Plan: Balance/Proprioception, Functional Activities, Gait Training , Patient/Family Education, Therapeutic Exercise OT Treatment Plan: ADL (Basic Care), Balance Training, IADL, UE Functional Training Goals Progress/Modifications: Time spent with patient and on floor reviewing data and documentin min Barriers to dismissal: Cervical spine pain, motivation, endurance, strength Medical decision-making: Patient's ambulatory distance is quite poor. Has difficulty with weightbearing on the right lower extremity. Her edema is likely multifactorial and related to dependency plus low albumin, plus or minus right heart failure from her COPD. She continues to require supplemental oxygen but with the oxygen her saturations are able to be maintained above 90%. She denies overt dyspnea but does have easy fatigability. She is making progress toward goals but it is slow. Pain management is improved in both the neck and the right hip. Continue with therapy.
[2017-09-17] MEDS: ONDANSETRON ODT 4 MG TABLET PO PRN (10:59)
[2017-09-17] MEDS: ACETAMINOPHEN 325 MG TABLET PO PRN (14:27)
[2017-09-17] MEDS: SIMVASTATIN 40 MG TABLET PO SCH (20:41)
[2017-09-17] MEDS: DONEPEZIL 10 MG TABLET PO SCH (20:45)
[2017-09-17] MEDS: ENOXAPARIN 40 MG/0.4 ML INJECTION SQ SCH (20:45)
[2017-09-17] MEDS: MAG-AL + SIM ORAL LIQUID 30ml PO PRN (20:56)
[2017-09-18] MEDS: PANTOPRAZOLE 20 MG TABLET PO SCH ×3 (04:23→16:57)
[2017-09-18] MEDS: HYDROCODONE/APAP 7.5 MG/325 MG TABLET PO PRN (04:23)
[2017-09-18] MEDS: MULTI-VIT + MINERAL (Opti-gen) TABLET PO SCH (08:40)
[2017-09-18] MEDS: ASPIRIN *EC* 81 MG TABLET PO SCH (08:41)
[2017-09-18] MEDS: GUAIFENESIN 400MG TABLET PO SCH ×2 (08:41→20:48)
[2017-09-18] MEDS: FUROSEMIDE 20 MG TABLET PO SCH (08:41)
[2017-09-18] MEDS: MULTI-VITAMIN PLAIN TABLET PO SCH (08:41)
[2017-09-18] MEDS: FERROUS SULFATE 324 MG TABLET PO SCH (08:41)
[2017-09-18] MEDS: ASCORBIC ACID 500 MG TABLET PO SCH (08:41)
[2017-09-18] MEDS: TRAMADOL 50 MG TABLET PO SCH ×2 (08:42→20:46)
[2017-09-18] MEDS: SENNA + DOCUSATE TABLET PO SCH ×2 (08:42→20:49)
[2017-09-18] MEDS: POLYETHYL GLYCOL 3350 17gm PACKET PO SCH (08:42)
--- NOTE | 2017-09-18 08:51 | Progress Note ---
- Date 09/18/17 Subjective: Magnolia is seen today in follow up for her recent right hip fracture with repair. She is seen first thing this morning and awakens easily with soft voice stimuli. She reports that she is feeling "ok" and complains of feeling "achy" but denies any specific complaints. No chest pain, shortness of breath, abdominal pain, nausea, vomiting or dysuria. She states that her appetite has been stable and her bowels are moving. She continues to have fairly elevated pain to her right hip, especially with therapies rating it around 6/10. Therapy notes that she is easily fatigued, limiting her progress. Repeat labs on revealed stable anemia with hemoglobin at 9.6 and low albumin at 2.6. Objective Vital signs: Temperature 97.9 F 09/17/17 22:12 Pulse Rate 80 09/17/17 22:12 Respiratory Rate 22 09/17/17 22:12 Blood Pressure 102/58 09/17/17 22:12 Pulse Oximetry 95 09/17/17 22:12 Height/Weight/BMI: Height 5 ft 7 in Weight 136 lb 3.931 oz Body Mass Index 21.0 Comments: Patient is resting in bed, awakens easily with soft voice; no distress. - Constitutional Present: no acute distress, well nourished, well developed, thin, cooperative - Routine HEENT Exam Head: Present: normocephalic, atraumatic Eye: Present: PERRL. Absent: conjunctival icterus ENT: Present: mucous membranes moist - Routine Respiratory Exam Absent: respiratory distress, wheezes Comments: diminished breath sounds bilaterally with fine crackles in bases bilaterally; no respiratory distress; breathing easily on 2L NC. - Routine Cardiovascular Exam Present: irregularly irregular (rate controlled) - Routine Abdominal Exam Present: soft, normoactive bowel sounds, non distended, non tender - Routine Extremities Exam Present: edema (3+ pitting on right, 2+ pitting on left.), pulses intact Comments: limited ROM on right due to pain; varying stages of ecchymosis noted to right lower extremity. - Routine Back/Spine/Pelvis Exam Back/Spine: Present: full ROM, kyphosis. Absent: vertebral tenderness - Routine Musculoskeletal Exam Musculoskeletal: Present: moving extremities well, limited range of motion ( right leg) - Routine Skin Exam Present: dry, warm. Absent: jaundice Comments: afebrile - Routine Neurological Exam Present: alert, oriented X3, moving all extremities, normal speech - Routine Lymphatic Exam Lymphatic: Absent: lymphedema - Routine Psychiatric Exam Present: cooperative Results - Labs CBC & Chem 7: 09/22/17 04:10 09/22/17 04:10 Assessment and Plan (1) Intertrochanteric fracture of right hip Current visit: No Status: Resolved (2) Status post-operative repair of closed fracture of right hip Current visit: Yes Status: Acute (3) Acute on chronic respiratory failure with hypoxemia Current visit: Yes Status: Acute (4) Acute blood loss anemia Current visit: Yes Status: Acute (5) Cervical spine pain Current visit: Yes Status: Chronic Assessment and Plan: Assessment Right hip ORIF on 09/05/[address] 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 Not on O2 at home but history of needing O2 at discharge. HTN GERD Plan - 09/18/17 Magnolia is seen first thing this morning and awakens easily. Nursing reports that she continues to have some issues with pain control to her right hip. Therapy reports that she fatigues easily, limiting her progress. Continue therapies and pain control per Dr. Gao. Continue to encourage participation in therapies to strengthening and improve functional abilities. Hemoglobin trending up at 9.6 on 09/16/17. Transfusion x 1 unit blood on . Iron low at 16. IV iron initiated 09/11/17 with pharmacy to manage. Continue to monitor hemoglobin trends. Patient requiring 2L NC oxygen on exam. 2-3+ pedal edema noted. Daily weights trending down. CXR on 09/13 showed no acute cardiopulmonary abnormalities. Continue to try and wean oxygen. Continue to monitor respiratory function and encourage incentive spirometry for pulmonary toileting. Wean oxygen as able. Warm pack to left neck as needed for chronic pain. Albumin low at 2.6. Will consult dietary for evaluation and recommendations for protein calorie malnutrition. Addendum by Dr. Bella: Seen and examined patient on same day as the above note. Agree with subjective note, physical exam, assessment and plan. Comprehensive physical findings correlate to the above note. Documented on Dragon speech to text. Efforts to correct speech recognition errors performed, but variation may exist GI Prophylaxis: Protonix Resuscitation Status: Full Code - Time spent with patient Time with patient PN: 35 minutes - Physician Narrative Physician: Maryam Virgen MD Narrative: Date: 09/18/17 Time: 0845 Hospital Course Summary Disclaimer: The visit summary below is not to be considered part of the above Progress Note. Hospital Course: Assessment Right hip ORIF on 09/05/[address] 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 Not on O2 at home but history of needing O2 at discharge. HTN GERD Plan-hospital consultation 09/07/17 Agree with admission to [facility] rehabilitation unit for further strengthening. Dr. Gao to manage pain and therapies. Start bladder training. Discussed patient's abilities with therapy. Therapy believes it would be beneficial for patient to get up and down to the bedside commode. Hope to DC Olivera by this evening or in the a.m. Follow hemoglobin closely. Patient is currently 7.9 and is asymptomatic. Repeat CBC in a.m. Wean oxygen as able. Patient has not been on home oxygen in the past. BMP in a.m. to monitor electrolytes. Care to be returned to patient's PCP, Marielle Pacheco APRN, on dismissal. Hospitalist service appreciates the consult for ongoing medical management of patient's chronic problems and will follow along with you throughout her stay. Plan - 09/08/17 Magnolia complains of feeling achy today due to increased exercise and activity. Continue to encourage therapies per Dr. Gao as well as pain control. Hemoglobin continues to trend down at 7.0. Discussed risks/benefits of blood transfusion with patient and . Patient denies symptoms with anemia and refused blood transfusion at this time. Will recheck CBC in AM and readdress issue of possible transfusion if indicated. Patient down to 1L NC and breathing easily. Continue to wean oxygen. Discussed importance of and technique for incentive spirometry for pulmonary toileting. Continue to monitor patient closely. Plan - 09/09/17 Type and cross for 1 unit PRBC; hgb decreased to 6.9 and exercise tolerance has declined. On admission to the surgical unit her hgb was 13. She's also had some borderline low bp's. Magnolia's daughter inquires if we have a policy for family blood donation. Per blood bank, [facility] is not set up, but the family can go through the [employer] for direct donation. Start ferrous sulfate + vitamin C. Consider IV iron infusion for iron level of 16. ANGELICA Olivera. Continue weaning oxygen as able. Plan - 09/11/17 Magnolia continues to have significantly pain with movement to her right hip. Episode of vomiting during therapy due to increased pain. Continue therapies and pain control per Dr. Gao. Continue to encourage participation in therapies to strengthening and improve functional abilities. Transfusion x 1 unit on 09/09/17 with improvement of hemoglobin to 9.6. Iron low at 16. Extensive review of prior medical records and current medical chart as well as discussion with pharmacy indicated no IV iron previously given. Will consult pharmacy for iron supplementation IV. Will recheck CBC and BMP in AM to monitor blood counts, electrolytes and renal function. Patient weaned to room air. Continue to monitor respiratory function and encourage incentive spirometry for pulmonary toileting. Warm pack to left neck as needed for chronic pain. Plan - 09/11/17 Magnolia appears more fatigued today, though exam conducted during therapy. She reports her pain is improved and is seen actively transferring with walker without obvious discomfort. Continue therapies and pain control per Dr. Gao. Continue to encourage participation in therapies to strengthening and improve functional abilities. Hemoglobin 8.5 on 09/12. Transfusion x 1 unit blood on 09/09/17 with improvement of hemoglobin to 9.6. Iron low at 16. IV iron initiated 09/11/17 with pharmacy to manage. Continue to monitor hemoglobin trends. Patient requiring 2L NC oxygen on exam, previously weaned to room air. 2+ pedal edema noted. Will given additional lasix 20mg po now and recheck CXR. Monitor daily weights closely for signs of fluid retention. Continue to monitor respiratory function and encourage incentive spirometry for pulmonary toileting. Wean oxygen as able. Warm pack to left neck as needed for chronic pain. Recheck CBC and BMP on 09/16 to monitor blood counts, electrolytes and renal function. Plan - 09/18/17 Magnolia is seen first thing this morning and awakens easily. Nursing reports that she continues to have some issues with pain control to her right hip. Therapy reports that she fatigues easily, limiting her progress. Continue therapies and pain control per Dr. Gao. Continue to encourage participation in therapies to strengthening and improve functional abilities. Hemoglobin trending up at 9.6 on 09/16/17. Transfusion x 1 unit blood on . Iron low at 16. IV iron initiated 09/11/17 with pharmacy to manage. Continue to monitor hemoglobin trends. Patient requiring 2L NC oxygen on exam. 2-3+ pedal edema noted. Daily weights trending down. CXR on 09/13 showed no acute cardiopulmonary abnormalities. Continue to try and wean oxygen. Continue to monitor respiratory function and encourage incentive spirometry for pulmonary toileting. Wean oxygen as able. Warm pack to left neck as needed for chronic pain. Albumin low at 2.6. Will consult dietary for evaluation and recommendations for protein calorie malnutrition.
[2017-09-18] MEDS: ALBUTEROL/IPRATROPIUM 2.5mg-0.5mg/3ml NEB AEROSOL SCH ×2 (14:30→16:08)
[2017-09-18] MEDS: ACETAMINOPHEN 325 MG TABLET PO PRN (15:29)
[2017-09-18] MEDS: DONEPEZIL 10 MG TABLET PO SCH (20:47)
[2017-09-18] MEDS: ENOXAPARIN 40 MG/0.4 ML INJECTION SQ SCH (20:48)
[2017-09-18] MEDS: SIMVASTATIN 40 MG TABLET PO SCH (20:49)
[2017-09-19] MEDS: HYDROCODONE/APAP 7.5 MG/325 MG TABLET PO PRN ×2 (01:32→06:38)
[2017-09-19] MEDS: PANTOPRAZOLE 20 MG TABLET PO SCH ×2 (06:38→18:21)
[2017-09-19] MEDS: FERROUS SULFATE 324 MG TABLET PO SCH (08:50)
[2017-09-19] MEDS: MULTI-VITAMIN PLAIN TABLET PO SCH (08:50)
[2017-09-19] MEDS: POLYETHYL GLYCOL 3350 17gm PACKET PO SCH (08:50)
[2017-09-19] MEDS: GUAIFENESIN 400MG TABLET PO SCH ×2 (08:51→20:29)
[2017-09-19] MEDS: FUROSEMIDE 20 MG TABLET PO SCH (08:51)
[2017-09-19] MEDS: ASCORBIC ACID 500 MG TABLET PO SCH (08:51)
[2017-09-19] MEDS: ASPIRIN *EC* 81 MG TABLET PO SCH (08:51)
[2017-09-19] MEDS: MULTI-VIT + MINERAL (Opti-gen) TABLET PO SCH (08:52)
[2017-09-19] MEDS: SENNA + DOCUSATE TABLET PO SCH ×2 (08:52→20:29)
[2017-09-19] MEDS: TRAMADOL 50 MG TABLET PO SCH ×2 (08:52→20:30)
--- NOTE | 2017-09-19 10:05 | IRU Progress Note ---
- Subjective/Serverity of Illness Date: 09/19/17 Ms. Rao was interviewed and examined on the inpatient rehabilitation unit. Her appetite is poor and has been poor for some time. I visited with the dietitian. She is able to take supplements. However her taste is not good and the issue of zinc deficiency is raised. It is noted she is on a multivitamin. We will check a zinc level. She reports that her dyspnea is fairly well-controlled. She continues to require supplemental oxygen which she was not on at home. Denies any cough at present. Brief therapy update: For occupational therapy she requires minimum assistance for upper body dressing but total assistance for lower body dressing. Toilet assistance is at maximum assistance level. Physical therapy bed/chair/ wheelchair transfers are minimum assistance. She is able to walk a bit further at 32 feet with a front-wheeled walker. However she has very easy fatigability and states that her arms are getting tired. The further she walks the more she is "hunched over" and requires verbal and tactile cues to stand up straight. She is voicing a desire to go home sooner than later. However safety concerns persist. Update on medical issues were actively monitoring and managing as follows: 1. Hip fracture repair. Still reports pain at a 6-7 level and requires pain medications. However she was using the NuStep device today and tolerating it well. 2. Acute on chronic hypoxemic respiratory failure. Saturations are above 90% if she is on 1 L/m. Occasionally requires more (4 L) but that is rare. 3. Acute blood loss anemia. Hemoglobin was repeated at 9.1 g percent. 4. Cervical spine pain with degenerative changes noted on plain film. Pain in the left neck continues to be a barrier to her progress. Exam Vital Signs: Temperature 98.9 F 09/19/17 08:00 Pulse Rate 74 09/19/17 08:00 Respiratory Rate 18 09/19/17 08:00 Blood Pressure 120/57 09/19/17 08:00 Pulse Oximetry 92 09/19/17 08:00 Height/Weight/BMI: Height 1.7 m Weight 61.3 kg Body Mass Index 21.0 - Constitutional Present: mild distress, well nourished, well developed, cooperative (although complains of easy fatigability and would like to go home sooner than later.) - Routine HEENT Exam Head: Present: normocephalic Eye: Present: EOMI ENT: Present: mucous membranes moist - Routine Neck Exam Absent: full ROM - Routine Respiratory Exam Present: decreased breath sounds, CTA bilaterally. Absent: wheezes - Routine Cardiovascular Exam Present: RRR, S1, S2. Absent: murmur - Routine Abdominal Exam Present: soft, normoactive bowel sounds, non distended. Absent: tenderness - Routine Extremities Exam Present: edema (things to demonstrate edema right worse than left.), normal capillary refill - Routine Skin Exam Present: dry, warm - Routine Neurological Exam Present: alert, oriented X3 (cognitive deficit noted.), CN II-XII intact - Routine Psychiatric Exam Present: normal affect. Absent: cooperative (she is cooperative strictly speaking although demonstrates low confidence level and thus low motivation at times.) Results IRU - Labs Labs: I reviewed laboratory and other notes from the chart. IRU A/P (1) Status post-operative repair of closed fracture of right hip Current visit: Yes Status: Acute Continues to require pain medication for discomfort in the hip. She is making slow progress but lacks motivation and confidence at times. (2) Acute on chronic respiratory failure with hypoxemia Current visit: Yes Status: Acute Continues to require supplemental oxygen at 1 L/m for the most part. (3) Acute blood loss anemia Current visit: Yes Status: Acute Hematoma stable at 9.1 g percent. (4) Cervical spine pain Current visit: Yes Status: Chronic (5) Dependent edema Current visit: Yes Status: Acute Edema right worse than left again identified. This is partially due to dependency (and recent right hip fracture) as well as hypoalbuminemia. Right heart failure cannot be ruled out. DVT Prophylaxis: SCD's Resuscitation Status: Full Code - Course Hospital Course: Suleman Gao MD: 09/07/17 08:12 Getting started with therapy today. Complains of fatigue and tiredness. Hemoglobin has dropped to 7.9 g percent. 09/09/17 13:58 Hemoglobin dropped further to 6.9 g percent. She consents to transfusion. She has easy fatigability but no dyspnea. 09/10/17 10:44 Patient tolerated transfusion well. Improved strength noted. Improved saturations noted. Patient is fearful of falling resulting in increased pain when she has more fear. 09/12/17 09:42 Making small gains with PT and OT. Able to ambulate 9 feet now. Has pain in right hip but could take more pain pills. 09/13/17 10:56 Pain in neck is significant barrier to progress. Requires maximum assistance for ambulation of 8 feet. Making progress with OT. Local modalities will be instituted for the neck pain. 09/16/17 10:39 Continues to have bilateral edema right worse than left. We'll increase hydrocodone to every 4 hours as needed. Continue local modalities for neck pain. Reluctant to participate at times due to pain. We will assess albumin in regard to her edema. 09/17/17 10:01 Neck pain improved but continues to be a problem. Low albumin likely contributing to edema. Continues to require low flow oxygen at 1 L/m. Pain management improved in the right hip. Slow progress. 09/19/17 10:08 Confidence and motivation are low. She is making progress however. We will check zinc level due to bad taste and poor appetite. - Interventions to Obtain Goals PT Treatment Plan: Balance/Proprioception, Functional Activities, Gait Training , Patient/Family Education, Therapeutic Exercise OT Treatment Plan: ADL (Basic Care), Balance Training, IADL, UE Functional Training Goals Progress/Modifications: Time spent with patient and on floor reviewing data and documentin min Barriers to dismissal: Confidence, motivation, low vision, cognition, strength, endurance Medical decision-making: She is making progress but lacks endurance and confidence. She is encouraged to continue working with therapies. Pulmonary status is stable although she continues to require supplemental oxygen. She has a poor appetite and a bad taste in her mouth. Discussed with dietitian and we will check a zinc level. Team meeting this noon for a multidisciplinary assessment of her progress and recommendations. Medically she is stable for continued therapy but requires a lot of encouragement.
[2017-09-19] MEDS: ALBUTEROL/IPRATROPIUM 2.5mg-0.5mg/3ml NEB AEROSOL SCH ×2 (10:51→22:55)
[2017-09-19 11:18] VITALS: BMI 21.2
--- NOTE | 2017-09-19 13:46 | IRU Team Meeting ---
IRU Team Meeting - Nursing Bladder Assistive Devices Utilized:: Absorbent Pad Bladder Management Level of Assist: Modified Independent Bladder Frequency of Accidents: No accidents Bowel Assistive Devices Utilized:: Medication Bowel Management Level of Assist: Modified Independent Bowel Frequency of Accidents: No accidents Number of Bowel Accidents: 1 Vital Signs: Vital Signs - 24 hr 09/18/17 14:42 09/18/17 16:18 09/18/17 20:30 Temperature 97.9 F 96.8 F Pulse Rate 90 73 Respiratory Rate 14 20 16 Blood Pressure 117/59 104/55 Pulse Oximetry 94 91 90 09/19/17 08:00 09/19/17 10:51 Temperature 98.9 F Pulse Rate 74 Respiratory Rate 18 14 Blood Pressure 120/57 Pulse Oximetry 92 Current Medications: Acetaminophen (Tylenol) 650 mg PO Q4H PRN PRN Reason: Pain Last Admin: 09/18/17 15:29 Dose: 650 mg Hydrocodone Bitart/Acetaminophen ([place] 7.5/325) 1 - 2 tab PO Q4H PRN PRN Reason: Pain Last Admin: 09/19/17 06:38 Dose: 1 tab Al Hydroxide/Mg Hydroxide (Maalox Plus) 30 ml PO Q4H PRN PRN Reason: Indigestion Last Admin: 09/17/17 20:56 Dose: 30 ml Albuterol/Ipratropium (Duoneb) 3 ml AEROSOL RTTID PRN PRN Reason: Shortness of air/wheezing Albuterol/Ipratropium (Duoneb) 3 ml AEROSOL BID [facility] Last Admin: 09/19/17 10:51 Dose: 3 ml Ascorbic Acid (Vitamin C) 500 mg PO DAILY [facility] Last Admin: 09/19/17 08:51 Dose: 500 mg Aspirin (Ecotrin) 81 mg PO DAILY [facility] Last Admin: 09/19/17 08:51 Dose: 81 mg Bisacodyl (Dulcolax) 10 mg RECTALLY DAILY PRN PRN Reason: Constipation Donepezil HCl (Aricept) 10 mg PO HS [facility] Last Admin: 09/18/17 20:47 Dose: 10 mg Enoxaparin Sodium (Lovenox) 40 mg SQ Q24H [facility] Last Admin: 09/18/17 20:48 Dose: 40 mg Ferrous Sulfate (Feosol) 324 mg PO [facility] Last Admin: 09/19/17 08:50 Dose: 324 mg Furosemide (Lasix) 20 mg PO DAILY [facility] Last Admin: 09/19/17 08:51 Dose: 20 mg Guaifenesin (Mucinex) 400 mg PO BID [facility] Last Admin: 09/19/17 08:51 Dose: 400 mg Magnesium Hydroxide (Mom) 30 ml PO DAILY PRN PRN Reason: Constipation Metoprolol Succinate (Toprol Xl) 25 mg PO DAILY [facility] Last Admin: 09/19/17 08:52 Dose: 25 mg Multivitamins (Theragran) 1 tab PO DAILY [facility] Last Admin: 09/19/17 08:50 Dose: 1 tab Multivitamins/Minerals (Vision) 1 tab PO DAILY [facility] Last Admin: 09/19/17 08:52 Dose: 1 tab Ondansetron HCl (Zofran Po) 4 mg PO Q6H PRN PRN Reason: Nausea &/or vomiting Last Admin: 09/17/17 10:59 Dose: 4 mg Pantoprazole Sodium (Protonix) 20 mg PO ACBID [facility] Last Admin: 09/19/17 06:38 Dose: 20 mg Polyethylene Glycol (Miralax) 17 gm PO DAILY [facility] Last Admin: 09/19/17 08:50 Dose: 17 gm Potassium Chloride (K-Dur) 20 meq PO WB [facility] Last Admin: 09/19/17 08:51 Dose: 20 meq Senna/Docusate Sodium (Senna Plus Tablet) 1 tab PO BID [facility] Last Admin: 09/19/17 08:52 Dose: 1 tab Simvastatin (Zocor) 40 mg PO HS [facility] Last Admin: 09/18/17 20:49 Dose: 40 mg Sodium Chloride (Normal Saline) 500 ml IV PRN PRN Last Admin: 09/14/17 16:03 Dose: 500 ml Sodium Chloride (Iv Flush) 10 ml IV PRN PRN PRN Reason: Flushing Last Admin: 09/14/17 20:56 Dose: 10 ml Tramadol HCl (Ultram) 50 mg PO BID [facility] Last Admin: 09/19/17 08:52 Dose: 50 mg Trolamine Salicylate (Aspercreme) 1 applic TOP PRN PRN PRN Reason: Pain Last Admin: 09/17/17 20:49 Dose: 1 applic Current Medical Issues: Acute on chronic hypoxemic respiratory failure, pain from hip fracture and repair, anemia, peripheral edema, multifactorial Comments: I certify that I personally led the interdisciplinary team meeting and agree with comments, barriers and goals indicated. Team meeting was held in the patient's room with the patient and the following family members present: , two daughters Ms. Rao continues to experience pain at a 7 out of 10 level. Nursing is providing pain medications prior to therapy sessions. The patient continues to demonstrate bilateral edema right worse than left although there is some improvement. Appetite is poor although she ate a good lunch today. Albumin remains low at 2.5-2.6 range. Hemoglobin stable at 9.1 without evidence of ongoing blood loss. - Dietary Patient is on a regular diet with regular consistency. Appetite is poor. She has altered taste. Zinc level has been ordered. She is being provided with supplements as well 3 times daily. - Physical Therapy Bed, Chair, Wheelchair Transfer Assist: Moderate Assistance, 1 Person Assist Ambulation Ability: Total Assistance, 1 Person Assist Ambulation Distance: 20 Wheelchair Propulsion Ability: Maximal Assistance, 1 Person Assist Wheelchair Propulsion Distance: 115 Stair Climbing Ability: Maximal Assistance, 1 Person Assist Number of Steps Climbed: 1 Car Transfer Ability: Patient Unsafe/Unable Comments: Patient has met some goals. Her ambulatory tolerance has improved about 50%. She continues to be limited by pain, fatigue and lack of confidence. - Occupational Therapy Eating Ability: Independent Grooming Ability: Stand By Assist/Supervision Bathing Ability: Minimal Assistance Upper Body Dressing Ability: Minimal Assistance Lower Body Dressing Ability: Minimal Assistance Tub Transfer Assist: Patient Refuses Toileting Assist: Minimal Assistance Toilet Transfer Assist: Contact Guard Assistance Comments: Patient displays unsteady balance and rate choirs contact-guard assist to minimum assist for transfers when she is tired. She has poor motivation and poor confidence level. Family does indicate the patient's tends to assist her with socks and shoes at home. - Goals Physical Therapy Goals: 09/12/17 Goals: 1.) 50 feet supervision with amb - not met, continue. 2.) supervision with transfers - partially met, continue. Goals: 1.) Car transfer with supervision. 2.) 1 step with supervision Occupational Therapy Goals: OT goals 09/12/17, 09/19:18. 1.) Toileting w/ mod I - continue (min-max depending on fatigue/pain levels). 2.) LB dressing w/ set-up assist - continue (min assist). 3.) standing at sink for 5 min during personal hygiene and grooming tasks- goal met. - Barriers to Discharge Barriers to Attaining Goals: Weakness, Endurance, Comprehension, Pain Control, Other (motivation/confidence) - Care Plan Anticipated Length of Stay (days): 6 Anticipated DC Destination: Home, Self Care, Home Health Service I have led this team conference and agree with the plan. Interventions/Goals: Patient will be reassessed in 5-6 days. If she is making good progress we will continue working with her. If not we will recommend appropriate placement. Anticipate home or placement on Saturday, September 25.
[2017-09-19] MEDS: ACETAMINOPHEN 325 MG TABLET PO PRN (18:46)
[2017-09-19] MEDS: ENOXAPARIN 40 MG/0.4 ML INJECTION SQ SCH (20:29)
[2017-09-19] MEDS: DONEPEZIL 10 MG TABLET PO SCH (20:29)
[2017-09-19] MEDS: SIMVASTATIN 40 MG TABLET PO SCH (20:30)
[2017-09-20] MEDS: HYDROCODONE/APAP 7.5 MG/325 MG TABLET PO PRN ×2 (04:33→13:46)
[2017-09-20] MEDS: PANTOPRAZOLE 20 MG TABLET PO SCH ×2 (06:27→17:59)
[2017-09-20] MEDS: MULTI-VITAMIN PLAIN TABLET PO SCH (08:57)
[2017-09-20] MEDS: TRAMADOL 50 MG TABLET PO SCH ×2 (08:57→20:37)
[2017-09-20] MEDS: FERROUS SULFATE 324 MG TABLET PO SCH (08:58)
[2017-09-20] MEDS: GUAIFENESIN 400MG TABLET PO SCH ×2 (08:58→20:37)
[2017-09-20] MEDS: ASCORBIC ACID 500 MG TABLET PO SCH (08:58)
[2017-09-20] MEDS: FUROSEMIDE 20 MG TABLET PO SCH (08:58)
[2017-09-20] MEDS: SENNA + DOCUSATE TABLET PO SCH ×2 (08:58→20:37)
[2017-09-20] MEDS: MULTI-VIT + MINERAL (Opti-gen) TABLET PO SCH (08:58)
[2017-09-20] MEDS: ASPIRIN *EC* 81 MG TABLET PO SCH (08:59)
[2017-09-20] MEDS: POLYETHYL GLYCOL 3350 17gm PACKET PO SCH (08:59)
[2017-09-20] MEDS: ALBUTEROL/IPRATROPIUM 2.5mg-0.5mg/3ml NEB AEROSOL SCH ×2 (09:40→19:28)
--- NOTE | 2017-09-20 11:15 | IRU Progress Note ---
- Subjective/Serverity of Illness Date: 09/20/17 Ms. Rao was evaluated in her room on inpatient rehabilitation. She says that her main problem is that of the left neck pain. She says that this started several weeks ago, possibly as early as May or June after a fall. A plain film has been done demonstrating degenerative changes only. She does have reasonable range of motion although more pain on rotation to her left. There was improvement after a massage. She also sees a chiropractor she states. Brief therapy update: For occupational therapy she initially tried to refuse therapy but ultimately agreed yesterday. She is standby assist for upper body dressing but continues to require maximum assistance for lower body dressing. For physical therapy, she transfers to the NuStep device with standby assistance. She was able to perform the NuStep exercise for 10 minutes. She is able to ambulate 20 feet with total assistance with front-wheeled walker. Update on medical issues were actively monitoring and managing as follows: 1. Hip fracture repair. Pain appears to be improved in the hip. 2. Acute on chronic hypoxemic respiratory failure. She continues to require supplemental oxygen. 3. Acute blood loss anemia. Hemoglobin was repeated at 9.1 g percent. Repeat hemoglobin has not been performed we will check that next week. 4. Cervical spine pain with degenerative changes noted on plain film. Continues to have discomfort and this is a barrier to her progress. Discussed with her the importance of gentle range of motion exercises that she can do on her own with proper posture. Exam Vital Signs: Temperature 98.2 F 09/20/17 08:00 Pulse Rate 85 09/20/17 08:00 Respiratory Rate 22 09/20/17 09:40 Blood Pressure 118/49 09/20/17 08:00 Pulse Oximetry 98 09/20/17 09:40 Height/Weight/BMI: Height 1.7 m Weight 61.3 kg Body Mass Index 21.2 - Constitutional Present: mild distress (Neck pain), well nourished, well developed - Routine HEENT Exam Head: Present: normocephalic Eye: Present: EOMI ENT: Present: mucous membranes moist - Routine Neck Exam Present: supple. Absent: full ROM (Reduced ROM to her left (rotationally)) - Routine Respiratory Exam Present: decreased breath sounds. Absent: rhonchi, wheezes, crackles - Routine Cardiovascular Exam Present: RRR, S1, S2. Absent: murmur - Routine Abdominal Exam Present: soft, normoactive bowel sounds, non distended. Absent: tenderness - Routine Extremities Exam Present: edema. Absent: cyanosis, clubbing - Routine Skin Exam Present: dry, warm - Routine Neurological Exam Present: alert, oriented X3, CN II-XII intact - Routine Psychiatric Exam Present: normal affect, depressed, anxious. Absent: cooperative (initially declined occupational therapy yesterday but subsequently participated.), good insight, good judgment IRU A/P (1) Status post-operative repair of closed fracture of right hip Current visit: Yes Status: Acute Patient states that the pain in the hip is improving. She continues to demonstrate edema right worse than left. We again discussed this with the patient. Progress is slow with regard to therapy. (2) Acute on chronic respiratory failure with hypoxemia Current visit: Yes Status: Acute She continues to require supplemental oxygen. (3) Acute blood loss anemia Current visit: Yes Status: Acute (4) Cervical spine pain Current visit: Yes Status: Chronic Her neck pain seems to be the primary area of discomfort that she is noting. We have tried topical agents such as Aspercreme. We have tried local manual therapy with benefit. Her range of motion is reasonable. She says this started several months ago. (5) Dependent edema Current visit: Yes Status: Acute DVT Prophylaxis: SCD's Resuscitation Status: Full Code - Course Hospital Course: Suleman Gao MD: 09/07/17 08:12 Getting started with therapy today. Complains of fatigue and tiredness. Hemoglobin has dropped to 7.9 g percent. 09/09/17 13:58 Hemoglobin dropped further to 6.9 g percent. She consents to transfusion. She has easy fatigability but no dyspnea. 09/10/17 10:44 Patient tolerated transfusion well. Improved strength noted. Improved saturations noted. Patient is fearful of falling resulting in increased pain when she has more fear. 09/12/17 09:42 Making small gains with PT and OT. Able to ambulate 9 feet now. Has pain in right hip but could take more pain pills. 09/13/17 10:56 Pain in neck is significant barrier to progress. Requires maximum assistance for ambulation of 8 feet. Making progress with OT. Local modalities will be instituted for the neck pain. 09/16/17 10:39 Continues to have bilateral edema right worse than left. We'll increase hydrocodone to every 4 hours as needed. Continue local modalities for neck pain. Reluctant to participate at times due to pain. We will assess albumin in regard to her edema. 09/17/17 10:01 Neck pain improved but continues to be a problem. Low albumin likely contributing to edema. Continues to require low flow oxygen at 1 L/m. Pain management improved in the right hip. Slow progress. 09/19/17 10:08 Confidence and motivation are low. She is making progress however. We will check zinc level due to bad taste and poor appetite. 09/20/17 11:21 Her progress is variable. Continue to deal with reduced motivation and confidence. Left neck pain continues to be a significant barrier. - Interventions to Obtain Goals PT Treatment Plan: Balance/Proprioception, Functional Activities, Gait Training , Patient/Family Education, Therapeutic Exercise OT Treatment Plan: ADL (Basic Care), Balance Training, IADL, UE Functional Training Goals Progress/Modifications: Time spent with patient and on floor reviewing data and documentin min Barriers to dismissal: neck pain, motivation, endurance Medical decision-making: I have again reassessed her neck situation. She has reasonable range of motion although slightly reduced to her left. There is some tenderness to palpate the left neck area. This appears to be more of a muscle spasm, likely induced by underlying bony changes. Plain film did not reveal any evidence of underlying malignancy or destructive process. However this is a significant barrier to her progress. In addition, her motivation is low. She does tell us that she wants to go home and does not want to go to a correction. She continues to require supplemental oxygen. Medically she seems to be stable. Edema is perhaps a bit improved. Not certain what else we can offer with regard to her neck. We have tried topical Aspercreme as well as exercises etc.
[2017-09-20] MEDS: ENOXAPARIN 40 MG/0.4 ML INJECTION SQ SCH (20:37)
[2017-09-20] MEDS: SIMVASTATIN 40 MG TABLET PO SCH (20:37)
[2017-09-20] MEDS: DONEPEZIL 10 MG TABLET PO SCH (20:37)
[2017-09-21] MEDS: HYDROCODONE/APAP 7.5 MG/325 MG TABLET PO PRN ×2 (04:07→20:02)
[2017-09-21] MEDS: PANTOPRAZOLE 20 MG TABLET PO SCH ×3 (04:07→16:53)
[2017-09-21] MEDS: SENNA + DOCUSATE TABLET PO SCH ×2 (08:48→20:04)
[2017-09-21] MEDS: POLYETHYL GLYCOL 3350 17gm PACKET PO SCH (08:48)
[2017-09-21] MEDS: FERROUS SULFATE 324 MG TABLET PO SCH (08:48)
[2017-09-21] MEDS: TRAMADOL 50 MG TABLET PO SCH ×2 (08:48→20:05)
[2017-09-21] MEDS: GUAIFENESIN 400MG TABLET PO SCH ×2 (08:49→20:01)
[2017-09-21] MEDS: ASPIRIN *EC* 81 MG TABLET PO SCH (08:49)
[2017-09-21] MEDS: FUROSEMIDE 20 MG TABLET PO SCH (08:49)
[2017-09-21] MEDS: ALBUTEROL/IPRATROPIUM 2.5mg-0.5mg/3ml NEB AEROSOL SCH ×2 (09:15→20:24)
[2017-09-21] MEDS: MULTI-VIT + MINERAL (Opti-gen) TABLET PO SCH (12:15)
[2017-09-21] MEDS: MULTI-VITAMIN PLAIN TABLET PO SCH (12:15)
[2017-09-21] MEDS: ACETAMINOPHEN 325 MG TABLET PO PRN (15:30)
[2017-09-21] MEDS: ASCORBIC ACID 500 MG TABLET PO SCH (16:53)
[2017-09-21] MEDS: MAG-AL + SIM ORAL LIQUID 30ml PO PRN (16:53)
--- NOTE | 2017-09-21 17:01 | Progress Note ---
- Date 09/21/17 Subjective: Magnolia is seen today in follow up. She is c/o persistent neck pain and headache. Pain medications have not been helpful for her as well. reports she has been working hard with therapy. RN called me later today, reported that her legs are persistently swollen. She also reports that pt. is c/o right elbow pain, worse with movement. A small scabbed area is reported- I instructed her to apply a dressing to the site. Chart is reviewed for collateral information. Objective Vital signs: Temperature 97.5 F 09/21/17 16:00 Pulse Rate 73 09/21/17 16:00 Respiratory Rate 14 09/21/17 16:00 Blood Pressure 117/67 09/21/17 16:00 Pulse Oximetry 94 09/21/17 16:00 Height/Weight/BMI: Height 1.7 m Weight 61.3 kg Body Mass Index 21.2 - Constitutional Present: no acute distress, average body habitus, thin, cooperative - Routine HEENT Exam Head: Present: normocephalic, atraumatic Eye: Present: EOMI, PERRL ENT: Present: mucous membranes moist - Routine Respiratory Exam Present: CTA bilaterally. Absent: rales, rhonchi, crackles - Routine Cardiovascular Exam Present: RRR, S1, S2, no murmur - Routine Abdominal Exam Present: soft, normoactive bowel sounds, non distended, non tender - Routine Extremities Exam Present: edema, pulses intact - Routine Back/Spine/Pelvis Exam Back/Spine: Present: vertebral tenderness, muscle spasm - Routine Musculoskeletal Exam Musculoskeletal: Present: limited range of motion. Absent: normal strength - Routine Skin Exam Present: intact, dry, warm - Routine Neurological Exam Present: alert, moving all extremities - Routine Psychiatric Exam Present: normal affect, normal thought process, cooperative Results - Labs CBC & Chem 7: 09/22/17 04:10 09/22/17 04:10 - Impressions PROCEDURE: XR cervical spine 2-3V: Encounter: Initial Comparison: None Findings: Alignment of the cervical spine is abnormal with grade 2 anterolisthesis of C4 on C5, likely degenerative. No acute fracture. The C6, C7 and T1 vertebrae are not seen on the lateral view due to overlapping soft tissues. There is severe degenerative facet and uncovertebral changes throughout the cervical spine. Right carotid area calcifications. Moderate degenerative disk disease at C3-C4, C4-C5 and C5-C6. 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 . Assessment and Plan (1) Intertrochanteric fracture of right hip Current visit: No Status: Resolved (2) Status post-operative repair of closed fracture of right hip Current visit: Yes Status: Acute (3) Acute on chronic respiratory failure with hypoxemia Current visit: Yes Status: Acute (4) Acute blood loss anemia Current visit: Yes Status: Acute (5) Cervical spine pain Current visit: Yes Status: Chronic Assessment and Plan: Assessment Right hip ORIF on 09/05/[address] 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 Not on O2 at home but history of needing O2 at discharge. HTN GERD Persistent neck pain and headache Recurrent falls. Peripheral edema. Right elbow pain Plan - 09/21/17 Persistent neck pain/GAY- recurrent falls prior to this admission Abnormal c-spine films- obtain CT of head and c-spine. Add low dose baclofen to help with spasms. Right elbow pain reported by RN- obtain xray. Edema- add additional single dose of Lasix. HGB stable. repeat labs in AM. Increase tramadol to TID due to persistent pain. Continues to require low dose O2. May need O2 when dismissed. Consider overnoc oximetry prior to dismissal. Continue PT/OT per primary team. Addendum by Dr. Bella: Seen and examined patient on same day as the above note. Agree with subjective note, physical exam, assessment and plan. Comprehensive physical findings correlate to the above note. Documented on Dragon speech to text. Efforts to correct speech recognition errors performed, but variation may exist DVT Prophylaxis: Lovenox GI Prophylaxis: Protonix - Physician Narrative Narrative: Date: 09/21/17 Time: 1655 Hospital Course Summary Disclaimer: The visit summary below is not to be considered part of the above Progress Note. Hospital Course: Assessment Right hip ORIF on 09/05/[address] 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 Not on O2 at home but history of needing O2 at discharge. HTN GERD Plan-hospital consultation 09/07/17 Agree with admission to [facility] rehabilitation unit for further strengthening. Dr. Gao to manage pain and therapies. Start bladder training. Discussed patient's abilities with therapy. Therapy believes it would be beneficial for patient to get up and down to the bedside commode. Hope to DC Olivera by this evening or in the a.m. Follow hemoglobin closely. Patient is currently 7.9 and is asymptomatic. Repeat CBC in a.m. Wean oxygen as able. Patient has not been on home oxygen in the past. BMP in a.m. to monitor electrolytes. Care to be returned to patient's PCP, Marielle Pacheco APRN, on dismissal. Hospitalist service appreciates the consult for ongoing medical management of patient's chronic problems and will follow along with you throughout her stay. Plan - 09/08/17 Magnolia complains of feeling achy today due to increased exercise and activity. Continue to encourage therapies per Dr. Gao as well as pain control. Hemoglobin continues to trend down at 7.0. Discussed risks/benefits of blood transfusion with patient and . Patient denies symptoms with anemia and refused blood transfusion at this time. Will recheck CBC in AM and readdress issue of possible transfusion if indicated. Patient down to 1L NC and breathing easily. Continue to wean oxygen. Discussed importance of and technique for incentive spirometry for pulmonary toileting. Continue to monitor patient closely. Plan - 09/09/17 Type and cross for 1 unit PRBC; hgb decreased to 6.9 and exercise tolerance has declined. On admission to the surgical unit her hgb was 13. She's also had some borderline low bp's. Magnolia's daughter inquires if we have a policy for family blood donation. Per blood bank, [facility] is not set up, but the family can go through the [employer] for direct donation. Start ferrous sulfate + vitamin C. Consider IV iron infusion for iron level of 16. DC Olivera. Continue weaning oxygen as able. Plan - 09/11/17 Magnolia continues to have significantly pain with movement to her right hip. Episode of vomiting during therapy due to increased pain. Continue therapies and pain control per Dr. Gao. Continue to encourage participation in therapies to strengthening and improve functional abilities. Transfusion x 1 unit on 09/09/17 with improvement of hemoglobin to 9.6. Iron low at 16. Extensive review of prior medical records and current medical chart as well as discussion with pharmacy indicated no IV iron previously given. Will consult pharmacy for iron supplementation IV. Will recheck CBC and BMP in AM to monitor blood counts, electrolytes and renal function. Patient weaned to room air. Continue to monitor respiratory function and encourage incentive spirometry for pulmonary toileting. Warm pack to left neck as needed for chronic pain. Plan - 09/11/17 Magnolia appears more fatigued today, though exam conducted during therapy. She reports her pain is improved and is seen actively transferring with walker without obvious discomfort. Continue therapies and pain control per Dr. Gao. Continue to encourage participation in therapies to strengthening and improve functional abilities. Hemoglobin 8.5 on 09/12. Transfusion x 1 unit blood on 09/09/17 with improvement of hemoglobin to 9.6. Iron low at 16. IV iron initiated 09/11/17 with pharmacy to manage. Continue to monitor hemoglobin trends. Patient requiring 2L NC oxygen on exam, previously weaned to room air. 2+ pedal edema noted. Will given additional lasix 20mg po now and recheck CXR. Monitor daily weights closely for signs of fluid retention. Continue to monitor respiratory function and encourage incentive spirometry for pulmonary toileting. Wean oxygen as able. Warm pack to left neck as needed for chronic pain. Recheck CBC and BMP on 09/16 to monitor blood counts, electrolytes and renal function. Plan - 09/18/17 Magnolia is seen first thing this morning and awakens easily. Nursing reports that she continues to have some issues with pain control to her right hip. Therapy reports that she fatigues easily, limiting her progress. Continue therapies and pain control per Dr. Gao. Continue to encourage participation in therapies to strengthening and improve functional abilities. Hemoglobin trending up at 9.6 on 09/16/17. Transfusion x 1 unit blood on . Iron low at 16. IV iron initiated 09/11/17 with pharmacy to manage. Continue to monitor hemoglobin trends. Patient requiring 2L NC oxygen on exam. 2-3+ pedal edema noted. Daily weights trending down. CXR on 09/13 showed no acute cardiopulmonary abnormalities. Continue to try and wean oxygen. Continue to monitor respiratory function and encourage incentive spirometry for pulmonary toileting. Wean oxygen as able. Warm pack to left neck as needed for chronic pain. Albumin low at 2.6. Will consult dietary for evaluation and recommendations for protein calorie malnutrition. Plan - 09/21/17 Persistent neck pain/GAY- recurrent falls prior to this admission Abnormal c-spine films- obtain CT of head and c-spine. Add low dose baclofen to help with spasms. Right elbow pain reported by RN- obtain xray. Edema- add additional single dose of Lasix. HGB stable. repeat labs in AM. Increase tramadol to TID due to persistent pain. Continues to require low dose O2. May need O2 when dismissed. Consider overnoc oximetry prior to dismissal. Continue PT/OT per primary team.
[2017-09-21] MEDS ORDERED: FUROSEMIDE 40 MG TABLET PO ONE (17:02)
[2017-09-21] MEDS: SIMVASTATIN 40 MG TABLET PO SCH (20:01)
[2017-09-21] MEDS: DONEPEZIL 10 MG TABLET PO SCH (20:01)
[2017-09-21] MEDS: ENOXAPARIN 40 MG/0.4 ML INJECTION SQ SCH (20:12)
[2017-09-21] MEDS: BACLOFEN 10 MG TABLET PO SCH (21:38)
[2017-09-22] MEDS: HYDROCODONE/APAP 7.5 MG/325 MG TABLET PO PRN ×3 (01:31→20:06)
--- NOTE | 2017-09-22 07:07 | XRay Report ---
EXAM: XR elbow RT 2V DATE: 09/21/2017 4:54 PM ENCOUNTER: Initial INDICATION: Right elbow pain COMPARISON: None available. TECHNIQUE: AP and lateral views of the elbow were obtained. FINDINGS: Generalized osteopenia. The osseous structures appear intact with no acute fracture identified. The joint spaces are maintained. No significant joint effusion. No focal radiographically apparent soft tissue swelling seen. No radiopaque foreign body. IMPRESSION: Generalized osteopenia with no acute osseous fracture or malalignment appreciated. .
--- NOTE | 2017-09-22 07:56 | CT Scan Report ---
EXAM: CT head/brain wo con DATE: 09/21/2017 12:00 AM ENCOUNTER: Initial INDICATION: headache COMPARISON: None available. TECHNIQUE: 5 mm axial tomographic images were obtained of the head without contrast. The current CT scan was performed using radiation dose-reduction techniques. FINDINGS: Ill defined hypoattenuations within the periventricular deep white matter, a nonspecific finding, however most suggestive of chronic small vessel ischemic disease. The solomon-white matter junction is otherwise normal. No intra or extra-axial mass or hemorrhage is identified. There is no midline shift. Symmetric prominence of the ventricles and cerebral sulci consistent with age appropriate cerebral volume loss. The ventricles are otherwise normal in shape and morphology. The basilar cisterns are patent. No acute osseous or soft tissue abnormality. The visualized paranasal sinuses are normal. The visualized portions of the orbits and globes are normal. The mastoid air cells are clear. IMPRESSION: 1. No acute intracranial process identified by CT. 2. Age appropriate cerebral volume loss and moderate chronic small vessel ischemic disease. The above report concurs with the preliminary report provided by [facility] at 5:58 PM. .
--- NOTE | 2017-09-22 07:58 | CT Scan Report ---
Indication: Neck pain, fall Procedure: CT cervical spine wo con: Encounter: Initial Technique: CT imaging of the cervical spine was obtained without intravenous contrast. Axial, coronal, and sagittal reformatted images were performed. Automated Exposure Control and Iterative Reconstruction dose reducing techniques were utilized. Comparison: None Findings: No acute fracture. Reversal of the normal cervical lordosis which may relate to patient positioning. Trace anterolisthesis of C2-C3, C3-C4, and C4-C5. No suspicious osteolytic or osteoblastic lesions. Multilevel degenerative disc disease, facet arthropathy, and uncovertebral hypertrophy resulting in predominantly moderate multilevel neural foraminal narrowing without significant spinal canal stenosis appreciated by CT. No prevertebral soft tissue thickening. No other acute paravertebral soft tissue abnormality. The visualized airway appears widely patent. The visualized lung apices are clear. The visualized intracranial structures appear normal. Impression: 1. No acute fracture or malalignment of the cervical spine. 2. Multilevel degenerative spondylosis resulting in predominantly moderate multilevel neural foraminal narrowing without significant spinal canal stenosis appreciated by CT. The above report concurs with the preliminary report provided by [facility] at 6:02 PM. .
[2017-09-22] MEDS: GUAIFENESIN 400MG TABLET PO SCH ×2 (09:00→20:03)
[2017-09-22] MEDS: FUROSEMIDE 20 MG TABLET PO SCH (09:01)
[2017-09-22] MEDS: SENNA + DOCUSATE TABLET PO SCH ×2 (09:01→20:06)
[2017-09-22] MEDS: FERROUS SULFATE 324 MG TABLET PO SCH (09:01)
[2017-09-22] MEDS: PANTOPRAZOLE 20 MG TABLET PO SCH (09:01)
[2017-09-22] MEDS: BACLOFEN 10 MG TABLET PO SCH ×3 (09:01→20:04)
[2017-09-22] MEDS: ASPIRIN *EC* 81 MG TABLET PO SCH (09:01)
[2017-09-22] MEDS: POLYETHYL GLYCOL 3350 17gm PACKET PO SCH (09:02)
[2017-09-22] MEDS: TRAMADOL 50 MG TABLET PO SCH ×3 (09:04→20:08)
[2017-09-22] MEDS: ALBUTEROL/IPRATROPIUM 2.5mg-0.5mg/3ml NEB AEROSOL SCH ×2 (10:31→20:19)
[2017-09-22] MEDS: MULTI-VITAMIN PLAIN TABLET PO SCH (12:20)
[2017-09-22] MEDS: MULTI-VIT + MINERAL (Opti-gen) TABLET PO SCH (12:20)
[2017-09-22] MEDS: ASCORBIC ACID 500 MG TABLET PO SCH (17:57)
[2017-09-22] MEDS: DONEPEZIL 10 MG TABLET PO SCH (20:03)
[2017-09-22] MEDS: SIMVASTATIN 40 MG TABLET PO SCH (20:04)
[2017-09-22] MEDS: ENOXAPARIN 40 MG/0.4 ML INJECTION SQ SCH (20:06)
[2017-09-23] MEDS: PANTOPRAZOLE 20 MG TABLET PO SCH ×2 (05:18→08:26)
[2017-09-23] MEDS: TRAMADOL 50 MG TABLET PO SCH ×4 (07:25→20:26)
[2017-09-23] MEDS: FERROUS SULFATE 324 MG TABLET PO SCH (08:52)
[2017-09-23] MEDS: BACLOFEN 10 MG TABLET PO SCH ×3 (08:52→20:23)
[2017-09-23] MEDS: GUAIFENESIN 400MG TABLET PO SCH ×2 (08:52→20:22)
[2017-09-23] MEDS: SENNA + DOCUSATE TABLET PO SCH ×2 (08:52→20:26)
[2017-09-23] MEDS: FUROSEMIDE 20 MG TABLET PO SCH (08:52)
[2017-09-23] MEDS: POLYETHYL GLYCOL 3350 17gm PACKET PO SCH (08:53)
[2017-09-23] MEDS: ASPIRIN *EC* 81 MG TABLET PO SCH (08:53)
--- NOTE | 2017-09-23 11:03 | IRU Progress Note ---
- Subjective/Serverity of Illness Date: 09/23/17 Ms. Rao was evaluated on inpatient rehabilitation. She is currently using the NuStep device and tolerating it fairly well although complains of fatigue. Denies actual dyspnea. Does not have a cough at present. Continues to complain of the left neck pain. Review of chart indicates extensive workup over the weekend. She apparently has not fallen again although extensive radiographs and CTs were performed. CT of head was done demonstrating no acute process. CT of cervical spine was performed demonstrating degenerative changes only. Radiograph of elbow obtained also failing to reveal acute process. Brief therapy update: She remains standby assist for upper body dressing which is an improvement. However she is now requiring maximum assistance for lower body dressing. Physical therapy, bed/chair/wheelchair transfers are performed with contact-guard assistance. She is able to ambulatory only short distance of 5 feet with total assistance using a front-wheeled walker. Progress is quite slow. She states that the pain in the hip is actually improved but that the neck pain is the limiting factor along with fatigue. Update on medical issues were actively monitoring and managing as follows: 1. Hip fracture repair. Pain is improved. Continues to have lack of confidence with ambulation. 2. Acute on chronic hypoxemic respiratory failure. This is improved. For the most part she is on room air but occasionally require supplemental oxygen for saturations in the 80s. 3. Acute blood loss anemia. Hemoglobin improved to 9.4 g percent. No evidence of ongoing anemia. 4. Cervical spine pain with degenerative changes noted on plain film. Over the weekend additional CTs were done of the cervical spine and CT of head, both failing to reveal acute process. She predominantly has degenerative changes noted of the cervical spine resulting in muscle spasm and pain. Exam Vital Signs: Temperature 98.0 F 09/23/17 07:16 Pulse Rate 72 09/23/17 07:16 Respiratory Rate 16 09/23/17 07:16 Blood Pressure 118/61 09/23/17 07:16 Pulse Oximetry 94 09/23/17 07:16 Height/Weight/BMI: Height 1.7 m Weight 61.4 kg Body Mass Index 21.2 - Constitutional Present: mild distress (fatigue), well nourished, well developed - Routine HEENT Exam Head: Present: normocephalic, atraumatic Eye: Present: EOMI ENT: Present: mucous membranes moist - Routine Neck Exam Absent: full ROM Comments: No masses noted in the neck. Reduced range of motion rotationally. - Routine Chest/Breast/Axilla Exam Chest wall: Absent: tenderness - Routine Respiratory Exam Present: dyspnea, decreased breath sounds. Absent: wheezes - Routine Cardiovascular Exam Present: RRR, S1, S2. Absent: murmur - Routine Abdominal Exam Present: soft, normoactive bowel sounds, non distended. Absent: tenderness - Routine Extremities Exam Present: edema (edema noted. Additional Lasix was given over the weekend.) - Routine Back/Spine/Pelvis Exam Back/Spine: Present: full ROM - Routine Skin Exam Present: dry, warm - Routine Neurological Exam Present: alert, oriented X3, CN II-XII intact - Routine Psychiatric Exam Present: normal affect, anxious. Absent: good insight, good judgment Results IRU - Labs Labs: Reviewed multiple radiographs and CT scans along with providers notes. IRU A/P (1) Status post-operative repair of closed fracture of right hip Current visit: Yes Status: Acute Pain is improved although progress remains slow. (2) Acute on chronic respiratory failure with hypoxemia Current visit: Yes Status: Acute Use of oxygen is decreasing. Saturations typically in the 90s but occasionally 88%. (3) Acute blood loss anemia Current visit: Yes Status: Acute Her anemia is improved at 9.4 g percent. I think this is stable and not an ongoing issue at present. (4) Cervical spine pain Current visit: Yes Status: Chronic CT etc. was negative for acute process. (5) Dependent edema Current visit: Yes Status: Acute DVT Prophylaxis: Lovenox Resuscitation Status: Full Code - Course Hospital Course: Suleman Gao MD: 09/07/17 08:12 Getting started with therapy today. Complains of fatigue and tiredness. Hemoglobin has dropped to 7.9 g percent. 09/09/17 13:58 Hemoglobin dropped further to 6.9 g percent. She consents to transfusion. She has easy fatigability but no dyspnea. 09/10/17 10:44 Patient tolerated transfusion well. Improved strength noted. Improved saturations noted. Patient is fearful of falling resulting in increased pain when she has more fear. 09/12/17 09:42 Making small gains with PT and OT. Able to ambulate 9 feet now. Has pain in right hip but could take more pain pills. 09/13/17 10:56 Pain in neck is significant barrier to progress. Requires maximum assistance for ambulation of 8 feet. Making progress with OT. Local modalities will be instituted for the neck pain. 09/16/17 10:39 Continues to have bilateral edema right worse than left. We'll increase hydrocodone to every 4 hours as needed. Continue local modalities for neck pain. Reluctant to participate at times due to pain. We will assess albumin in regard to her edema. 09/17/17 10:01 Neck pain improved but continues to be a problem. Low albumin likely contributing to edema. Continues to require low flow oxygen at 1 L/m. Pain management improved in the right hip. Slow progress. 09/19/17 10:08 Confidence and motivation are low. She is making progress however. We will check zinc level due to bad taste and poor appetite. 09/20/17 11:21 Her progress is variable. Continue to deal with reduced motivation and confidence. Left neck pain continues to be a significant barrier. 09/23/17 11:05 Hemoglobin better at 9.4. Lower extremity edema noted and additional Lasix was ordered. Neck pain continues to be a limiting factor. Somewhat improved regarding her transfers but overall slow progress. - Interventions to Obtain Goals PT Treatment Plan: Balance/Proprioception, Functional Activities, Gait Training , Patient/Family Education, Therapeutic Exercise OT Treatment Plan: ADL (Basic Care), Balance Training, IADL, UE Functional Training Goals Progress/Modifications: Time spent with patient and on floor reviewing data and documentin min Barriers to dismissal: Confidence, fatigability, neck pain Medical decision-making: I have reviewed the extensive radiographic studies over the weekend. She has not fallen again. Continues to require occasional oxygen but that is improving. She is able to tolerate therapy although easily fatigues. Progress is extremely slow. It is likely she will need 24-hour supervision ultimately. Reassess tomorrow. From a medical standpoint she is stable. Her hemoglobin is improved.
[2017-09-23] MEDS: HYDROCODONE/APAP 7.5 MG/325 MG TABLET PO PRN (12:09)
[2017-09-23] MEDS: MULTI-VIT + MINERAL (Opti-gen) TABLET PO SCH (12:10)
[2017-09-23] MEDS: MULTI-VITAMIN PLAIN TABLET PO SCH (12:10)
[2017-09-23] MEDS: ASCORBIC ACID 500 MG TABLET PO SCH (17:40)
[2017-09-23] MEDS: ALBUTEROL/IPRATROPIUM 2.5mg-0.5mg/3ml NEB AEROSOL SCH ×2 (17:55→19:22)
[2017-09-23] MEDS: SIMVASTATIN 40 MG TABLET PO SCH (20:22)
[2017-09-23] MEDS: DONEPEZIL 10 MG TABLET PO SCH (20:24)
[2017-09-23] MEDS: ENOXAPARIN 40 MG/0.4 ML INJECTION SQ SCH (20:28)
[2017-09-24] MEDS: PANTOPRAZOLE 20 MG TABLET PO SCH (07:15)
[2017-09-24] MEDS: ALBUTEROL/IPRATROPIUM 2.5mg-0.5mg/3ml NEB AEROSOL SCH ×2 (07:39→20:15)
[2017-09-24] MEDS: ACETAMINOPHEN 325 MG TABLET PO PRN (08:01)
[2017-09-24] MEDS: ASPIRIN *EC* 81 MG TABLET PO SCH (08:43)
[2017-09-24] MEDS: FUROSEMIDE 20 MG TABLET PO SCH (08:43)
[2017-09-24] MEDS: GUAIFENESIN 400MG TABLET PO SCH ×2 (08:43→22:03)
[2017-09-24] MEDS: SENNA + DOCUSATE TABLET PO SCH ×2 (08:44→22:02)
[2017-09-24] MEDS: BACLOFEN 10 MG TABLET PO SCH ×3 (08:44→22:03)
[2017-09-24] MEDS: FERROUS SULFATE 324 MG TABLET PO SCH (08:44)
[2017-09-24] MEDS: TRAMADOL 50 MG TABLET PO SCH ×3 (08:48→22:04)
[2017-09-24] MEDS: POLYETHYL GLYCOL 3350 17gm PACKET PO SCH (08:51)
--- NOTE | 2017-09-24 10:22 | IRU Progress Note ---
- Subjective/Serverity of Illness Date: 09/24/17 Ms. Rao was evaluated with her daughter present today. Patient reports that her neck discomfort is improved. She does feel as though the Aspercreme as well as direct massage is of benefit. In fact she states that at the present time the discomfort is improved. I discussed with her the importance of continuing gentle range of motion (rotational) movements in order to keep things loose. I also discussed with the patient and her daughter the results of the recent CT scan demonstrating degenerative changes and the fact that most of her discomfort is likely secondary to muscle spasm in the neck. She denies any shortness of breath. She states that she has had no nausea no vomiting and that her appetite is reasonable. Brief therapy update: Patient has plateaued in many areas. Continues to require maximum assistance for bed/chair/wheelchair transfers for physical therapy. Continues to requires maximum assistance of 1 person for ambulation and is still unsteady on her feet. Update on medical issues were actively monitoring and managing as follows: 1. Hip fracture repair. Pain is improved. Ambulation continues to be borderline with regard to safety awareness. 2. Acute on chronic hypoxemic respiratory failure. Remains on room air at the present time with adequate oxygenation (typically 90% or just over that). She does not wish to get back on oxygen at home she states. 3. Acute blood loss anemia. Hemoglobin recently stable. No evidence of ongoing blood loss. 4. Cervical spine pain with degenerative changes noted on plain film. Please see above discussion. Pain is improved. Exam Vital Signs: Temperature 97.9 F 09/24/17 07:00 Pulse Rate 71 09/24/17 07:00 Respiratory Rate 24 09/24/17 07:40 Blood Pressure 122/65 09/24/17 07:00 Pulse Oximetry 90 09/24/17 07:40 Height/Weight/BMI: Height 1.7 m Weight 61.4 kg Body Mass Index 21.2 - Constitutional Present: no acute distress, well nourished, well developed - Routine HEENT Exam Head: Present: normocephalic, atraumatic Eye: Present: EOMI ENT: Present: mucous membranes moist - Routine Neck Exam Absent: full ROM - Routine Respiratory Exam Present: decreased breath sounds, wheezes (occasional wheezing noted.) - Routine Cardiovascular Exam Present: RRR, S1, S2. Absent: murmur - Routine Abdominal Exam Present: soft, normoactive bowel sounds, non distended. Absent: tenderness - Routine Extremities Exam Present: edema - Routine Skin Exam Present: dry, warm - Routine Neurological Exam Present: alert, oriented X3, CN II-XII intact - Routine Psychiatric Exam Present: normal affect, depressed. Absent: good insight, good judgment IRU A/P (1) Status post-operative repair of closed fracture of right hip Current visit: Yes Status: Acute Pain control appears to be adequate regarding the hip. Unfortunately her ambulatory ability is borderline with regard to safety. Team meeting at 1:00 today with family present during which time we will discuss appropriate recommendations for placement. (2) Acute on chronic respiratory failure with hypoxemia Current visit: Yes Status: Acute Her oximetry is borderline at 90% or slightly greater on room air. She has used oxygen several months ago but has not for some time. She would prefer not to have this at home she states. I imagine she has chronic lung disease as well as the anemia which exacerbates her hypoxia. (3) Acute blood loss anemia Current visit: Yes Status: Acute (4) Cervical spine pain Current visit: Yes Status: Chronic (5) Dependent edema Current visit: Yes Status: Acute DVT Prophylaxis: Lovenox Resuscitation Status: Full Code - Course Hospital Course: Suleman Gao MD: 09/07/17 08:12 Getting started with therapy today. Complains of fatigue and tiredness. Hemoglobin has dropped to 7.9 g percent. 09/09/17 13:58 Hemoglobin dropped further to 6.9 g percent. She consents to transfusion. She has easy fatigability but no dyspnea. 09/10/17 10:44 Patient tolerated transfusion well. Improved strength noted. Improved saturations noted. Patient is fearful of falling resulting in increased pain when she has more fear. 09/12/17 09:42 Making small gains with PT and OT. Able to ambulate 9 feet now. Has pain in right hip but could take more pain pills. 09/13/17 10:56 Pain in neck is significant barrier to progress. Requires maximum assistance for ambulation of 8 feet. Making progress with OT. Local modalities will be instituted for the neck pain. 09/16/17 10:39 Continues to have bilateral edema right worse than left. We'll increase hydrocodone to every 4 hours as needed. Continue local modalities for neck pain. Reluctant to participate at times due to pain. We will assess albumin in regard to her edema. 09/17/17 10:01 Neck pain improved but continues to be a problem. Low albumin likely contributing to edema. Continues to require low flow oxygen at 1 L/m. Pain management improved in the right hip. Slow progress. 09/19/17 10:08 Confidence and motivation are low. She is making progress however. We will check zinc level due to bad taste and poor appetite. 09/20/17 11:21 Her progress is variable. Continue to deal with reduced motivation and confidence. Left neck pain continues to be a significant barrier. 09/23/17 11:05 Hemoglobin better at 9.4. Lower extremity edema noted and additional Lasix was ordered. Neck pain continues to be a limiting factor. Somewhat improved regarding her transfers but overall slow progress. 09/24/17 10:24 Patient starting to plateau with regard to therapies. Medically she is stable. - Interventions to Obtain Goals PT Treatment Plan: Balance/Proprioception, Functional Activities, Gait Training , Patient/Family Education, Therapeutic Exercise OT Treatment Plan: ADL (Basic Care), Balance Training, IADL, UE Functional Training Goals Progress/Modifications: Time spent with patient and on floor reviewing data and documentin min Barriers to dismissal: endurance, balance, safety with ambulation Medical decision-making: I reviewed her medical condition in detail. At the present time she does have some peripheral edema which is likely multifactorial and related to dependency as well as possible right heart failure secondary to chronic lung disease. The patient denies any dyspnea with activity. Her oxygen saturations are borderline but reasonable on room air. Her safety awareness is poor and her ambulatory ability is difficult and thus it is likely that she will need 24 hour supervision. Patient's is currently in the hospital as well. We have discussed this in detail with the patient and her family and we will also review at the team meeting with her today. Likely she will need long-term for the short-term.
--- NOTE | 2017-09-24 13:55 | IRU Team Meeting ---
IRU Team Meeting - Nursing Bladder Assistive Devices Utilized:: Absorbent Pad Bladder Management Level of Assist: Modified Independent Bladder Frequency of Accidents: No accidents Bowel Assistive Devices Utilized:: Medication Bowel Management Level of Assist: Total Assistance Bowel Frequency of Accidents: No accidents Number of Bowel Accidents: 1 Vital Signs: Vital Signs - 24 hr 09/23/17 15:00 09/23/17 19:22 09/23/17 19:51 Temperature 97.4 F 98.0 F Pulse Rate 71 81 Respiratory Rate 20 18 16 Blood Pressure 127/64 119/55 Pulse Oximetry 92 91 94 09/24/17 07:00 09/24/17 07:40 Temperature 97.9 F Pulse Rate 71 Respiratory Rate 22 24 Blood Pressure 122/65 Pulse Oximetry 90 90 Current Medications: Acetaminophen (Tylenol) 650 mg PO Q4H PRN PRN Reason: Pain Last Admin: 09/24/17 08:01 Dose: 650 mg Hydrocodone Bitart/Acetaminophen ([place] 7.5/325) 1 - 2 tab PO Q4H PRN PRN Reason: Pain Last Admin: 09/23/17 12:09 Dose: 1 tab Al Hydroxide/Mg Hydroxide (Maalox Plus) 30 ml PO Q4H PRN PRN Reason: Indigestion Last Admin: 09/21/17 16:53 Dose: 30 ml Albuterol/Ipratropium (Duoneb) 3 ml AEROSOL RTTID PRN PRN Reason: Shortness of air/wheezing Albuterol/Ipratropium (Duoneb) 3 ml AEROSOL BID [facility] Last Admin: 09/24/17 07:39 Dose: 3 ml Ascorbic Acid (Vitamin C) [address] [facility] Last Admin: 09/23/17 17:40 Dose: 500 mg Aspirin (Ecotrin) 81 mg PO DAILY [facility] Last Admin: 09/24/17 08:43 Dose: 81 mg Baclofen (Lioresal) 5 mg PO TID [facility] Last Admin: 09/24/17 08:44 Dose: 5 mg Bisacodyl (Dulcolax) 10 mg RECTALLY DAILY PRN PRN Reason: Constipation Donepezil HCl (Aricept) 10 mg PO [facility] Last Admin: 09/23/17 20:24 Dose: 10 mg Enoxaparin Sodium (Lovenox) 40 mg SQ Q24H [facility] Last Admin: 09/23/17 20:28 Dose: 40 mg Ferrous Sulfate (Feosol) 324 mg PO [facility] Last Admin: 09/24/17 08:44 Dose: 324 mg Furosemide (Lasix) 20 mg PO DAILY [facility] Last Admin: 09/24/17 08:43 Dose: 20 mg Guaifenesin (Mucinex) 400 mg PO BID [facility] Last Admin: 09/24/17 08:43 Dose: 400 mg Magnesium Hydroxide (Mom) 30 ml PO DAILY PRN PRN Reason: Constipation Metoprolol Succinate (Toprol Xl) 25 mg PO DAILY [facility] Last Admin: 09/24/17 08:44 Dose: 25 mg Multivitamins (Theragran) 1 tab PO [facility] Last Admin: 09/23/17 12:10 Dose: 1 tab Multivitamins/Minerals (Vision) 1 tab PO [facility] Last Admin: 09/23/17 12:10 Dose: 1 tab Ondansetron HCl (Zofran Po) 4 mg PO Q6H PRN PRN Reason: Nausea &/or vomiting Last Admin: 09/17/17 10:59 Dose: 4 mg Pantoprazole Sodium (Protonix) 20 mg PO ACB [facility] Last Admin: 09/24/17 07:15 Dose: 20 mg Polyethylene Glycol (Miralax) 17 gm PO DAILY [facility] Last Admin: 09/24/17 08:51 Dose: 17 gm Potassium Chloride (K-Dur 20 Meq Tablet) 20 meq PO [facility] Last Admin: 09/24/17 08:44 Dose: 20 meq Senna/Docusate Sodium (Senna Plus Tablet) 1 tab PO BID [facility] Last Admin: 09/24/17 08:44 Dose: Not Given Simvastatin (Zocor) 40 mg PO HS [facility] Last Admin: 09/23/17 20:22 Dose: 40 mg Sodium Chloride (Normal Saline) 500 ml IV PRN PRN Last Admin: 09/14/17 16:03 Dose: 500 ml Sodium Chloride (Iv Flush) 10 ml IV PRN PRN PRN Reason: Flushing Last Admin: 09/14/17 20:56 Dose: 10 ml Tramadol HCl (Ultram) 50 mg PO TID [facility] Last Admin: 09/24/17 08:48 Dose: 50 mg Trolamine Salicylate (Aspercreme) 1 applic TOP PRN PRN PRN Reason: Pain Last Admin: 09/23/17 20:21 Dose: 1 applic Current Medical Issues: Borderline hypoxia/respiratory failure, acute blood loss anemia, neck pain Comments: I certify that I personally led the interdisciplinary team meeting and agree with comments, barriers and goals indicated. Team meeting was held in the patient's room with the patient and the following family members present: Three daughters Ms. Rao continues to work hard although does require assistance with several activities. She is able to get by with room air with only occasional drops in her saturations. She would prefer not to use supplemental oxygen. Does have a cough but denies dyspnea. Denies chest pain. Continues to struggle with neck pain. - Dietary She is seen by the dietitian. She is receiving and Ensure 3 times daily. Continues to complain of anorexia and taste alteration. Sink level obtained and is normal. - Physical Therapy Bed, Chair, Wheelchair Transfer Assist: Maximal Assistance, 1 Person Assist Ambulation Ability: Total Assistance, 1 Person Assist Ambulation Distance: 30 Wheelchair Propulsion Ability: Patient Refuses Wheelchair Propulsion Distance: 115 Stair Climbing Ability: Patient Refuses Number of Steps Climbed: 1 Car Transfer Ability: Moderate Assistance Comments: Unfortunately while the patient has worked hard, she is not able to demonstrate consistent progress toward goals. She has need for increased assistance and decreased ambulatory distance ability. She has easy fatigability. Recommend continuing therapy at lower level of intensity. - Occupational Therapy Eating Ability: Independent Grooming Ability: Stand By Assist/Supervision Bathing Ability: Minimal Assistance Upper Body Dressing Ability: Stand By Assist/Supervision Lower Body Dressing Ability: Maximal Assistance Tub Transfer Assist: Patient Unsafe/Unable Toileting Assist: Total Assistance Toilet Transfer Assist: Maximal Assistance, 1 Person Assist Comments: Patient is participating with occupational therapy but requires an extended amount of time particular for her morning treatments. She is not progressing well with ADLs or functional transfers being limited by fatigue and pain. Recommend continued therapy at a lower level of intensity. - Goals Physical Therapy Goals: 09/12/17 Goals: 1.) 50 feet supervision with amb - not met, continue. 2.) supervision with transfers - partially met, continue. Goals: 1.) Car transfer with supervision - not met, declined to participate. 2.) 1 step with supervision - not met. 09/24/17 Goals: Progress towards previous goals. Occupational Therapy Goals: OT goals 09/12/17, 09/19/17, 09/24/17. 1.) Toileting w / mod I -continue (min-max depending on fatigue/pain levels). 2.) LB dressing w / set-up assist - continue (min assist). 3.) standing at sink for 5 min during personal hygiene and grooming tasks- goal met. - Barriers to Discharge Barriers to Attaining Goals: Endurance, Pain Control, Other (fatigue and motivation) - Care Plan Anticipated Length of Stay (days): 1 Anticipated DC Destination: Shelter/Facility I have led this team conference and agree with the plan. Interventions/Goals: Because the patient's need for 24-hour supervision and continued therapy although at a lower level, recommendation is made for detention transfer.
--- NOTE | 2017-09-24 14:18 | Extended Care Facility Orders ---
Admission Orders Admit to:: [facility] Allergies/Adverse Reactions: Allergies Penicillins Allergy (Unknown, Verified 09/05/17 03:13) Admitting Diagnosis: Right hip fracture Admitting Physician: Suleman Gao MD Attending Physician: Suleman Gao MD Code Status: Full Code Anticiapted Length of Stay: 30 days or less Rehab Potential: good Rehab Prognosis: good Diet: 09/06/17 Breakfast Regular Diet [DIET] Diet Modifications: 09/06/17 Dinner Regular Diet [DIET] Diet Modifications: Wound/Incision Care: Change dressing as needed (right hip) May use Facility Protocol or Standing Orders: Yes May have flu vaccine: Yes Evaluations/Treatment: PT, OT [facility] Certification: I certify that SNF services are required to be given on an Inpatient basis because of the patients need for shelter care on a continuing basis for the condition(s) for which he/she received inpatient hospital services prior to his/her transfer to the SNF. SNF inpatient care is necessary for the following reasons: Acute on chronic hypoxemic respiratory failure, acute blood loss anemia , cervical spine DJD with pain, recent hip fracture which has been repaired requiring pain monitoring and management. Indication for [facility]: Wound Care/Assessment, Teach COPD Management - Additional Information In Event of Arrest: Start CPR,call 911,send patient to the ER Resident is Aware of Diagnosis: Yes Referrals: Marielle Pacheco APRN [Family Provider] - Nasim García MD [Physician] - (f/u with Dr. García 1-2 wks after discharge.) Additional Orders: 1. Please provide regular diet plus supplements. She has been receiving Ensure Clear 3 times a day on rehabilitation. 2. Monitor oxygen saturations to maintain saturation 90% or greater. 3. Please obtain CBC with differential on or about September [address] Mark
--- NOTE | 2017-09-24 14:50 | Discharge Summary ---
Discharge Information Date of admission: 09/06/17 16:50 Anticipated date of discharge: 09/25/17 Attending Physician: Suleman Gao MD Primary care physician: Marielle Pacheco APRN Consults: 09/07/17 10:20 Physician Consult [CONS] Routine Consulting Provider: Fletcher Egan Reason For Exam: medical management Ordering Provider has Notified State Game Protector: No 09/18/17 06:19 Dietary Consult [CONS] Routine Comment: Reason For Exam: protein calorie malnutrition 09/24/17 11:04 Doctor [Physician Consult] [CONS] Routine Consulting Provider: Chuck Lowe Reason For Exam: review for skilled placement Ordering Provider has Notified State Game Protector: Yes 09/24/17 11:05 Doctor [Physician Consult] [CONS] [facility]ine [facility] Reason For Exam: review for skilled Ordering Provider has Notified State Game Protector: Yes 09/24/17 13:59 Doctor [Physician Consult] [CONS] Routine Consulting Provider: Lydia Ravi Reason For Exam: REVIEW FOR SKILLED. Ordering Provider has Notified State Game Protector: Yes - Discharge Diagnosis (1) Status post-operative repair of closed fracture of right hip Status: Acute (2) Acute on chronic respiratory failure with hypoxemia Status: Acute (3) Acute blood loss anemia Status: Acute (4) Cervical spine pain Status: Chronic (5) Dependent edema Status: Acute 1. Status post operative repair of closed fracture of right hip 2. Acute on chronic hypoxemic respiratory failure 3. Acute blood loss anemia requiring transfusion 4. 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 Rao is a pleasant 87-year-old female who unfortunately tripped over her walker in her own bathroom on 09/04/2017. She was brought to the emergency department and found to have an intertrochanteric right hip fracture. She was admitted to the hospital at [facility] and taken to surgery by Dr. García on 09/05/2017 for an intramedullary nail placement in the right hip. She tolerated the procedure well although postoperatively did have oxygen saturations in the 80s requiring supplemental oxygen. In addition, her initial hemoglobin was 11.8 which subsequently dropped as will be discussed later. She had multiple functional deficits and it was felt best that she would benefit from a multidisciplinary approach to her recovery on acute inpatient rehabilitation. She was admitted to acute inpatient rehabilitation on 2017. Hospital Course This is a general summary of the patient's hospital course. For more details refer to the complete medical record. Ms. Rao was admitted to acute inpatient rehabilitation. From a medical standpoint she continued to require supplemental oxygen intermittently for the first several days of the hospitalization. However for the last 3-4 days of her stay on acute inpatient rehabilitation she did not require supplemental oxygen. She has transient episodes of dropping into the 80s but these are rare. The patient did require blood transfusion (a single unit of packed red blood cells) on 09/09/2017 for hemoglobin of 6.9. Most recent hemoglobin prior to dismissal is 9.4 on 09/14/2017. She did complain of left neck pain which predated her admission. It started in June or so. Plain film of the cervical spine revealed degenerative changes only. Pain worsened and a CT scan of the cervical spine was obtained demonstrating only degenerative changes only and no more ominous findings. CT head was also done which was negative. The patient was seen by occupational therapy. The following functional gains were noted: Eating was independent upon admission and dismissal. Grooming was by contact-guard assistance initially and ultimately by standby assistance. Bathing ability was initially maximum assistance and ultimately minimum assistance. She performed upper body dressing with minimum assistance initially and standby assistance ultimately. Lower body dressing was initially total assistance and ultimately maximum assistance. Toileting assistance was initially total assistance and ultimately contact-guard assistance. Toilet transfer assistance was initially maximum assistance and ultimately minimum assistance. Bed/chair/wheelchair transfers were initially performed with maximum assistance and ultimately with minimum assistance. Physical therapy also saw the patient with the following functional gains noted : Bed/chair/wheelchair transfers were initially total assistance of 2 or more people and ultimately were able to be performed with maximum assistance. Toileting assistance was total assistance upon admission and dismissal. Toilet transfer assistance was initially maximum assistance and ultimately contact- guard assistance. She was unsafe to perform car transfers initially but ultimately could perform them with moderate assistance. Ambulatory ability was initially 2 feet with total assistance with a front-wheeled walker. Also only she could ambulate 50 feet with maximum assistance of 1 with a front-wheeled walker. She was unsafe to try stairs initially and ultimately required moderate assistance. Unfortunately she was not able to progress beyond this point and it was felt unsafe for her to be at home. Primary concern is that of ambulation and requirement for assistance with ambulation even with a front-wheeled walker. We feel as though she would benefit from continued physical therapy and occupational therapy but at a lower level of intensity such as nursing home. She also requires nursing home to monitor her oxygen saturations, pain management for the neck in the right hip and to monitor her hemoglobin for the acute blood loss anemia. She is transferred to skilled care at [facility] on 09/25/2017. Recommendations for follow-up CBC are for 09/30/2017 with results to the facility physician . Hospital course: Assessment Right hip ORIF on 09/05/[address] 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 Not on O2 at home but history of needing O2 at discharge. HTN GERD Plan-hospital consultation 09/07/17 Agree with admission to [facility] rehabilitation unit for further strengthening. Dr. Gao to manage pain and therapies. Start bladder training. Discussed patient's abilities with therapy. Therapy believes it would be beneficial for patient to get up and down to the bedside commode. Hope to ANGELICA Olivera by this evening or in the a.m. Follow hemoglobin closely. Patient is currently 7.9 and is asymptomatic. Repeat CBC in a.m. Wean oxygen as able. Patient has not been on home oxygen in the past. BMP in a.m. to monitor electrolytes. Care to be returned to patient's PCP, Marielle Pacheco APRN, on dismissal. Hospitalist service appreciates the consult for ongoing medical management of patient's chronic problems and will follow along with you throughout her stay. Plan - 09/08/17 Magnolia complains of feeling achy today due to increased exercise and activity. Continue to encourage therapies per Dr. Gao as well as pain control. Hemoglobin continues to trend down at 7.0. Discussed risks/benefits of blood transfusion with patient and . Patient denies symptoms with anemia and refused blood transfusion at this time. Will recheck CBC in AM and readdress issue of possible transfusion if indicated. Patient down to 1L NC and breathing easily. Continue to wean oxygen. Discussed importance of and technique for incentive spirometry for pulmonary toileting. Continue to monitor patient closely. Plan - 09/09/17 Type and cross for 1 unit PRBC; hgb decreased to 6.9 and exercise tolerance has declined. On admission to the surgical unit her hgb was 13. She's also had some borderline low bp's. Magnolia's daughter inquires if we have a policy for family blood donation. Per blood bank, [facility] is not set up, but the family can go through the [employer] [facility] for direct donation. Start ferrous sulfate + vitamin C. Consider IV iron infusion for iron level of 16. DC Jarod. Continue weaning oxygen as able. Plan - 09/11/17 Magnolia continues to have significantly pain with movement to her right hip. Episode of vomiting during therapy due to increased pain. Continue therapies and pain control per Dr. Gao. Continue to encourage participation in therapies to strengthening and improve functional abilities. Transfusion x 1 unit on 09/09/17 with improvement of hemoglobin to 9.6. Iron low at 16. Extensive review of prior medical records and current medical chart as well as discussion with pharmacy indicated no IV iron previously given. Will consult pharmacy for iron supplementation IV. Will recheck CBC and BMP in AM to monitor blood counts, electrolytes and renal function. Patient weaned to room air. Continue to monitor respiratory function and encourage incentive spirometry for pulmonary toileting. Warm pack to left neck as needed for chronic pain. Plan - 09/11/17 Magnolai appears more fatigued today, though exam conducted during therapy. She reports her pain is improved and is seen actively transferring with walker without obvious discomfort. Continue therapies and pain control per Dr. Gao. Continue to encourage participation in therapies to strengthening and improve functional abilities. Hemoglobin 8.5 on 09/12. Transfusion x 1 unit blood on 09/09/17 with improvement of hemoglobin to 9.6. Iron low at 16. IV iron initiated 09/11/17 with pharmacy to manage. Continue to monitor hemoglobin trends. Patient requiring 2L NC oxygen on exam, previously weaned to room air. 2+ pedal edema noted. Will given additional lasix 20mg po now and recheck CXR. Monitor daily weights closely for signs of fluid retention. Continue to monitor respiratory function and encourage incentive spirometry for pulmonary toileting. Wean oxygen as able. Warm pack to left neck as needed for chronic pain. Recheck CBC and BMP on 09/16 to monitor blood counts, electrolytes and renal function. Plan - 09/18/17 Magnolia is seen first thing this morning and awakens easily. Nursing reports that she continues to have some issues with pain control to her right hip. Therapy reports that she fatigues easily, limiting her progress. Continue therapies and pain control per Dr. Gao. Continue to encourage participation in therapies to strengthening and improve functional abilities. Hemoglobin trending up at 9.6 on 09/16/17. Transfusion x 1 unit blood on . Iron low at 16. IV iron initiated 09/11/17 with pharmacy to manage. Continue to monitor hemoglobin trends. Patient requiring 2L NC oxygen on exam. 2-3+ pedal edema noted. Daily weights trending down. CXR on 09/13 showed no acute cardiopulmonary abnormalities. Continue to try and wean oxygen. Continue to monitor respiratory function and encourage incentive spirometry for pulmonary toileting. Wean oxygen as able. Warm pack to left neck as needed for chronic pain. Albumin low at 2.6. Will consult dietary for evaluation and recommendations for protein calorie malnutrition. Plan - 09/21/17 Persistent neck pain/GAY- recurrent falls prior to this admission Abnormal c-spine films- obtain CT of head and c-spine. Add low dose baclofen to help with spasms. Right elbow pain reported by RN- obtain xray. Edema- add additional single dose of Lasix. HGB stable. repeat labs in AM. Increase tramadol to TID due to persistent pain. Continues to require low dose O2. May need O2 when dismissed. Consider overnoc oximetry prior to dismissal. Continue PT/OT per primary team. Time spent with patient: greater than 35 minutes Resuscitation Status: Full Code Discharge Plan - Med Rec/Dispo Referrals/Follow Up: Madalyn Soto DO [Physician] - (f/u with PCP 1-2 weeks after discharge from SNU. ) Marielle Pacheco APRN [Family Provider] - Nasim García MD [Physician] - (f/u with Dr. García 1-2 wks after discharge from SNU.) Charley Instructions: [facility] [place] General Instructions Prescriptions: Continue Tramadol [Ultram] 50 mg PO BID #30 tab No Action Multi-Vitamin Plain [Theragran] 1 tab PO DAILY Metoprolol Succinate 25 mg PO DAILY Potassium Chloride [K-DUR 20 mEq Tablet] 20 meq PO DAILY Furosemide [Lasix] 20 mg PO DAILY Donepezil HCl [Aricept] 10 mg PO HS Aspirin [Adult Low Dose Aspirin EC] 81 mg PO DAILY Vits A,C,E/Lutein/Minerals [Ocuvite with Lutein Tablet] 1 tab PO DAILY Simvastatin [Zocor] 40 mg PO HS Albuterol/Ipratropium [Duoneb] 3 ml AEROSOL RTTID PRN PRN Reason: Shortness Of Air/Wheezing - Disposition 03 To SNU Not [facility] ([facility])
--- NOTE | 2017-09-24 14:54 | Letter to Referring Physician ---
Dear Dr. Mark, This is a brief note to bring you up-to-date on the status of Magnolia Rao and her stay on the acute inpatient rehabilitation unit at [facility]. Her primary care provider is Dr. Madalyn Soto at [facility] in [place]. At the present time she is being transferred from acute inpatient rehabilitation at [facility] to [facility] and it is our understanding that you are the facility physician. For that reason I am writing this letter and sending you records. Unfortunately, she fell at home on a walker on 09/04/2017. This resulted in a right hip fracture which was repaired by Dr. García on 09/05/2017. Postoperatively she did have some acute blood loss anemia with hemoglobin initially 11.8 dropping to 6.9 on 09/09/2017 and requiring 1 unit of packed red blood cells. Most recent hemoglobin is 9.4 on 09/22/2017. She also experienced acute on chronic hypoxemic respiratory failure requiring supplemental oxygen. That requirement has improved and she is on room air at the present time. The patient was stabilized while on the acute level and admitted to inpatient rehabilitation unit at [facility] on August. While on inpatient rehabilitation, this patient was seen by occupational therapy and physical therapy and improved overall in their functional ability. We also monitored and managed the patient's acute blood loss anemia and hypoxemic respiratory failure while on Acute Rehab. Please see a copy of the history and physical examination as well as discharge summary enclosed with this letter for further details. We do recommend that the patient obtain a CBC and diff in about 6 days after dismissal. We have arranged this at the time of the Acute Rehab stay to be drawn at [facility] with results to you. Thank you for allowing us to be involved in this nice patient's care. Please contact me directly should you have any questions regarding their stay on the inpatient rehabilitation unit. Sincerely, Suleman Gao M.D.
--- NOTE | 2017-09-24 15:27 | Progress Note ---
Progress Note: I was called in to the gymnasium area by Biju. Patient was working with him but not seemed to be "tracking right." She seemed to be a bit more confused than normal. He had to physically pick her up and place her in a wheelchair. She was NOT poorly responsive but simply could not answer questions appropriately. When I arrived she was awake and alert. Her oxygen saturation was 84% on room air. We took her back to her room and placed her back on oxygen at which time saturations came up into the 94% range. She is in no distress with the exception of the fact that her right ribs hurt from being picked up she states. She is awake, alert and oriented at the present time. She knows this is August. She knows exactly where she is and what is going on. I did a brief neurologic exam and she has good strength bilaterally in the upper extremities. There is no facial droop and her speech is fluent. Daughter is present in the room and we discussed this. My assessment is that this is related to hypoxemia and we will continue the use of oxygen at present. I will contact the hospitalist service to advise them of this as well.
[2017-09-24] MEDS: MULTI-VIT + MINERAL (Opti-gen) TABLET PO SCH (16:25)
[2017-09-24] MEDS: MULTI-VITAMIN PLAIN TABLET PO SCH (16:26)
[2017-09-24] MEDS: ASCORBIC ACID 500 MG TABLET PO SCH (18:11)
--- NOTE | 2017-09-24 18:39 | Progress Note ---
- Date 09/24/17 Subjective: A brief episode of confusion was described earlier today by the patient's physical therapist. They indicated that the patient wasn't tracking well while in therapy and was found to be hypoxic with an oxygen saturation in the mid 80s on room air. Patient was subsequently seen in the dining room with her daughter in attendance. She was on supplemental oxygen and denied dyspnea but reports that she often coughs. Edema in her legs is new during the hospitalization by the patient and her daughter's report. She complains that the bottom of her right foot feels numb and that she has ongoing nausea with poor appetite but no vomiting in the bowel movements have been regular last couple of days. She reports some pain in her right hip/leg. Objective Vital signs: Temperature 97.6 F 09/24/17 15:00 Pulse Rate 76 09/24/17 15:00 Respiratory Rate 22 09/24/17 15:00 Blood Pressure 139/73 09/24/17 15:00 Pulse Oximetry 95 -2 L 09/24/17 15:00 NAD, alert, speech soft but fluent Respirations nonlabored but patient coughs frequently with inspiration, clear sputum produced; breath sounds are diminished and slightly coarse bilaterally Regular cardiac rhythm, +2 bilateral lower extremity edema with pitting Abdomen soft, nontender, diminished bowel sounds Sensation intact to touch bilateral lower extremities with symmetric recognition of touch on the dorsal and plantar surfaces of both feet, plantar flexes and dorsiflex his feet symmetrically. Facial structure symmetric, EOMI Patient describes tender area on palpation of the medial plantar surface right midfoot although this is not consistently reproduced Height/Weight/BMI: Height 1.7 m Weight 61.4 kg Body Mass Index 21.2 Results - Labs CBC & Chem 7: 09/22/17 04:10 09/22/17 04:10 Assessment and Plan (1) Intertrochanteric fracture of right hip Current visit: No Status: Resolved (2) Status post-operative repair of closed fracture of right hip Current visit: Yes Status: Acute (3) Acute on chronic respiratory failure with hypoxemia Current visit: Yes Status: Acute (4) Acute blood loss anemia Current visit: Yes Status: Acute (5) Cervical spine pain Current visit: Yes Status: Chronic Assessment and Plan: Assessment Right hip ORIF on 09/05/[address] García Mild chronic anemia, in addition to acute blood loss anemia related to surgery and MIESHA COPD w/ hypoxia - improved w/ O2. Not on O2 at home but history of needing O2 at discharge. HTN GERD Persistent neck pain and headache Recurrent falls. Peripheral edema. Right elbow pain Plan - Review of records indicates patient has been on oxygen most of hospitalization although on and off O2 the past couple of days. Portable chest x-ray to be obtained tonight to exclude CHF, clearly edematous which is new since admission per patient/daughter. Albumin low at 2.5-5 days ago is likely a factor in edema but patient may require diuresis. Weight is stable compared to admission with fracture in early August. Will require supplemental oxygen at discharge which is tentatively planned tomorrow [address] [place]. Localized foot pain but no evidence of neurological deficits-CT of the head obtained 3 days ago demonstrated only age-appropriate volume loss and small vessel ischemic changes but no acute process. C-spine CT obtained 3 days ago demonstrated significant degenerative spondylosis with multilevel neuroforaminal narrowing but no significant spinal stenosis-neck disease likely contributes to patient's chronic headaches and neck pain. Reassess labs in a.m. for stability/change. Discussed with Dr. Gao. DVT Prophylaxis: Lovenox Resuscitation Status: Full Code - Physician Narrative Narrative: Date: 09/24/17 Time: 1835 Hospital Course Summary Disclaimer: The visit summary below is not to be considered part of the above Progress Note. Hospital Course: Assessment Right hip ORIF on 09/05/[address] 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 Not on O2 at home but history of needing O2 at discharge. HTN GERD Plan-hospital consultation 09/07/17 Agree with admission to [facility] rehabilitation unit for further strengthening. Dr. Gao to manage pain and therapies. Start bladder training. Discussed patient's abilities with therapy. Therapy believes it would be beneficial for patient to get up and down to the bedside commode. Hope to DC Olivera by this evening or in the a.m. Follow hemoglobin closely. Patient is currently 7.9 and is asymptomatic. Repeat CBC in a.m. Wean oxygen as able. Patient has not been on home oxygen in the past. BMP in a.m. to monitor electrolytes. Care to be returned to patient's PCP, Marielle Pacheco APRN, on dismissal. Hospitalist service appreciates the consult for ongoing medical management of patient's chronic problems and will follow along with you throughout her stay. Plan - 09/08/17 Magnolia complains of feeling achy today due to increased exercise and activity. Continue to encourage therapies per Dr. Gao as well as pain control. Hemoglobin continues to trend down at 7.0. Discussed risks/benefits of blood transfusion with patient and . Patient denies symptoms with anemia and refused blood transfusion at this time. Will recheck CBC in AM and readdress issue of possible transfusion if indicated. Patient down to 1L NC and breathing easily. Continue to wean oxygen. Discussed importance of and technique for incentive spirometry for pulmonary toileting. Continue to monitor patient closely. Plan - 09/09/17 Type and cross for 1 unit PRBC; hgb decreased to 6.9 and exercise tolerance has declined. On admission to the surgical unit her hgb was 13. She's also had some borderline low bp's. Magnolia's daughter inquires if we have a policy for family blood donation. Per blood bank, [facility] is not set up, but the family can go through the [place] for direct donation. Start ferrous sulfate + vitamin C. Consider IV iron infusion for iron level of 16. ANGELICA Olivera. Continue weaning oxygen as able. Plan - 09/11/17 Magnolia continues to have significantly pain with movement to her right hip. Episode of vomiting during therapy due to increased pain. Continue therapies and pain control per Dr. Gao. Continue to encourage participation in therapies to strengthening and improve functional abilities. Transfusion x 1 unit on 09/09/17 with improvement of hemoglobin to 9.6. Iron low at 16. Extensive review of prior medical records and current medical chart as well as discussion with pharmacy indicated no IV iron previously given. Will consult pharmacy for iron supplementation IV. Will recheck CBC and BMP in AM to monitor blood counts, electrolytes and renal function. Patient weaned to room air. Continue to monitor respiratory function and encourage incentive spirometry for pulmonary toileting. Warm pack to left neck as needed for chronic pain. Plan - 09/11/17 Magnolia appears more fatigued today, though exam conducted during therapy. She reports her pain is improved and is seen actively transferring with walker without obvious discomfort. Continue therapies and pain control per Dr. Gao. Continue to encourage participation in therapies to strengthening and improve functional abilities. Hemoglobin 8.5 on 09/12. Transfusion x 1 unit blood on 09/09/17 with improvement of hemoglobin to 9.6. Iron low at 16. IV iron initiated 09/11/17 with pharmacy to manage. Continue to monitor hemoglobin trends. Patient requiring 2L NC oxygen on exam, previously weaned to room air. 2+ pedal edema noted. Will given additional lasix 20mg po now and recheck CXR. Monitor daily weights closely for signs of fluid retention. Continue to monitor respiratory function and encourage incentive spirometry for pulmonary toileting. Wean oxygen as able. Warm pack to left neck as needed for chronic pain. Recheck CBC and BMP on 09/16 to monitor blood counts, electrolytes and renal function. Plan - 09/18/17 Magnolia is seen first thing this morning and awakens easily. Nursing reports that she continues to have some issues with pain control to her right hip. Therapy reports that she fatigues easily, limiting her progress. Continue therapies and pain control per Dr. Gao. Continue to encourage participation in therapies to strengthening and improve functional abilities. Hemoglobin trending up at 9.6 on 09/16/17. Transfusion x 1 unit blood on . Iron low at 16. IV iron initiated 09/11/17 with pharmacy to manage. Continue to monitor hemoglobin trends. Patient requiring 2L NC oxygen on exam. 2-3+ pedal edema noted. Daily weights trending down. CXR on 09/13 showed no acute cardiopulmonary abnormalities. Continue to try and wean oxygen. Continue to monitor respiratory function and encourage incentive spirometry for pulmonary toileting. Wean oxygen as able. Warm pack to left neck as needed for chronic pain. Albumin low at 2.6. Will consult dietary for evaluation and recommendations for protein calorie malnutrition. Plan - 09/21/17 Persistent neck pain/GAY- recurrent falls prior to this admission Abnormal c-spine films- obtain CT of head and c-spine. Add low dose baclofen to help with spasms. Right elbow pain reported by RN- obtain xray. Edema- add additional single dose of Lasix. HGB stable. repeat labs in AM. Increase tramadol to TID due to persistent pain. Continues to require low dose O2. May need O2 when dismissed. Consider overnoc oximetry prior to dismissal. Continue PT/OT per primary team.
[2017-09-24] MEDS: HYDROCODONE/APAP 7.5 MG/325 MG TABLET PO PRN (22:02)
[2017-09-24] MEDS: ENOXAPARIN 40 MG/0.4 ML INJECTION SQ SCH (22:03)
[2017-09-24] MEDS: SIMVASTATIN 40 MG TABLET PO SCH (22:03)
[2017-09-24] MEDS: DONEPEZIL 10 MG TABLET PO SCH (22:03)
[2017-09-25] MEDS: PANTOPRAZOLE 20 MG TABLET PO SCH (05:50)
[2017-09-25] MEDS: HYDROCODONE/APAP 7.5 MG/325 MG TABLET PO PRN (05:50)
--- NOTE | 2017-09-25 08:45 | XRay Report ---
Indication: hypoxia PROCEDURE: XR chest 1V: Encounter: Initial Comparison: September 13, 2017 Findings: Nodular opacities in the right midlung, the largest measuring 2 cm in size partially obscured by overlapping tubing. Emphysema. No pneumothorax. Heart size and mediastinal contours are stable. Pulmonary vascularity is unchanged. Impression: Possible nodules versus nodular infiltrates in the right midlung. Recommend a chest CT for further evaluation. .
[2017-09-25 09:08] VITALS: BP 128/54; PULSE 69; TEMP 98.2
[2017-09-25] MEDS: GUAIFENESIN 400MG TABLET PO SCH (09:11)
[2017-09-25] MEDS: BACLOFEN 10 MG TABLET PO SCH ×2 (09:11→15:00)
[2017-09-25] MEDS: FUROSEMIDE 20 MG TABLET PO SCH (09:12)
[2017-09-25] MEDS: ASPIRIN *EC* 81 MG TABLET PO SCH (09:12)
[2017-09-25] MEDS: FERROUS SULFATE 324 MG TABLET PO SCH (09:12)
[2017-09-25] MEDS: TRAMADOL 50 MG TABLET PO SCH ×2 (09:13→15:00)
[2017-09-25] MEDS: SENNA + DOCUSATE TABLET PO SCH (09:13)
[2017-09-25] MEDS: POLYETHYL GLYCOL 3350 17gm PACKET PO SCH (09:13)
[2017-09-25] MEDS ORDERED: FUROSEMIDE 20 MG TABLET PO ONE (10:02)
[2017-09-25] MEDS: ALBUTEROL/IPRATROPIUM 2.5mg-0.5mg/3ml NEB AEROSOL SCH (10:45)
[2017-09-25 10:47] VITALS: RESP 18; O2SAT 96
[2017-09-25] MEDS: MULTI-VIT + MINERAL (Opti-gen) TABLET PO SCH (11:39)
[2017-09-25] MEDS: MULTI-VITAMIN PLAIN TABLET PO SCH (11:39)
== END 2017-09-25 16:18 | DRG 559 ==
PROVIDERS: ADMIT Internal Medicine; ATTEND Internal Medicine